=== PATIENT | male | born 1975 ===

== ENCOUNTER → 2020-01-08 14:22 | Outpatient (BNVA) | payer OTHER, SELFPAY | PROVIDERS: PCP Nurse Practitioner Family; Referring Provider Nurse Practitioner Family; Visit Provider Student in an Organized Health Care Education/Training Program | DX: Z76.89 Persons encountering health services in other specified circumstances (principal) ==

== ENCOUNTER 2020-01-10 11:38 | Outpatient (REF) | payer OTHER, SELFPAY | END 2020-01-10 11:39 | disposition home or self-care (01) | LOC: HO.LAB 11:38 | PROVIDERS: PCP Nurse Practitioner Family; Visit Provider Internal Medicine | DX: Z20.828 Contact with and (suspected) exposure to other viral communicable diseases (principal) | CPT/HCPCS: 87635 ==

== ENCOUNTER 2020-01-11 07:55 | Outpatient (REF) | payer OTHER, SELFPAY ==
[2020-01-11 09:35] LABS: Blood Urea Nitrogen 14 mg/dL (9-16); Estimated Glomerular Filt Rate > 60
== END 2020-01-11 07:56 | disposition home or self-care (01) ==
LOC: HO.LAB 07:55
PROVIDERS: PCP Nurse Practitioner Family; Visit Provider Student in an Organized Health Care Education/Training Program
DX: M79.641 Pain in right hand (principal)
CPT/HCPCS: 82565; 84520

== ENCOUNTER 2020-01-18 08:47 | Outpatient (REF) | payer OTHER, SELFPAY | END 2020-01-18 08:48 | disposition home or self-care (01) | LOC: HO.LAB 08:47 | PROVIDERS: Visit Provider Internal Medicine | DX: Z20.828 Contact with and (suspected) exposure to other viral communicable diseases (principal); E11.9 Type 2 diabetes mellitus without complications; E78.5 Hyperlipidemia, unspecified; E66.01 Morbid (severe) obesity due to excess calories; Z68.37 Body mass index [BMI] 37.0-37.9, adult; I10 Essential (primary) hypertension; Z71.3 Dietary counseling and surveillance | CPT/HCPCS: U0003 ==

== ENCOUNTER 2020-01-22 08:51 | Outpatient (REF) | payer OTHER, SELFPAY ==
[2020-01-22 10:06] LABS: Estimated Average Glucose 169 mg/dL; Hemoglobin A1c % 7.5 %
[2020-01-22 10:20] LABS: Alanine Aminotransferase 32 U/L (0-40); Albumin Level 4.2 g/dL (3.5-5.0); Alkaline Phosphatase 62 U/L (39-117); Anion Gap 13 (12-20); Aspartate Amino Transferase 21 U/L (5-37); Bilirubin Total 0.7 mg/dL (0.0-1.0); Blood Urea Nitrogen 11 mg/dL (9-16); Calcium 8.8 mg/dL (8.4-10.2); Carbon Dioxide 26 mmol/L (22-29); Chloride 105 mmol/L (96-108); Cholesterol 242 mg/dL; Estimated Glomerular Filt Rate > 60; Glucose Fasting 148 mg/dL (60-99); HDL Cholesterol 40 mg/dL; LDL Cholesterol Calculated 138 mg/dl; Potassium 4.2 mmol/l (3.3-5.1); Sodium 140 mmol/L (135-145); Triglycerides 324 mg/dL
[2020-01-22 10:26] LABS: Vitamin D 25-OH Total 21.4 ng/mL (>30)
[2020-01-22 10:45] LABS: Creatinine Urine 191.25 mg/dL; Microalbum/Creatinine Ratio Ur 10.9 ug/mg cr
[2020-01-23 06:16] LABS: LDL Cholesterol Direct 138 mg/dL (<100)
== END 2020-01-22 08:52 | disposition home or self-care (01) ==
LOC: HO.LAB 08:51
PROVIDERS: PCP Nurse Practitioner Family; Visit Provider Nurse Practitioner Gerontology
DX: E11.9 Type 2 diabetes mellitus without complications (principal)
CPT/HCPCS: 80053; 80061; 82043; 82306; 83036; 83721

== ENCOUNTER 2020-03-25 10:03 | Outpatient (REF) | payer OTHER, SELFPAY | END 2020-03-25 10:04 | disposition home or self-care (01) | LOC: HO.LAB 10:03 | PROVIDERS: Visit Provider Internal Medicine | DX: Z20.822 Contact with and (suspected) exposure to COVID-19 (principal) | CPT/HCPCS: 36415; C9803; U0003 ==

== ENCOUNTER 2020-05-11 15:27 | Emergency (ER) | payer OTHER, SELFPAY ==
--- NOTE | ~2020-05-11 | CT_ITS ---
EXAMINATION: CT SOFT TISSUE NECK WITH CONTRAST CLINICAL INFORMATION: Right lateral neck swelling. COMPARISON: Head CT from May 17, 2019. TECHNIQUE: Following the intravenous administration of 100 mL of Omnipaque 350 intravenous contrast, helical imaging was performed in the axial plane with generation of coronal and sagittal reformatted images. This CT examination was performed using dose optimization techniques as appropriate, variously including the following: *Automated exposure control *Adjustment of mA and/or kV according to patient size (this includes techniques or standardized protocols for targeted exams where dose is matched to indication/reason for exam; i.e. extremities or head) *Use of iterative reconstruction technique DLP: 838 mGy-cm FINDINGS: There are numerous prominent cervical lymph nodes, right greater than left. The largest on the right inferior to the submandibular gland measures 2.1 x 1.5 cm. There are no drainable fluid collections. The parotid glands are homogeneous in attenuation. The submandibular glands are normal. No contour abnormality or pathologic enhancement is seen within the oral cavity or pharyngeal mucosal space. The laryngeal structures are normal. There is retropharyngeal fluid without adjacent inflammation measuring approximately 2.7 x 1.4 cm and extending approximately 5.5 cm cranial to caudad. This extends from C1 through C5. There is no adjacent fat stranding. The carotid sheath vasculature opacify normally. No extra mucosal soft tissue mass or fluid collection is seen. No retropharyngeal fluid collection is seen. The thyroid gland is normal. The superior mediastinum is unremarkable. The lung apices are clear. The mastoid air cells and visualized portions of the paranasal sinuses are well-aerated. The temporomandibular joints are normal. No periapical disease is identified. No osseous abnormalities are seen. The imaged portions of the brain parenchyma are unremarkable. CT/CT soft tissue neck w con IMPRESSION: Retropharyngeal fluid extending from approximately C1-C5. While there is no adjacent enhancement, that this represents a developing infectious process is to be considered. Right greater than left enlarged cervical lymph nodes. No drainable fluid collections. The etiology of the lymph nodes is uncertain, though consider inflammatory, infectious and neoplastic etiologies. Close follow-up is warranted to assure resolution.
[2020-05-11 15:39] VITALS: BP 140/73; PULSE 102; RESP 18; TEMP 36.9; O2SAT 98; BMI 33.9
[2020-05-11 16:36] VITALS: TEMP 39.6
[2020-05-11 16:44] LABS: Basophils Percent Auto 0.3 % (0-2); Eosinophils Absolute Auto 0.2 X10*3/uL (0.0-0.4); Eosinophils Percent Auto 2.7 % (0-4); Hematocrit 36.2 % (42-52); Imm Gran Abs Auto 0.02 X10*3/uL (0.00-0.03); Imm Gran Pct Auto 0.3 % (0.0-0.4); Lymphocytes Absolute Auto 0.5 X10*3/uL (1.2-4.9); Lymphocytes Percent Auto 8.5 % (20-40); MANUAL DIFF FLAG SCAN; Mean Corpuscular HGB Conc 33.1 g/dl (31.0-36.0); Mean Corpuscular Hemoglobin 29.1 pg (27.0-33.0); Mean Corpuscular Volume 87.9 fL (80-98); Mean Platelet Volume 10.6 fL (9.4-12.4); Monocytes Absolute Auto 0.3 X10*3/uL (0.1-1.2); Monocytes Percent Auto 5.3 % (2-11); Neutrophils Absolute Auto 5.2 X10*3/uL (2.0-8.3); Neutrophils Percent Auto 82.9 % (45-73); Platelet Count 143 X10*3/uL (160-400); Red Blood Count 4.12 X10*6/uL (4.60-5.80); Red Cell Distribution Width 13.4 % (11.0-16.0); SCAN SMEAR FLAG 1; White Blood Count 6.3 X10*3/uL (4.8-10.8)
[2020-05-11 17:07] LABS: SLIDE REVIEW VERIFIED
[2020-05-11 17:10] LABS: Anion Gap 14 (12-20); Blood Urea Nitrogen 8 mg/dL (9-16); Calcium 8.1 mg/dL (8.4-10.2); Carbon Dioxide 23 mmol/L (22-29); Chloride 102 mmol/L (96-108); Estimated Glomerular Filt Rate > 60; Glucose Random 180 mg/dL (60-115); Potassium 3.6 mmol/L (3.3-5.1); Sodium 135 mmol/L (135-145)
--- NOTE | 2020-05-11 17:11 | ECG_ITS ---
Test Reason : TACHYCARDIA Blood Pressure : / mmHG Vent. Rate : 102 BPM Atrial Rate : 102 BPM P-R Int : 132 ms QRS Dur : 092 ms QT Int : 324 ms P-R-T Axes : 039 013 001 degrees QTc Int : 422 ms Sinus tachycardia Otherwise normal ECG No previous ECGs available Referred By: Bree Chao Electronically Signed By:LATRICIA VELASQUEZ MD
--- NOTE | 2020-05-11 17:21 | ED_ITS ---
HPI - Skin/Abscess/Foreign Bdy General Chief complaint: Skin/Abscess/Foreign Body Stated complaint: swollen neck Time Seen by Provider: 05/11/20 17:08 Source: patient Mode of arrival: ambulatory Limitations: no limitations History of Present Illness HPI narrative: 44-year-old male with past medical history of type 2 diabetes insulin-dependent, hypertension, hyperlipidemia, fibromyalgia, morbid obesity, and DAVIS positive presents with 3 days of right-sided neck swelling with fevers and chills. Does not have any difficulty swallowing and does not have any changes in voice, but states that it hurts when he turns his neck left or right. He has been taking Tylenol Motrin with poor effect. He denies chest pain or pressure, palpitations, shortness of breath, abdominal pain, abdominal distention, dysuria, hematuria, and edema. He does not report any sick contacts, physical injury, repetitive motions or trauma. MD complaint: abscess/boil Onset (ago): day(s) (3) Tetanus up to date: unsure Location: neck Severity: moderate Severity scale (1-10): 8 Quality: aching Pain Consistency: constant Relieving factors: none Exacerbating factors: palpation and movement Context: none Associated symptoms: fever, chills and malaise Treatments prior to arrival: NSAID Related Data Home Medications Medication Instructions Recorded Confirmed naproxen 500 mg tablet 500 mg PO BID PRN 01/08/20 04/08/20 Previous Rx's Medication Instructions Recorded lisinopril 5 mg tablet 5 mg PO DAILY 90 Days #90 tab 01/20/20 cholecalciferol (vitamin D3) 50 50 mcg PO DAILY #30 cap 01/26/20 mcg (2,000 unit) capsule dulaglutide 1.5 mg/0.5 mL 1.5 mg SUBCUT QWEEK 28 Days #2 ml 01/26/20 subcutaneous pen injector Allergies Allergy/AdvReac Type Severity Reaction Status Date / Time No Known Allergies Allergy Verified 04/08/20 17:07 [No Known Allergies*] Review of Systems Review of Systems: Constitutional: Positive Fever, positive Chills ENT/Mouth: No Ear Pain, No Hoarseness, No sore throat Eyes: No Eye Pain, No Swelling, No Redness, No Foreign Body Cardiovascular: No Chest Pain, No SOB Respiratory: No Cough, No Dyspnea Gastrointestinal: No Nausea, No Vomiting, No Diarrhea, No abdominal Pain Genitourinary: No Dysuria, No Hematuria Musculoskeletal: positive neck pain and swelling, No Myalgias, No Joint Swelling Skin: No Skin lacerations, No rash Neuro: No Weakness, No Numbness, No Paresthesias, No Loss of Consciousness, No Dizziness, No Headache Psych: No Anxiety/Panic, No Depression Heme/Lymph: no easy bruising, no Lymphadenopathy Endocrine: No Polyuria, No Polydipsia Yes all other systems are reviewed and are negative [facility] Past Medical History Attestation statement: The following information was validated with the patient. Source: old records reviewed Medical History DAVIS positive BMI 37.0-37.9, adult Controlled diabetes mellitus without complication, without long-term current use of insulin Elevated CPK Essential hypertension Fibromyalgia Hyperlipidemia LDL goal <100 Morbid obesity due to excess calories Type 2 diabetes mellitus with hyperglycemia Vitamin D insufficiency Surgical History No pertinent past surgical history Family History Family History Father No problems noted. Mother No problems noted. Maternal Grandfather CVD (cardiovascular disease) Maternal Aunt Diabetes mellitus Social History Social History Household Members: Spouse Housing: Apartment Alcohol intake: unknown Smoking Status: Unknown if ever smoked Use of substances other than those prescribed or required for medical reasons: Unknown Advance Directives: No Advance Directives Information Provided: No Physical Exam Vital Signs: Vital Signs: Last Vital Signs Temp 99.3 F 05/11/20 20:43 Pulse 87 05/11/20 21:25 Resp 18 05/11/20 21:25 BP 111/70 05/11/20 21:25 Pulse Ox 97 05/11/20 21:25 Body Mass Index 33.9 Appearance: Alert. Oriented X3. Moderate distress. Afebrile Head: Normal external exam. Normocephalic. Atraumatic. No Faulkner signs noted. No raccoon eyes noted Eyes: PERRLA. EOMI. Conjunctiva and sclera normal. Eyelids normal. ENT: TM's Normal. Pharynx normal. Uvula midline. Moist mucous membranes. No trismus noted. No drooling noted. No muffled voice noted. No tracheal stridor noted Neck: Swelling and warmth to the right sternocleidomastoid from the mastoid process to the cricoid on the right lateral side, No adenopathy. Thyroid Normal. No meningeal signs. Full range of motion and strength on cervical movement CVS: Tachycardic heart rate and rhythm. Heart sound normal. No murmurs noted. Pulses equal to all extremities. Respiratory: No respiratory distress. Painless inspiration. Breath sounds normal. No wheezes/rales/rhonchi noted. Chest nontender. No accessory muscle usage noted or decreased air movement noted. Abdomen: Soft and nontender. Bowel sounds normal in all 4 quadrants. No distention noted. No organomegaly noted. No visible injury noted. Back: No CVA tenderness. Full range of motion noted. Skin: Skin warm and dry. Normal skin color. Normal skin turgor. No rashes/lesions/lacerations noted. Extremities: No lower extremity edema. Extremities exhibit normal range of motion. Extremities nontender. Neuro: cranial nerves 2-12 intact, no focal neural deficits, strength 5/5 to all extremities, No motor deficit. No sensory deficit. Reflexes normal. Course Course Course Narrative: 44-year-old male with past medical history of type 2 diabetes insulin-dependent, hypertension, hyperlipidemia, fibromyalgia, morbid obesity, and DAVIS positive presents with 3 days of right-sided neck swelling with fevers and chills. Symptoms are highly suspicious for parotiditis, sepsis, abscess. At 5:10 p.m. upon my initial assessment patient is febrile at 103.2 oral, heart rate 102, patient meets sepsis criteria. Fluid resuscitation at 30 milliliters/kilograms for ideal body weight at 91 kg. Order for ceftriaxone and Flagyl IV, Toradol for fever control. 7:[address] scan resulted indicates a prevertebral retropharyngeal abscess. Discussed with Dr Randall, will stop the Flagyl and give Zosyn and Vanco. Call out to [facility]. Detailed discussion with patient regarding findings, food preparation kitchen aide utilized for all correspondence. Discussion with pharmacy, based on patient's severity of illness, NPO status, we have ordered IV Tylenol. 7:39 p.m. discussion with Neurosurgery at [facility], this is a prevertebral retropharyngeal complication and does not go in to the spinal canal, refer to ENT. Dr Hayden Berry 7:[address] discussion [address] ENT Dr Amador, patient does not require surgical intervention at this time, will discuss case with hospitalist at [facility] for transfer. 8:07 p.m. discussion with hospitalist, plan is for medical admit for prevertebral retropharyngeal abscess. Accepting MD Dr Philippe. MDM - Skin/Abscess/Foreign Bdy MDM Narrative Medical decision making narrative: Lymphadenopathy, parotiditis, tonsillar abscess, strep pharyngitis Differential Diagnosis Differential diagnosis: Likely abscess of skin or subcutaneous tissue and cellulitis Medical Records Attestation: I reviewed the patient's medical records. Lab Data Attestation: I reviewed the patient's lab results. Result diagrams: 05/11/20 16:33 05/11/20 16:33 Labs: Lab Results 05/11/20 05/11/20 05/11/20 Range/Units 16:33 16:33 17:32 WBC 6.3 (4.8-10.8) X10*3/uL RBC 4.12 L (4.60-5.80) X10*6/uL Hgb 12.0 L (14.0-18.0) g/dl Hct 36.2 L (42-52) % MCV 87.9 (80-98) fL MCH 29.1 (27.0-33.0) pg MCHC 33.1 (31.0-36.0) g/dl RDW 13.4 (11.0-16.0) % Plt Count 143 L (160-400) X10*3/uL MPV 10.6 (9.4-12.4) fL Immature Gran % (Auto) 0.3 (0.0-0.4) % Neut % (Auto) 82.9 H (45-73) % Lymph % (Auto) 8.5 L (20-40) % Sterling % (Auto) 5.3 (2-11) % Eos % (Auto) 2.7 (0-4) % Baso % (Auto) 0.3 (0-2) % Lymph # (Auto) 0.5 L (1.2-4.9) X10*3/uL Sterling # (Auto) 0.3 (0.1-1.2) X10*3/uL Eos # (Auto) 0.2 (0.0-0.4) X10*3/uL Baso # (Auto) 0.0 (0.0-0.2) X10*3/uL Abs Immat Gran (auto) 0.02 (0.00-0.03) X10*3/uL Absolute Neuts (auto) 5.2 (2.0-8.3) X10*3/uL Absolute Nucleated RBC 0.000 (0.0-0.012) X10*3/uL Nucleated RBC % (auto) 0.0 (0.0-0.2) /100WBC Smear Tech's Comments VERIFIED PT 16.8 H (10.8-13.0) SEC INR 1.4 H (0.9-1.1) APTT 37.5 (24.1-38.0) SEC Sodium 135 (135-145) mmol/L Potassium 3.6 (3.3-5.1) mmol/L Chloride 102 (96-108) mmol/L Carbon Dioxide 23 (22-29) mmol/L Anion Gap 14 (12-20) BUN 8 L (9-16) mg/dL Creatinine 0.86 (0.5-1.4) mg/dL Estim Creat Clear Calc 141.0 Estimated GFR > 60 Random Glucose 180 H (60-115) mg/dL Lactic Acid (0.5-2.0) mmol/L Calcium 8.1 L D (8.4-10.2) mg/dL Total Bilirubin (0.0-1.0) mg/dL Direct Bilirubin (0.0-0.5) mg/dL AST (5-37) U/L ALT (0-40) U/L Alkaline Phosphatase (39-117) U/L Troponin I High Sens (<3.5-35.0) ng/L Total Protein (6.5-8.0) g/dL Albumin (3.5-5.0) g/dL Lipase (8-78) U/L Coronavirus (PCR) (Negative) Influenza Type A (PCR) (Negative) Influenza Type B (PCR) (Negative) RSV RNA Qual (PCR) (Negative) 0205/11/20 05/11/20 Range/Units 17:32 17:32 17:32 WBC (4.8-10.8) X10*3/uL RBC (4.60-5.80) X10*6/uL Hgb (14.0-18.0) g/dl Hct (42-52) % MCV (80-98) fL MCH (27.0-33.0) pg MCHC (31.0-36.0) g/dl RDW (11.0-16.0) % Plt Count (160-400) X10*3/uL MPV (9.4-12.4) fL Immature Gran % (Auto) (0.0-0.4) % Neut % (Auto) (45-73) % Lymph % (Auto) (20-40) % Sterling % (Auto) (2-11) % Eos % (Auto) (0-4) % Baso % (Auto) (0-2) % Lymph # (Auto) (1.2-4.9) X10*3/uL Sterling # (Auto) (0.1-1.2) X10*3/uL Eos # (Auto) (0.0-0.4) X10*3/uL Baso # (Auto) (0.0-0.2) X10*3/uL Abs Immat Gran (auto) (0.00-0.03) X10*3/uL Absolute Neuts (auto) (2.0-8.3) X10*3/uL Absolute Nucleated RBC (0.0-0.012) X10*3/uL Nucleated RBC % (auto) (0.0-0.2) /100WBC Smear Tech's Comments PT (10.8-13.0) SEC INR (0.9-1.1) APTT (24.1-38.0) SEC Sodium (135-145) mmol/L Potassium (3.3-5.1) mmol/L Chloride (96-108) mmol/L Carbon Dioxide (22-29) mmol/L Anion Gap (12-20) BUN (9-16) mg/dL Creatinine (0.5-1.4) mg/dL Estim Creat Clear Calc Estimated GFR Random Glucose (60-115) mg/dL Lactic Acid 1.7 (0.5-2.0) mmol/L Calcium (8.4-10.2) mg/dL Total Bilirubin 0.6 (0.0-1.0) mg/dL Direct Bilirubin 0.2 (0.0-0.5) mg/dL AST 40 H D (5-37) U/L ALT 51 H (0-40) U/L Alkaline Phosphatase 70 (39-117) U/L Troponin I High Sens 9.6 (<3.5-35.0) ng/L Total Protein 6.6 (6.5-8.0) g/dL Albumin 3.9 (3.5-5.0) g/dL Lipase 31 (8-78) U/L Coronavirus (PCR) (Negative) Influenza Type A (PCR) (Negative) Influenza Type B (PCR) (Negative) RSV RNA Qual (PCR) (Negative) 05/11/20 Range/Units 17:49 WBC (4.8-10.8) X10*3/uL RBC (4.60-5.80) X10*6/uL Hgb (14.0-18.0) g/dl Hct (42-52) % MCV (80-98) fL MCH (27.0-33.0) pg MCHC (31.0-36.0) g/dl RDW (11.0-16.0) % Plt Count (160-400) X10*3/uL MPV (9.4-12.4) fL Immature Gran % (Auto) (0.0-0.4) % Neut % (Auto) (45-73) % Lymph % (Auto) (20-40) % Sterling % (Auto) (2-11) % Eos % (Auto) (0-4) % Baso % (Auto) (0-2) % Lymph # (Auto) (1.2-4.9) X10*3/uL Sterling # (Auto) (0.1-1.2) X10*3/uL Eos # (Auto) (0.0-0.4) X10*3/uL Baso # (Auto) (0.0-0.2) X10*3/uL Abs Immat Gran (auto) (0.00-0.03) X10*3/uL Absolute Neuts (auto) (2.0-8.3) X10*3/uL Absolute Nucleated RBC (0.0-0.012) X10*3/uL Nucleated RBC % (auto) (0.0-0.2) /100WBC Smear Tech's Comments PT (10.8-13.0) SEC INR (0.9-1.1) APTT (24.1-38.0) SEC Sodium (135-145) mmol/L Potassium (3.3-5.1) mmol/L Chloride (96-108) mmol/L Carbon Dioxide (22-29) mmol/L Anion Gap (12-20) BUN (9-16) mg/dL Creatinine (0.5-1.4) mg/dL Estim Creat Clear Calc Estimated GFR Random Glucose (60-115) mg/dL Lactic Acid (0.5-2.0) mmol/L Calcium (8.4-10.2) mg/dL Total Bilirubin (0.0-1.0) mg/dL Direct Bilirubin (0.0-0.5) mg/dL AST (5-37) U/L ALT (0-40) U/L Alkaline Phosphatase (39-117) U/L Troponin I High Sens (<3.5-35.0) ng/L Total Protein (6.5-8.0) g/dL Albumin (3.5-5.0) g/dL Lipase (8-78) U/L Coronavirus (PCR) NEGATIVE (Negative) Influenza Type A (PCR) NEGATIVE (Negative) Influenza Type B (PCR) NEGATIVE (Negative) RSV RNA Qual (PCR) NEGATIVE (Negative) Imaging Data CT scan neck soft tissue: Attestation: I personally reviewed and interpreted this imaging study as follows: Radiologist's impression: EXAMINATION: CT SOFT TISSUE NECK WITH CONTRAST CLINICAL INFORMATION: Right lateral neck swelling. COMPARISON: Head CT from May 17, 2019. TECHNIQUE: Following the intravenous administration of 100 mL of Omnipaque 350 intravenous contrast, helical imaging was performed in the axial plane with generation of coronal and sagittal reformatted images. This CT examination was performed using dose optimization techniques as appropriate, variously including the following: *Automated exposure control *Adjustment of mA and/or kV according to patient size (this includes techniques or standardized protocols for targeted exams where dose is matched to indication/reason for exam; i.e. extremities or head) *Use of iterative reconstruction technique DLP: 838 mGy-cm FINDINGS: There are numerous prominent cervical lymph nodes, right greater than left. The largest on the right inferior to the submandibular gland measures 2.1 x 1.5 cm. There are no drainable fluid collections. The parotid glands are homogeneous in attenuation. The submandibular glands are normal. No contour abnormality or pathologic enhancement is seen within the oral cavity or pharyngeal mucosal space. The laryngeal structures are normal. There is retropharyngeal fluid without adjacent inflammation measuring approximately 2.7 x 1.4 cm and extending approximately 5.5 cm cranial to caudad. This extends from C1 through C5. There is no adjacent fat stranding. The carotid sheath vasculature opacify normally. No extra mucosal soft tissue mass or fluid collection is seen. No retropharyngeal fluid collection is seen. The thyroid gland is normal. The superior mediastinum is unremarkable. The lung apices are clear. The mastoid air cells and visualized portions of the paranasal sinuses are well-aerated. The temporomandibular joints are normal. No periapical disease is identified. No osseous abnormalities are seen. The imaged portions of the brain parenchyma are unremarkable. CT/CT soft tissue neck w con IMPRESSION: Retropharyngeal fluid extending from approximately C1-C5. While there is no adjacent enhancement, that this represents a developing infectious process is to be considered. Right greater than left enlarged cervical lymph nodes. No drainable fluid collections. The etiology of the lymph nodes is uncertain, though consider inflammatory, infectious and neoplastic etiologies. Close follow-up is warranted to assure resolution. ECG Data Attestation: I personally reviewed and interpreted this ECG as follows: ECG interpretation date: 05/11/20 ECG interpretation time: 17:48 Prior ECG tracings: available for review Interpretation: Vent. rate 102 BPM OK interval 132 ms QRS duration 92 ms QT/QTc 324/422 ms P-R-T axes 39 13 1 Sinus tachycardia Otherwise normal ECG No previous ECGs available Critical Care Time Critical Care Time Critical Care Time: Yes Total Critical Care Time: 120 Attestation: I have personally provided critical care time exclusive of time spent on separately billable procedures. Time includes review of laboratory data, radiology results, discussion with consultants, and monitoring for potential decompensation. Interventions were performed as documented. Discharge Plan Discharge Clinical Impression: Sepsis, Abscess, retropharyngeal Patient Disposition: Xfer Acute Care Hospital Transfer Details: [facility] Prescriptions: No Action lisinopril 5 mg tablet 5 mg PO DAILY 90 Days Qty: 90 RF: 2 Trulicity 1.5 mg/0.5 mL pen injector 1.5 mg subcut QWEEK 28 Days Qty: 2 RF: 5 cholecalciferol (vitamin D3) 50 mcg (2,000 unit) capsule 50 mcg PO DAILY Qty: 30 RF: 5 naproxen 500 mg tablet 500 mg PO BID PRNRF: 0 Interventions: Acute Care Transfer Worksheet (ED) Last Done: 05/11/20 21:39 Discharge Date/Time: 05/11/20 21:41
[2020-05-11] MEDS: Acetaminophen 325 MG TABLET 650 MG PO (17:51)
[2020-05-11] MEDS: Ketorolac Tromethamine 30 MG/ML VIAL IVPUSH (17:51)
[2020-05-11] MEDS: cefTRIAXone sodium 1 GM in 0.9 % Sodium Chloride 50 ML IV (17:51)
[2020-05-11 17:52] LABS: INTERNATIONAL NORM RATIO 1.4 (0.9-1.1); Prothrombin Time 16.8 SEC (10.8-13.0)
[2020-05-11] MEDS: SODIUM CHLORIDE 2730 ML IVCONT (17:53)
[2020-05-11 17:55] LABS: Partial Thromboplastin Time 37.5 SEC (24.1-38.0)
[2020-05-11] MEDS: iohexoL 350 MG/ML 100 ML INFUS..BTL IV (17:55)
[2020-05-11 18:04] LABS: Lactic Acid 1.7 mmol/L (0.5-2.0)
[2020-05-11 18:08] LABS: Alanine Aminotransferase 51 U/L (0-40); Albumin Level 3.9 g/dL (3.5-5.0); Alkaline Phosphatase 70 U/L (39-117); Aspartate Amino Transferase 40 U/L (5-37); Bilirubin Direct 0.2 mg/dL (0.0-0.5); Bilirubin Total 0.6 mg/dL (0.0-1.0); Lipase 31 U/L (8-78); Total Protein 6.6 g/dL (6.5-8.0)
[2020-05-11 18:13] LABS: Troponin-I High Sensitivity 9.6 ng/L (<3.5-35.0)
[2020-05-11 18:37] LABS: Influenza A PCR NEGATIVE (Negative); Influenza B PCR NEGATIVE (Negative); Resp Syncy Virus RNA Qual PCR NEGATIVE (Negative); SARS COV2 PCR INHOUSE NEGATIVE (Negative)
[2020-05-11 19:13] VITALS: BP 112/61; PULSE 97; RESP 16; TEMP 39.1; O2SAT 97
--- NOTE | 2020-05-11 19:21 | PC.NURSE ---
FLAGYL NOT GIVEN PER ELVIRA BARCENAS. PLAN FOR GLADIS, GRECIA AND TX TO [facility]
[2020-05-11] MEDS: Piperacillin Sodium/Tazobactam 3.375 GM in 0.9 % Sodium Chloride 50 ML IV (19:37)
[2020-05-11] MEDS: dexAMETHasone sod phosphate 4 MG/ML VIAL 8 MG IVPUSH (20:36)
[2020-05-11 20:43] VITALS: BP 118/69; PULSE 89; RESP 16; TEMP 37.4; O2SAT 96
--- NOTE | 2020-05-11 21:19 | PC.NURSE ---
Report attempted to [facility] x 1
[2020-05-11 21:25] VITALS: BP 111/70; PULSE 87; RESP 18; O2SAT 97
== END 2020-05-11 21:41 | disposition short-term general hospital (02) ==
PROVIDERS: Nurse Practitioner Family; Emergency Provider Internal Medicine; PCP Nurse Practitioner Family
DX: L02.11 Cutaneous abscess of neck (principal); A41.9 Sepsis, unspecified organism; E11.9 Type 2 diabetes mellitus without complications; Z79.4 Long term (current) use of insulin; Z79.899 Other long term (current) drug therapy; Z20.822 Contact with and (suspected) exposure to COVID-19
CPT/HCPCS: 0241U; 36415; 70491; 80048; 80076; 83605; 83690; 84484; 85025; 85610; 85730; 87040; 87071; 87880; 93005; 96361; 96365; 96366; 96367; 96375; 99285; 99291; 99292; J0131; J0696; J1100; J1885; J2543; J3370; Q9967

== ENCOUNTER 2020-08-05 07:48 | Outpatient (REF) | payer OTHER, SELFPAY ==
[2020-08-05 11:15] LABS: MANUAL DIFF FLAG NO
[2020-08-05 11:33] LABS: Basophils Percent Auto 0.3 % (0-2); Eosinophils Absolute Auto 0.4 X10*3/uL (0.0-0.4); Eosinophils Percent Auto 5.3 % (0-4); Hematocrit 44.8 % (42-52); Hemoglobin 14.4 g/dl (14.0-18.0); Imm Gran Abs Auto 0.02 X10*3/uL (0.00-0.03); Imm Gran Pct Auto 0.3 % (0.0-0.4); Lymphocytes Absolute Auto 1.9 X10*3/uL (1.2-4.9); Mean Corpuscular HGB Conc 32.1 g/dl (31.0-36.0); Mean Corpuscular Hemoglobin 29.1 pg (27.0-33.0); Mean Corpuscular Volume 90.7 fL (80-98); Mean Platelet Volume 10.2 fL (9.4-12.4); Monocytes Absolute Auto 0.2 X10*3/uL (0.1-1.2); Monocytes Percent Auto 3.3 % (2-11); Neutrophils Absolute Auto 4.8 X10*3/uL (2.0-8.3); Neutrophils Percent Auto 64.8 % (45-73); Platelet Count 281 X10*3/uL (160-400); Red Blood Count 4.94 X10*6/uL (4.60-5.80); White Blood Count 7.4 X10*3/uL (4.8-10.8)
[2020-08-05 11:43] LABS: Alanine Aminotransferase 26 U/L (0-40); Albumin Level 4.5 g/dL (3.5-5.0); Alkaline Phosphatase 57 U/L (39-117); Anion Gap 15 (12-20); Aspartate Amino Transferase 18 U/L (5-37); Bilirubin Total 0.6 mg/dL (0.0-1.0); Blood Urea Nitrogen 17 mg/dL (9-16); Calcium 9.5 mg/dL (8.4-10.2); Carbon Dioxide 24 mmol/L (22-29); Chloride 103 mmol/L (96-108); Cholesterol 253 mg/dL; Estimated Glomerular Filt Rate > 60; Glucose Fasting 170 mg/dL (60-99); HDL Cholesterol 41 mg/dL; LDL Cholesterol Calculated 153 mg/dl; Sodium 138 mmol/L (135-145); Total Protein 7.4 g/dL (6.5-8.0); Triglycerides 295 mg/dL
[2020-08-05 12:06] LABS: TSH reflex Free T4 0.95 uIU/mL (0.32-4.0)
== END 2020-08-05 07:49 | disposition home or self-care (01) ==
LOC: HO.HMGCLDS 07:48
PROVIDERS: PCP Nurse Practitioner Family; Visit Provider Nurse Practitioner Gerontology
DX: Z00.00 Encounter for general adult medical examination without abnormal findings (principal); E11.9 Type 2 diabetes mellitus without complications; E55.9 Vitamin D deficiency, unspecified; I10 Essential (primary) hypertension; E66.09 Other obesity due to excess calories; Z68.33 Body mass index [BMI] 33.0-33.9, adult; R74.8 Abnormal levels of other serum enzymes; N17.9 Acute kidney failure, unspecified; Z79.899 Other long term (current) drug therapy
CPT/HCPCS: 36415; 80053; 80061; 82550; 82947; 84443; 85025

== ENCOUNTER 2020-10-18 15:45 | Emergency (ER) | payer OTHER, SELFPAY ==
[2020-10-18 15:47] VITALS: BP 134/85; PULSE 82; RESP 18; TEMP 37; O2SAT 96; BMI 33.7
--- NOTE | 2020-10-18 17:11 | ED_ITS ---
HPI - General Adult General Chief complaint: General Medical Stated complaint: sorethroat, tired Time Seen by Provider: 10/18/20 17:11 History of Present Illness HPI narrative: Patient complains of sore throat, mild fatigue and an infrequent mild cough for 2 days, no difficulty breathing or swallowing, no chest pain, no fever chills He is concerned because he had a sore throat which developed into a retropharyngeal abscess some months ago and does not want it to happen again Related Data Previous Rx's Medication Instructions Recorded dulaglutide 1.5 mg/0.5 mL 1.5 mg SUBCUT QWEEK 28 Days #2 ml 08/20/20 subcutaneous pen injector (Trulicity) doxycycline hyclate 100 mg tablet 100 mg PO BID #14 tab 10/10/20 amoxicillin 875 mg-potassium 1 tab PO BID 7 Days #14 tab 10/18/20 clavulanate 125 mg tablet (Augmentin) Allergies Allergy/AdvReac Type Severity Reaction Status Date / Time ertapenem Allergy Intermediate Hives Verified 10/18/20 15:47 piperacillin [From Zosyn] Allergy Intermediate Hives Verified 10/18/20 15:47 tazobactam [From Zosyn] Allergy Intermediate Hives Verified 10/18/20 15:47 vancomycin Allergy Intermediate Hives Verified 10/18/20 15:47 Review of Systems Review of Systems: Positive for sore throat mild cough and body aches Negatives are no fever no chills no dizziness no weakness no headache no neck pain no difficulty swallowing there is just mild pain with swallowing, there is no shortness of breath no chest pain, no drooling no abdominal pain no nausea or vomiting no skin rash Yes all other systems are reviewed and are negative [facility] Past Medical History Attestation statement: The following information was validated with the patient. [facility] Narrative: Positive history of retropharyngeal abscess Source: nursing notes reviewed Medical History DAVIS positive Cellulitis of pharynx Controlled diabetes mellitus without complication, without long-term current use of insulin Elevated CPK Essential hypertension Fibromyalgia Hx of sepsis Hyperlipidemia LDL goal <100 Obesity due to excess calories Retropharyngeal abscess Retropharyngeal abscess Type 2 diabetes mellitus with hyperglycemia Vitamin D insufficiency Surgical History No pertinent past surgical history Family History Family History Father No problems noted. Mother No problems noted. Maternal Grandfather CVD (cardiovascular disease) Maternal Aunt Diabetes mellitus Social History Social History Household Members: Spouse Housing: Apartment Alcohol intake: unknown Physical Exam Vital Signs: Vital Signs: Last Vital Signs Temp 98.6 F 10/18/20 15:47 Pulse 82 10/18/20 15:47 Resp 18 10/18/20 15:47 BP 134/85 10/18/20 15:47 Pulse Ox 96 10/18/20 15:47 Body Mass Index 33.7 General appearance is no acute distress The nose is not congested The pharynx had mild erythema, there was no exudate no swelling no drooling, voice was normal it was not muffled, the patient swallows easily, mucous membranes were moist Neck exam there was no tenderness in the neck no mass in the neck, no palpable lymphadenopathy no stridor Neck was supple Chest clear to auscultation bilateral Heart no murmur Abdomen soft nontender Extremities full range of motion x4 Skin no rash Course Course Course Narrative: Comfortable patient with normal vital signs with no evidence of deep pharyngeal abscess is treated with antibiotic for pharyngitis in told re turn any time if it develops any worse condition Patient is comfortable, afebrile, swallows easily and is discharged Discharge Plan Discharge Clinical Impression: Pharyngitis Patient Disposition: Home, Self-Care Additional Instructions: Right now there is no evidence of a retropharyngeal abscess and her exam was normal as was her vital signs Because the throat was a little red we are starting antibiotic Augmentin Take probiotics with the antibiotic to prevent diarrhea For any increased pain or any swelling at all in the right side of her neck come back to the ER immediately Return any time any worse condition or any concerns Prescriptions: New amoxicillin-pot clavulanate [Augmentin] 875-125 mg tablet 1 tab PO BID 7 Days Qty: 14 RF: 0 No Action Trulicity 1.5 mg/0.5 mL pen injector 1.5 mg subcut QWEEK 28 Days Qty: 2 RF: 5 doxycycline hyclate 100 mg tablet 100 mg PO BID Qty: 14 RF: 0 Stand Alone Forms: Work/School Release Interventions: ED Discharge Assessment Last Done: 10/18/20 18:01 Discharge Date/Time: 10/18/20 18:03
== END 2020-10-18 18:03 | disposition home or self-care (01) ==
PROVIDERS: Emergency Provider Emergency Medicine Emergency Medical Services; PCP Nurse Practitioner Family
DX: J02.9 Acute pharyngitis, unspecified (principal); E11.9 Type 2 diabetes mellitus without complications; I10 Essential (primary) hypertension; Z79.4 Long term (current) use of insulin; Z79.899 Other long term (current) drug therapy
CPT/HCPCS: 99283

== ENCOUNTER → 2021-01-09 13:10 | Outpatient (BNVA) | payer OTHER, SELFPAY | PROVIDERS: PCP Nurse Practitioner Family; Visit Provider Nurse Practitioner Family ==

== ENCOUNTER 2021-03-26 09:26 | Outpatient (REF) | payer OTHER, SELFPAY ==
--- NOTE | ~2021-03-26 | XR_ITS ---
EXAMINATION: XR KNEE, LEFT CLINICAL INFORMATION: Pain COMPARISON: January 03, 2019 TECHNIQUE: Four views of the left knee. FINDINGS: There is no evidence of acute fracture or dislocation of the left knee. The joint spaces appear maintained. There is some marginal spurring at the medial joint space compartment. Mild patella spurring seen at the patellofemoral joint. There are patella spurs at sites of insertion of the patella and quadriceps tendons. No significant effusion. XR/XR knee LT 4V IMPRESSION: Mild degenerative change of the left knee without significant change from study of January 03, 2019..
== END 2021-03-26 09:27 | disposition home or self-care (01) ==
LOC: HO.HMGCLDS 09:26
PROVIDERS: Absent Provider Nurse Practitioner Gerontology; PCP Nurse Practitioner Family; Visit Provider Nurse Practitioner Family
DX: M25.562 Pain in left knee (principal)
CPT/HCPCS: 73564

== ENCOUNTER 2021-03-27 08:14 | Outpatient (REF) | payer OTHER, SELFPAY ==
[2021-03-27 11:37] LABS: Microalbum/Creatinine Ratio Ur 13.6 ug/mg cr
[2021-03-27 11:59] LABS: Alanine Aminotransferase 26 U/L (0-40); Albumin Level 4.2 g/dL (3.5-5.0); Alkaline Phosphatase 58 U/L (39-117); Anion Gap 14 (12-20); Aspartate Amino Transferase 16 U/L (5-37); Bilirubin Total 0.4 mg/dL (0.0-1.0); Blood Urea Nitrogen 13 mg/dL (9-16); Calcium 9.3 mg/dL (8.4-10.2); Carbon Dioxide 27 mmol/L (22-29); Chloride 107 mmol/L (96-108); Cholesterol 212 mg/dL; Estimated Glomerular Filt Rate > 60; Glucose Fasting 151 mg/dL (60-99); HDL Cholesterol 32 mg/dL; LDL Cholesterol Calculated 123 mg/dl; Potassium 4.1 mmol/L (3.3-5.1); Sodium 144 mmol/L (135-145); Total Protein 6.9 g/dL (6.5-8.0); Triglycerides 286 mg/dL
[2021-03-28 07:47] LABS: LDL Cholesterol Direct 118 mg/dL (<100)
== END 2021-03-27 08:15 | disposition home or self-care (01) ==
LOC: HO.HMGCLDS 08:14
PROVIDERS: Absent Provider Nurse Practitioner Family; PCP Nurse Practitioner Family; Visit Provider Nurse Practitioner Gerontology
DX: N17.9 Acute kidney failure, unspecified (principal); E78.5 Hyperlipidemia, unspecified; E11.9 Type 2 diabetes mellitus without complications
CPT/HCPCS: 36415; 80053; 80061; 82043; 82306; 82550; 83721

== ENCOUNTER → 2021-04-29 08:30 | Outpatient (BNVA) | payer OTHER, SELFPAY | PROVIDERS: PCP Nurse Practitioner Family; Visit Provider Nurse Practitioner Gerontology ==

== ENCOUNTER 2021-07-14 08:46 | Outpatient (REF) | payer OTHER, SELFPAY ==
[2021-07-14 10:30] LABS: Rheumatoid Factor < 15.0 IU/mL (<15.0)
[2021-07-14 10:56] LABS: Erythrocyte Sedimentation Rate 16 MM/HR (0-15)
== END 2021-07-14 08:47 | disposition home or self-care (01) ==
LOC: HO.LAB 08:46
PROVIDERS: PCP Nurse Practitioner Family; Visit Provider Psychiatry & Neurology Neurology
DX: M33.22 Polymyositis with myopathy (principal)
CPT/HCPCS: 36415; 82550; 84550; 85652; 86431

== ENCOUNTER 2021-12-19 08:49 | Outpatient (REF) | payer OTHER, SELFPAY ==
[2021-12-19 09:57] LABS: Alanine Aminotransferase 31 U/L (0-40); Albumin Level 4.4 g/dL (3.5-5.0); Alkaline Phosphatase 62 U/L (39-117); Anion Gap 19 (12-20); Aspartate Amino Transferase 25 U/L (5-37); Bilirubin Total 0.5 mg/dL (0.0-1.0); Blood Urea Nitrogen 11 mg/dL (9-16); Calcium 9.2 mg/dL (8.4-10.2); Carbon Dioxide 24 mmol/L (22-29); Chloride 104 mmol/L (96-108); Cholesterol 231 mg/dL; Estimated Glomerular Filt Rate > 60; Glucose Fasting 184 mg/dL (60-99); HDL Cholesterol 34 mg/dL; LDL Cholesterol Calculated 131 mg/dl; Potassium 4.6 mmol/L (3.3-5.1); Sodium 142 mmol/L (135-145); Total Protein 7.1 g/dL (6.5-8.0); Triglycerides 330 mg/dL
[2021-12-19 10:16] LABS: TSH reflex Free T4 1.52 uIU/mL (0.32-4.0)
[2021-12-19 10:17] LABS: Appearance Urine Clear; Color Urine Yellow; Glucose Urine UA Negative (Negative); Leukocyte Esterase Urine Negative (Negative); Nitrite Urine Negative (Negative); PH 5.5 (5.0-9.0); Urine Blood Negative (Negative); Urine Ketones Negative (Negative); Urine Protein Trace mg/dL (Neg-Trace)
[2021-12-19 12:03] LABS: Folate 18.8 ng/mL (> or = 4.0); Vitamin B12 604 pg/mL (200-900)
== END 2021-12-19 08:50 | disposition home or self-care (01) ==
LOC: HO.LAB 08:49
PROVIDERS: PCP Nurse Practitioner Family; Visit Provider Nurse Practitioner Family
DX: M79.604 Pain in right leg (principal); M79.605 Pain in left leg; E78.5 Hyperlipidemia, unspecified
CPT/HCPCS: 36415; 80053; 80061; 81003; 82550; 82607; 82746; 84443

== ENCOUNTER 2022-04-14 12:38 | Outpatient (REF) | payer OTHER, SELFPAY ==
--- NOTE | 2022-04-14 08:54 | EMG_ITS ---
Please see scanned EMG / Nerve Conduction Report. MTDD
== END 2022-04-14 12:39 | disposition home or self-care (01) ==
LOC: HO.NEURO 12:38
PROVIDERS: PCP Nurse Practitioner Family; Visit Provider Nurse Practitioner Family
DX: R20.0 Anesthesia of skin (principal)
CPT/HCPCS: 95885; 95911

== ENCOUNTER → 2022-07-07 07:18 | Outpatient (BNVA) | payer OTHER, SELFPAY | PROVIDERS: PCP Nurse Practitioner Family; Visit Provider Student in an Organized Health Care Education/Training Program | DX: R74.8 Abnormal levels of other serum enzymes (principal) | CPT/HCPCS: 99212 ==

== ENCOUNTER 2022-11-26 10:58 | Emergency (ER) | payer OTHER, SELFPAY ==
--- NOTE | ~2022-11-26 | US_ITS ---
EXAMINATION: US SCROTUM CLINICAL INFORMATION: Flank pain. Left testicular pain. COMPARISON: None available. TECHNIQUE: A sonogram of the scrotum was performed assessing alexander-scale appearance and color Doppler flow. Spectral Doppler analysis of the arterial and venous flow were performed in the testes bilaterally. FINDINGS: RIGHT: Right testicle measures 3.7 x 2.2 x 2.9 cm, volume 12.4 mL. No focal testicular parenchymal lesions are visualized. Spectral Doppler analysis of the arterial and venous flow is increased in the right testis. Right epididymal head is normal in size. There is a moderate-sized complex right hydrocele with echogenic debris and fluid in septations. Within the floating debris there is a echogenic cady..Right epididymal Doppler flow is increased. There is a anechoic cysts distal spermatic cord measuring 1.0 x 0.8 x 0.8). LEFT: Left testicle measures 3.9 x 2.2 x 2.9 cm cm, volume 13.1 mL. No focal testicular parenchymal lesions are visualized. A lung is upper pole of left epididymis there is hypoechoic area question appendix testes. Spectral Doppler analysis of the arterial and venous flow is minimally increased in the left testis. Left epididymal head is normal in size. No left hydrocele or varicocele is seen. Left epididymal Doppler flow is normal. US/US scrotum IMPRESSION: Findings suggestive of right epididymal orchitis. Complex right hydrocele with a scrotal cady. Distal right epididymal simple cyst. Minimal increased flow to the left testes and epididymis likely reactionary changes from right testicular inflammatory response.
--- NOTE | ~2022-11-26 | US_ITS ---
EXAMINATION: US SCROTUM CLINICAL INFORMATION: Flank pain. Left testicular pain. COMPARISON: None available. TECHNIQUE: A sonogram of the scrotum was performed assessing alexander-scale appearance and color Doppler flow. Spectral Doppler analysis of the arterial and venous flow were performed in the testes bilaterally. FINDINGS: RIGHT: Right testicle measures 3.7 x 2.2 x 2.9 cm, volume 12.4 mL. No focal testicular parenchymal lesions are visualized. Spectral Doppler analysis of the arterial and venous flow is increased in the right testis. Right epididymal head is normal in size. There is a moderate-sized complex right hydrocele with echogenic debris and fluid in septations. Within the floating debris there is a echogenic cady..Right epididymal Doppler flow is increased. There is a anechoic cysts distal spermatic cord measuring 1.0 x 0.8 x 0.8). LEFT: Left testicle measures 3.9 x 2.2 x 2.9 cm cm, volume 13.1 mL. No focal testicular parenchymal lesions are visualized. A lung is upper pole of left epididymis there is hypoechoic area question appendix testes. Spectral Doppler analysis of the arterial and venous flow is minimally increased in the left testis. Left epididymal head is normal in size. No left hydrocele or varicocele is seen. Left epididymal Doppler flow is normal. US/US scrotum doppler IMPRESSION: Findings suggestive of right epididymal orchitis. Complex right hydrocele with a scrotal cady. Distal right epididymal simple cyst. Minimal increased flow to the left testes and epididymis likely reactionary changes from right testicular inflammatory response.
--- NOTE | ~2022-11-26 | CT_ITS ---
EXAMINATION: CT ABDOMEN AND PELVIS WITHOUT CONTRAST CLINICAL INFORMATION: Flank pain. COMPARISON: None available. TECHNIQUE: Multidetector volumetric imaging was performed from the superior aspect of the liver through the pubic symphysis. Sagittal and coronal reformatted images were obtained on the technologist's workstation. This CT examination was performed using dose optimization techniques as appropriate, variously including the following: *Automated exposure control *Adjustment of mA and/or kV according to patient size (this includes techniques or standardized protocols for targeted exams where dose is matched to indication/reason for exam; i.e. extremities or head) *Use of iterative reconstruction technique DLP: 832 mGy-cm FINDINGS: LUNG BASES: Left basilar lung nodule. Measures 9 mm. Small central calcification is seen. LIVER, GALLBLADDER, AND BILIARY TREE: The liver is normal in size, shape, and attenuation. No focal hepatic lesion or biliary ductal dilatation is present. The gallbladder is unremarkable with no evidence of radiopaque gallstones, gallbladder wall thickening, or obvious pericholecystic inflammatory changes. PANCREAS: Unremarkable. SPLEEN: Unremarkable. ADRENAL GLANDS: Unremarkable. KIDNEYS AND URETERS: No evidence of renal or ureteral stone or obstruction. The area of low attenuation superior left kidney could be a cyst. BLADDER: Bladder is decompressed. GASTROINTESTINAL TRACT: Some diverticular disease. No evidence for diverticulitis. The bowel pattern is nonobstructing. The appendix is normal. ABDOMINAL WALL: No significant hernia is appreciated. LYMPH NODES: Some mildly prominent nodes are seen here. There are some borderline nodes in the external iliac chain. On the right node measuring 1.1 cm short axis and on the left short axis. These could be reactive. VASCULAR: Unremarkable. PELVIC VISCERA: Unremarkable. OSSEOUS STRUCTURES: Unremarkable. CT/CT abdomen pelvis wo IV con IMPRESSION: No evidence of renal or ureteral stone or obstruction. Other findings are as described above. Area of low attenuation superior pole left kidney could be an evolving cyst. Recommend ultrasound to correlate. Some mildly prominent nodes here most noted in the external iliac chain of uncertain etiology. This could be reactive. Consider followup in 3 months for continued lesion. 9 mm nodule at the left lung base with a small central calcification. Fleischner guideline given below Per the 2017 revised Fleischner Society guidelines, recommend consideration of CT at 3 months, PET/CT or tissue sampling to assess for possible neoplasm. Fleischner guidelines were followed.
[2022-11-26 11:11] VITALS: BP 116/74; PULSE 79; RESP 18; TEMP 37.1; O2SAT 96; BMI 33.9
--- NOTE | 2022-11-26 11:12 | ED_ITS ---
HPI - General Adult General Chief complaint: Back Pain/Injury Stated complaint: Back Pain S/P Work Injury 11/26/22 Time Seen by Provider: 11/26/22 14:59 Source: patient and family Mode of arrival: ambulatory Limitations: no limitations History of Present Illness HPI narrative: 47 yo male with history of DM2, HLD, HTN, obesity who presents to the ER for evaluation of right-sided back pain that started today while he was working and doing heavy lifting. He states while he was twisting enclosing a lift he felt pain in his right middle back. He states it radiates down his back, down his leg and also to his testicle. He denies any nausea, vomiting, diarrhea. No numbness or tingling down the leg. No leg weakness. No swelling of the testicle or palpable mass. No urethral discharge or urinary symptoms. MD complaint: Right-sided back pain radiating to the buttock and testicles Onset (ago): hour(s) Location: back Radiation: distal Severity: moderate Severity scale (1-10): 6 Quality: aching Pain Consistency: constant Relieving factors: rest Exacerbating factors: movement Associated symptoms: denies other symptoms Treatments prior to arrival: none Related Data Home Medications Medication Instructions Recorded Confirmed acetaminophen 500 mg tablet 1,000 mg PO Q6H PRN 01/09/21 08/04/22 (Tylenol Extra Strength) Previous Rx's Medication Instructions Recorded cholecalciferol (vitamin D3) 50 50 mcg PO DAILY #90 caps 04/29/21 mcg (2,000 unit) capsule fluticasone propionate 50 1 spray intranasal DAILY #9.9 mL 06/08/21 mcg/actuation nasal spray,suspension (Flonase Allergy Relief) Alcohol Prep Pads (alcohol swabs) 1 pad topical TID #100 ea 08/04/22 OneTouch Ultra Test (blood sugar #100 ea 08/04/22 diagnostic) OneTouch Ultra2 Meter #1 ea 08/04/22 (blood-glucose meter) OneTouch UltraSoft Lancets #100 ea 08/04/22 (lancets) rosuvastatin 5 mg tablet 5 mg PO DAILY #30 tabs 08/04/22 dulaglutide 1.5 mg/0.5 mL 1.5 mg (0.5 mL) subcut QWEEK #6 mL 09/08/22 subcutaneous pen injector meloxicam 7.5 mg tablet 7.5 mg PO DAILY #14 tabs 09/08/22 cyclobenzaprine 10 mg tablet 10 mg PO TID PRN muscle spasm #10 11/26/22 tabs hydrocodone 5 mg-acetaminophen 325 1 tab PO Q8H PRN severe pain 11/26/22 mg tablet (scale score 7-10) #5 tabs levofloxacin 500 mg tablet 500 mg PO DAILY #10 tabs 11/26/22 Allergies Allergy/AdvReac Type Severity Reaction Status Date / Time ertapenem Allergy Intermediate Hives Verified 08/04/22 16:17 piperacillin [From Zosyn] Allergy Intermediate Hives Verified 08/04/22 16:17 tazobactam [From Zosyn] Allergy Intermediate Hives Verified 08/04/22 16:17 vancomycin Allergy Intermediate Hives Verified 08/04/22 16:17 Review of Systems 2 Review of Systems: Yes all other systems are reviewed and are negative PMFSH Past Medical History Medical History DAVIS positive Cellulitis of pharynx Controlled diabetes mellitus without complication, without long-term current use of insulin Elevated CPK Essential hypertension Fibromyalgia Hx of sepsis Hyperlipidemia LDL goal <100 Obesity due to excess calories Retropharyngeal abscess Retropharyngeal abscess Type 2 diabetes mellitus with hyperglycemia Vitamin D insufficiency Surgical History H/O shoulder surgery History of throat surgery No pertinent past surgical history Family History Family History Father No problems noted. Mother No problems noted. 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 Oriented X3. No acute distress. Head: normocephalic, atraumatic. Eyes: Pupils equal, round and reactive to light. ENT: Pharynx normal. No tonsillar swelling or exudate. Neck: Normal inspection. Neck supple. CVS: Normal heart rate and rhythm. Pulses normal. Respiratory: No respiratory distress. Breath sounds normal. Abdomen: Obese, Soft and nontender. +BS x4. no palpable masses. : no testicular swelling or scrotal swelling, no palpable hernia. mild tenderness of the right testicle Back: normal inspection. Normal range of motion, Pain with lateral rotation There is tenderness along the right flank, no ecchymosis. No CVA tenderness. No midline tenderness. Skin: Skin warm and dry. Normal skin color. Normal skin turgor. No rashes. Extremities: No lower extremity edema. No joint swelling. Neuro/psych: Oriented X 3. No motor deficit. No sensory deficit. CN II-XII intact. Normal speech and cognition. Course Course Course Narrative: RME- 47 year old male presents for evaluation of right flank pain that radiates towards his right lower abdomen and testicles. Denies any testicular swelling or urethral discharge. Plan for labs, CT scan. Medical Decision Making Medical Decision Making [facility] Narrative: 39-year-old male presents to the ER for evaluation of back pain that radiates down his buttock and testicle that started today. No other urinary symptoms or nausea, vomiting, diarrhea. His exam is unremarkable in that it does not reveal an inguinal hernia. The pain did start after lifting today. A CT scan was performed which does not show any evidence of hernia or kidney stone. There is a small cyst on the kidney, not likely to be causing his pain. Given his testicular pain a scrotal ultrasound which is done which is showing acute epididymo-orchitis. He is , low risk for STI. Will treat for E coli. Will treat for musculoskeletal back pain. Patient stable for discharge home with plan to follow up with his primary care doctor. Meds sent to his pharmacy. Return precautions were discussed. Differential Diagnosis Differential Diagnoses: The differential diagnosis associated with the presentation includes back strain /muscle strain, hernia, kidney stone, UTI, pyelonephritis, doubt testicular torsion Admission/Observation Consideration of admission/observation: Escalation of care including admission/observation considered Lab Data [facility] Lab Attestation statement: I reviewed the patient's lab results. No leukocytosis, mild anemia, normal renal function. Urinalysis is negative for infection 11/26/22 11:21 11/26/22 11:21 Labs: Lab Results 11/26/22 Range/Units 11:21 WBC 6.7 (4.8-10.8) X10*3/uL RBC 4.58 L (4.60-5.80) X10*6/uL Hgb 13.5 L (14.0-18.0) g/dl Hct 40.5 L (42.0-52.0) % MCV 88.4 (80.0-98.0) fL MCH 29.5 (27.0-33.0) pg MCHC 33.3 (31.0-36.0) g/dl RDW 13.2 (11.0-16.0) % Plt Count 250 (160-400) X10*3/uL MPV 9.6 (9.4-12.4) fL Immature Gran % (Auto) 0.3 (0.0-0.4) % Neut % (Auto) 65.8 (45-73) % Lymph % (Auto) 26.9 (20-40) % Woodford % (Auto) 4.2 (2-11) % Eos % (Auto) 2.5 (0-4) % Baso % (Auto) 0.3 (0-2) % Lymph # (Auto) 1.8 (1.2-4.9) X10*3/uL Woodford # (Auto) 0.3 (0.1-1.2) X10*3/uL Eos # (Auto) 0.2 (0.0-0.4) X10*3/uL Baso # (Auto) 0.0 (0.0-0.2) X10*3/uL Abs Immat Gran (auto) 0.02 (0.00-0.03) X10*3/uL Absolute Neuts (auto) 4.4 (2.0-8.3) x10*3/uL Absolute Nucleated RBC 0.000 (0.0-0.012) X10*3/uL Nucleated RBC % (auto) 0.0 (0.0-0.2) /100WBC Sodium 140 (135-145) mmol/L Potassium 3.9 (3.3-5.1) mmol/L Chloride 108 (96-108) mmol/L Carbon Dioxide 24 (22-29) mmol/L Anion Gap 12 (12-20) BUN 13 (9-16) mg/dL Creatinine 0.93 (0.5-1.4) mg/dL Estim Creat Clear Calc 126.2 Estimated GFR > 60 Random Glucose 200 H (60-115) mg/dL Calcium 9.5 (8.4-10.2) mg/dL Total Bilirubin 0.4 (0.0-1.0) mg/dL AST 26 (5-37) U/L ALT 32 (0-40) U/L Alkaline Phosphatase 57 (39-117) U/L Total Protein 7.2 (6.5-8.0) g/dL Albumin 4.3 (3.5-5.0) g/dL Lipase 67 (8-78) U/L Urine Color Yellow Urine Appearance Clear Urine pH 5.5 (5.0-9.0) Ur Specific Wagoner >= 1.030 H (1.005-1.025) Urine Protein Negative (Neg-Trace) mg/dL Urine Glucose (UA) Negative (Negative) mg/dL Urine Ketones Negative (Negative) mg/dL Urine Blood Negative (Negative) Urine Nitrite Negative (Negative) Ur Leukocyte Esterase Negative (Negative) Urine RBC 0-2 (0-2) /HPF Urine WBC 0-5 (0-5) /HPF Ur Squamous Epith Cells 0-2 (0-2) /HPF Urine Bacteria None Seen (None Seen) Hyaline Casts 0-2 (0-2) /LPF Independent Interpretation I performed an independent interpretation of an: Ultrasound and CT Scan Interpretation: ultrasound reviewed, no visible evidence of obstructed flow to the testicles. Agree with radiologist read. CT scan reviewed, no hydronephrosis or visible kidney stone. No hernias appreciated. Agrees radiologist read Radiology Impression Discussion of test interpretation with radiology: I have reviewed the radiologist's reading. Radiologist Impression: CT/CT abdomen pelvis wo IV con IMPRESSION: No evidence of renal or ureteral stone or obstruction. Other findings are as described above. Area of low attenuation superior pole left kidney could be an evolving cyst. Recommend ultrasound to correlate. Some mildly prominent nodes here most noted in the external iliac chain of uncertain etiology. This could be reactive. Consider followup in 3 months for continued lesion. 9 mm nodule at the left lung base with a small central calcification. Fleischner guideline given below US/US scrotum IMPRESSION: Findings suggestive of right epididymal orchitis. Complex right hydrocele with a scrotal cady. Distal right epididymal simple cyst. Minimal increased flow to the left testes and epididymis likely reactionary changes from right testicular inflammatory response. Independent Historian Clinical information obtained from an independent historian. History obtained from or confirmed by: Spouse External Record Review External record reviewed: Outpatient record, Prior outpatient labs and Prior outpatient radiology Prescription Management I considered prescription management with: Pain Medication and Antibiotic Chronic Conditions Patient?s care impacted by: Diabetes and Hypertension Critical Care Time Critical Care Time Critical Care Time: No Discharge Plan Discharge Clinical Impression: Back pain, Acute epididymo-orchitis Patient Disposition: Home, Self-Care Instructions: Epididymo-Orchitis (ED), Back Pain (ED) Additional Instructions: Your CT scan today did not show any evidence of acute causes of your back pain. Take the prescribed muscle relaxer as needed for muscle spasm Recommend [id number] Motrin and Tylenol as needed for pain as well. Your ultrasound today did show some inflammation and increased blood flow in the right testicle consistent with right epididymorchitis Take the prescribed antibiotics as directed, complete the entire course and do not miss any doses Recommend following up with Urology. Also follow-up with your primary care doctor. If you develop new or worsening symptoms call 911 or come back to the ER for further evaluation. Prescriptions: New levofloxacin 500 mg tablet 500 mg PO DAILY Qty: 10 0RF cyclobenzaprine 10 mg tablet 10 mg PO TID PRN (Reason: muscle spasm) Qty: 10 0RF hydrocodone-acetaminophen 5-325 mg tablet 1 tab PO Q8H PRN (Reason: severe pain (scale score 7-10)) Qty: 5 0RF Rx Instructions: Partial Fill upon patient request. No Action (DME) OneTouch Ultra Test Strip See Rx Instructions .Route Qty: 100 0RF Rx Instructions: tid testing (DME) blood-glucose meter [OneTouch Ultra2 Meter] Misc See Rx Instructions .Route Qty: 1 0RF Rx Instructions: tid testing (DME) lancets [OneTouch UltraSoft Lancets] Misc See Rx Instructions .Route Qty: 100 0RF Rx Instructions: TID dulaglutide 1.5 mg/0.5 mL pen injector 1.5 mg subcut QWEEK Qty: 6 1RF meloxicam 7.5 mg tablet 7.5 mg PO DAILY Qty: 14 0RF alcohol swabs [Alcohol Prep Pads] Pads, Medicated 1 pad topical TID Qty: 100 0RF rosuvastatin 5 mg tablet 5 mg PO DAILY Qty: 30 3RF fluticasone propionate [Flonase Allergy Relief] 50 mcg/actuation spray,suspension 1 spray intranasal DAILY Qty: 9.9 1RF Rx Instructions: administer into each nostril cholecalciferol (vitamin D3) 50 mcg (2,000 unit) capsule 50 mcg PO DAILY Qty: 90 0RF acetaminophen [Tylenol Extra Strength] 500 mg tablet 1,000 mg PO Q6H PRN Referrals: [facility] [Provider Group] (US/US scrotum doppler IMPRESSION: Findings suggestive of right epididymal orchitis) Jeff Chi, [employer] [Primary Care Provider] - Stand Alone Forms: Work/School Release Interventions: ED Discharge Assessment Last Done: 11/26/22 18:12 Discharge Date/Time: 11/26/22 18:13
[2022-11-26 11:26] LABS: MANUAL DIFF FLAG NO
[2022-11-26 11:27] LABS: Basophils Percent Auto 0.3 % (0-2); Eosinophils Absolute Auto 0.2 X10*3/uL (0.0-0.4); Eosinophils Percent Auto 2.5 % (0-4); Hematocrit 40.5 % (42.0-52.0); Hemoglobin 13.5 g/dl (14.0-18.0); Imm Gran Abs Auto 0.02 X10*3/uL (0.00-0.03); Imm Gran Pct Auto 0.3 % (0.0-0.4); Lymphocytes Absolute Auto 1.8 X10*3/uL (1.2-4.9); Lymphocytes Percent Auto 26.9 % (20-40); Mean Corpuscular HGB Conc 33.3 g/dl (31.0-36.0); Mean Corpuscular Hemoglobin 29.5 pg (27.0-33.0); Mean Corpuscular Volume 88.4 fL (80.0-98.0); Mean Platelet Volume 9.6 fL (9.4-12.4); Monocytes Absolute Auto 0.3 X10*3/uL (0.1-1.2); Monocytes Percent Auto 4.2 % (2-11); Neutrophils Absolute Auto 4.4 x10*3/uL (2.0-8.3); Neutrophils Percent Auto 65.8 % (45-73); Platelet Count 250 X10*3/uL (160-400); Red Blood Count 4.58 X10*6/uL (4.60-5.80); Red Cell Distribution Width 13.2 % (11.0-16.0); White Blood Count 6.7 X10*3/uL (4.8-10.8)
[2022-11-26 11:33] LABS: Appearance Urine Clear; Color Urine Yellow; Glucose Urine UA Negative (Negative); Leukocyte Esterase Urine Negative (Negative); Nitrite Urine Negative (Negative); PH 5.5 (5.0-9.0); Specific Gravity - Urine >= 1.030 (1.005-1.025); Urine Blood Negative (Negative); Urine Ketones Negative (Negative); Urine Protein Negative (Neg-Trace)
[2022-11-26 11:38] LABS: Bacteria Urine None Seen (None Seen); Hyaline Casts Urine 0-2 /LPF (0-2); RBC Urine 0-2 /HPF (0-2); Squamous Epithelial Cell Urine 0-2 /HPF (0-2); WBC Urine 0-5 /HPF (0-5)
[2022-11-26 11:41] LABS: Alanine Aminotransferase 32 U/L (0-40); Albumin Level 4.3 g/dL (3.5-5.0); Alkaline Phosphatase 57 U/L (39-117); Anion Gap 12 (12-20); Aspartate Amino Transferase 26 U/L (5-37); Bilirubin Total 0.4 mg/dL (0.0-1.0); Blood Urea Nitrogen 13 mg/dL (9-16); Calcium 9.5 mg/dL (8.4-10.2); Carbon Dioxide 24 mmol/L (22-29); Chloride 108 mmol/L (96-108); Creatinine Clr Calc Pharmacy 126.2; Estimated Glomerular Filt Rate > 60; Glucose Random 200 mg/dL (60-115); Lipase 67 U/L (8-78); Potassium 3.9 mmol/L (3.3-5.1); Sodium 140 mmol/L (135-145); Total Protein 7.2 g/dL (6.5-8.0)
== END 2022-11-26 18:13 | disposition home or self-care (01) ==
PROVIDERS: Physician Assistant; Emergency Provider Emergency Medicine; PCP Nurse Practitioner Family
DX: N45.3 Epididymo-orchitis (principal); M54.89 Other dorsalgia; E11.9 Type 2 diabetes mellitus without complications; I10 Essential (primary) hypertension; E78.5 Hyperlipidemia, unspecified; Z79.899 Other long term (current) drug therapy
CPT/HCPCS: 36415; 74176; 76870; 80053; 81001; 83690; 85025; 93975; 99283; 99284

== ENCOUNTER → 2022-12-01 13:04 | Outpatient (BNVA) | payer OTHER, SELFPAY | PROVIDERS: PCP Nurse Practitioner Family; Visit Provider Physician Assistant Medical | DX: S39.012A Strain of muscle, fascia and tendon of lower back, initial encounter (principal); X50.3XXA Overexertion from repetitive movements, initial encounter; M54.41 Lumbago with sciatica, right side | CPT/HCPCS: 99204 ==

== ENCOUNTER → 2022-12-10 08:35 | Outpatient (BNVA) | payer OTHER, SELFPAY | PROVIDERS: PCP Nurse Practitioner Family; Visit Provider Physician Assistant | DX: M54.50 Low back pain, unspecified (principal) | CPT/HCPCS: 99213 ==

== ENCOUNTER 2022-12-29 14:22 | Outpatient (AMB) | payer OTHER, SELFPAY ==
--- NOTE | 2022-12-29 14:32 | A.OFFVIS_ITS ---
Intake Intake Visit Reasons: epididymo-orchitis Intake Note: NEW Patient presents today to established treatment for Epididymo-Orchitis: Meds- None Allergies to Antibiotic- Piperacillin & Vancomycin Blood Thinner- None PVR- 11 mL Janitor Caretaker Required: No Accompanied by: Self / Same As Patient Allergies ertapenem Allergy (Intermediate, Verified 01/18/23 08:36) Hives piperacillin [From Zosyn] Allergy (Intermediate, Verified 01/18/23 08:36) Hives tazobactam [From Zosyn] Allergy (Intermediate, Verified 01/18/23 08:36) Hives vancomycin Allergy (Intermediate, Verified 01/18/23 08:36) Hives HPI epididymo-orchitis HPI Details Cameron is a 47-year-old male who presents today to the office for an evaluation of epididymo-orchitis. 12/29/22 ? The patient was seen in the [facility] ED on 11/26/22 for a scrotal/testicular post- work injury. A CT scan was performed, which does not show any evidence of hernia, kidney stone, or obstruction. There was an incidental 9-mm nodule in the left lung base. There is a small cyst on the kidney, which is not likely to be causing his pain. Given his testicular pain, a scrotal ultrasound was done, which showed acute right epididymo-orchitis and right complex hydrocele. He completed the antibiotic course of 10 days for infection in the testicle. He denies any changes in his urinary stream. He denies having to push to empty. He wakes up two times at night for urination. He denies any urgency or frequency of symptoms. He has been experiencing difficulty with erections and ejaculation. He denies any discharge from the urethra. Co-morbidities: DM2, HLD, HTN, obesity. 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 He does not get to use the bathroom when he feels that his bladder is full. His orchiditis was likely secondary to the chemical epidydymo-orchitis. I encouraged him to void every three hours and increase his water intake. 11/26/22: US SCROTUM result reviewed ? C omplex right hydrocele with a scrotal cady. Distal right epididymal simple cyst. 11/26/22: CTAP result reviewed: There is no evidence of renal calculi or obstruction. There was an incidental 9 mm nodule in the left lung base. Evaluation today-- Blood: Negative, leukocytes: Negative. Proteins: 15 ml/dL. Bladder scan PVR: 11 ml. Scrotum: There is no swelling and each testicle was palpated and was non-tender. He is uncircumcised and foreskin was easily retractable. The glans was WNL. 12/29/22: AUA symptoms score -- 5. Plan: I encouraged him to void every three hours and increase his water intake. The patient will follow up in 4-6 months to check his urine and check for any irritative voiding symptoms. [facility] Medical History Obesity due to excess calories Hx of sepsis Retropharyngeal abscess Retropharyngeal abscess Cellulitis of pharynx Type 2 diabetes mellitus with hyperglycemia Elevated CPK DAVIS positive Fibromyalgia Controlled diabetes mellitus without complication, without long-term current use of insulin Hyperlipidemia LDL goal <100 Essential hypertension Vitamin D insufficiency Surgical History History of throat surgery H/O shoulder surgery No pertinent past surgical history Family History (Updated 01/18/23 @ 08:38 by Stephanie Stephenson CMA) Father No problems noted. Mother No problems noted. 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 Cognitive needs: No Hearing needs: No Vision needs: No Questionnaire AUA Symptom Score AUA Incomplete emptying - It does not feel like I empty my bladder all the way.: 1 - Less than 1 time in 5 Frequency - I have to go again less than two hours after I finish urinating.: 1 - Less than 1 time in 5 Intermittency - I stop and start again several times when I urinate.: 0 - Not at all Urgency - It is hard to wait when I have to urinate.: 1 - Less than 1 time in 5 Weak stream - I have a weak urinary stream.: 0 - Not at all Straining - I have to push or strain to begin urination.: 0 - Not at all Nocturia - I get up to urinate after I go to bed until the time I get up in the morning.: 2 times AUA Symptom Score: 5 Source: Rod VALENCIA, Eliana GIRALDO Jr, O'Raquel MP, et al, and the Measurement Committee of the [employer]. The [place] [employer] symptom index for benign prostatic hyperplasia. J Urol. 1992; 148: 6539-8056. Copyright 1992 [place] [employer] Review of Systems Const All systems reviewed & are unremarkable except as noted in HPI and below Reports no additional complaints Eyes Reports no additional complaints ENT Reports no additional complaints Card Reports no additional complaints Resp Reports no additional complaints GI Reports no additional complaints Musc Reports no additional complaints Skin/Breast Reports system reviewed and no additional complaints, except as documented Neuro Reports no additional complaints Psych Reports no additional complaints Endo Reports no additional complaints Joaquin/Lymph Reports no additional complaints Aller/Immun Reports no additional complaints Physical Exam Const General: healthy appearing, no acute distress and well developed Orientation/consciousness: patient oriented x3 HEENT Head: Yes normocephalic and Yes atraumatic Eyes Conjunctivae: conjunctivae normal Neck Neck: Yes normal visual inspection Chest Chest palpation & inspection: normal inspection of the chest Resp Effort & Inspection: normal respiratory effort Cardio Rate: regular rate GI Inspection: Yes normal to inspection Other: Prostate Exam: Penis: normal penis Scrotum: scrotum normal Skin General skin exam: no rashes or lesions noted Neuro General: patient oriented x3 Extrem General: Yes no pedal edema Psych Appearance: grossly normal Affect: normal affect Office Procedures Post Void Residual Post Residual Void Post Void Residual (PVR): 11 [id number] Void Residual by ultrasound Results AMB Urinalysis, Automated UA Leukoctes 0 Gwyn/uL Last Edit by Justin Lawson Giovana on 12/29/22 14:54 UA Nitrite Negative Last Edit by Justin Lawson [facility] on 12/29/22 14:54 UA Urobilinogen 0.2 mg/dL Last Edit by Justin Lawson [facility] on 12/29/22 14:5 4 UA Protein 15 mg/dL Last Edit by Justin Lawson [facility] on 12/29/22 14:54 UA pH 6.0 Last Edit by Justin Lawson [facility] on 12/29/22 14:54 UA Blood 0 Gideon/uL Last Edit by Justin Lawson [facility] on 12/29/22 14:54 UA Specific [place] 1.025 Last Edit by Justin Lawson [facility] on 12/29/22 14: 54 UA Ketone Negative Last Edit by Justin Lawson [facility] on 12/29/22 14:54 UA Bilirubin 0 mg/dL Last Edit by Justin Lawson [facility] on 12/29/22 14:54 UA Glucose 0 mg/dL Last Edit by Justin Lawson [facility] on 12/29/22 14:54 Results Reviewed Results Reviewed: Laboratory Last Values Urine pH (Auto) 6.0 12/29/22 14:48 Specific [place] (Auto) 1.025 12/29/22 14:48 Urine Protein (Auto) 15 mg/dL 12/29/22 14:48 Glucose (UA)(Auto) 0 mg/dL 12/29/22 14:48 Urine Ketones (Auto) Negative 12/29/22 14:48 Urine Blood (Auto) 0 Gideon/uL 12/29/22 14:48 Urine Nitrite (Auto) Negative 12/29/22 14:48 Urine Bilirubin (Auto) 0 mg/dL 12/29/22 14:48 Urine Urobilinogen (Auto) 0.2 mg/dL 12/29/22 14:48 Leukocyte Esterase (Auto) 0 Gwyn/uL 12/29/22 14:48 11/26/22: US SCROTUM FINDINGS: RIGHT: Right testicle measures 3.7 x 2.2 x 2.9 cm, volume 12.4 mL. No focal testicular parenchymal lesions are visualized. Spectral Doppler analysis of the arterial and venous flow is increased in the right testis. Right epididymal head is normal in size. There is a moderate-sized complex right hydrocele with echogenic debris and fluid in septations. Within the floating debris there is a echogenic cady..Right epididymal Doppler flow is increased. There is a anechoic cysts distal spermatic cord measuring 1.0 x 0.8 x 0.8). LEFT: Left testicle measures 3.9 x 2.2 x 2.9 cm cm, volume 13.1 mL. No focal testicular parenchymal lesions are visualized. A lung is upper pole of left epididymis there is hypoechoic area question appendix testes. Spectral Doppler analysis of the arterial and venous flow is minimally increased in the left testis. Left epididymal head is normal in size. No left hydrocele or varicocele is seen. Left epididymal Doppler flow is normal. IMPRESSION: Findings suggestive of right epididymal orchitis. Complex right hydrocele with a scrotal cady. Distal right epididymal simple cyst. Minimal increased flow to the left testes and epididymis likely reactionary carla nges from right testicular inflammatory response. 11/26/22 -- CT ABDOMEN AND PELVIS WITHOUT CONTRAST FINDINGS: LUNG BASES: Left basilar lung nodule. Measures 9 mm. Small central calcification is seen. LIVER, GALLBLADDER, AND BILIARY TREE: The liver is normal in size, shape, and attenuation. No focal hepatic lesion or biliary ductal dilatation is present. The gallbladder is unremarkable with no evidence of radiopaque gallstones, gallbladder wall thickening, or obvious pericholecystic inflammatory changes. PANCREAS: Unremarkable. SPLEEN: Unremarkable. ADRENAL GLANDS: Unremarkable. KIDNEYS AND URETERS: No evidence of renal or ureteral stone or obstruction. The area of low attenuation superior left kidney could be a cyst. BLADDER: Bladder is decompressed. GASTROINTESTINAL TRACT: Some diverticular disease. No evidence for diverticulitis. The bowel pattern is nonobstructing. The appendix is normal. ABDOMINAL WALL: No significant hernia is appreciated. LYMPH NODES: Some mildly prominent nodes are seen here. There are some borderline nodes in the external iliac chain. On the right node measuring 1.1 cm short axis and on the left short axis. These could be reactive. VASCULAR: Unremarkable. PELVIC VISCERA: Unremarkable. OSSEOUS STRUCTURES: Unremarkable. IMPRESSION: No evidence of renal or ureteral stone or obstruction. Other findings are as described above. Area of low attenuation superior pole left kidney could be an evolving cyst. Recommend ultrasound to correlate. Some mildly prominent nodes here most noted in the external iliac chain of uncertain etiology. This could be reactive. Consider followup in 3 months for continued lesion. 9 mm nodule at the left lung base with a small central calcification. Assessment & Plan Assessment & Plan (1) Epididymo-orchitis: Code(s): N45.3 - Epididymo-orchitis Plan I encouraged him to void every three hours and increase his water intake. The patient will follow up in 4-6 months to check his urine and check for any irritative voiding symptoms. Orders: Orders AMB Urinalysis Automated 12/29/22 Z13.9 - Encounter for screening, unspecified AMB Post Void Residual by ultrasound 12/29/22 N39.8 - Other specified disorders of urinary system Patient Instructions: The patient had an opportunity to ask questions regarding treatment plan. All questions were answered. Imaging, Laboratory studies and physical exam results were discussed and reviewed in detail. No major barriers to understanding were identified. The patient expressed understanding and agreement with the above treatment plan. The patient is aware they should contact our office by phone for worsening of their current condition or the appearance of new symptoms. Compliance is encouraged with any medications and followup testing that is ordered. It is a privilege to be allowed the opportunity to participate in the urologic care of your patient. If you have any questions or concerns regarding treatment for the above conditions please do not hesitate to contact me. The office telephone contact is [phone]. This note is constructed in part using voice recognition software. While every effort has been made to ensure accuracy machine packaging technician errors may have been included. Yours sincerely, Cristal Montoya MD Quality Reporting (2019) Benign Prostatic Hyperplasia ([facility] 771) AUA symptom score: 5 Coding Level of Care Code New Pt Level 3 (71890) Diagnoses Epididymo-orchitis N45.3 CPT Codes Post Residual Void - PVR CPT Code: 60939-Wkcy Void Residual by ultrasound ([id number])
== END 2022-12-29 15:21 | disposition home or self-care (01) ==
PROVIDERS: PCP Nurse Practitioner Family; Visit Provider Urology
DX: N45.3 Epididymo-orchitis (principal)
CPT/HCPCS: 99203

== ENCOUNTER → 2022-12-29 14:22 | Outpatient (BNVA) | payer OTHER, SELFPAY | PROVIDERS: PCP Nurse Practitioner Family; Visit Provider Urology | DX: N45.3 Epididymo-orchitis (principal) | CPT/HCPCS: 51798; 81003; 99202 ==

== ENCOUNTER 2023-01-01 09:12 | Outpatient (REF) | payer OTHER, SELFPAY ==
[2023-01-01 09:20] LABS: MANUAL DIFF FLAG NO
[2023-01-01 10:20] LABS: Basophils Percent Auto 0.4 % (0-2); Eosinophils Absolute Auto 0.3 X10*3/uL (0.0-0.4); Eosinophils Percent Auto 3.7 % (0-4); Hematocrit 43.7 % (42.0-52.0); Hemoglobin 14.3 g/dl (14.0-18.0); Imm Gran Abs Auto 0.03 X10*3/uL (0.00-0.03); Imm Gran Pct Auto 0.4 % (0.0-0.4); Lymphocytes Percent Auto 28.2 % (20-40); Mean Corpuscular HGB Conc 32.7 g/dl (31.0-36.0); Mean Corpuscular Hemoglobin 28.8 pg (27.0-33.0); Mean Corpuscular Volume 88.1 fL (80.0-98.0); Mean Platelet Volume 9.8 fL (9.4-12.4); Monocytes Absolute Auto 0.3 X10*3/uL (0.1-1.2); Monocytes Percent Auto 4.6 % (2-11); Neutrophils Absolute Auto 4.4 x10*3/uL (2.0-8.3); Neutrophils Percent Auto 62.7 % (45-73); Platelet Count 259 X10*3/uL (160-400); Red Blood Count 4.96 X10*6/uL (4.60-5.80)
[2023-01-01 10:38] LABS: Appearance Urine Clear; Color Urine Yellow; Glucose Urine UA Negative (Negative); Leukocyte Esterase Urine Negative (Negative); Nitrite Urine Negative (Negative); PH 5.5 (5.0-9.0); Urine Blood Negative (Negative); Urine Ketones Negative (Negative); Urine Protein Negative (Neg-Trace)
[2023-01-01 11:08] LABS: Alanine Aminotransferase 36 U/L (0-40); Albumin Level 4.4 g/dL (3.5-5.0); Alkaline Phosphatase 60 U/L (39-117); Anion Gap 14 (12-20); Aspartate Amino Transferase 21 U/L (5-37); Bilirubin Total 0.6 mg/dL (0.0-1.0); Blood Urea Nitrogen 13 mg/dL (9-16); Calcium 9.4 mg/dL (8.4-10.2); Carbon Dioxide 25 mmol/L (22-29); Chloride 106 mmol/L (96-108); Cholesterol 229 mg/dL (<200); Estimated Glomerular Filt Rate > 60; Glucose Fasting 140 mg/dL (60-99); HDL Cholesterol 40 mg/dL (>40); LDL Cholesterol Calculated 139 mg/dL (<100); Potassium 3.9 mmol/L (3.3-5.1); Sodium 141 mmol/L (135-145); Total Protein 7.4 g/dL (6.5-8.0); Triglycerides 250 mg/dL (<150)
[2023-01-01 11:14] LABS: Creatinine Urine 161.32 mg/dL; Microalbum/Creatinine Ratio Ur 11.7 ug/mg cr (<30)
[2023-01-01 11:24] LABS: TSH reflex Free T4 1.02 uIU/mL (0.32-4.0)
== END 2023-01-01 09:13 | disposition home or self-care (01) ==
LOC: HO.LAB 09:12
PROVIDERS: PCP Nurse Practitioner Family; Visit Provider Nurse Practitioner Family
DX: E11.9 Type 2 diabetes mellitus without complications (principal)
CPT/HCPCS: 36415; 80053; 80061; 81003; 82043; 82570; 84443; 85025

== ENCOUNTER 2023-01-05 08:46 | Outpatient (AMB) | payer OTHER, SELFPAY ==
--- NOTE | 2023-01-05 07:14 | A.OFFPC_ITS ---
Intake Visit Reasons: Discuss findings from CT/Sept Iphone [phone] Allergies ertapenem Allergy (Intermediate, Verified 12/29/22 14:33) Hives piperacillin [From Zosyn] Allergy (Intermediate, Verified 12/29/22 14:33) Hives tazobactam [From Zosyn] Allergy (Intermediate, Verified 12/29/22 14:33) Hives vancomycin Allergy (Intermediate, Verified 12/29/22 14:33) Hives Medication List - Last Reconciled 01/05/23 by BRITTANY Hunt acetaminophen (Tylenol Extra Strength) 1,000 mg PO Q6H PRN dulaglutide 1.5 mg (0.5 mL) subcut QWEEK meloxicam 7.5 mg PO DAILY Tobacco use date assessed: 08/04/22 HPI Discuss findings from CT/Sept Iphone [phone] HPI Details Pt had a recent abdomen/pelvis CT which showed some mildly prominent nodes here most noted in the external iliac chain of uncertain etiology. This could be reactive. Will repeat CT as recommended. CT also showed an incidental finding of 9 mm nodule at the left lung base with a small central calcification. Will refer to thoracics. Denies fever, chills, chest pain, shortness of breath, and dizziness. Pt reports doing well. [facility] Medical History Obesity due to excess calories Hx of sepsis Retropharyngeal abscess Retropharyngeal abscess Cellulitis of pharynx Type 2 diabetes mellitus with hyperglycemia Elevated CPK DAVIS positive Fibromyalgia Controlled diabetes mellitus without complication, without long-term current use of insulin Hyperlipidemia LDL goal <100 Essential hypertension Vitamin D insufficiency Surgical History History of throat surgery H/O shoulder surgery No pertinent past surgical history Family History Father No problems noted. Mother No problems noted. 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 Franki Berry, Kenzie Mireles, Jose Regalado and colleagues, with an educational guillermo from [employer] ?. Review of Systems Const Reports as per HPI Physical exam (Primary Care) Tobacco/Smoking Status: Tobacco use Status Tobacco use date assessed 08/04/22 01/05/23 07:14 Patient Tobacco Use Status Never used Tobacco 01/05/23 07:14 e-Cigarette/Vaping Use Never Used 01/05/23 07:14 Thrive Assessment: Date of Thrive Assessment Date Thrive assessed 08/04/22 01/05/23 07:14 Const General: cooperative Orientation/consciousness: patient oriented x3 Neuro General: patient oriented x3 Psych Appearance: grossly normal Mental Status: mental status grossly normal Speech and movement: Clear speech present Affect: normal affect Attitude: cooperative Thought process: Normal thought process present Thought content: Normal thought content present Insight: Good insight present (Psych) Judgement: Good judgement present (Psych) Telehealth Telehealth Location of provider rendering services: practice address Location of patient: address on file Patient Identification confirmed using: Name, : Yes Telehealth method: video Patient verbally consented to treatment: Yes Patient verbally consented to billing insurance company: Yes Patient informed of any privacy concerns related to visit: Yes Minutes spent on Phone/Video with Pt.: 10 Assessment and Plan Assessment & Plan (1) Pelvic lymphadenopathy: Code(s): R59.0 - Localized enlarged lymph nodes Plan: CT ordered (2) Nodule of left lung: Code(s): R91.1 - Solitary pulmonary nodule Plan: Referred to thoracic Plan The patient agreed to the use of a director biomedical engineering for this encounter. Scribed for BRITTANY Keen by Judith Corbett director biomedical engineering, on 01/05/2023 at 07:15 EST Orders: Orders CT abdomen pelvis wo IV con 2 Months R59.0 - Localized enlarged lymph nodes Referrals Thoracic Surgery Referral R91.1 - Solitary pulmonary nodule Medications: Refilled meloxicam 7.5 mg PO DAILY 14 tabs 0RF Coding Level of Care Code Tele Est Pt Level 3 (89429) Diagnoses Pelvic lymphadenopathy R59.0 Nodule of left lung R91.1
== END 2023-01-05 08:46 | disposition home or self-care (01) ==
LOC: HO.HMGC 08:46
PROVIDERS: PCP Nurse Practitioner Family; Visit Provider Nurse Practitioner Family
DX: R59.0 Localized enlarged lymph nodes (principal); R91.1 Solitary pulmonary nodule
CPT/HCPCS: 99213

== ENCOUNTER → 2023-01-07 07:40 | Outpatient (BNVA) | payer OTHER, SELFPAY | PROVIDERS: PCP Nurse Practitioner Family; Visit Provider Internal Medicine | DX: M54.41 Lumbago with sciatica, right side (principal) | CPT/HCPCS: 99215 ==

== ENCOUNTER → 2023-01-14 09:12 | Outpatient (BNVA) | payer OTHER, SELFPAY | PROVIDERS: PCP Nurse Practitioner Family; Visit Provider Internal Medicine | DX: M54.41 Lumbago with sciatica, right side (principal) | CPT/HCPCS: 99213 ==

== ENCOUNTER 2023-01-18 08:32 | Outpatient (AMB) | payer OTHER, SELFPAY ==
--- NOTE | 2023-01-18 08:35 | A.OFFPC_ITS ---
Vital Signs 01/18/23 08:36 Height 6 ft Weight 267 lb BMI 36.2 BP 134/90 H Blood Pressure Location Lt brachial Position Sitting Pulse 84 Pulse Source Pulse Oximeter Pulse Oximetry (%) 97 Oxygen Delivery Method Room Air Intake Visit Reasons: 3 month follow up Med Intake Note: Pt is here today for his 3 mo. f/u meds Allergies ertapenem Allergy (Intermediate, Verified 01/18/23 08:36) Hives piperacillin [From Zosyn] Allergy (Intermediate, Verified 01/18/23 08:36) Hives tazobactam [From Zosyn] Allergy (Intermediate, Verified 01/18/23 08:36) Hives vancomycin Allergy (Intermediate, Verified 01/18/23 08:36) Hives Tobacco use date assessed: 01/18/23 Dental Screening Dental Screen Date: 01/18/23 Did you have a dental visit in the last 12 months?: No Did you have a dental problem in the last 6 months where you did not have access to dental care?: No Was dental information given to patient?: Patient has dentist HPI 3 month follow up Med HPI Details Pt is a diabetic. A1C in office today is 7.4. Microalbumin is up to date. Denies polyuria, polydipsia, and neuropathy. Pt denies any signs and symptoms of hypoglycemia and does know how to correct it. Pt reports that his blood sugar has been ranging from 160s-200s. Will increase trulicity from 1.5mg to 3mg. Will also start irbesartan 75mg for htn and renal protection. Pt has a hx of elevated CPK and SHERLEY so I will not start a statin. Will send [facility]. Due for colon screen, will refer to GI. Refuses pneumonia and flu vaccines. [facility] Medical History Obesity due to excess calories Hx of sepsis Retropharyngeal abscess Retropharyngeal abscess Cellulitis of pharynx Type 2 diabetes mellitus with hyperglycemia Elevated CPK DAVIS positive Fibromyalgia Controlled diabetes mellitus without complication, without long-term current use of insulin Hyperlipidemia LDL goal <100 Essential hypertension Vitamin D insufficiency Surgical History History of throat surgery H/O shoulder surgery No pertinent past surgical history Family History (Updated 01/18/23 @ 08:38 by Stephanie Stephenson [facility]) Father No problems noted. Mother No problems noted. 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 How often do you have a drink containing alcohol?: Never Total Score: 0 CAT-7 AMB Questionnaire CAT-7 Date CAT - 7 assessed: 08/04/22 Source: Developed by Drs. Franki Berry, Kenzie Mireles, Jose Regalado and colleagues, with an educational guillermo from [employer]. Review of Systems Const Reports as per HPI Physical exam (Primary Care) Vital Signs: Last Vital Signs Pulse 84 01/18/23 08:36 BP 134/90 H 01/18/23 08:36 Pulse Ox 97 01/18/23 08:36 Oxygen Delivery Method Room Air 01/18/23 08:36 BMI result Body Mass Index 36.2 Tobacco/Smoking Status: Tobacco use Status Tobacco use date assessed 01/18/23 01/18/23 08:39 Patient Tobacco Use Status Never used Tobacco 01/18/23 08:39 e-Cigarette/Vaping Use Never Used 01/18/23 08:39 Thrive Assessment: Date of Thrive Assessment Date Thrive assessed 08/04/22 01/18/23 08:39 Const General: cooperative Nutritional Appearance: obese Orientation/consciousness: patient oriented x3 Resp Effort & Inspection: normal respiratory effort Auscultation: clear to auscultation bilaterally Cardio Rate: regular rate Rhythm: regular rhythm Heart sounds: S1 normal heart sound present and S2 normal heart sound present Neuro General: patient oriented x3 Extrem Other: bilat feet: + sensation with use of monofilament, feet intact Psych Appearance: grossly normal Mental Status: mental status grossly normal Speech and movement: Normal speech and movement present Affect: normal affect Attitude: cooperative Thought process: Normal thought process present Thought content: Normal thought content present Insight: Good insight present (Psych) Judgement: Good judgement present (Psych) Results AMB Hemoglobin A1c AMB Hemoglobin A1c 7.4 % Last Edit by Stephanie Stephenson CMA on 01/18/23 08:58 Results Reviewed Results Reviewed: Laboratory Last Values Hgb A1c (Clinic) 7.4 % (4.0-6.0) H 01/18/23 08:57 Assessment and Plan Assessment & Plan (1) Screening for colon cancer: Code(s): Z12.11 - Encounter for screening for malignant neoplasm of colon Plan: Referred to GI (2) Type 2 diabetes mellitus with hyperglycemia: Code(s): E11.65 - Type 2 diabetes mellitus with hyperglycemia Plan The patient agreed to the use of a medical office representative for this encounter. Scribed for BRITTANY Keen by Judith Corbett medical office representative, on 01/18/2023 at 08:45 EST. Orders: Orders AMB Hemoglobin A1c Today E11.65 - Type 2 diabetes mellitus with hyperglycemia Referrals Gastroenterology Referral Z12.11 - Encounter for screening for malignant neoplasm of colon Medications: New irbesartan 75 mg PO DAILY 90 days 90 tabs 0RF ezetimibe 10 mg PO DAILY 90 days 90 tabs 1RF Changed From dulaglutide 1.5 mg (0.5 mL) subcut QWEEK 6 mL 1RF E11.65 - Type 2 diabetes mellitus with hyperglycemia To dulaglutide 3 mg (0.5 mL) subcut QWEEK 2 mL 1RF E11.65 - Type 2 diabetes mellitus with hyperglycemia Coding Level of Care Code Est Pt Level 3 (17790) Diagnoses Screening for colon cancer Z12.11 Type 2 diabetes mellitus with hyperglycemia E11.65
[2023-01-18 08:36] VITALS: BP 134/90; PULSE 84; O2SAT 97; BMI 36.2
== END 2023-01-18 10:44 | disposition home or self-care (01) ==
PROVIDERS: PCP Nurse Practitioner Family; Visit Provider Nurse Practitioner Family
DX: E11.65 Type 2 diabetes mellitus with hyperglycemia (principal)
CPT/HCPCS: 83036; 99213

== ENCOUNTER → 2023-01-27 09:22 | Outpatient (BNVA) | payer OTHER, SELFPAY | PROVIDERS: PCP Nurse Practitioner Family; Visit Provider Physician Assistant | DX: M54.41 Lumbago with sciatica, right side (principal) | CPT/HCPCS: 99213 ==

== ENCOUNTER → 2023-02-15 08:45 | Outpatient (BNVA) | payer OTHER, SELFPAY | PROVIDERS: PCP Nurse Practitioner Family; Visit Provider Physician Assistant | DX: M54.41 Lumbago with sciatica, right side (principal) | CPT/HCPCS: 99214 ==

== ENCOUNTER 2023-02-22 08:54 | Outpatient (REF) | payer OTHER, SELFPAY ==
--- NOTE | ~2023-02-22 | MR_ITS ---
EXAMINATION: MR LUMBAR SPINE WITHOUT CONTRAST CLINICAL INFORMATION: Ongoing low back pain. Lower extremity symptoms x2 months. COMPARISON: Lumbar spine radiographs 01/07/2023. TECHNIQUE: MRI of the lumbar spine was obtained using routine sequences without contrast. FINDINGS: Alignment is normal. Vertebral body heights are preserved. No acute bone marrow signal changes. There is disc desiccation at multiple levels without substantial loss of intervertebral disc height. The tip of the conus medullaris is located at L2. No mass effect on the conus. Visualized distal cord signal intensity is normal. At T12-L1 there is a slightly bulging disc. No canal stenosis. No mass effect on the traversing or foraminal nerve roots. At L1-L2 there is a slightly bulging disc. No canal stenosis. No mass effect on the traversing or foraminal nerve roots. At L2-L3 there is a slightly bulging disc. No canal stenosis. No mass effect on the traversing or foraminal nerve roots. At L3-L4 there is a slightly bulging disc. No canal stenosis. No mass effect on the traversing or foraminal nerve roots. At L4-L5 there is a bulging disc. Bilateral facet degenerative change. No canal stenosis. No mass effect on the traversing or foraminal nerve roots. At L5-S1 there is a bulging disc. Bilateral facet degenerative change. No canal stenosis. No mass effect on the traversing or foraminal nerve roots. Limited visualization of the retroperitoneal anatomy reveals a small well marginated benign-appearing cystic lesion at the upper pole of left kidney. Psoas and paraspinal muscle groups are symmetric. MR/MR lumbar spine wo con IMPRESSION: There is disc degeneration at multiple levels within the lumbar spine. No canal stenosis. No mass effect on the traversing or foraminal nerve roots.
== END 2023-02-22 08:55 | disposition home or self-care (01) ==
LOC: HO.MRI 08:54
PROVIDERS: PCP Nurse Practitioner Family; Visit Provider Internal Medicine
DX: M54.50 Low back pain, unspecified (principal)
CPT/HCPCS: 72148

== ENCOUNTER → 2023-02-25 08:43 | Outpatient (BNVA) | payer OTHER, SELFPAY | PROVIDERS: PCP Nurse Practitioner Family; Visit Provider Physician Assistant | DX: S39.012D Strain of muscle, fascia and tendon of lower back, subsequent encounter (principal); X50.3XXD Overexertion from repetitive movements, subsequent encounter; M54.41 Lumbago with sciatica, right side | CPT/HCPCS: 99214 ==

== ENCOUNTER 2023-03-23 11:03 | Outpatient (AMB) | payer OTHER, SELFPAY ==
--- NOTE | 2023-03-23 11:32 | MHC.PC.OV ---
Vital Signs 03/23/23 11:35 Height 6 ft Weight 267 lb BMI 36.2 BP 112/70 Blood Pressure Location Rt brachial Position Sitting Pulse 97 Pulse Source Pulse Oximeter Pulse Oximetry (%) 98 Oxygen Delivery Method Room Air Intake Visit Reasons: Annual PE Intake Note: Patient here for physical exam. pt had an accident in and is still having back and shoulder pain. Allergies ertapenem Allergy (Intermediate, Verified 03/23/23 11:36) Hives piperacillin [From Zosyn] Allergy (Intermediate, Verified 03/23/23 11:36) Hives tazobactam [From Zosyn] Allergy (Intermediate, Verified 03/23/23 11:36) Hives vancomycin Allergy (Intermediate, Verified 03/23/23 11:36) Hives Medication List - Last Reconciled 03/23/23 by Jeff Chi, [facility]- acetaminophen (Tylenol Extra Strength) 1,000 mg PO Q6H PRN cyclobenzaprine 10 mg PO BID PRN dexamethasone 4 mg PO TID 6 days dulaglutide 3 mg (0.5 mL) subcut QWEEK ezetimibe 10 mg PO DAILY 90 days irbesartan 75 mg PO DAILY 90 days meloxicam 7.5 mg PO DAILY montelukast 10 mg PO BEDTIME Tobacco use date assessed: 03/23/23 Dental Screening Dental Screen Date: 03/23/23 Did you have a dental visit in the last 12 months?: No Did you have a dental problem in the last 6 months where you did not have access to dental care?: No Was dental information given to patient?: Patient has dentist HPI Annual PE HPI Details pt is here for a PE. Pt is a diabetic, will come back for a follow up appt for this. His colon screen is scheduled for in apr of this year. Patient was referred to [facility], for a large lung nodule noted (incidental finding). Patient reports a follow-up [facility] but a CT scan was supposed be ordered and apparently this was not done. I will order the CT scan and refer back to [facility] accordingly. Patient further reports cervical neck pain that started 2 days ago. He reports describing cervical neck pain that radiates to his right trap region. He reports sometimes the pain is going down to his right shoulder. WIll order a XR. [facility] Medical History Obesity due to excess calories Hx of sepsis Retropharyngeal abscess Retropharyngeal abscess Cellulitis of pharynx Type 2 diabetes mellitus with hyperglycemia Elevated CPK DAVIS positive Fibromyalgia Controlled diabetes mellitus without complication, without long-term current use of insulin Hyperlipidemia LDL goal <100 Essential hypertension Vitamin D insufficiency Surgical History History of throat surgery H/O shoulder surgery No pertinent past surgical history Family History Father No problems noted. Mother No problems noted. 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 How often do you have a drink containing alcohol?: Never 3. How often do you have six or more drinks on one occasion?: Never Total Score: 0 Score Reviewed/Action Taken: No CAT-7 AMB Questionnaire CAT-7 Date CAT - 7 assessed: 08/04/22 Source: Developed by Drs. Franki Berry, Kenzie Mireles, Jose Regalado and colleagues, with an educational guillermo from [employer]. Review of Systems Const Denies chills and Denies fever(s) Eyes Denies blurry vision ENT Denies vertigo, Denies dizziness and Denies sore throat Card Denies chest pain at rest, Denies chest pain with activity, Denies diaphoresis, Denies dyspnea and Denies dyspnea on exertion Resp Denies cough, Denies dyspnea, Denies dyspnea on exertion and Denies wheezing GI Denies abdominal pain, Denies melena, Denies hematochezia, Denies constipation, Denies diarrhea and Denies loose stools Denies hematuria Musc Reports numbness (down RLE) and Reports tingling (down RLE) Skin/Breast Denies lesions Neuro Denies vertigo, Denies dizziness, Reports numbness (down RLE) and Reports tingling (down RLE) Psych Denies anxiety, Denies depression, Denies homicidal ideation, Denies suicidal ideation and Denies other (substance abuse) Aller/Immun Denies wheezing Physical exam (Primary Care) Vital Signs: Last Vital Signs Pulse 97 03/23/23 11:35 BP 112/70 03/23/23 11:35 Pulse Ox 98 03/23/23 11:35 Oxygen Delivery Method Room Air 03/23/23 11:35 BMI result Body Mass Index 36.2 Tobacco/Smoking Status: Tobacco use Status Tobacco use date assessed 03/23/23 03/23/23 11:38 Patient Tobacco Use Status Never used Tobacco 03/23/23 11:34 e-Cigarette/Vaping Use Never Used 03/23/23 11:34 Thrive Assessment: Date of Thrive Assessment Date Thrive assessed 08/04/22 03/23/23 11:34 Const General: cooperative Nutritional Appearance: well nourished and obese Orientation/consciousness: patient oriented x3 HENMT Head: Yes normal to inspection, Yes normocephalic and Yes atraumatic Ears: TM normal on the right and TM normal on the left Eyes General: appearance normal, both eyes and all related structures Alignment and Position: alignment normal and position normal Neck Neck: Yes normal visual inspection and Yes no lymphadenopathy Resp Effort & Inspection: normal respiratory effort Auscultation: clear to auscultation bilaterally Cardio Rate: regular rate Rhythm: regular rhythm Heart sounds: S1 normal heart sound present, S2 normal heart sound present and no murmurs GI Palpation (GI): Soft to palpation and nontender Auscultation: normal bowel sounds Male General Exam: Yes normal external exam Penis: normal penis Scrotum: scrotum normal, testes descended bilaterally and no inguinal hernias Testes: no testicular mass Skin Rashes: no rashes Neuro General: patient oriented x3, moves all extremities, no focal motor deficits and deep tendon reflexes 2+ bilaterally Romberg Test: Negative Extrem Other: Positive Spurling's test. With turning head side to side and neck flexion side to side, increase in pain to the right cervical region radiating to right upper trap. Right lower extremity: no edema Left lower extremity: no edema Psych Affect: normal affect Attitude: cooperative Thought process: Normal thought process present Assessment and Plan Assessment & Plan (1) Type 2 diabetes mellitus with hyperglycemia: Code(s): E11.65 - Type 2 diabetes mellitus with hyperglycemia Plan: follow up (2) Physical exam: Code(s): Z00.00 - Encounter for general adult medical examination without abnormal findings (3) Cervical neck pain with evidence of disc disease: Code(s): M50.90 - Cervical disc disorder, unspecified, unspecified cervical region Plan: XR ordered (4) Nodule of left lung: Code(s): R91.1 - Solitary pulmonary nodule Plan: CT scan ordered Orders: Orders Complete Blood Count Auto Diff Today E11.65 - Type 2 diabetes mellitus with hyperglycemia Comprehensive [place]. Panel Fast Today E11.65 - Type 2 diabetes mellitus with hyperglycemia TSH reflex Free T4 Today E11.65 - Type 2 diabetes mellitus with hyperglycemia UA CC w/rflx Micro + Cult Today E11.65 - Type 2 diabetes mellitus with hyperglycemia XR cervical spine 2V Today M50.90 - Cervical disc disorder, unspecified, unspecified cervical region CT chest w IV con Today R91.1 - Solitary pulmonary nodule Lipid Panel Today E11.65 - Type 2 diabetes mellitus with hyperglycemia Hemoglobin A1c Today E11.65 - Type 2 diabetes mellitus with hyperglycemia, Z00.00 - Encounter for general adult medical examination without abnormal findings Referrals Thoracic Surgery Referral R91.1 - Solitary pulmonary nodule Coding Level of Care Code Est Pt Prev Care 40-64y(31068) Diagnoses Type 2 diabetes mellitus with hyperglycemia E11.65 Physical exam Z00.00 Cervical neck pain with evidence of disc disease M50.90 Nodule of left lung R91.1
[2023-03-23 11:35] VITALS: BP 112/70; PULSE 97; O2SAT 98; BMI 36.2
== END 2023-03-23 12:34 | disposition home or self-care (01) ==
PROVIDERS: Visit Provider Nurse Practitioner Family
DX: Z00.00 Encounter for general adult medical examination without abnormal findings (principal); E11.65 Type 2 diabetes mellitus with hyperglycemia; M50.90 Cervical disc disorder, unspecified, unspecified cervical region; R91.1 Solitary pulmonary nodule
CPT/HCPCS: 99396

== ENCOUNTER 2023-03-23 12:07 | Outpatient (REF) | payer OTHER, SELFPAY ==
--- NOTE | ~2023-03-23 | XR_ITS ---
EXAMINATION: XR CERVICAL SPINE CLINICAL INFORMATION: Degenerative disc disease. COMPARISON: CT cervical spine dated 05/10/2019. TECHNIQUE: Frontal, odontoid, lateral and swimmer's views are obtained. FINDINGS: Vertebral body heights and alignment are normal. At C3-C4, there is mild to moderate disc space narrowing. The remaining disc spaces are well-maintained. No acute fracture or spondylolisthesis is seen. There is multi-level cervical spondylosis, most pronounced at C5-C6, where spondylosis is moderate. The posterior elements are intact. There is no prevertebral soft tissue swelling. The dens and C7-T1 interface are normal. XR/XR cervical spine 2V IMPRESSION: 1. At C3-C4, there is mild to moderate degenerative disc disease. 2. There is multi-level cervical spondylosis.
== END 2023-03-23 12:08 | disposition home or self-care (01) ==
LOC: HO.HMGCX 12:07
PROVIDERS: PCP Nurse Practitioner Family; Visit Provider Nurse Practitioner Family
DX: M50.90 Cervical disc disorder, unspecified, unspecified cervical region (principal)
CPT/HCPCS: 72040

== ENCOUNTER → 2023-03-29 08:39 | Outpatient (BNVA) | payer OTHER, SELFPAY | PROVIDERS: PCP Nurse Practitioner Family; Visit Provider Physician Assistant | DX: M54.41 Lumbago with sciatica, right side (principal) | CPT/HCPCS: 99213 ==

== ENCOUNTER 2023-04-01 09:10 | Outpatient (AMB) | payer OTHER, SELFPAY ==
--- NOTE | 2023-04-01 09:11 | A.OFFVIS_ITS ---
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 Abd / pelvis CT scan on 11-26-22. Patient c/o: denies difficulty breathing. No family hx of lung ca. Lead Project Engineer Required: No Accompanied by: Self / Same As Patient Allergies ertapenem Allergy (Intermediate, Verified 04/01/23 09:17) Hives piperacillin [From Zosyn] Allergy (Intermediate, Verified 04/01/23 09:17) Hives tazobactam [From Zosyn] Allergy (Intermediate, Verified 04/01/23 09:17) Hives vancomycin Allergy (Intermediate, Verified 04/01/23 09:17) Hives HPI HPI Comments History of Present Illness Details Patient had incidental finding of a left lung lesion status post a CT scan looking for intra-abdominal pathology (kidney stone). Patient has no respiratory issues or complaints. He denies any chronic cough, hemoptysis, chest pain, or wheezing. Energy, appetite, and weight are stable. Patient has never been a smoker. 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 Chart was reviewed and patient evaluated [facility] Medical History Obesity due to excess calories Hx of sepsis Retropharyngeal abscess Retropharyngeal abscess Cellulitis of pharynx Type 2 diabetes mellitus with hyperglycemia Elevated CPK DAVIS positive Fibromyalgia Controlled diabetes mellitus without complication, without long-term current use of insulin Hyperlipidemia LDL goal <100 Essential hypertension Vitamin D insufficiency Surgical History History of throat surgery H/O shoulder surgery No pertinent past surgical history Family History Father No problems noted. Mother No problems noted. 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 No cervical periclavicular or axillary adenopathy bilaterally GI Other: Abdomen soft, corpulent, benign Assessment & Plan Assessment & Plan (1) Nodule of left lung: Code(s): R91.1 - Solitary pulmonary nodule Plan The patient had an original CT scan which had lower cuts demonstrating a left lung lesion. The current plan is for a formal CT scan of the chest and have the patient follow-up after this to discuss the results and further interventions and studies as needed. All questions answered. Arrangements were made for this. Coding Level of Care Code New Pt Level 4 (67568) Diagnoses Nodule of left lung R91.1
[2023-04-01 09:19] VITALS: BP 138/81; PULSE 81; BMI 36.3
== END 2023-04-01 09:25 | disposition home or self-care (01) ==
PROVIDERS: PCP Nurse Practitioner Family; Visit Provider Surgery
DX: R91.1 Solitary pulmonary nodule (principal)
CPT/HCPCS: 99204

== ENCOUNTER → 2023-04-01 09:10 | Outpatient (BNVA) | payer OTHER, SELFPAY | PROVIDERS: PCP Nurse Practitioner Family; Visit Provider Surgery | DX: R91.1 Solitary pulmonary nodule (principal) | CPT/HCPCS: 99202 ==

== ENCOUNTER 2023-04-01 15:51 | Outpatient (REF) | payer OTHER, SELFPAY ==
[2023-04-01 16:03] LABS: MANUAL DIFF FLAG NO
[2023-04-01 17:23] LABS: Basophils Percent Auto 0.4 % (0-2); Eosinophils Absolute Auto 0.2 X10*3/uL (0.0-0.4); Eosinophils Percent Auto 3.1 % (0-4); Hematocrit 42.4 % (42.0-52.0); Hemoglobin 13.9 g/dl (14.0-18.0); Imm Gran Abs Auto 0.03 X10*3/uL (0.00-0.03); Imm Gran Pct Auto 0.4 % (0.0-0.4); Lymphocytes Absolute Auto 1.6 X10*3/uL (1.2-4.9); Lymphocytes Percent Auto 21.9 % (20-40); Mean Corpuscular HGB Conc 32.8 g/dl (31.0-36.0); Mean Corpuscular Hemoglobin 29.7 pg (27.0-33.0); Mean Corpuscular Volume 90.6 fL (80.0-98.0); Mean Platelet Volume 10.3 fL (9.4-12.4); Monocytes Absolute Auto 0.5 X10*3/uL (0.1-1.2); Neutrophils Absolute Auto 4.8 x10*3/uL (2.0-8.3); Neutrophils Percent Auto 67.2 % (45-73); Platelet Count 253 X10*3/uL (160-400); Red Blood Count 4.68 X10*6/uL (4.60-5.80); Red Cell Distribution Width 13.2 % (11.0-16.0); White Blood Count 7.2 X10*3/uL (4.8-10.8)
[2023-04-01 17:43] LABS: Estimated Average Glucose 206 mg/dL; Hemoglobin A1c % 8.8 % (<6.0)
[2023-04-01 17:58] LABS: Appearance Urine Clear; Color Urine Yellow; Glucose Urine UA 250 mg/dL (Negative); Leukocyte Esterase Urine Negative (Negative); Nitrite Urine Negative (Negative); PH 5.5 (5.0-9.0); Specific Gravity - Urine 1.025 (1.005-1.025); Urine Blood Negative (Negative); Urine Ketones Negative (Negative); Urine Protein Negative (Neg-Trace)
[2023-04-01 18:35] LABS: Blood Urea Nitrogen 11 mg/dL (9-16); TSH reflex Free T4 1.39 uIU/mL (0.32-4.0)
[2023-04-01 18:41] LABS: Alanine Aminotransferase 60 U/L (0-40); Albumin Level 4.3 g/dL (3.5-5.0); Alkaline Phosphatase 61 U/L (39-117); Anion Gap 15 (12-20); Aspartate Amino Transferase 37 U/L (5-37); Bilirubin Total 0.4 mg/dL (0.0-1.0); Blood Urea Nitrogen 11 mg/dL (9-16); Calcium 9.4 mg/dL (8.4-10.2); Carbon Dioxide 27 mmol/L (22-29); Chloride 102 mmol/L (96-108); Cholesterol 233 mg/dL (<200); Estimated Glomerular Filt Rate > 60; Glucose Fasting 223 mg/dL (60-99); HDL Cholesterol 33 mg/dL (>40); Potassium 3.6 mmol/L (3.3-5.1); Sodium 140 mmol/L (135-145); Total Protein 7.3 g/dL (6.5-8.0); Triglycerides 449 mg/dL (<150)
== END 2023-04-01 15:52 | disposition home or self-care (01) ==
LOC: HO.LAB 15:51
PROVIDERS: PCP Nurse Practitioner Family; Visit Provider Surgery
DX: Z00.00 Encounter for general adult medical examination without abnormal findings (principal); R91.1 Solitary pulmonary nodule; E11.65 Type 2 diabetes mellitus with hyperglycemia
CPT/HCPCS: 36415; 80053; 80061; 81003; 83036; 84443; 84520; 85025

== ENCOUNTER 2023-04-04 14:09 | Outpatient (REF) | payer OTHER, SELFPAY ==
--- NOTE | ~2023-04-04 | CT_ITS ---
EXAMINATION: CT CHEST WITH CONTRAST CLINICAL INFORMATION: Solitary pulmonary nodule COMPARISON: 02/23/2019 chest radiograph TECHNIQUE: Multidetector volumetric CT imaging of the chest was obtained after the administration of 50 mL of Omnipaque 350 intravenous contrast without immediate adverse reactions. Axial MIP volume rendering provided. Sagittal and coronal reformatted images were obtained. This CT examination was performed using dose optimization techniques as appropriate, variously including the following: *Automated exposure control *Adjustment of mA and/or kV according to patient size (this includes techniques or standardized protocols for targeted exams where dose is matched to indication/reason for exam; i.e. 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 Mild bronchial wall thickening. 8 mm LLL subpleural nodule with coarse central calcification, coronal 5:83. MEDIASTINUM: Unremarkable thyroid. Nonspecific lymph nodes, largest in the pretracheal region measures 1.1 cm in short axis with fatty hilum. 8 mm short axis right hilar lymph node. No pathologic lymphadenopathy. Nonenlarged heart. No pericardial effusion. Nonaneurysmal aorta with atherosclerotic calcifications. Nonenlarged pulmonary arteries. PLEURA: There is no pleural effusion. No pleural mass or thickening. AXILLA: Nonspecific axillary lymph nodes. UPPER ABDOMEN: Enlarged low density liver with fatty sparing adjacent to the gallbladder fossa. 1.8 cm left upper pole renal cyst. OSSEOUS STRUCTURES: No suspicious osseous lesions. CT/CT chest w IV con IMPRESSION: Benign-appearing 8 mm left lower lobe lung lesion, likely hamartoma.. No worrisome pulmonary nodule(s) Enlarged fatty liver. Left renal cyst. Fleischner guidelines were followed.
[2023-04-04] MEDS: iohexoL 350 MG/ML 75 ML INFUS..BTL 65 ML IV (15:11)
== END 2023-04-04 14:10 | disposition home or self-care (01) ==
LOC: HO.CT 14:09
PROVIDERS: PCP Nurse Practitioner Family; Visit Provider Nurse Practitioner Family
DX: R91.1 Solitary pulmonary nodule (principal)
CPT/HCPCS: 71260; Q9967

== ENCOUNTER 2023-04-11 09:39 | Outpatient (AMB) | payer OTHER, SELFPAY ==
[2023-04-11 09:45] VITALS: BP 142/85; PULSE 79; BMI 36.6
--- NOTE | 2023-04-11 09:45 | A.OFFVIS_ITS ---
Intake Vital Signs 04/11/23 09:45 Height 6 ft Weight 270 lb BMI 36.6 BP 142/85 H Blood Pressure Location Rt brachial Position Sitting Pulse 79 Intake Visit Reasons: Pulmonary nodule, CT results Intake Note: Patient here to discuss Chest CT results. Patient c/o: no changes since last visit. 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 Required: No Accompanied by: Self / Same As Patient Allergies ertapenem Allergy (Intermediate, Verified 04/11/23 09:46) Hives piperacillin [From Zosyn] Allergy (Intermediate, Verified 04/11/23 09:46) Hives tazobactam [From Zosyn] Allergy (Intermediate, Verified 04/11/23 09:46) Hives vancomycin Allergy (Intermediate, Verified 04/11/23 09:46) Hives Medication List - Last Reconciled 04/11/23 by Eladio De Leon MD acetaminophen (Tylenol Extra Strength) 1,000 mg PO Q6H PRN cholecalciferol (vitamin D3) 50 mcg PO DAILY 90 days cyclobenzaprine 10 mg PO BID PRN dexamethasone 4 mg PO TID 6 days dulaglutide 4.5 mg (0.5 mL) subcut QWEEK ezetimibe 10 mg PO DAILY 90 days fluvastatin 20 mg PO QPM irbesartan 75 mg PO DAILY 90 days meloxicam 7.5 mg PO DAILY montelukast 10 mg PO BEDTIME omega-3 acid ethyl esters 1 cap PO BID HPI HPI Comments History of Present Illness Details Patient presents for evaluation of an incidental finding of left lower lobe lung lesion. He has no respiratory issues or complaints. A year ago he had pneumonia. He is never smoked. Has otherwise doing well. He has no cough, wheeze, chest pain, or hemoptysis. Weight, energy, appetite are all stable. Chart was reviewed patient evaluated [facility] Medical History Obesity due to excess calories Hx of sepsis Retropharyngeal abscess Retropharyngeal abscess Cellulitis of pharynx Type 2 diabetes mellitus with hyperglycemia Elevated CPK DAVIS positive Fibromyalgia Controlled diabetes mellitus without complication, without long-term current use of insulin Hyperlipidemia LDL goal <100 Essential hypertension Vitamin D insufficiency Surgical History History of throat surgery H/O shoulder surgery No pertinent past surgical history Family History Father No problems noted. Mother No problems noted. 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 Neck Other: No cervical, periclavicular, or axillary adenopathy bilaterally. Breath sounds bilaterally. GI Other: Abdomen moderately corpulent, soft, benign Assessment & Plan Assessment & Plan (1) Nodule of left lung: Code(s): R91.1 - Solitary pulmonary nodule Plan: Based on CT scan which was reviewed, current plan to see the patient 1 year's time with follow-up screening CT scan or p.r.n.. This was explained to the patient. All questions answered. Arrangements will be made for this. Orders: Orders CT chest wo con - High Res 11 Months R91.1 - Solitary pulmonary nodule Coding Level of Care Code New Pt Level 4 (05280) Diagnoses Nodule of left lung R91.1
== END 2023-04-11 10:00 | disposition home or self-care (01) ==
PROVIDERS: PCP Nurse Practitioner Family; Visit Provider Surgery
DX: R91.1 Solitary pulmonary nodule (principal)
CPT/HCPCS: 99213

== ENCOUNTER → 2023-04-11 09:39 | Outpatient (BNVA) | payer OTHER, SELFPAY | PROVIDERS: PCP Nurse Practitioner Family; Visit Provider Surgery | DX: M51.36 Other intervertebral disc degeneration, lumbar region (principal); M51.16 Intervertebral disc disorders with radiculopathy, lumbar region; M54.50 Low back pain, unspecified; M47.816 Spondylosis without myelopathy or radiculopathy, lumbar region | CPT/HCPCS: 99202; 99212 ==

== ENCOUNTER 2023-04-11 14:02 | Outpatient (AMB) | payer OTHER, SELFPAY ==
--- NOTE | 2023-04-11 14:05 | A.OFFVIS_ITS ---
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: No Accompanied by: Self / Same As Patient Allergies ertapenem Allergy (Intermediate, Verified 04/11/23 14:09) Hives piperacillin [From Zosyn] Allergy (Intermediate, Verified 04/11/23 14:09) Hives tazobactam [From Zosyn] Allergy (Intermediate, Verified 04/11/23 14:09) Hives vancomycin Allergy (Intermediate, Verified 04/11/23 14:09) Hives Do you need a note to return to daycare/school/sports/work: Yes HPI Lumbar strain/right lower extremity HPI Details Patient is a 47 years old male with prior history of obesity, type 2 diabetes, peripheral neuropathy, cervical DDD, fibromyalgia, polymyalgia with negative muscle biopsy (left deltoid 2020), carpal tunnel syndrome, MACIE, presents today for initial evaluation of right sided low back pain due to work related injury on 11/26/22 due to a heavy lifting. This is a Worker's Comp case #[id number]. Patient states while he was twisting enclosing a lift he felt sudden pain in his right middle back on 11/26/22. He states pain radiates down to his back, right buttock and right leg more posteriorly than anteriorly with numbness, tingling and occasional weakness. Denies previous history of back pain, back injections or spine surgery. Patient currently remains out of work and has underwent imaging of his lower back as noted below and physical [place] through [facility] [place] [facility] [place]. Patient reports minimal improvement in his symptoms and no significant reduction in pain. At the present time, he is noting pain with activity, movements, walking, lifting and pain radiating to his right lower extremity. Straight leg raising is positive to 60 degrees bilaterally. There is no motor deficit in the hip, knee, or ankle musculature. He has mild sensory deficit in bilateral lower extremities with prior history of axonal sensory peripheral neuropathy and normal EMG of r ight L4-S1 innervated muscles per EMG study on 04/14/22. Denies any fever, weight changes, abdominal or groin pain, weakness, foot drop, bladder or bowel dysfunction, or saddle anesthesia. OSWESTRY LOW BACK DISABILITY score-33 Pain killers give moderate relief from pain I can look after myself normally but it causes extra pain I can lift very light weights Pain prevents me walking more than ? mile Pain prevents me from sitting more than one hour Pain prevents me from standing for more than 10 minutes Even when I take medication, I have less than 2 hrs sleep Pain has restricted my social life to my home Pain restricts me to journeys of less than 1 hour Pain prevents me from performing any job or homemaking chores. Location Lower back radiates down right leg Duration For 4 months, back injury 11/26/22 work-related Characteristics of symptom or complaint Sharp, shooting, stabbing, burning, saching, radiating, heavy Aggravating or associated factors Movements, walking, changing positions, standing, cold weather Relieving factors Rest, sitting, avoiding heavy lifting and quick movements, heat therapy Treatment PT- no improvement, Tylenol, cyclobenzaprine, NSAIDs PFSH Medical History Obesity due to excess calories Hx of sepsis Retropharyngeal abscess Retropharyngeal abscess Cellulitis of pharynx Type 2 diabetes mellitus with hyperglycemia Elevated CPK DAVIS positive Fibromyalgia Controlled diabetes mellitus without complication, without long-term current use of insulin Hyperlipidemia LDL goal <100 Essential hypertension Vitamin D insufficiency Surgical History History of throat surgery H/O shoulder surgery No pertinent past surgical history Family History Father No problems noted. Mother No problems noted. 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 Alert and oriented. Mood and affect appropriate. Follows and participates in conversation appropriately. Respiratory effort is unlabored. No cough. Able to transition from sit to stand unassisted. Ambulates with bilaterally normal heel strike and toe off, reports increase pain on the right. Back/Spine/Pelvis Other: Patient is able to walk and stand on heels and tip toes with mild difficulty on the right due to pain, otherwise demonstrating good motor tone. No limping. Can flex forward to 65-75 degrees and extend to 5-10 degrees before experiencing lumbar pain. Demonstrates 5/5 strength of quadriceps bilaterally as well as flexion/dorsiflexion of bilateral feet against resistance. 2+ pedal pulses bilaterally. Straight leg rise with dorsiflexion positive on the right. +1 right +2 left patellar and achilles reflexes bilaterally. Facet loading test positive bilaterally. Gutierrez?s, Pelvic compression and Stinchfield tests are negative bilaterally. No groin pain with I/E hip rotations. Valsalva maneuver negative. Cervical Spine: cervical ROM normal, cervical muscular tenderness and No Cervical spine tenderness Thoracic/Lumbar Spine: thoracic and lumbar spine normal to inspection, No Thoracic/lumbar spine scar(s), Lasegue's sign positive on the right and localized, pain with thoraco-lumbar ROM, paraspinal muscle tenderness on the right greater than left, thoraco-lumbar ROM limited, No thoracic spinal tenderness, lumbar spinal tenderness (L4-S1) and straight leg raise positive right at 60 degrees Pelvis: buttock tenderness on the right Sacroiliac joints: bilaterally nontender Results Reviewed Results Reviewed: MR LUMBAR SPINE WITHOUT CONTRAST 02/22/23 CLINICAL INFORMATION: Ongoing low back pain. Lower extremity symptoms x2 months. COMPARISON: Lumbar spine radiographs 01/07/2023. TECHNIQUE: MRI of the lumbar spine was obtained using routine sequences without contrast. FINDINGS: Alignment is normal. Vertebral body heights are preserved. No acute bone marrow signal changes. There is disc desiccation at multiple levels without substantial loss of intervertebral disc height. The tip of the conus medullaris is located at L2. No mass effect on the conus. Visualized distal cord signal intensity is normal. At T12-L1 there is a slightly bulging disc. No canal stenosis. No mass effect on the traversing or foraminal nerve roots. At L1-L2 there is a slightly bulging disc. No canal stenosis. No mass effect on the traversing or foraminal nerve roots. At L2-L3 there is a slightly bulging disc. No canal stenosis. No mass effect on the traversing or foraminal nerve roots. At L3-L4 there is a slightly bulging disc. No canal stenosis. No mass effect on the traversing or foraminal nerve roots. At L4-L5 there is a bulging disc. Bilateral facet degenerative change. No canal stenosis. No mass effect on the traversing or foraminal nerve roots. At L5-S1 there is a bulging disc. Bilateral facet degenerative change. No canal stenosis. No mass effect on the traversing or foraminal nerve roots. Limited visualization of the retroperitoneal anatomy reveals a small well marginated benign-appearing cystic lesion at the upper pole of left kidney. Psoas and paraspinal muscle groups are symmetric. IMPRESSION: There is disc degeneration at multiple levels within the lumbar spine. No canal stenosis. No mass effect on the traversing or foraminal nerve roots. XR CERVICAL SPINE 03/23/23 CLINICAL INFORMATION: Degenerative disc disease. COMPARISON: CT cervical spine dated 05/10/2019. TECHNIQUE: Frontal, odontoid, lateral and swimmer's views are obtained. FINDINGS: Vertebral body heights and alignment are normal. At C3-C4, there is mild to moderate disc space narrowing. The remaining disc spaces are well-maintained. No acute fracture or spondylolisthesis is seen. There is multi-level cervical spondylosis, most pronounced at C5-C6, where spondylosis is moderate. The posterior elements are intact. There is no prevertebral soft tissue swelling. The dens and C7-T1 interface are normal. IMPRESSION: 1. At C3-C4, there is mild to moderate degenerative disc disease. 2. There is multi-level cervical spondylosis. Assessment & Plan Assessment & Plan (1) Lumbar back pain with radiculopathy affecting right lower extremity: Code(s): M54.16 - Radiculopathy, lumbar region (2) Lumbar degenerative disc disease: Code(s): M51.36 - Other intervertebral disc degeneration, lumbar region (3) Lumbar disc herniation with radiculopathy: Code(s): M51.16 - Intervertebral disc disorders with radiculopathy, lumbar region (4) Low back pain: Code(s): M54.50 - Low back pain, unspecified (5) Lumbar spondylosis: Code(s): M47.816 - Spondylosis without myelopathy or radiculopathy, lumbar region Plan Discussed treatment options for both his right sided radicular pain which started on 11/26/22 due to work-related injury. The back pain is function and mobility limiting and has been resistant to conservative treatments, including formal course of PT and regular home exercise program. For radicular pain, we will plan for Right L4-L5 and L5-S1 TFESI with sedation and fluoroscopy. Expectations, risks and benefits were reviewed. Patient is aware he will be contacted to schedule this procedure. Script provided for gabapentin and lidocaine patches for low back pain with radicular symptoms. Side effects and precautions were discussed with patient. Work note provided today. Patient is advised to avoid heavy lifting, pulling, pushing and quick movement. All questions were answered and the patient is in agreement of plan. Follow-up after injections and sooner as needed. Medications: New gabapentin 300 mg PO BID 30 days 60 caps 0RF pain M51.36 - Other intervertebral disc degeneration, lumbar region, M54.16 - Radiculopathy, lumbar region lidocaine 5% 1 patch topical DAILY 30 days 30 ea 2RF pain M51.36 - Other intervertebral disc degeneration, lumbar region, M54.16 - Radiculopathy, lumbar region Coding Level of Care Code New Pt Level 4 (99825) Diagnoses Lumbar back pain with radiculopathy affecting right lower extremity M54.16 Lumbar degenerative disc disease M51.36 Lumbar disc herniation with radiculopathy M51.16 Low back pain M54.50 Lumbar spondylosis M47.816
[2023-04-11 14:10] VITALS: BP 134/87; PULSE 84; O2SAT 100; BMI 35.9
== END 2023-04-11 15:02 | disposition home or self-care (01) ==
PROVIDERS: PCP Nurse Practitioner Family; Visit Provider Nurse Practitioner Family
DX: M54.16 Radiculopathy, lumbar region (principal); M51.36 Other intervertebral disc degeneration, lumbar region; M54.50 Low back pain, unspecified; M47.816 Spondylosis without myelopathy or radiculopathy, lumbar region
CPT/HCPCS: 99204; 99214

== ENCOUNTER 2023-04-26 19:09 | Emergency (ER) | payer OTHER, SELFPAY ==
[2023-04-26 19:41] VITALS: BP 140/83; PULSE 75; RESP 18; TEMP 36.6; O2SAT 96; BMI 36.7
--- NOTE | 2023-04-26 19:41 | ED.WOUNDLAC ---
HPI - Wound/Laceration General Chief Complaint: Head Injury Stated Complaint: rt side head wound/cabinet Time Seen by Provider: 04/26/23 19:43 Source: patient and family Mode of arrival: ambulatory Limitations: no limitations History of Present Illness HPI narrative: 47-year-old male here with complaints of laceration to the right side of head. Patient reports he hit his head on a corner of a cabinet approximately 20 minutes ago. There was no loss of consciousness. He has some mild discomfort the site but denies any severe headache, vision changes, vomiting, neck pain or neck stiffness. He is not on any anticoagulation Related Data Home Medications Medication Instructions Recorded Confirmed acetaminophen 500 mg tablet 1,000 mg PO Q6H PRN 01/09/21 03/23/23 (Tylenol Extra Strength) Previous Rx's Medication Instructions Recorded meloxicam 7.5 mg tablet 7.5 mg PO DAILY #14 tabs 01/05/23 cyclobenzaprine 10 mg tablet 10 mg PO BID PRN muscle spasm #20 01/07/23 tabs dexamethasone 4 mg tablet 4 mg PO TID 6 days #18 tabs 01/07/23 ezetimibe 10 mg tablet 10 mg PO DAILY 90 days #90 tabs 01/18/23 montelukast 10 mg tablet 10 mg PO BEDTIME #90 tabs 02/16/23 dulaglutide 4.5 mg/0.5 mL 4.5 mg (0.5 mL) subcut QWEEK #2 mL 04/03/23 subcutaneous pen injector fluvastatin 20 mg capsule 20 mg PO QPM #30 caps 04/03/23 omega-3 acid ethyl esters 1 gram 1 cap PO BID #30 caps 04/03/23 capsule cholecalciferol (vitamin D3) 50 50 mcg PO DAILY 90 days #90 caps 04/10/23 mcg (2,000 unit) capsule gabapentin 300 mg capsule 300 mg PO BID pain 30 days #60 caps 04/11/23 lidocaine 5 % topical patch 1 patch topical DAILY pain 30 days 04/11/23 #30 ea irbesartan 75 mg tablet 75 mg PO DAILY 90 days #90 tabs 04/22/23 Allergies Allergy/AdvReac Type Severity Reaction Status Date / Time ertapenem Allergy Intermediate Hives Verified 04/11/23 14:09 piperacillin [From Zosyn] Allergy Intermediate Hives Verified 04/11/23 14:09 tazobactam [From Zosyn] Allergy Intermediate Hives Verified 04/11/23 14:09 vancomycin Allergy Intermediate Hives Verified 04/11/23 14:09 Review of Systems Review of Systems: Yes all other systems are reviewed and are negative Constitutional: Constitutional: Reports no additional constitutional complaints, Denies body ache(s), Denies chills, Denies fever(s), Reports headache(s) and Denies weakness Eyes: Eyes: Reports no additional eye complaints and Denies change in vision ENT: Reports system reviewed and no additional complaints, except as documented, Denies dizziness, Reports headache(s), Denies nasal congestion, Denies nasal discharge and Denies neck pain Cardiovascular: Cardiovascular: Reports no additional cardiovascular complaints, Denies chest pain, Denies leg edema and Denies dyspnea Respiratory: Respiratory: Reports no additional respiratory complaints, Denies cough and Denies dyspnea Gastrointestinal: Gastrointestinal: Reports no additional gastrointestinal complaints, Denies abdominal pain, Denies diarrhea, Denies nausea and Denies vomiting Genitourinary: Genitourinary: Denies urinary incontinence Musculoskeletal: Musculoskeletal: Reports no additional musculoskeletal complaints, Denies back pain, Denies arthralgias, Denies joint swelling, Denies neck pain, Denies numbness and Denies tingling Integumentary/Breasts: Skin/Breast: Reports system reviewed and no additional complaints, except as docu and Denies rash Neurologic: Reports system reviewed and no additional complaints, except as documented, Denies Abnormal speech present, Denies dizziness, Reports headache(s), Denies numbness, Denies tingling and Denies weakness PMFSH Past Medical History Attestation statement: The following information was validated with the patient. Source: old records reviewed and nursing notes reviewed Medical History Obesity due to excess calories Hx of sepsis Retropharyngeal abscess Retropharyngeal abscess Cellulitis of pharynx Type 2 diabetes mellitus with hyperglycemia Elevated CPK DAVIS positive Fibromyalgia Controlled diabetes mellitus without complication, without long-term current use of insulin Hyperlipidemia LDL goal <100 Essential hypertension Vitamin D insufficiency Surgical History History of throat surgery H/O shoulder surgery No pertinent past surgical history Family History Family History Father No problems noted. Mother No problems noted. 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 Abrasion Ears: hearing grossly normal bilaterally and TM's normal bilaterally General nose exam: Normal external nose present Face and sinus: Yes normal facial exam Mouth: Normal oral and palatal mucosa present Throat: Yes posterior oropharynx normal Eyes: General: appearance normal, both eyes and all related structures Pupils: Equal, round and reactive pupils present Neck: Neck: Yes normal visual inspection, Yes full ROM, Yes no lymphadenopathy and Yes no meningeal signs Chest: Chest palpation & inspection: normal inspection of the chest Resp: Effort & Inspection: normal respiratory effort Auscultation: clear to auscultation bilaterally Cardio: Rate: regular rate Rhythm: regular rhythm Peripheral pulses: Peripheral pulses 2+ throughout GI: Inspection: Yes normal to inspection Palpation (GI): Soft to palpation and nontender Auscultation: normal bowel sounds Back/Spine/Pelvis: Thoracic/Lumbar Spine: thoracic and lumbar spine normal to inspection Skin: General skin exam: no rashes or lesions noted Neuro: General: patient oriented x3, moves all extremities, no meningeal signs, no focal motor deficits and normal sensation to monofilament Cranial nerves: Yes CN's II-XII intact bilaterally, Yes Equal, round and reactive pupils present, Yes Bilaterally intact EOM present, Yes Nystagmus not present, Yes Normal facial strength present and Yes Midline tongue present Cognition (Neuro): normal cognition Speech: No Abnormal speech present Gait exam (Neuro): Normal gait present Motor exam (neuro): 5/5 motor strength present throughout Sensory Exam: Normal double simultaneous stimulation for sensation Extrem: General: Yes normal to inspection Course Course Course Narrative: 47 yo male here with complaints of head strike to cabinet today with laceration Medical Decision Making Medical Decision Making [facility] Narrative: 47-year-old male here with complaints of laceration to the right side of head. Patient reports he hit his head on a corner of a cabinet approximately 20 minutes ago. There was no loss of consciousness. He has some mild discomfort the site but denies any severe headache, vision changes, vomiting, neck pain or neck stiffness. He is not on any anticoagulation Normal neuro exam with no focal deficits Small abrasion seen to the right side of the head. Reviewed American CT head rule. No need for imaging at this time This was reviewed with the patient and his family who agree. I did review strict return precautions with them and they will return for any worsening symptoms. Recommended they go home and shower washing the area with soap and water tonight. Differential Diagnosis Differential Diagnoses: The differential diagnosis associated with the presentation includes Abrasion Low concern for concussion, skull fracture, intracranial hemorrhage Admission/Observation Consideration of admission/observation: Escalation of care including admission/observation considered Low concern for skull fracture or intracranial hemorrhage requiring advanced imaging, urgent neurosurgery evaluation. Independent Historian Clinical information obtained from an independent historian. History obtained from or confirmed by: Spouse Tests considered The following testing was considered but not selected: Normal neuro exam-American CT head rule-not necessary for imaging Discharge Plan Discharge Clinical Impression: Abrasion of head Patient Disposition: Home, Self-Care Instructions: Abrasion (ED) Additional Instructions: Return for worsening headache, vomiting, vision changes, dizziness, neck pain or neck stiffness Expect mild head Take Motrin or Tylenol if able as needed Prescriptions: No Action montelukast 10 mg tablet 10 mg PO BEDTIME Qty: 90 0RF fluvastatin 20 mg capsule 20 mg PO QPM Qty: 30 3RF omega-3 acid ethyl esters 1 gram capsule 1 cap PO BID Qty: 30 3RF dulaglutide 4.5 mg/0.5 mL pen injector 4.5 mg subcut QWEEK Qty: 2 3RF cholecalciferol (vitamin D3) 50 mcg (2,000 unit) capsule 50 mcg PO DAILY 90 Days Qty: 90 2RF irbesartan 75 mg tablet 75 mg PO DAILY 90 Days Qty: 90 1RF ezetimibe 10 mg tablet 10 mg PO DAILY 90 Days Qty: 90 1RF meloxicam 7.5 mg tablet 7.5 mg PO DAILY Qty: 14 0RF acetaminophen [Tylenol Extra Strength] 500 mg tablet 1,000 mg PO Q6H PRN gabapentin 300 mg capsule 300 mg PO BID 30 Days Qty: 60 0RF lidocaine 5 % adhesive patch,medicated 1 patch topical DAILY 30 Days Qty: 30 2RF cyclobenzaprine 10 mg tablet 10 mg PO BID PRN (Reason: muscle spasm) Qty: 20 0RF dexamethasone 4 mg tablet 4 mg PO TID 6 Days Qty: 18 0RF Rx Instructions: take with food Referrals: Jeff Chi, MEDIA/INSTRUCTIONAL DESIGNER-BC [Primary Care Provider] - 5 days
== END 2023-04-26 20:07 | disposition home or self-care (01) ==
PROVIDERS: Emergency Provider Student in an Organized Health Care Education/Training Program; PCP Nurse Practitioner Family
DX: S01.01XA Laceration without foreign body of scalp, initial encounter (principal); W22.09XA Striking against other stationary object, initial encounter; Y93.9 Activity, unspecified; Y92.9 Unspecified place or not applicable; Y99.9 Unspecified external cause status; I10 Essential (primary) hypertension; E78.5 Hyperlipidemia, unspecified; E11.9 Type 2 diabetes mellitus without complications
CPT/HCPCS: 99282

== ENCOUNTER 2023-04-27 12:54 | Outpatient (REF) | payer OTHER, SELFPAY | END 2023-04-27 12:55 | disposition home or self-care (01) | LOC: HO.CT 12:54 | PROVIDERS: PCP Nurse Practitioner Family; Visit Provider Nurse Practitioner Family | DX: Z13.89 Encounter for screening for other disorder (principal) ==

== ENCOUNTER 2023-05-06 09:24 | Day surgery (SDC) | payer OTHER, SELFPAY ==
[2023-05-04 08:02] VITALS: BMI 35.9
--- NOTE | 2023-05-05 12:08 | HO.ANESPROP2 ---
Documented by User: Nahomi Cárdenas NP 05/05/23 12:09 HPI - Anesthesia Eval Consult details Narrative: 47yo M for Right L4-5,L5-S1 Transforaminal Epidural Steroid Injection Anesthesia Pre-Procedure Meds Is the patient on any of the following meds?: Dulaglutide (Trulicity) PMFSH Active Problems Active Problems: All Active Problems (Updated 05/04/23 @ 07:54 by Divya Demarco RN) Lumbar spondylosis (Acute) Low back pain (Acute) Lumbar disc herniation with radiculopathy (Acute) Lumbar degenerative disc disease (Acute) Lumbar back pain with radiculopathy affecting right lower extremity (Acute) Spondylosis of cervical spine (Acute) Cervical neck pain with evidence of disc disease (Acute) Screening for colon cancer (Acute) Pelvic lymphadenopathy (Acute) Nodule of left lung (Acute) Epididymo-orchitis (Acute) Paronychia of thumb, right (Acute) Hand numbness (Acute) Allergic rhinitis (Acute) Leg pain, bilateral (Acute) Delayed ejaculation (Acute) Left knee pain (Acute) Left otitis media (Acute) Dyslipidemia (Acute) Retropharyngeal abscess (Acute) SHERLEY (acute kidney injury) (Acute) Drug rash (Acute) Physical exam (Acute) Right hand pain (Acute) Obesity due to excess calories (Acute) Type 2 diabetes mellitus with hyperglycemia (Acute) Controlled diabetes mellitus without complication, without long-term current use of insulin (Acute) Hyperlipidemia LDL goal <100 (Acute) Essential hypertension (Acute) Vitamin D insufficiency (Acute) DAVIS positive (Acute) Elevated CPK (Acute) Past Medical History Medical History Obesity due to excess calories Hx of sepsis Retropharyngeal abscess Cellulitis of pharynx Type 2 diabetes mellitus with hyperglycemia Elevated CPK DAVIS positive Fibromyalgia Controlled diabetes mellitus without complication, without long-term current use of insulin Hyperlipidemia LDL goal <100 Essential hypertension Vitamin D insufficiency Family History Family History Father No problems noted. Mother No problems noted. Maternal Grandfather CVD (cardiovascular disease) Maternal Aunt Diabetes mellitus Surgical History Surgical History History of throat surgery H/O shoulder surgery Social History Social History Household Members: Spouse Housing: Apartment Alcohol intake: unknown Patient Tobacco Use Status: Never used Tobacco e-Cigarette/Vaping Use: Never Used Second Hand Smoke Exposure: No Use of substances other than those prescribed or required for medical reasons: No Are you DNR?: No Advance Directives: No Advance Directives Information Provided: Yes Advance Directives on File: No Current occupational status: employed 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 Cognitive needs: No Hearing needs: No Vision needs: No Meds Allergies Allergy/AdvReac Type Severity Reaction Status Date / Time ertapenem Allergy Intermediate Hives Verified 04/11/23 14:09 piperacillin [From Zosyn] Allergy Intermediate Hives Verified 04/11/23 14:09 tazobactam [From Zosyn] Allergy Intermediate Hives Verified 04/11/23 14:09 vancomycin Allergy Intermediate Hives Verified 04/11/23 14:09 Home Medications Medication Instructions Recorded Confirmed Last Taken Type acetaminophen 500 mg tablet 1,000 mg PO Q6H PRN 01/09/21 03/23/23 Unknown History (Tylenol Extra Strength) Exam Height,Weight and Vital Signs: Height 6 ft Weight 120.202 kg Pertinent Lab Results Pertinent Lab Results: Laboratory Tests 04/01/23 16:02 WBC 7.2 Hgb 13.9 L Hct 42.4 Plt Count 253 Sodium 140 Potassium 3.6 Chloride 102 Carbon Dioxide 27 BUN 11 Creatinine 0.90 Assessment and Plan Assessment Anesthesia Assessment: Chart Reviewed Documented by User: Yoon Dodge MD 05/06/23 10:23 HPI - Anesthesia Eval Anesthesia Pre-Procedure Meds If Yes to any meds - educate patient: Pt education - increased risk of aspiration PMFSH Past Medical History Medical History Obesity due to excess calories Hx of sepsis Retropharyngeal abscess Cellulitis of pharynx Type 2 diabetes mellitus with hyperglycemia Elevated CPK DAVIS positive Fibromyalgia Controlled diabetes mellitus without complication, without long-term current use of insulin Hyperlipidemia LDL goal <100 Essential hypertension Vitamin D insufficiency Family History Family History Father No problems noted. Mother No problems noted. Maternal Grandfather CVD (cardiovascular disease) Maternal Aunt Diabetes mellitus Surgical History Surgical History History of throat surgery H/O shoulder surgery History of Problems with Anesthesia: No Social History Social History Household Members: Spouse Housing: Apartment Alcohol intake: unknown Patient Tobacco Use Status: Never used Tobacco e-Cigarette/Vaping Use: Never Used Second Hand Smoke Exposure: No Use of substances other than those prescribed or required for medical reasons: No Are you DNR?: No Advance Directives: No Advance Directives Information Provided: Yes Advance Directives on File: No Current occupational status: employed 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 Cognitive needs: No Hearing needs: No Vision needs: No Meds Allergies Allergy/AdvReac Type Severity Reaction Status Date / Time ertapenem Allergy Intermediate Hives Verified 04/11/23 14:09 piperacillin [From Zosyn] Allergy Intermediate Hives Verified 04/11/23 14:09 tazobactam [From Zosyn] Allergy Intermediate Hives Verified 04/11/23 14:09 vancomycin Allergy Intermediate Hives Verified 04/11/23 14:09 Home Medications Medication Instructions Recorded Confirmed Last Taken Type acetaminophen 500 mg tablet 1,000 mg PO Q6H PRN 01/09/21 03/23/23 Unknown History (Tylenol Extra Strength) Exam Airway Mallampati Class: III TM Dist: >3cm Neck ROM: Full Loose/Missing/Broken Teeth: Yes and Upper Heart: RRR Lungs: CTA Assessment and Plan Assessment Anesthesia Assessment: Anesthesia Plan Discussed Final Anesthetic Review History of Problems with Anesthesia: No NPO: Yes ASA Class: III Final Preanesthetic Review: Meds/Allgs Chart Reviewed, Consent Obtained/Reviewed and Anes Risks/Benef Reviewed Patient Risk: Intermediate Procedure Risk: Low Anesthetic Plan Anesthetic Plan: MAC: Disposition: Standard PACU
--- NOTE | ~2023-05-06 | FL_ITS ---
EXAMINATION: XR FLUOROSCOPY WITH IMAGES CLINICAL INFORMATION: Epidural steroid injection for low back pain COMPARISON: None available. TECHNIQUE: Fluoroscopy Supervised By: Dr. Leon Mitchell. Fluoroscopy Time: 0.528 mins Cumulative Dose: 39.212 mGy. DAP: 13.656 Gycm2. Images: 2). FINDINGS: There is a needle positioned adjacent and inferior to right L4 pedicles with contrast opacifying the soft tissues. No gross bony abnormality seen. FL/FL guidance in OR IMPRESSION: Fluoroscopy was provided to referring physician for pain management.
[2023-05-06 09:57] LABS: Glucose, Whole Blood 248 mg/dL (60-115)
--- NOTE | 2023-05-06 10:02 | MHC.SHP ---
Pre-Procedural Eval Section A - 24 Hr Update-Section A only Date of Service: 05/06/23 The patient is an INPATIENT: No Changes since office visit: Yes Patient answered all questions The patient has been examined within 24 hours of the surgical procedure. The History & Physical has been completed within 30 days and I have reviewed it.: No Section B - Complete if H&P > 30 days Chief Complaint: Radiculopathy, lumbar region Details of Present Illness: as above Relevant Family History (Specify if Yes): No Relevant Social History: None Present Medications: None Medical History: No relevant PMH History of Previous Operations: No relevant previous surgery Allergies: Allergies Allergy/AdvReac Type Severity Reaction Status Date / Time ertapenem Allergy Intermediate Hives Verified 04/11/23 14:09 piperacillin [From Zosyn] Allergy Intermediate Hives Verified 04/11/23 14:09 tazobactam [From Zosyn] Allergy Intermediate Hives Verified 04/11/23 14:09 vancomycin Allergy Intermediate Hives Verified 04/11/23 14:09 Review of Systems Sugical H&P ROS: Negative: Cardiovascular, Respiratory, Neurological, Psychiatric, Hem-Onc, Allergic/Immunologic, Gastrointestinal, Genitourinary, Musculoskeletal, Integumentary, Endocrine and Eyes/Ears/Nose/Throat and Yes, Specify: Constitution (obesity) Exam Surgical H&P Exam: Normal: HEENT, Normal: Heart, Normal: Lungs, Normal: Extremities, Normal: Abdomen, Normal: Skin and Normal: Neurological Plan Diagnosis/Plan: Unchanged I have reviewed the history and physical and performed a pertinent physical examination on my patient. No changes have occurred unless specified. Time Spent With Patient Time: Total time managing care of this patient today ____ minutes.
[2023-05-06 10:04] VITALS: BP 134/92; PULSE 87; RESP 16; TEMP 36.1; O2SAT 97
[2023-05-06] MEDS: Lactated Ringers 1,000 ML 100 ML IVCONT (10:05)
[2023-05-06 11:12] VITALS: BP 139/84; PULSE 83; RESP 16; TEMP 36.6; O2SAT 93
--- NOTE | 2023-05-06 11:19 | P.BOP_ITS ---
Brief Operative Note Date of Service: 05/06/23 Pre-op diagnosis: radiculopathy lumbar Post-op diagnosis: same Procedure: Right L4- L5 and L5- S1 TFESI Surgeon: Leon Mitchell MD Was an Obstetrical Tech used for this Procedure?: No Estimated blood loss (mL): 2 Condition: stable Disposition: PACU
--- NOTE | 2023-05-06 11:21 | P.OP_ITS ---
Operative Note Operative Note Date of Service: 05/06/23 Narrative: Transforaminal right L4- L5 & L5-S1 epidural steroid injection. Informed consent was thoroughly explained to the patient before the procedure.? The patient came to the operating room.? He was positioned prone on operating table with a pillow under his abdomen.? Time-out was performed delineating correct site and side of the procedure, nature of the injection, name and date of of the patient. ASA monitors were applied and the patient was minimally sedated. The lower back of the patient was prepped with ChloraPrep and draped with sterile utility towels.? C-arm was brought over the operating field and sq pic ture of L4 was demonstrated on the screen.? The right side was chosen as the side of the injection.? Tilting machine ipsilateral to the right at the level of L4 1st the most prominent picture of the right pedicle was obtained on the screen.? 3 mm below the level of the lowest point of the pedicle projection to the skin small amount of lidocaine 1% 3-4 cc was injected to anesthetize the skin.? After that 5 in 22 gauge Quincke point needle was inserted through the skin wheal and was advanced to were the L4-5 foramina on anterior posterior , lateral and oblique views intermittently.? When tip of the needle entered foramina projection on AP view injection of the contrast was performed demonstrating epidural and perineural spread of the contrast.? On the lateral view contrast was spread in the epidural fashion. After that injection of the treatment medicine 3 cc of lidocaine 2% mixed with Kenalog 20 mg was injected into the foramina.? Injection of the contrast and injection of the treatment medicine was observed live on the screen.? No intrathecal and no intravascular spread of the contrast was noted. After that the attention was shifted to L5- S1 level where the procedure was repeated in the similar fashion only the 22g 7 inch needle was used because at L4- L5 level 5 inch needle went all the way to the skin to the hub of the needle , the dose of the epidural injectate was the same. Upon completion of the procedure sterile Band-Aids were applied. Patient tolerated procedure well he was taken outside of the operating room where he recovered uneventfully.? He went home without immediate complications.
[2023-05-06 11:27] VITALS: BP 139/82; PULSE 77; RESP 16; O2SAT 94
== END 2023-05-06 11:37 | disposition home or self-care (01) ==
PROVIDERS: PCP Nurse Practitioner Family; Visit Provider Anesthesiology
PROC: (CPT 64483; principal; 2023-05-06 12:00)
DX: M54.16 Radiculopathy, lumbar region (principal); M51.36 Other intervertebral disc degeneration, lumbar region; M50.30 Other cervical disc degeneration, unspecified cervical region; M54.50 Low back pain, unspecified; M47.816 Spondylosis without myelopathy or radiculopathy, lumbar region; Z87.828 Personal history of other (healed) physical injury and trauma; R20.0 Anesthesia of skin; R20.2 Paresthesia of skin; M79.7 Fibromyalgia; I10 Essential (primary) hypertension; E78.5 Hyperlipidemia, unspecified; E11.65 Type 2 diabetes mellitus with hyperglycemia; Z79.4 Long term (current) use of insulin; Z79.85 Long-term (current) use of injectable non-insulin antidiabetic drugs; Z79.899 Other long term (current) drug therapy; G62.9 Polyneuropathy, unspecified; E66.9 Obesity, unspecified; Z68.35 Body mass index [BMI] 35.0-35.9, adult; G47.33 Obstructive sleep apnea (adult) (pediatric); Z88.1 Allergy status to other antibiotic agents
CPT/HCPCS: 64483; 64484; 82947; J1100; J1596; J2250; J2405; J2704; J2795; J3010; J3301; Q9965; Q9967

== ENCOUNTER → 2023-05-06 09:24 | Outpatient (BNV) | payer OTHER, SELFPAY | PROVIDERS: PCP Nurse Practitioner Family; Visit Provider Anesthesiology | DX: M54.16 Radiculopathy, lumbar region (principal) | CPT/HCPCS: 64483; 64484 ==

== ENCOUNTER 2023-05-19 16:08 | Outpatient (AMB) | payer OTHER, SELFPAY ==
--- NOTE | 2023-05-19 16:08 | A.OFFVIS_ITS ---
Intake Intake Visit Reasons: 4m follow up Intake Note: Patient presents today for a follow-up Meds- Tadalafil, Sildenafil Allergies to Antibiotic- Vancomycin, Zosyn Blood Thinner- None Dumpster Operator Required: No Allergies ertapenem Allergy (Intermediate, Verified 05/19/23 16:12) Hives piperacillin [From Zosyn] Allergy (Intermediate, Verified 05/19/23 16:12) Hives tazobactam [From Zosyn] Allergy (Intermediate, Verified 05/19/23 16:12) Hives vancomycin Allergy (Intermediate, Verified 05/19/23 16:12) Hives HPI HPI Comments History of Present Illness Details Cameron is a pleasant male. Prior episode of epididymal orchitis Six-month follow-up No recurrence Effective bladder emptying Understands he should call us if he has recurrent epididymal orchitis. 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 12/29/22 ? The patient was seen in the [facility] ED on 11/26/22 for a scrotal/testicular post-work injury. A CT scan was performed, which does not show any evidence of hernia, kidney stone, or obstruction. There was an incidental 9-mm nodule in the left lung base. There is a small cyst on the kidney, which is not likely to be causing his pain. Given his testicular pain, a scrotal ultrasound was done, which showed acute right epididymo-orchitis and right complex hydrocele. He completed the antibiotic course of 10 days for infection in the testicle. He denies any changes in his urinary stream. He denies having to push to empty. He wakes up two times at night for urination. He denies any urgency or frequency of symptoms. He has been experiencing difficulty with erections and ejaculation. He denies any discharge from the urethra. Co-morbidities: DM2, HLD, HTN, obesity. 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 He does not get to use the bathroom when he feels that his bladder is full. His orchiditis was likely secondary to the chemical epidydymo-orchitis. I encouraged him to void every three hours and increase his water intake. 11/26/22: US SCROTUM result reviewed ? C omplex right hydrocele with a scrotal cady. Distal right epididymal simple cyst. 11/26/22: CTAP result reviewed: There is no evidence of renal calculi or obstruction. There was an incidental 9 mm nodule in the left lung base. Evaluation today-- Blood: Negative, leukocytes: Negative. Proteins: 15 ml/dL. Bladder scan PVR: 11 ml. Scrotum: There is no swelling and each testicle was palpated and was non-tender. He is uncircumcised and foreskin was easily retractable. The glans was WNL. 12/29/22: AUA symptoms score -- 5. Plan: I encouraged him to void every three hours and increase his water intake. The patient will follow up in 4-6 months to check his urine and check for any irritative voiding symptoms [facility] Medical History Obesity due to excess calories Hx of sepsis Retropharyngeal abscess Cellulitis of pharynx Type 2 diabetes mellitus with hyperglycemia Elevated CPK DAVIS positive Fibromyalgia Controlled diabetes mellitus without complication, without long-term current use of insulin Hyperlipidemia LDL goal <100 Essential hypertension Vitamin D insufficiency Surgical History History of throat surgery H/O shoulder surgery Family History Father No problems noted. Mother No problems noted. 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 Cognitive needs: No Hearing needs: No Vision needs: No Review of Systems Const All systems reviewed & are unremarkable except as noted in HPI and below Reports no additional complaints Resp Reports no additional complaints GI Reports no additional complaints Reports as per HPI Musc Reports no additional complaints Physical Exam Telemedicine evaluation Appropriate responses Regular breathing rate and rhythm HEENT Head: Yes normal to inspection Ears: hearing grossly normal bilaterally Eyes General: appearance normal, both eyes and all related structures Neck Neck: Yes normal visual inspection Chest Chest palpation & inspection: normal inspection of the chest Resp Effort & Inspection: normal respiratory effort and able to speak in complete sentences Assessment & Plan Assessment & Plan (1) Epididymo-orchitis: Code(s): N45.3 - Epididymo-orchitis Plan P.r.n. follow-up Patient Instructions: Imaging studies, laboratory and physical exam results were discussed and reviewed in detail. No major barriers to patient understanding were identified. An opportunity to ask questions regarding the treatment plan was provided. All questions were answered. The patient expressed understanding and agreement with the above treatment plan. The patient is aware they should contact our office by phone for worsening of their current condition or the appearance of new urologic symptoms. Compliance is encouraged with any medications and followup testing that is ordered. It is a privilege to participate in the urologic care of your patient. If you have any questions or concerns regarding treatment for the above conditions, or other urologic issues, please do not hesitate to contact me. The office telephone contact is [phone]. This note is constructed using voice recognition software. While every effort has been made to ensure accuracy crater and packer errors may have been included. Yours sincerely, Dr Bertin Lim MD, [facility] [place] [facility] Providers of Expert, Compassionate Care for the Genitourinary System Telehealth Telehealth Location of provider rendering services: practice address Location of patient: address on file Patient Identification confirmed using: Name, : Yes Telehealth method: video Patient verbally consented to treatment: Yes Patient verbally consented to billing insurance company: Yes Patient informed of any privacy concerns related to visit: Yes Coding Level of Care Code Tele Est Pt Level 3 (36484) Diagnoses Epididymo-orchitis N45.3
== END 2023-05-19 16:33 | disposition home or self-care (01) ==
LOC: HO.HUSH 16:08
PROVIDERS: PCP Nurse Practitioner Family; Visit Provider Urology
DX: N45.3 Epididymo-orchitis (principal)
CPT/HCPCS: 99213

== ENCOUNTER → 2023-05-19 16:08 | Outpatient (BNVA) | payer OTHER, SELFPAY | PROVIDERS: PCP Nurse Practitioner Family; Visit Provider Urology ==

== ENCOUNTER 2023-06-06 10:10 | Outpatient (REF) | payer OTHER, SELFPAY ==
[2023-06-06 10:21] LABS: MANUAL DIFF FLAG NO
[2023-06-06 11:43] LABS: Basophils Percent Auto 0.3 % (0-2); Eosinophils Absolute Auto 0.2 X10*3/uL (0.0-0.4); Eosinophils Percent Auto 2.7 % (0-4); Hematocrit 42.5 % (42.0-52.0); Imm Gran Abs Auto 0.03 X10*3/uL (0.00-0.03); Imm Gran Pct Auto 0.4 % (0.0-0.4); Lymphocytes Absolute Auto 1.9 X10*3/uL (1.2-4.9); Lymphocytes Percent Auto 27.3 % (20-40); Mean Corpuscular HGB Conc 32.9 g/dl (31.0-36.0); Mean Corpuscular Hemoglobin 29.6 pg (27.0-33.0); Mean Corpuscular Volume 89.9 fL (80.0-98.0); Mean Platelet Volume 10.5 fL (9.4-12.4); Monocytes Absolute Auto 0.4 X10*3/uL (0.1-1.2); Monocytes Percent Auto 5.5 % (2-11); Neutrophils Absolute Auto 4.5 x10*3/uL (2.0-8.3); Neutrophils Percent Auto 63.8 % (45-73); Platelet Count 237 X10*3/uL (160-400); Red Blood Count 4.73 X10*6/uL (4.60-5.80); Red Cell Distribution Width 12.5 % (11.0-16.0); White Blood Count 7.1 X10*3/uL (4.8-10.8)
[2023-06-06 12:14] LABS: Alanine Aminotransferase 41 U/L (0-40); Alkaline Phosphatase 66 U/L (39-117); Anion Gap 12 (12-20); Aspartate Amino Transferase 19 U/L (5-37); Bilirubin Total 0.3 mg/dL (0.0-1.0); Blood Urea Nitrogen 8 mg/dL (9-16); Calcium 9.2 mg/dL (8.4-10.2); Carbon Dioxide 28 mmol/L (22-29); Chloride 104 mmol/L (96-108); Cholesterol 205 mg/dL (<200); Estimated Glomerular Filt Rate > 60; Glucose Fasting 194 mg/dL (60-99); HDL Cholesterol 32 mg/dL (>40); LDL Cholesterol Calculated 116 mg/dL (<100); Potassium 3.7 mmol/L (3.3-5.1); Sodium 140 mmol/L (135-145); Triglycerides 289 mg/dL (<150)
== END 2023-06-06 10:11 | disposition home or self-care (01) ==
LOC: HO.LAB 10:10
PROVIDERS: PCP Nurse Practitioner Family; Visit Provider Nurse Practitioner Family
DX: E11.65 Type 2 diabetes mellitus with hyperglycemia (principal); E78.5 Hyperlipidemia, unspecified
CPT/HCPCS: 36415; 80053; 80061; 85025

== ENCOUNTER 2023-06-13 12:56 | Outpatient (AMB) | payer OTHER, SELFPAY ==
[2023-06-13 13:00] VITALS: BP 122/78; PULSE 78; O2SAT 98; BMI 36.5
--- NOTE | 2023-06-13 13:00 | A.OFFPC_ITS ---
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 Accompanied by: Self / Same As Patient Allergies ertapenem Allergy (Intermediate, Verified 06/13/23 13:00) Hives piperacillin [From Zosyn] Allergy (Intermediate, Verified 06/13/23 13:00) Hives tazobactam [From Zosyn] Allergy (Intermediate, Verified 06/13/23 13:00) Hives vancomycin Allergy (Intermediate, Verified 06/13/23 13:00) Hives Medication List - Last Reconciled 06/13/23 by LAMAR Hunt- acetaminophen (Tylenol Extra Strength) 1,000 mg PO Q6H PRN cholecalciferol (vitamin D3) 50 mcg PO DAILY 90 days cyclobenzaprine 10 mg PO BID PRN dulaglutide 4.5 mg (0.5 mL) subcut QWEEK empagliflozin (Jardiance) 10 mg PO DAILY ezetimibe 10 mg PO DAILY 90 days fluvastatin 20 mg PO QPM lidocaine 5% 1 patch topical DAILY 30 days meloxicam 7.5 mg PO DAILY montelukast 10 mg PO BEDTIME omega-3 acid ethyl esters 1 cap PO BID Tobacco use date assessed: 03/23/23 Dental Screening Dental Screen Date: 06/13/23 Did you have a dental visit in the last 12 months?: Yes Did you have a dental problem in the last 6 months where you did not have access to dental care?: No Was dental information given to patient?: Patient has dentist HPI Diabetes/Med F/U HPI Details Pt is a diabetic, on a statin. Last A1C was 8.8, microalbumin is up to date. Denies polyuria, polydipsia, and neuropathy. Pt denies any signs and symptoms of hypoglycemia and does know how to correct it. Pt reports that his blood sugar ranges from 120s-low 200s. Will add jardiance. Pt is not circumcised. educated on importance of monitoring hygiene and for signs of infection (yeast). Pt will schedule his own eye exam. Will refer to nurse navigator. [facility] Medical History Obesity due to excess calories Hx of sepsis Retropharyngeal abscess Cellulitis of pharynx Type 2 diabetes mellitus with hyperglycemia Elevated CPK DAVIS positive Fibromyalgia Controlled diabetes mellitus without complication, without long-term current use of insulin Hyperlipidemia LDL goal <100 Essential hypertension Vitamin D insufficiency Surgical History History of throat surgery H/O shoulder surgery Family History Father No problems noted. Mother No problems noted. 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 Cognitive needs: No Hearing needs: No Vision needs: No Questionnaire Thrive Questionnaire Date Thrive assessed: 06/13/23 I am a: Patient What is your living situation today?: I have a steady place to live Within the past 12 months, did the food you bought not last and you didn't have the money to get more?: Never true Within the past 12 months, did you worry whether your food would run out before you got money to buy more?: Never true Do you have trouble paying for medicines?: No Do you have trouble getting transportation to medical appointments?: No Do you have trouble paying your heating and electricity bill?: No Do you have trouble taking care of your child, family member or friend?: No Do you have trouble with day-to-day activities such as bathing, preparing meals, shopping, managing finances, etc.?: No Are you currently unemployed and looking for a job?: No Are you interested in more education?: No Currently or been in a relationship where the following occur: no concerns reported THRIVE Score: 0 AUDIT C Alcohol Use Questionnaire (AUDIT-C) 1. How often do you have a drink containing alcohol?: Never 3. How often do you have six or more drinks on one occasion?: Never Total Score: 0 Score Reviewed/Action Taken: Yes CAT-7 AMB Questionnaire CAT-7 Date CAT - 7 assessed: 06/13/23 Feeling nervous, anxious, or on edge: 0 = Not at all Not being able to stop or control worryin = Not at all Worrying too much about different things: 0 = Not at all Trouble relaxin = Several days Being so restless that it is hard to sit still: 0 = Not at all Becoming easily annoyed or irritable: 0 = Not at all Feeling afraid as if something awful might happen: 0 = Not at all Total CAT-7 score (0-4 normal; 5-9 mild; 10-14 moderate; 15-21 severe): 1 Source: Developed by Drs. Franki Berry, Kenzie Mireles, Jose Regalado and colleagues, with an educational guillermo from [employer]. CAT-7 Assessment Billing CAT-7 Assessment Tool: CAT-7 Assessment 75721 Review of Systems Const Reports as per HPI Physical exam (Primary Care) Vital Signs: Last Vital Signs Pulse 78 06/13/23 13:00 BP 122/78 06/13/23 13:00 Pulse Ox 98 06/13/23 13:00 Oxygen Delivery Method Room Air 06/13/23 13:00 BMI result Body Mass Index 36.5 Tobacco/Smoking Status: Tobacco use Status Tobacco use date assessed 03/23/23 06/13/23 13:01 Patient Tobacco Use Status Never used Tobacco 06/13/23 13:01 e-Cigarette/Vaping Use Never Used 06/13/23 13:01 Thrive Assessment: Date of Thrive Assessment Date Thrive assessed 06/13/23 06/13/23 13:01 Currently or been in a relationship where the following occur: no concerns reported Const General: cooperative Nutritional Appearance: obese Orientation/consciousness: patient oriented x3 Resp Effort & Inspection: normal respiratory effort Auscultation: clear to auscultation bilaterally Cardio Rate: regular rate Rhythm: regular rhythm Heart sounds: S1 normal heart sound present and S2 normal heart sound present Neuro General: patient oriented x3 Extrem Other: bilat feet: + sensation with use of monofilament, feet intact, bilat 2nd toes dorsal aspect with small nodularity Psych Appearance: grossly normal Mental Status: mental status grossly normal Speech and movement: Normal speech and movement present Affect: normal affect Attitude: cooperative Thought process: Normal thought process present Thought content: Normal thought content present Insight: Good insight present (Psych) Judgement: Good judgement present (Psych) Assessment and Plan Assessment & Plan (1) Type 2 diabetes mellitus with hyperglycemia: Code(s): E11.65 - Type 2 diabetes mellitus with hyperglycemia Plan: Starting jardiance, pt knows to watch for signs of infection, referred to nurse navigator Plan The patient agreed to the use of a medical administrative technician for this encounter. Scribed for BRITTANY Keen by Judith Corbett medical administrative technician, on 06/13/2023 at 13:40 EST. Orders: Referrals Nurse Navigator Referral E11.65 - Type 2 diabetes mellitus with hyperglycemia Medications: New empagliflozin (Jardiance) 10 mg PO DAILY 90 tabs 0RF Refilled 2 meloxicam 7.5 mg PO DAILY 14 tabs 0RF Coding Level of Care Code Est Pt Level 3 (63727) Diagnoses Type 2 diabetes mellitus with hyperglycemia E11.65 Additional Codes CAT-7 Assessment Billing - CAT-7 Assessment Tool: CAT-7 Assessment 71151 ([id number])
== END 2023-06-13 14:52 | disposition home or self-care (01) ==
PROVIDERS: PCP Nurse Practitioner Family; Visit Provider Nurse Practitioner Family
DX: E11.65 Type 2 diabetes mellitus with hyperglycemia (principal)
CPT/HCPCS: 99213

== ENCOUNTER 2023-06-16 13:46 | Outpatient (AMB) | payer OTHER, SELFPAY ==
--- NOTE | 2023-06-16 14:23 | A.OFFVIS_ITS ---
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 Mitchell. Patient reports 100% pain relief for 2 weeks since procedure with improved functioning, mobility and sleep. Patient states after 2 weeks, his symptoms are gradually returning to baseline, ranging 6-8/10, worse with activities, bending or walking. He continues to endorse numbness and tingling in his right lower leg, more in L4-L5 distribution than L5-S1. Given good response but temporary, we will proceed with Neurosurgical evaluation at [facility] with Dr. Aquino. Denies any recent cough, cold, infection, fever, bladder or bowel dysfunction, saddle anesthesia, any significant changes in her medical history, medications or recent hospitalizations. Past Procedures: 05/06/23: Right L4-L5, L5-S1 TFESI-100% pain relief for 2 weeks PRIOR: Patient is a 47 years old male with prior history of obesity, type 2 diabetes, peripheral neuropathy, cervical DDD, fibromyalgia, polymyalgia with negative muscle biopsy (left deltoid 2020), carpal tunnel syndrome, MACIE, presents today for initial evaluation of right sided low back pain due to work related injury on 11/26/22 due to a heavy lifting. This is a Worker's Comp case #[id number]. Patient states while he was twisting enclosing a lift he felt sudden pain in his right middle back on 11/26/22. He states pain radiates down to his back, right buttock and right leg more posteriorly than anteriorly with numbness, tingling and occasional weakness. Denies previous history of back pain, back injections or spine surgery. Patient currently remains out of work and has underwent imaging of his lower back as noted below and physical therapy through [facility]. Patient reports minimal improvement in his symptoms and no significant reduction in pain. At the present time, he is noting pain with activity, movements, walking, lifting and pain radiating to his right lower extremity. Straight leg raising is positive to 60 degrees bilaterally. There is no motor deficit in the hip, knee, or ankle musculature. He has mild sensory deficit in bilateral lower extremities with prior history of axonal sensory peripheral neuropathy and normal EMG of right L4-S1 innervated muscles per EMG study on 04/14/22. Denies any fever, weight changes, abdominal or groin pain, weakness, foot drop, bladder or bowel dysfunction, or saddle anesthesia. OSWESTRY LOW BACK DISABILITY score-33 Pain killers give moderate relief from pain I can look after myself normally but it causes extra pain I can lift very light weights Pain prevents me walking more than ? mile Pain prevents me from sitting more than one hour Pain prevents me from standing for more than 10 minutes Even when I take medication, I have less than 2 hrs sleep Pain has restricted my social life to my home Pain restricts me to journeys of less than 1 hour Pain prevents me from performing any job or homemaking chores. Location Lower back radiates down right leg Duration For 4 months, back injury 11/26/22 work-related Characteristics of symptom or complaint Sharp, shooting, stabbing, burning, saching, radiating, heavy Aggravating or associated factors Movements, walking, changing positions, standing, cold weather Relieving factors Rest, sitting, avoiding heavy lifting and quick movements, heat therapy Treatment PT- no improvement, Tylenol, cyclobenzaprine, NSAIDs PFSH Medical History Obesity due to excess calories Hx of sepsis Retropharyngeal abscess Cellulitis of pharynx Type 2 diabetes mellitus with hyperglycemia Elevated CPK DAVIS positive Fibromyalgia Controlled diabetes mellitus without complication, without long-term current use of insulin Hyperlipidemia LDL goal <100 Essential hypertension Vitamin D insufficiency Surgical History History of throat surgery H/O shoulder surgery Family History Father No problems noted. Mother No problems noted. 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 Alert and oriented. Mood and affect appropriate. Follows and participates in conversation appropriately. Respiratory effort is unlabored. No cough. Able to transition from sit to stand unassisted. Ambulates with bilaterally normal heel strike and toe off, reports increase pain on the right. Back/Spine/Pelvis Other: Limited lumbar ROM due to pain. Mildly antalgic gait, no limping. Can flex forward to 65-70 degrees and extend to 5-10 degrees before experiencing lumbar pain. Demonstrates 5/5 strength of quadriceps bilaterally as well as flexion/dorsiflexion of bilateral feet against resistance. 2+ pedal pulses bilaterally. Straight leg rise with dorsiflexion positive on the right. +1 right +2 left patellar and diminished achilles reflexes bilaterally. Facet loading test positive bilaterally. Gutierrez?s, Pelvic compression and Stinchfield tests are negative bilaterally. No groin pain with I/E hip rotations. Valsalva maneuver negative. Cervical Spine: cervical ROM normal, cervical muscular tenderness, No Cervical spine tenderness and No step off deformity Thoracic/Lumbar Spine: thoracic and lumbar spine normal to inspection, No Thoracic/lumbar spine scar(s), Lasegue's sign positive on the right and localized, pain with thoraco-lumbar ROM, paraspinal muscle tenderness on the right greater than left, thoraco-lumbar ROM limited, No thoracic spinal tenderness, lumbar spinal tenderness (L4-S1) and straight leg raise positive right at 50 degrees Pelvis: buttock tenderness on the right Sacroiliac joints: bilaterally nontender Results Reviewed Results Reviewed: MR LUMBAR SPINE WITHOUT CONTRAST 02/22/23 CLINICAL INFORMATION: Ongoing low back pain. Lower extremity symptoms x2 months. COMPARISON: Lumbar spine radiographs 01/07/2023. TECHNIQUE: MRI of the lumbar spine was obtained using routine sequences without contrast. FINDINGS: Alignment is normal. Vertebral body heights are preserved. No acute bone marrow signal changes. There is disc desiccation at multiple levels without substantial loss of intervertebral disc height. The tip of the conus medullaris is located at L2. No mass effect on the conus. Visualized distal cord signal intensity is normal. At T12-L1 there is a slightly bulging disc. No canal stenosis. No mass effect on the traversing or foraminal nerve roots. At L1-L2 there is a slightly bulging disc. No canal stenosis. No mass effect on the traversing or foraminal nerve roots. At L2-L3 there is a slightly bulging disc. No canal stenosis. No mass effect on the traversing or foraminal nerve roots. At L3-L4 there is a slightly bulging disc. No canal stenosis. No mass effect on the traversing or foraminal nerve roots. At L4-L5 there is a bulging disc. Bilateral facet degenerative change. No canal stenosis. No mass effect on the traversing or foraminal nerve roots. At L5-S1 there is a bulging disc. Bilateral facet degenerative change. No canal stenosis. No mass effect on the traversing or foraminal nerve roots. Limited visualization of the retroperitoneal anatomy reveals a small well marginated benign-appearing cystic lesion at the upper pole of left kidney. Psoas and paraspinal muscle groups are symmetric. IMPRESSION: There is disc degeneration at multiple levels within the lumbar spine. No canal stenosis. No mass effect on the traversing or foraminal nerve roots. XR CERVICAL SPINE 03/23/23 CLINICAL INFORMATION: Degenerative disc disease. COMPARISON: CT cervical spine dated 05/10/2019. TECHNIQUE: Frontal, odontoid, lateral and swimmer's views are obtained. FINDINGS: Vertebral body heights and alignment are normal. At C3-C4, there is mild to moderate disc space narrowing. The remaining disc spaces are well-maintained. No acute fracture or spondylolisthesis is seen. There is multi-level cervical spondylosis, most pronounced at C5-C6, where spondylosis is moderate. The posterior elements are intact. There is no prevertebral soft tissue swelling. The dens and C7-T1 interface are normal. IMPRESSION: 1. At C3-C4, there is mild to moderate degenerative disc disease. 2. There is multi-level cervical spondylosis. Assessment & Plan Assessment & Plan (1) Lumbar disc herniation with radiculopathy: Code(s): M51.16 - Intervertebral disc disorders with radiculopathy, lumbar region (2) Lumbar degenerative disc disease: Code(s): M51.36 - Other intervertebral disc degeneration, lumbar region (3) Low back pain: Code(s): M54.50 - Low back pain, unspecified (4) Lumbar spondylosis: Code(s): M47.816 - Spondylosis without myelopathy or radiculopathy, lumbar region Plan Patient is status post Right L4-L5, L5-S1 TFESI with good but temporary relief with temporary improvement in his functioning, mobility and sleep, providing him 2 weeks of pain relief. His back pain is function and mobility limiting since work-related injury on 11/26/22 and has been resistant to conservative treatments, including formal course of PT, home exercise program, activity modifications, Tylenol, NSAIDs, and temporary relief with recent TFESI injection. We will proceed with Neurosurgical evaluation with Dr. Aquino at [facility]. Worker's comp cases are not accepted in our [facility] at this time. Continue gabapentin and lidocaine patches , monitor for any side effects. Work note provided today. Patient is advised to avoid heavy lifting, pulling, pushing and quick movements. All questions were answered and the patient is in agreement of plan. Follow-up as needed. Orders: Referrals Neurosurgery Referral M51.16 - Intervertebral disc disorders with radiculopathy, lumbar region, M51.36 - Other intervertebral disc degeneration, lumbar region, M54.50 - Low back pain, unspecified Coding Level of Care Code Est Pt Level 4 (24948) Diagnoses Lumbar disc herniation with radiculopathy M51.16 Lumbar degenerative disc disease M51.36 Low back pain M54.50 Lumbar spondylosis M47.816
[2023-06-16 14:24] VITALS: BP 157/86; PULSE 89; O2SAT 100; BMI 36.2
== END 2023-06-16 14:38 | disposition home or self-care (01) ==
PROVIDERS: PCP Nurse Practitioner Family; Visit Provider Nurse Practitioner Family
DX: M51.16 Intervertebral disc disorders with radiculopathy, lumbar region (principal); M51.36 Other intervertebral disc degeneration, lumbar region; M54.50 Low back pain, unspecified; M47.816 Spondylosis without myelopathy or radiculopathy, lumbar region
CPT/HCPCS: 99214

== ENCOUNTER → 2023-06-16 13:46 | Outpatient (BNVA) | payer OTHER, SELFPAY | PROVIDERS: PCP Nurse Practitioner Family; Visit Provider Nurse Practitioner Family | DX: M51.16 Intervertebral disc disorders with radiculopathy, lumbar region (principal); M51.36 Other intervertebral disc degeneration, lumbar region; M54.50 Low back pain, unspecified; M47.816 Spondylosis without myelopathy or radiculopathy, lumbar region | CPT/HCPCS: 99212 ==

== ENCOUNTER 2023-06-21 07:52 | Outpatient (REF) | payer OTHER, SELFPAY ==
--- NOTE | ~2023-06-21 | CT_ITS ---
EXAMINATION: CT ABDOMEN AND PELVIS WITH CONTRAST CLINICAL INFORMATION: Adenopathy. COMPARISON: CT abdomen and pelvis 11/26/2022: Some mildly prominent nodes here most noted in the external iliac chain of uncertain etiology. This could be reactive. Consider followup in 3 months for continued lesion. TECHNIQUE: Multidetector volumetric images were obtained from the superior aspect of the liver through the pubic symphysis following administration 100 mL of Omnipaque 350 intravenous contrast. Sagittal and coronal reformatted images were obtained on the technologist's workstation. Oral contrast: No This CT examination was performed using dose optimization techniques as appropriate, variously including the following: *Automated exposure control *Adjustment of mA and/or kV according to patient size (this includes techniques or standardized protocols for targeted exams where dose is matched to indication/reason for exam; i.e. extremities or head) *Use of iterative reconstruction technique DLP: 983.00 mGy-cm. FINDINGS: LUNG BASES: The visualized lung bases are unremarkable. A calcified granuloma is present in the medial left costophrenic sulcus, unchanged. LIVER, GALLBLADDER, AND BILIARY TREE: The liver is enlarged measuring 20.8 cm in cephalocaudad dimension with decreased attenuation consistent with hepatic steatosis. Previously the liver measured 19.1 cm in cephalocaudad dimension. There is focal fatty sparing seen, most prominent around the gallbladder. No worrisome focal hepatic lesion or biliary ductal dilatation is present. The gallbladder is unremarkable with no evidence of radiopaque gallstones, gallbladder wall thickening, or obvious pericholecystic inflammatory changes. PANCREAS: Unremarkable. SPLEEN: Unremarkable. ADRENAL GLANDS: Unremarkable. KIDNEYS AND URETERS: The kidneys are normal in size, shape, and attenuation. No hydronephrosis, hydroureter, or calculi seen. No perinephric stranding. Bilateral benign Bosniak class I renal cysts are noted, the largest measuring 2.0 cm in the left upper pole, which require no additional imaging or follow-up. No solid renal masses are seen. BLADDER: Unremarkable. GASTROINTESTINAL TRACT: The small and large bowel are unremarkable. The appendix is unremarkable. ABDOMINAL WALL: No significant hernia is appreciated. LYMPH NODES: No retroperitoneal lymphadenopathy. The 1 cm short axis dimension left distal external iliac lymph node, with some smaller nodes on the right, are unchanged. VASCULAR: Unremarkable. PELVIC VISCERA: The prostate and seminal vesicles are unremarkable. OSSEOUS STRUCTURES: Mild degenerative changes are present in the spine. CT/CT abdomen pelvis w IV con IMPRESSION: 1. Enlarged fatty liver. 2. Stable 1 cm short axis dimension left distal external iliac lymph node. This does not appear to be a worrisome finding. 3. Other incidental findings as described above. Fleischner guidelines were followed.
[2023-06-21] MEDS: iohexoL 350 MG/ML 100 ML INFUS..BTL IV (09:21)
== END 2023-06-21 07:53 | disposition home or self-care (01) ==
LOC: HO.CT 07:52
PROVIDERS: PCP Nurse Practitioner Family; Visit Provider Nurse Practitioner Family
DX: R59.0 Localized enlarged lymph nodes (principal)
CPT/HCPCS: 74177; Q9967

== ENCOUNTER 2023-09-05 14:20 | Outpatient (AMB) | payer OTHER, SELFPAY ==
--- NOTE | 2023-09-05 14:49 | A.OFFPC_ITS ---
Vital Signs 09/05/23 14:55 Height 6 ft Weight 263 lb BMI 35.7 BP 110/78 Blood Pressure Location Rt brachial Position Sitting Pulse 92 Pulse Source Pulse Oximeter Pulse Oximetry (%) 97 Oxygen Delivery Method Room Air Intake Visit Reasons: 3 MON FUP + NEEDS PHQ9 Intake Note: Patient here for diabetes f/u. Allergies ertapenem Allergy (Intermediate, Verified 09/05/23 14:56) Hives piperacillin [From Zosyn] Allergy (Intermediate, Verified 09/05/23 14:56) Hives tazobactam [From Zosyn] Allergy (Intermediate, Verified 09/05/23 14:56) Hives vancomycin Allergy (Intermediate, Verified 09/05/23 14:56) Hives Medication List - Last Reconciled 09/05/23 by BRITTANY Hunt acetaminophen (Tylenol Extra Strength) 1,000 mg PO Q6H PRN cholecalciferol (vitamin D3) 50 mcg PO DAILY 90 days cyclobenzaprine 10 mg PO BID PRN empagliflozin (Jardiance) 10 mg PO DAILY ezetimibe 10 mg PO DAILY 90 days fluvastatin 20 mg PO QPM gabapentin 300 mg PO BID 30 days lidocaine 5% 1 patch topical DAILY 30 days meloxicam 7.5 mg PO DAILY montelukast 10 mg PO BEDTIME omega-3 acid ethyl esters 1 cap PO BID semaglutide (Ozempic) 0.25 mg (0.368 mL) subcut QWEEK Tobacco use date assessed: 03/23/23 Dental Screening Dental Screen Date: 06/13/23 HPI 3 MON FUP + NEEDS PHQ9 HPI Details Pt is a diabetic, on a statin. A1C in office today is 10.3. Microalbumin is up to date. Denies polyuria, polydipsia, and neuropathy. Pt denies any signs and symptoms of hypoglycemia and does know how to correct it. Pt has been off most of his meds for approximately 3 months due to supply issues. Will resend these to a different pharmacy. Pt will look into a mail order pharmacy as well. Will start low-dose losartan for renal protection. [facility] Medical History Obesity due to excess calories Hx of sepsis Retropharyngeal abscess Cellulitis of pharynx Type 2 diabetes mellitus with hyperglycemia Elevated CPK DAVIS positive Fibromyalgia Controlled diabetes mellitus without complication, without long-term current use of insulin Hyperlipidemia LDL goal <100 Essential hypertension Vitamin D insufficiency Surgical History History of throat surgery H/O shoulder surgery Family History Father No problems noted. Mother No problems noted. 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 Franki Berry, Kenzie Mireles, Jose Regalado and colleagues, with an educational guillermo from [employer]. Review of Systems Const Reports as per HPI Physical exam (Primary Care) Vital Signs: Last Vital Signs Pulse 92 09/05/23 14:55 BP 110/78 09/05/23 14:55 Pulse Ox 97 09/05/23 14:55 Oxygen Delivery Method Room Air 09/05/23 14:55 BMI result Body Mass Index 35.7 Tobacco/Smoking Status: Tobacco use Status Tobacco use date assessed 03/23/23 09/05/23 14:50 Patient Tobacco Use Status Never used Tobacco 09/05/23 14:50 e-Cigarette/Vaping Use Never Used 09/05/23 14:50 Thrive Assessment: Date of Thrive Assessment Date Thrive assessed 06/13/23 09/05/23 14:50 Const General: cooperative Nutritional Appearance: obese Orientation/consciousness: patient oriented x3 Resp Effort & Inspection: normal respiratory effort Auscultation: clear to auscultation bilaterally Cardio Rate: regular rate Rhythm: regular rhythm Heart sounds: S1 normal heart sound present and S2 normal heart sound present Neuro General: patient oriented x3 Extrem Other: bilat feet: + sensation with use of monofilament, feet intact Psych Appearance: grossly normal Mental Status: mental status grossly normal Speech and movement: Normal speech and movement present Affect: normal affect Attitude: cooperative Thought process: Normal thought process present Thought content: Normal thought content present Insight: Good insight present (Psych) Judgement: Good judgement present (Psych) Results AMB Hemoglobin A1c AMB Hemoglobin A1c 10.3 % Last Edit by RADHA Murray on 09/05/23 15:12 Results Reviewed Results Reviewed: Laboratory Last Values Hgb A1c (Clinic) 10.3 % (4.0-6.0) H 09/05/23 15:11 Assessment and Plan Assessment & Plan (1) Uncontrolled diabetes mellitus with hyperglycemia: Code(s): E11.65 - Type 2 diabetes mellitus with hyperglycemia Plan: restart all diabetic meds, will cont to monitor Plan The patient agreed to the use of a medical and scientific illustrator for this encounter. Scribed for BRITTANY Keen by Judith Corbett medical and scientific illustrator, on 09/05/2023 at 15:10 EST. Orders: Orders AMB Hemoglobin A1c Today Z13.9 - Encounter for screening, unspecified UA CC w/rflx Micro + Cult Today E11.65 - Type 2 diabetes mellitus with hyperglycemia Lipid Panel Today E11.65 - Type 2 diabetes mellitus with hyperglycemia Complete Blood Count Auto Diff Today E11.65 - Type 2 diabetes mellitus with hyperglycemia Comprehensive [place]. Panel Fast Today E11.65 - Type 2 diabetes mellitus with hyperglycemia TSH reflex Free T4 Today E11.65 - Type 2 diabetes mellitus with hyperglycemia Medications: New losartan 25 mg PO DAILY 90 tabs 0RF Refilled empagliflozin (Jardiance) 10 mg PO DAILY 90 tabs 0RF semaglutide (Ozempic) for 4 weeks 0.25 mg (0.368 mL) subcut QWEEK 3 mL 0RF Coding Level of Care Code Est Pt Level 3 (23188) Complex EM visit Add On G2211 Diagnoses Uncontrolled diabetes mellitus with hyperglycemia E11.65
[2023-09-05 14:55] VITALS: BP 110/78; PULSE 92; O2SAT 97; BMI 35.7
== END 2023-09-05 15:25 | disposition home or self-care (01) ==
PROVIDERS: PCP Nurse Practitioner Family; Visit Provider Nurse Practitioner Family
DX: E11.65 Type 2 diabetes mellitus with hyperglycemia (principal)
CPT/HCPCS: 83036; 99213; G2211

== ENCOUNTER 2023-11-18 07:37 | Outpatient (REF) | payer OTHER, SELFPAY ==
[2023-11-18 08:01] LABS: MANUAL DIFF FLAG NO
[2023-11-18 08:39] LABS: Basophils Percent Auto 0.3 % (0-2); Eosinophils Absolute Auto 0.2 X10*3/uL (0.0-0.4); Eosinophils Percent Auto 2.9 % (0-4); Hematocrit 42.4 % (42.0-52.0); Hemoglobin 14.3 g/dl (14.0-18.0); Imm Gran Abs Auto 0.02 X10*3/uL (0.00-0.03); Imm Gran Pct Auto 0.3 % (0.0-0.4); Lymphocytes Absolute Auto 1.6 X10*3/uL (1.2-4.9); Lymphocytes Percent Auto 27.5 % (20-40); Mean Corpuscular HGB Conc 33.7 g/dl (31.0-36.0); Mean Corpuscular Hemoglobin 29.6 pg (27.0-33.0); Mean Corpuscular Volume 87.8 fL (80.0-98.0); Mean Platelet Volume 10.4 fL (9.4-12.4); Monocytes Absolute Auto 0.3 X10*3/uL (0.1-1.2); Monocytes Percent Auto 4.7 % (2-11); Neutrophils Absolute Auto 3.8 x10*3/uL (2.0-8.3); Neutrophils Percent Auto 64.3 % (45-73); Platelet Count 228 X10*3/uL (160-400); Red Blood Count 4.83 X10*6/uL (4.60-5.80); Red Cell Distribution Width 12.7 % (11.0-16.0); White Blood Count 5.9 X10*3/uL (4.8-10.8)
[2023-11-18 08:58] LABS: Alanine Aminotransferase 41 U/L (0-40); Alkaline Phosphatase 74 U/L (39-117); Anion Gap 14 (12-20); Aspartate Amino Transferase 15 U/L (5-37); Bilirubin Total 0.4 mg/dL (0.0-1.0); Blood Urea Nitrogen 10 mg/dL (9-16); Calcium 9.5 mg/dL (8.4-10.2); Carbon Dioxide 24 mmol/L (22-29); Chloride 103 mmol/L (96-108); Cholesterol 269 mg/dL (<200); Estimated Glomerular Filt Rate > 60; Glucose Fasting 303 mg/dL (60-99); HDL Cholesterol 31 mg/dL (>40); Potassium 3.8 mmol/L (3.3-5.1); Sodium 137 mmol/L (135-145); Total Protein 6.9 g/dL (6.5-8.0); Triglycerides 669 mg/dL (<150)
[2023-11-18 09:13] LABS: TSH reflex Free T4 2.52 uIU/mL (0.32-4.0)
[2023-11-18 09:32] LABS: Appearance Urine Clear; Color Urine Yellow; Glucose Urine UA >=1000 mg/dL (Negative); Leukocyte Esterase Urine Negative (Negative); Nitrite Urine Negative (Negative); PH 5.5 (5.0-9.0); Specific Gravity - Urine >= 1.030 (1.005-1.025); UMIC TRIGGER UACC YES; Urine Blood Negative (Negative); Urine Ketones Trace mg/dL (Negative); Urine Protein Trace mg/dL (Neg-Trace)
[2023-11-18 09:44] LABS: Bacteria Urine None Seen (None Seen); Hyaline Casts Urine 0-2 /LPF (0-2); RBC Urine 0-2 /HPF (0-2); Squamous Epithelial Cell Urine 0-2 /HPF (0-2); WBC Urine 0-5 /HPF (0-5)
== END 2023-11-18 07:38 | disposition home or self-care (01) ==
LOC: HO.LAB 07:37
PROVIDERS: PCP Nurse Practitioner Family; Visit Provider Nurse Practitioner Family
DX: E11.65 Type 2 diabetes mellitus with hyperglycemia (principal); E66.09 Other obesity due to excess calories; Z68.33 Body mass index [BMI] 33.0-33.9, adult
CPT/HCPCS: 36415; 80053; 80061; 81001; 82947; 84443; 85025; 99212

== ENCOUNTER 2023-11-18 09:49 | Outpatient (AMB) | payer OTHER, SELFPAY ==
--- NOTE | 2023-11-18 09:53 | MHC.OFFVIS ---
Vital Signs 11/18/23 09:58 Height 6 ft Weight 259 lb 14.8 oz BMI 35.2 BP 116/82 Blood Pressure Location Rt brachial Position Sitting Pulse 84 Pulse Source Pulse Oximeter Intake Visit Reasons: T2DM/CONFIRMED Intake Note: Patient present today for T2DM, last seen by Heidi Walls on 04/29/2021. Last Diabetic Eye exam: approx 3 months ago Last Podiatry Visit: approx 2 months ago Random Glucose: 249 mg/dl HgA1C: 10.3% 09/05/23 Hose Tubing Backer Required: Yes Hose Tubing Backer Language: Mine Inspector Services: Hose Tubing Backer Present Hose Tubing Backer Name: Kenneth [id number] Information Interpreted: non-clinical & clinical Accompanied by: Self / Same As Patient Allergies ertapenem Allergy (Intermediate, Verified 11/18/23 10:00) Hives piperacillin [From Zosyn] Allergy (Intermediate, Verified 11/18/23 10:00) Hives tazobactam [From Zosyn] Allergy (Intermediate, Verified 11/18/23 10:00) Hives vancomycin Allergy (Intermediate, Verified 11/18/23 10:00) Hives HPI Comments Details: This is a 48-year-old male with a past medical history of hyperlipidemia, type 2 diabetes diagnosed 1016, hypertension, SHERLEY, spondylosis and obesity presenting for diabetic management. He was last seen in the endocrinology department in 2021. [place]tarian video co founder and cto used though patient spoke Croatian predominantly for the visit. He forgot his glucometer. He reports the following readings: AM fasting 140-145 After lunch readings around 170 POC 249 today, and patient says this is because he ate a large quantity of oreos late last night. Not exercising due to work injury November 2022. Hemoglobin a1c 10.3% 09/05/23. He was not able to get his medications for four months due to back ordering. Current medication regimen: He is prescribed Jardiance 10 mg daily, Trulicity 4.5 weekly. He stopped both a month ago because a day after the injection he developed bilateral blurry vision that lasted a couple weeks. It persisted even when he wore his glasses. It completely resolved. No vision loss, double vision. During this time he had no headache, speech difficulty, facial droop weakness, numbness or tingling. There was a prescription for Ozempic on his med list, but he has never taken it. He changed his diet significantly in the last month or two. Diet: Breakfast-health shake and an apple Lunch-green juice Dinner-protein plus vegetables or salad Drinking water throughout the day Snacks/desserts: melon, raspberries No alcohol. Nonsmoker. Hypoglycemia symptoms: none Hyperglycemia symptoms: none Eye exam: Patient reports he had an exam a couple months ago, and there were no diabetes complications reported. Microvascular complications: mild neuropathy in his feet Macrovascular complications: none Hypertension: treated with Losartan 25 mg. Hyperlipidemia: treated with Zetia 10 mg and fluvastatin 20 mg. Not taking consistently. LDL not calculated with labs this AM because of hypertriglyceridemia. As above, patient ate large quantity of oreos last night. ROS: Constitutional: No unexplained weight loss, fever, chills, fatigue or night sweats. Eyes: No eye pain, discharge or redness. see HPI Respiratory: No shortness of breath Cardiovascular: No chest pain, chest pressure or chest discomfort. No palpitations or pedal edema. Gastrointestinal: No anorexia, nausea, vomiting or diarrhea. No abdominal pain . Neurologic: No headache, dizziness, syncope, unilateral weakness, ataxia, numbness or tingling in the extremities. Skin: No rash Endocrine: No cold or heat intolerance. No polyuria or polydipsia. Physical exam: Constitutional: Alert, in no distress. Head: Normocephalic. Eyes: Pupils are equal, round and reactive to light. Extraocular muscles intact. Neck: Supple, Full range of motion. No lymphadenopathy. No palpable thyroid masses. Respiratory: Clear to auscultation. Cardiovascular: S1 S2 regular. No murmurs. Neurologic: No focal neurological deficits. Symmetric patellar reflexes. Moves all extremities spontaneously. Sensation intact bilaterally. Right foot: Warm and well perfused. No clubbing, cyanosis or edema. DP pulse 3+. Mildly decreased vibratory sensation. Intact sensation to monofilament. Left foot: Warm and well perfused. No clubbing, cyanosis or edema. DP pulse 3+. Mildly decreased vibratory sensation. Intact sensation to monofilament. [facility] Medical History Obesity due to excess calories Hx of sepsis Retropharyngeal abscess Cellulitis of pharynx Type 2 diabetes mellitus with hyperglycemia Elevated CPK HEIDI positive Fibromyalgia Controlled diabetes mellitus without complication, without long-term current use of insulin Hyperlipidemia LDL goal <100 Essential hypertension Vitamin D insufficiency Surgical History History of throat surgery H/O shoulder surgery Family History Father No problems noted. Mother No problems noted. 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 Cognitive needs: No Hearing needs: No Vision needs: No Physical Exam Vital Signs: Last Vital Signs Pulse 84 11/18/23 09:58 BP 116/82 11/18/23 09:58 BMI result Body Mass Index 35.2 Results Reviewed Results Reviewed: Laboratory Tests 01/01/23 01/18/23 04/01/23 09:19 08:57 16:02 Creatinine Estimated GFR Fasting Glucose Hgb A1c (Clinic) 7.4 H Hemoglobin A1c % 8.8 H Triglycerides Cholesterol HDL Cholesterol Urine Creatinine 161.32 Urine Microalbumin 19.0 Microalb/Creat Ratio 11.7 09/05/23 11/18/23 15:11 08:00 Creatinine 0.87 Estimated GFR > 60 Fasting Glucose 303 H Hgb A1c (Clinic) 10.3 H Hemoglobin A1c % Triglycerides 669 H Cholesterol 269 H HDL Cholesterol 31 L Urine Creatinine Urine Microalbumin Microalb/Creat Ratio Assessment & Plan Assessment & Plan (1) Type 2 diabetes mellitus with hyperglycemia: Code(s): E11.65 - Type 2 diabetes mellitus with hyperglycemia Category: Medical Qualifiers: Diabetes mellitus chcf insulin use: without termination clerk use Qualified Code(s): E11.65 - Type 2 diabetes mellitus with hyperglycemia (2) Obesity due to excess calories: Code(s): E66.09 - Other obesity due to excess calories Category: Medical Qualifiers: Obesity classification: adult class 1 (BMI 30 - 34.9) Serious obesity comorbidity presence: with serious comorbidity Body mass index: BMI 33.0-33.9 Qualified Code(s): E66.09 - Other obesity due to excess calories; Z68.33 - Body mass index [BMI] 33.0-33.9, adult Plan In summary this is a 48 year old male with uncontrolled Type II DM with recently improved glycemic control following dietary modification. I applauded the changes he's made. I am unsure if the 2 week episode of bilateral blurry vision was related to the medications he was taking. Nonetheless I will prescribe Mounjaro instead which will help with weight loss goals. Side effects and administration reviewed. Discussed titration of the medication based on tolerability and response. Asked patient to see PCP and call eye doctor regarding the symptoms he had. He would like a CGM which would be helpful to monitor for hypo/hyperglycemia. I submitted it to the pharmacy but advised him it may not be covered. He will bring his glucometer to his next appointment for a medication check in 4 weeks. He will have FASTING labs in 3 weeks and will be due for A1C at that time. Avoid carbs and sugars. Take cholesterol medications as prescribed. Follow up in 4 weeks for DM medication check. Orders: Orders Lipid Panel Today E11.65 - Type 2 diabetes mellitus with hyperglycemia Hemoglobin A1c Today E11.65 - Type 2 diabetes mellitus with hyperglycemia LDL Cholesterol Direct Today E11.65 - Type 2 diabetes mellitus with hyperglycemia Medications: New tirzepatide (Mounjaro) for 4 weeks 2.5 mg (0.5 mL) subcut QWEEK 2 mL 0RF blood-glucose meter,continuous (FreeStyle [place] 3 [place]) as directed 1 ea 0RF blood-glucose sensor (FreeStyle [place] 3 Sensor device) apply new sensor every 14 days as directed 2 ea 11RF Patient Instructions: Please start Mounjaro 2.5 mg once weekly. Continue to check your blood sugar. I sent a freestyle [place] to the pharmacy, but it might not be covered. Please have fasting bloodwork done in 3 weeks. NO OREOS. Coding Level of Care Code Est Pt Level 5 (49719) Complex EM visit Add On G2211 Diagnoses Type 2 diabetes mellitus with hyperglycemia, without long-term current use of insulin E11.65 Diabetes mellitus chcf insulin use: without chcf use Class 1 obesity due to excess calories with serious comorbidity and body mass index (BMI) of 33.0 to 33.9 in adult E66.09; Z68.33 Obesity classification: adult class 1 (BMI 30 - 34.9) Serious obesity comorbidity presence: with serious comorbidity Body mass index: BMI 33.0-33.9 Time Spent (min) 48 Comment reviewing chart, direct patient care, completing documentation
[2023-11-18 09:58] VITALS: BP 116/82; PULSE 84; BMI 35.2
[2023-11-18 10:22] LABS: Glucose, Whole Blood 249 mg/dL (60-115)
== END 2023-11-18 10:46 | disposition home or self-care (01) ==
PROVIDERS: PCP Nurse Practitioner Family; Visit Provider Physician Assistant Medical
DX: E11.65 Type 2 diabetes mellitus with hyperglycemia (principal); E66.09 Other obesity due to excess calories; Z68.35 Body mass index [BMI] 35.0-35.9, adult
CPT/HCPCS: 99215; G2211

== ENCOUNTER 2023-11-23 14:55 | Outpatient (AMB) | payer OTHER, SELFPAY ==
[2023-11-23 15:06] VITALS: BP 118/74; PULSE 73; O2SAT 97
--- NOTE | 2023-11-23 15:06 | MHC.PC.OV ---
Vital Signs 11/23/23 15:06 Weight 259 lb BP 118/74 Blood Pressure Location Rt brachial Position Sitting Pulse 73 Pulse Source Pulse Oximeter Pulse Oximetry (%) 97 Oxygen Delivery Method Room Air Intake Visit Reasons: 4 MoFollow Intake Note: pt is her for 4month follow up Allergies ertapenem Allergy (Intermediate, Verified 11/18/23 10:00) Hives piperacillin [From Zosyn] Allergy (Intermediate, Verified 11/18/23 10:00) Hives tazobactam [From Zosyn] Allergy (Intermediate, Verified 11/18/23 10:00) Hives vancomycin Allergy (Intermediate, Verified 11/18/23 10:00) Hives dulaglutide [From Trulicity] Adverse Reaction (Mild, Verified 11/23/23 15:13) Blurry Vision metformin Adverse Reaction (Mild, Verified 11/23/23 15:13) Diarrhea Medication List - Last Reconciled 11/23/23 by BRITTANY Hunt blood-glucose meter (Cartageniauch Verio Flex Meter) As directed blood-glucose meter,continuous (FreeStyle [place] 3 [place]) as directed blood-glucose sensor (FreeStyle [place] 3 Sensor device) apply new sensor every 14 days as directed lisinopril 2.5 mg PO DAILY 90 days meloxicam 7.5 mg PO DAILY montelukast 10 mg PO BEDTIME pitavastatin calcium (Livalo) 2 mg PO QPM 90 days Tobacco use date assessed: 03/23/23 Dental Screening Dental Screen Date: 06/13/23 [facility] HPI Details Pt is a diabetic, sees [facility]. He is working with [facility] to have VFA. Pt is not currently on any medications for diabetes, hypertension, or dyslipidemia. Pt reports stopping his statin due to muscle aches. Will start livalo 2mg and restart omega 3 acid ethyl esters. Will also start lisinopril 2.5mg. Denies chest pain, shortness of breath, headache, dizziness, and blurred vision. [facility] Medical History Obesity due to excess calories Hx of sepsis Retropharyngeal abscess Cellulitis of pharynx Type 2 diabetes mellitus with hyperglycemia Elevated CPK DAVIS positive Fibromyalgia Controlled diabetes mellitus without complication, without long-term current use of insulin Hyperlipidemia LDL goal <100 Essential hypertension Vitamin D insufficiency Surgical History History of throat surgery H/O shoulder surgery Family History Father No problems noted. Mother No problems noted. 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 Cognitive needs: No Hearing needs: No Vision needs: No Questionnaire Thrive Questionnaire Date Thrive assessed: 11/16/23 I am a: Patient What is your living situation today?: I have a steady place to live Within the past 12 months, did the food you bought not last and you didn't have the money to get more?: Sometimes True Within the past 12 months, did you worry whether your food would run out before you got money to buy more?: Sometimes True Do you have trouble paying for medicines?: No Do you have trouble getting transportation to medical appointments?: No Do you have trouble paying your heating and electricity bill?: Yes Do you have trouble taking care of your child, family member or friend?: No Do you have trouble with day-to-day activities such as bathing, preparing meals, shopping, managing finances, etc.?: I choose not to answer this question Are you currently unemployed and looking for a job?: I choose not to answer this question Are you interested in more education?: I choose not to answer this question Please select the resources that you would like help with: Food and Utilities Currently or been in a relationship where the following occur: I choose not to answer THRIVE Score: 3 AUDIT C Alcohol Use Questionnaire (AUDIT-C) 1. How often do you have a drink containing alcohol?: Never 2. How many drinks containing alcohol do you have on a typical day when you are drinking?: 1 or 2 3. How often do you have six or more drinks on one occasion?: Never Total Score: 0 CAT-7 AMB Questionnaire CAT-7 Date CAT - 7 assessed: 06/13/23 Feeling nervous, anxious, or on edge: 0 = Not at all Not being able to stop or control worryin = Not at all Worrying too much about different things: 0 = Not at all Trouble relaxin = Not at all Being so restless that it is hard to sit still: 0 = Not at all Becoming easily annoyed or irritable: 0 = Not at all Feeling afraid as if something awful might happen: 0 = Not at all Total CAT-7 score (0-4 normal; 5-9 mild; 10-14 moderate; 15-21 severe): 0 Source: Developed by Drs. Franki Berry, Kenzie Mireles, Jose Regalado and colleagues, with an educational guillermo from [employer]. Review of Systems Const Reports as per HPI Physical exam (Primary Care) Vital Signs: Last Vital Signs Pulse 73 11/23/23 15:06 BP 118/74 11/23/23 15:06 Pulse Ox 97 11/23/23 15:06 Oxygen Delivery Method Room Air 11/23/23 15:06 Tobacco/Smoking Status: Tobacco use Status Tobacco use date assessed 03/23/23 11/23/23 15:06 Patient Tobacco Use Status Never used Tobacco 11/23/23 15:06 e-Cigarette/Vaping Use Never Used 11/23/23 15:06 Thrive Assessment: Date of Thrive Assessment Date Thrive assessed 11/16/23 11/23/23 15:06 Currently or been in a relationship where the following occur: I choose not to answer Resp Auscultation: clear to auscultation bilaterally Cardio Rate: regular rate Rhythm: regular rhythm Heart sounds: S1 normal heart sound present, S2 normal heart sound present and no murmurs Psych Appearance: grossly normal Mental Status: mental status grossly normal Speech and movement: Normal speech and movement present Affect: normal affect Attitude: cooperative Thought process: Normal thought process present Thought content: Normal thought content present Insight: Good insight present (Psych) Judgement: Good judgement present (Psych) Assessment and Plan Assessment & Plan (1) Uncontrolled diabetes mellitus with hyperglycemia: Code(s): E11.65 - Type 2 diabetes mellitus with hyperglycemia Plan: Seeing endo (2) Dyslipidemia: Code(s): E78.5 - Hyperlipidemia, unspecified Plan: Starting livalo and omega 3 acid ethyl esters Plan The patient agreed to the use of a medical policy specialist for this encounter. Scribed for BRITTANY Keen by Judith Corbett medical policy specialist, on 11/23/2023 at 15:20 EST. Medications: New omega-3 acid ethyl esters 2 caps PO BID 360 caps 0RF 90 days pitavastatin calcium (Livalo) 2 mg PO QPM 90 tabs 0RF 90 days lisinopril 2.5 mg PO DAILY 90 tabs 0RF 90 days Coding Level of Care Code Est Pt Level 3 (76240) Diagnoses Uncontrolled diabetes mellitus with hyperglycemia E11.65 Dyslipidemia E78.5
== END 2023-11-23 16:44 | disposition home or self-care (01) ==
PROVIDERS: PCP Nurse Practitioner Family; Visit Provider Nurse Practitioner Family
DX: E11.65 Type 2 diabetes mellitus with hyperglycemia (principal); E78.5 Hyperlipidemia, unspecified
CPT/HCPCS: 99213

== ENCOUNTER 2023-12-19 11:05 | Outpatient (REF) | payer OTHER, SELFPAY ==
[2023-12-19 12:25] LABS: Estimated Average Glucose 220 mg/dL; Hemoglobin A1c % 9.3 % (<6.0); Total Hemoglobin (HGBA1C) 3471.6163 umol/L
[2023-12-19 12:46] LABS: Cholesterol 235 mg/dL (<200); HDL Cholesterol 36 mg/dL (>40); LDL Cholesterol Calculated 153 mg/dL (<100); Triglycerides 233 mg/dL (<150)
[2023-12-20 17:54] LABS: LDL Cholesterol Direct 139 mg/dL (<100)
== END 2023-12-19 11:06 | disposition home or self-care (01) ==
LOC: HO.LAB 11:05
PROVIDERS: Absent Provider Physician Assistant Medical; PCP Nurse Practitioner Family; Visit Provider Nurse Practitioner Family
DX: E11.65 Type 2 diabetes mellitus with hyperglycemia (principal)
CPT/HCPCS: 36415; 80061; 83036; 83721

== ENCOUNTER 2023-12-20 09:44 | Outpatient (AMB) | payer OTHER, SELFPAY ==
--- NOTE | 2023-12-20 09:45 | A.OFFVIS_ITS ---
Vital Signs 12/20/23 09:46 Height 6 ft Weight 257 lb 15.053 oz BMI 35.0 BP 114/78 Blood Pressure Location Rt brachial Position Sitting Pulse 86 Pulse Source Pulse Oximeter Intake Visit Reasons: DM/CONFIRMED Intake Note: Patient present today for for a follow-up on T2DM: Last Diabetic Eye exam: 2023 Last Podiatry Visit: 2023 Most Recent HgA1C: 9.3%, 12/19/2023 Random Glucose: 192mg/dL, Today Licensed Club Manager Required: Yes Licensed Club Manager Language: Poker Manager Services: Licensed Club Manager Offered & Declined Information Interpreted: non-clinical & clinical Accompanied by: Self / Same As Patient Allergies ertapenem Allergy (Intermediate, Verified 11/18/23 10:00) Hives piperacillin [From Zosyn] Allergy (Intermediate, Verified 11/18/23 10:00) Hives tazobactam [From Zosyn] Allergy (Intermediate, Verified 11/18/23 10:00) Hives vancomycin Allergy (Intermediate, Verified 11/18/23 10:00) Hives dulaglutide [From Trulicity] Adverse Reaction (Intermediate, Verified 12/20/23 10:17) blurry vision metformin Adverse Reaction (Mild, Verified 11/23/23 15:13) Diarrhea jardiance Adverse Reaction (Intermediate, Uncoded 12/20/23 10:17) blurry vision HPI Comments Details: This is a 48-year-old male with a past medical history of hyperlipidemia, type 2 diabetes diagnosed 2017, hypertension, SHERLEY, spondylosis and obesity presenting for diabetic management. He was last seen by me 11/08/23. He just started using a new glucoometer so there is limited data: Average BG 151 Highest 178 and lowest 127 Not exercising due to work injury November 2022. Surgery is pending. Hemoglobin a1c 9.3% 12/09/23 down from 10.3% 09/05/23. Current medication regimen: He initially reported to me that he stopped Jardiance 10 mg and Trulicity 4.5 mg because after he took the injection he developed bilateral blurry vision that lasted a couple of weeks. I prescribed Mounjaro, but it was never approved by insurance. He restarted Trulicity 0.75 mg once weekly. He stopped it 2 weeks ago because when he took it again he developed blurry vision in both eyes again. It lasted a week. His vision returned to normal. Metformin was discontinued previously due to diarrhea. Patient says when he took Jardiance without Trulicity, and it also caused blurry vision. He maintained the dietary changes he started over the summer. He has lost a couple more pounds. Diet: Breakfast-health shake and an apple Lunch-green juice Dinner-protein plus vegetables or salad Drinking water throughout the day Snacks/desserts: melon, raspberries No alcohol. Nonsmoker. Hypoglycemia symptoms: none Hyperglycemia symptoms: none Eye exam: Patient reports he had an exam few months ago, and there were no diabetes complications reported. Microvascular complications: mild neuropathy in his feet Macrovascular complications: none Hypertension: treated with Lisinopril 2.5 mg. Previously on Losartan which was discontinued due to mylagias. Hyperlipidemia: Fluvastatin discontinued due to muscle aches. The insurance did not cover pitavastatin prescribed by his primary care provider. He is taking Zetia and [place] threes, and cholesterol improved since he started this regimen at the beginning of November. ROS: Constitutional: No unexplained weight loss, fever, chills, fatigue or night sweats. Respiratory: No shortness of breath Cardiovascular: No chest pain Skin: No rash Endocrine: No cold or heat intolerance. No polyuria or polydipsia. Physical exam: Constitutional: Alert, in no distress. Head: Normocephalic. Eyes: Pupils are equal, round and reactive to light. Extraocular muscles intact. Neck: Supple, Full range of motion. No lymphadenopathy. No palpable thyroid masses. Respiratory: Clear to auscultation. Cardiovascular: S1 S2 regular. No murmurs. FORMERLY [facility], [facility]–1983 Medical History Obesity due to excess calories Hx of sepsis Retropharyngeal abscess Cellulitis of pharynx Type 2 diabetes mellitus with hyperglycemia Elevated CPK DAVIS positive Fibromyalgia Controlled diabetes mellitus without complication, without long-term current use of insulin Hyperlipidemia LDL goal <100 Essential hypertension Vitamin D insufficiency Surgical History History of throat surgery H/O shoulder surgery Family History Father No problems noted. Mother No problems noted. 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 Cognitive needs: No Hearing needs: No Vision needs: No Physical Exam Vital Signs: Last Vital Signs Pulse 86 12/20/23 09:46 BP 114/78 12/20/23 09:46 BMI result Body Mass Index 35.0 Results Reviewed Results Reviewed: Laboratory Last Values Glucose (Clinic) 194 mg/dL (60-115) H 12/20/23 09:52 Laboratory Tests 01/01/23 09/05/23 11/18/23 09:19 15:11 08:00 Creatinine 0.87 Estimated GFR > 60 Hgb A1c (Clinic) 10.3 H Hemoglobin A1c % Triglycerides Cholesterol LDL Cholesterol, Calc HDL Cholesterol Urine Creatinine 161.32 Urine Microalbumin 19.0 Microalb/Creat Ratio 11.7 12/19/23 11:31 Creatinine Estimated GFR Hgb A1c (Clinic) Hemoglobin A1c % 9.3 H Triglycerides 233 H Cholesterol 235 H LDL Cholesterol, Calc 153 H HDL Cholesterol 36 L Urine Creatinine Urine Microalbumin Microalb/Creat Ratio Assessment & Plan Assessment & Plan (1) Type 2 diabetes mellitus with hyperglycemia: Code(s): E11.65 - Type 2 diabetes mellitus with hyperglycemia Category: Medical Qualifiers: Diabetes mellitus extermination supervisor insulin use: without extermination supervisor use Qualified Code(s): E11.65 - Type 2 diabetes mellitus with hyperglycemia (2) Obesity due to excess calories: Code(s): E66.09 - Other obesity due to excess calories Category: Medical Qualifiers: Obesity classification: adult class 1 (BMI 30 - 34.9) Serious obesity comorbidity presence: with serious comorbidity Body mass index: BMI 33.0-33.9 Qualified Code(s): E66.09 - Other obesity due to excess calories; Z68.33 - Body mass index [BMI] 33.0-33.9, adult Plan In summary this is a 48 year old male with uncontrolled Type II DM with recently improved glycemic control after he implemented lifestyle modification. Patient reports side effects to multiple medications. Trial of glipizide extended release 5 mg daily. Reviewed side effects. Monitor for hypoglycemia. Patient declines referral to community educator and dietitian. Discussed pathophysiology of Type II Diabetes Mellitus with the patient in detail.? I explained the long-term risks and complications associated with uncontrolled diabetes including nephropathy, neuropathy, peripheral vascular disease, retinopathy, increased risk of heart disease and stroke.? He is using a glucometer now and will be compliant with glucose monitoring. Follow up in 3 weeks to assess efficacy and tolerability of glipizide. Medications: New glipizide ER 5 mg PO DAILY 30 tabs 0RF Discontinued pitavastatin calcium (Livalo) Discontinued Reason: Insurance Denied 2 mg PO QPM 90 days 90 tabs 0RF dulaglutide (Trulicity) Discontinued Reason: Doctor's Order 0.75 mg (0.5 mL) subcut QWEEK 2 mL 0RF Coding Level of Care Code Est Pt Level 4 (38599) Complex EM visit Add On G2211 Diagnoses Type 2 diabetes mellitus with hyperglycemia, without long-term current use of insulin E11.65 Diabetes mellitus long-term insulin use: without long-term use Class 1 obesity due to excess calories with serious comorbidity and body mass i ndex (BMI) of 33.0 to 33.9 in adult E66.09; Z68.33 Obesity classification: adult class 1 (BMI 30 - 34.9) Serious obesity comorbidity presence: with serious comorbidity Body mass index: BMI 33.0-33.9
[2023-12-20 09:46] VITALS: BP 114/78; PULSE 86; BMI 35.0
[2023-12-20 09:56] LABS: Glucose, Whole Blood 194 mg/dL (60-115)
== END 2023-12-20 10:15 | disposition home or self-care (01) ==
PROVIDERS: PCP Nurse Practitioner Family; Visit Provider Physician Assistant Medical
DX: E11.65 Type 2 diabetes mellitus with hyperglycemia (principal); E66.09 Other obesity due to excess calories; Z68.33 Body mass index [BMI] 33.0-33.9, adult

== ENCOUNTER → 2023-12-20 09:44 | Outpatient (BNVA) | payer OTHER, SELFPAY | PROVIDERS: PCP Nurse Practitioner Family; Visit Provider Physician Assistant Medical | DX: E11.65 Type 2 diabetes mellitus with hyperglycemia (principal); E78.5 Hyperlipidemia, unspecified; I10 Essential (primary) hypertension; E66.09 Other obesity due to excess calories; Z68.35 Body mass index [BMI] 35.0-35.9, adult | CPT/HCPCS: 82947; 99212 ==

== ENCOUNTER 2024-01-10 08:09 | Outpatient (AMB) | payer OTHER, SELFPAY ==
--- NOTE | 2024-01-10 08:18 | A.OFFVIS_ITS ---
Vital Signs 01/10/24 08:20 Height 6 ft Weight 257 lb 15.053 oz BMI 35.0 BP 114/68 Blood Pressure Location Rt brachial Position Sitting Pulse 74 Intake Visit Reasons: DM/CONFIRMED Intake Note: Patient present today for for a follow-up on T2DM: Last Diabetic Eye exam: 2023 Last Podiatry Visit: 2023 Most Recent HgA1C: 9.3%, 12/19/2023 Random Glucose: 169 mg/dL, Today Director Data Processing Required: Yes Director Data Processing Language: Type Casting Machine Operator Services: Director Data Processing Offered & Declined Information Interpreted: non-clinical & clinical Accompanied by: Self / Same As Patient Allergies ertapenem Allergy (Intermediate, Verified 11/18/23 10:00) Hives piperacillin [From Zosyn] Allergy (Intermediate, Verified 11/18/23 10:00) Hives tazobactam [From Zosyn] Allergy (Intermediate, Verified 11/18/23 10:00) Hives vancomycin Allergy (Intermediate, Verified 11/18/23 10:00) Hives metformin Adverse Reaction (Mild, Verified 11/23/23 15:13) Diarrhea jardiance Adverse Reaction (Intermediate, Uncoded 12/20/23 10:17) blurry vision HPI Comments Details: This is a 48-year-old male with a past medical history of hyperlipidemia, type 2 diabetes diagnosed 2016, hypertension, SHERLEY, spondylosis and obesity presenting for diabetic management. He was last seen by me 12/20/23. Reviewed glucometer 14 day report: Average glucose 158 Highest 174 Low 132 Not exercising due to work injury November 2022. Surgery is pending. Hemoglobin a1c 9.3% 12/09/23 down from 10.3% 09/05/23. Current medication regimen: He initially reported to me that he stopped Jardiance 10 mg and Trulicity 4.5 mg because after he took the injection he developed bilateral blurry vision that lasted a couple of weeks. I prescribed Mounjaro, but it was never approved by insurance. He restarted Trulicity 0.75 mg once weekly and stopped again because he had blurry vision. He took Glipizide for 3 days and stopped it for the same reason. Now states he took 0.75 mg Trulicity again and had no vision changes. Metformin was discontinued previously due to diarrhea. Patient says when he took Jardiance without Trulicity, and it also caused blurry vision. Patient states these vision changes lasts a few days to 2 weeks and involved both eyes, but it only affects his vision up close. He can still see perfectly when he looks at a distance. He maintained the dietary changes he started over the summer. Diet: Breakfast-health shake and an apple Lunch-green juice or protein shake Dinner-protein plus vegetables or salad with chicken or salmon Drinking water throughout the day No alcohol. Nonsmoker. Hypoglycemia symptoms: none Hyperglycemia symptoms: none Microvascular complications: mild neuropathy in his feet Macrovascular complications: none Hypertension: treated with Lisinopril 2.5 mg. Previously on Losartan which was discontinued due to mylagias. Hyperlipidemia: Fluvastatin discontinued due to muscle aches. The insurance did not cover pitavastatin prescribed by his primary care provider. He is taking Zetia and [place] threes, and cholesterol improved since he started this regimen at the beginning of November. ROS: Constitutional: No unexplained weight loss, fever, chills, fatigue or night sweats. Eyes: No loss of vision, double vision, eye pain, eye redness, eye discharge or itching. Respiratory: No shortness of breath, cough or sputum production. Cardiovascular: No chest pain, chest pressure or chest discomfort. No palpitations or pedal edema. Gastrointestinal: No nausea, vomiting or abdominal pain. Neurologic: No headache, dizziness, syncope, unilateral weakness, ataxia, numbness or tingling in the extremities. Physical exam: Constitutional: Alert, in no distress. Head: Normocephalic. Eyes: Pupils are equal, round and reactive to light. Extraocular muscles intact. Neck: Supple, Full range of motion. No lymphadenopathy. No palpable thyroid masses. Respiratory: Clear to auscultation. Cardiovascular: S1 S2 regular. No murmurs. [facility] Medical History (Updated 01/10/24 @ 08:52 by DREW Rivers) Blurry vision Obesity due to excess calories Hx of sepsis Retropharyngeal abscess Cellulitis of pharynx Type 2 diabetes mellitus with hyperglycemia Elevated CPK DAVIS positive Fibromyalgia Controlled diabetes mellitus without complication, without long-term current use of insulin Hyperlipidemia LDL goal <100 Essential hypertension Vitamin D insufficiency Surgical History History of throat surgery H/O shoulder surgery Family History Father No problems noted. Mother No problems noted. 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 Cognitive needs: No Hearing needs: No Vision needs: No Physical Exam Vital Signs: Last Vital Signs Pulse 74 01/10/24 08:20 BP 114/68 01/10/24 08:20 BMI result Body Mass Index 35.0 Results Reviewed Results Reviewed: Laboratory Tests 01/01/23 09/05/23 11/18/23 09:19 15:11 08:00 Creatinine 0.87 Estimated GFR > 60 Hgb A1c (Clinic) 10.3 H Hemoglobin A1c % Triglycerides Cholesterol LDL Cholesterol, Calc HDL Cholesterol Urine Creatinine 161.32 Urine Microalbumin 19.0 Microalb/Creat Ratio 11.7 12/19/23 11:31 Creatinine Estimated GFR Hgb A1c (Clinic) Hemoglobin A1c % 9.3 H Triglycerides 233 H Cholesterol 235 H LDL Cholesterol, Calc 153 H HDL Cholesterol 36 L Urine Creatinine Urine Microalbumin Microalb/Creat Ratio Assessment & Plan Assessment & Plan (1) Type 2 diabetes mellitus with hyperglycemia: Code(s): E11.65 - Type 2 diabetes mellitus with hyperglycemia Category: Medical Qualifiers: Diabetes mellitus skilled nursing insulin use: without skilled nursing use Qualified Code(s): E11.65 - Type 2 diabetes mellitus with hyperglycemia (2) Obesity due to excess calories: Code(s): E66.09 - Other obesity due to excess calories Category: Medical Qualifiers: Obesity classification: adult class 1 (BMI 30 - 34.9) Serious obesity comorbidity presence: with serious comorbidity Body mass index: BMI 33.0-33.9 Qualified Code(s): E66.09 - Other obesity due to excess calories; Z68.33 - Body mass index [BMI] 33.0-33.9, adult (3) Blurry vision: Code(s): H53.8 - Other visual disturbances Category: Medical Plan In summary this is a 48 year old male with type 2 diabetes with neuropathy with recent blood glucose readings in target range. I explained to the patient that I think it is unlikely that all of these medications have caused the same side effect, and I am concerned that he could have an underlying problem with his eyes. Patient agreed to call his eye doctor today to schedule an appointment. Warning signs warranting evaluation at the ED reviewed with the patient. He retrirf Trulicity 0.75 mg without recurrent visual change. He will stay on this regimen for now. I advised him to call the office in the future before making changes to his medication regimen. Discussed pathophysiology of Type II Diabetes Mellitus with the patient in detail.? I explained the skilled nursing risks and complications associated with uncontrolled diabetes including nephropathy, neuropathy, peripheral vascular disease, retinopathy, increased risk of heart disease and stroke.? He is using a glucometer , and he is compliant with monitoring. Patient is due for lab work at the end of February. Orders placed. Follow up in 4 weeks after seeing the eye doctor and for re-evaluation on Trulicity. Orders: Orders Microalbumin, Random (w Creat) 03/19/24 E11.65 - Type 2 diabetes mellitus with hyperglycemia, E78.5 - Hyperlipidemia, unspecified, H53.8 - Other visual disturbances, I10 - Essential (primary) hypertension Lipid Panel 03/19/24 E11.65 - Type 2 diabetes mellitus with hyperglycemia, E78.5 - Hyperlipidemia, unspecified, H53.8 - Other visual disturbances, I10 - Essential (primary) hypertension Thyroid Stimulating Hormone 03/19/24 E11.65 - Type 2 diabetes mellitus with hyperglycemia, E78.5 - Hyperlipidemia, unspecified, H53.8 - Other visual disturbances, I10 - Essential (primary) hypertension Hemoglobin A1c 03/19/24 E11.65 - Type 2 diabetes mellitus with hyperglycemia, E78.5 - Hyperlipidemia, unspecified, H53.8 - Other visual disturbances, I10 - Essential (primary) hypertension Basic Metabolic Panel 03/19/24 E11.65 - Type 2 diabetes mellitus with hyperglycemia, E78.5 - Hyperlipidemia, unspecified, H53.8 - Other visual disturbances, I10 - Essential (primary) hypertension Medications: New dulaglutide (Trulicity) 0.75 mg (0.5 mL) subcut QWEEK 2 mL 3RF Coding Level of Care Code Est Pt Level 4 (21134) Complex EM visit Add On G2211 Diagnoses Type 2 diabetes mellitus with hyperglycemia, without long-term current use of insulin E11.65 Diabetes mellitus skilled nursing insulin use: without cook night use Class 1 obesity due to excess calories with serious comorbidity and body mass index (BMI) of 33.0 to 33.9 in adult E66.09; Z68.33 Obesity classification: adult class 1 (BMI 30 - 34.9) Serious obesity comorbidity presence: with serious comorbidity Body mass index: BMI 33.0-33.9 Blurry vision H53.8
[2024-01-10 08:20] VITALS: BP 114/68; PULSE 74; BMI 35.0
[2024-01-10 08:27] LABS: Glucose, Whole Blood 169 mg/dL (60-115)
== END 2024-01-10 08:46 | disposition home or self-care (01) ==
PROVIDERS: PCP Nurse Practitioner Family; Visit Provider Physician Assistant Medical
DX: E11.65 Type 2 diabetes mellitus with hyperglycemia (principal); E66.09 Other obesity due to excess calories; Z68.33 Body mass index [BMI] 33.0-33.9, adult; H53.8 Other visual disturbances

== ENCOUNTER → 2024-01-10 08:09 | Outpatient (BNVA) | payer OTHER, SELFPAY | PROVIDERS: PCP Nurse Practitioner Family; Visit Provider Physician Assistant Medical | DX: E11.65 Type 2 diabetes mellitus with hyperglycemia (principal); E78.5 Hyperlipidemia, unspecified; I10 Essential (primary) hypertension; E66.09 Other obesity due to excess calories; H53.8 Other visual disturbances; Z71.3 Dietary counseling and surveillance; Z68.33 Body mass index [BMI] 33.0-33.9, adult | CPT/HCPCS: 82947; 99212 ==

== ENCOUNTER 2024-02-20 09:05 | Outpatient (REF) | payer OTHER, SELFPAY ==
[2024-02-20 11:20] LABS: Appearance Urine Clear; Color Urine Dark Yellow; Glucose Urine UA 100 mg/dL (Negative); Leukocyte Esterase Urine Negative (Negative); Nitrite Urine Negative (Negative); PH 5.5 (5.0-9.0); Specific Gravity - Urine >= 1.030 (1.005-1.025); UMIC TRIGGER UACC YES; Urine Blood Negative (Negative); Urine Ketones Trace mg/dL (Negative); Urine Protein 30 (1+) mg/dL (Neg-Trace)
[2024-02-20 11:22] LABS: Estimated Average Glucose 209 mg/dL; Hemoglobin A1C 257.5969 umol/L; Hemoglobin A1c % 8.9 % (<6.0)
[2024-02-20 11:24] LABS: Bacteria Urine None Seen (None Seen); Hyaline Casts Urine 0-2 /LPF (0-2); RBC Urine 0-2 /HPF (0-2); Squamous Epithelial Cell Urine 0-2 /HPF (0-2); WBC Urine 0-5 /HPF (0-5)
[2024-02-20 11:31] LABS: Anion Gap 15 (12-20); Blood Urea Nitrogen 11 mg/dL (9-16); Calcium 9.4 mg/dL (8.4-10.2); Carbon Dioxide 26 mmol/L (22-29); Chloride 102 mmol/L (96-108); Cholesterol 241 mg/dL (<200); Estimated Glomerular Filt Rate > 60; Glucose Random 250 mg/dL (60-115); HDL Cholesterol 38 mg/dL (>40); LDL Cholesterol Calculated 150 mg/dL (<100); Potassium 3.9 mmol/L (3.3-5.1); Sodium 139 mmol/L (135-145); Triglycerides 269 mg/dL (<150)
[2024-02-20 11:48] LABS: Thyroid Stimulating Hormone 2.22 uIU/mL (0.32-4.0)
[2024-02-20 12:09] LABS: Creatinine Urine 375.25 mg/dL; Microalbum/Creatinine Ratio Ur 17.8 ug/mg cr (<30)
== END 2024-02-20 09:06 | disposition home or self-care (01) ==
LOC: HO.LAB 09:05
PROVIDERS: PCP Nurse Practitioner Family; Visit Provider Physician Assistant Medical
DX: E11.65 Type 2 diabetes mellitus with hyperglycemia (principal); H53.8 Other visual disturbances; I10 Essential (primary) hypertension; E78.5 Hyperlipidemia, unspecified; R91.1 Solitary pulmonary nodule
CPT/HCPCS: 36415; 80048; 80061; 81001; 81003; 82043; 82570; 83036; 84443

== ENCOUNTER 2024-02-21 08:59 | Outpatient (AMB) | payer OTHER, SELFPAY ==
--- NOTE | 2024-02-21 09:01 | MHC.OFFVIS ---
Vital Signs 02/21/24 09:06 Height 6 ft Weight 264 lb 12.403 oz BMI 35.9 BP 128/70 Blood Pressure Location Rt brachial Position Sitting Pulse 81 Pulse Source Pulse Oximeter Intake Visit Reasons: T2DM/CONF Intake Note: Patient present today to follow up on Type 2 Diabetes Mellitus. Last Diabetic Eye exam: Almost 1 year, has yearly appointment. Last Podiatry Visit: Does not see a Director Dental Services Random Glucose: 241 mg/dl HgA1C: 9.3% 12/19/23 Stave Block Splitter Required: Yes Stave Block Splitter Language: Mlt Services: Stave Block Splitter Offered & Declined Accompanied by: Self / Same As Patient Allergies ertapenem Allergy (Intermediate, Verified 02/21/24 09:15) Hives piperacillin [From Zosyn] Allergy (Intermediate, Verified 02/21/24 09:15) Hives tazobactam [From Zosyn] Allergy (Intermediate, Verified 02/21/24 09:15) Hives vancomycin Allergy (Intermediate, Verified 02/21/24 09:15) Hives metformin Adverse Reaction (Mild, Verified 02/21/24 09:15) Diarrhea jardiance Adverse Reaction (Intermediate, Uncoded 02/21/24 09:15) blurry vision HPI Comments Details: This is a 48-year-old male with a past medical history of hyperlipidemia, type 2 diabetes diagnosed 2016, hypertension, SHERLEY, spondylosis and obesity presenting for diabetic management. He was last seen by me 01/10/24. He does not have a glucometer with him today. Patient says his blood sugars have been running higher following the iday and dietary indiscretion. Not exercising due to work injury November 2022. He finds out in March if he needs surgery. Hemoglobin a1c 8.9% 02/20/2024 down from 9.3% 12/09/23 down from 10.3% 09/05/23. Current medication regimen: Trulicity 0.75 mg weekly. Denies interval episodes of blurry vision. He initially reported to me that he stopped Jardiance 10 mg and Trulicity 4.5 mg because after he took the injection he developed bilateral blurry vision that lasted a couple of weeks. I prescribed Mounjaro, but it was never approved by insurance. He restarted Trulicity 0.75 mg once weekly and stopped again because he had blurry vision. He took Glipizide for 3 days and stopped it for the same reason. Now states he took 0.75 mg Trulicity again and had no vision changes. Metformin was discontinued previously due to diarrhea. Patient says when he took Jardiance without Trulicity, and it also caused blurry vision. He has an appointment scheduled with his eye doctor. He plans to revert to the healthy diet he was following since the summer. No alcohol. Nonsmoker. Hypoglycemia symptoms: none Hyperglycemia symptoms: none Microvascular complications: mild neuropathy in his feet Macrovascular complications: none Hypertension: treated with Lisinopril 2.5 mg. Previously on Losartan which was discontinued due to mylagias. Hyperlipidemia: Fluvastatin discontinued due to muscle aches. The insurance did not cover pitavastatin prescribed by his primary care provider. He is taking Zetia and [place] threes. LDL 150. ROS: Constitutional: No unexplained weight loss, fever, chills, fatigue or night sweats. Eyes: No loss of vision, double vision, eye pain, eye redness, eye discharge or itching. Respiratory: No shortness of breath, cough or sputum production. Cardiovascular: No chest pain, chest pressure or chest discomfort. No palpitations or pedal edema. Gastrointestinal: No nausea, vomiting or abdominal pain. Neurologic: No headache, dizziness, syncope, unilateral weakness, ataxia, numbness or tingling in the extremities. Physical exam: Constitutional: Alert, in no distress. Head: Normocephalic. Eyes: Pupils are equal, round and reactive to light. Extraocular muscles intact. Neck: Supple, Full range of motion. No lymphadenopathy. No palpable thyroid masses. Respiratory: Clear to auscultation. Cardiovascular: S1 S2 regular. No murmurs. [facility] Medical History (Updated 02/21/24 @ 09:10 by DREW Rivers) Proteinuria Blurry vision Obesity due to excess calories Hx of sepsis Retropharyngeal abscess Cellulitis of pharynx Type 2 diabetes mellitus with hyperglycemia Elevated CPK DAVIS positive Fibromyalgia Controlled diabetes mellitus without complication, without long-term current use of insulin Hyperlipidemia LDL goal <100 Essential hypertension Vitamin D insufficiency Surgical History History of throat surgery H/O shoulder surgery Family History Father No problems noted. Mother No problems noted. 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 Cognitive needs: No Hearing needs: No Vision needs: No Results Reviewed Results Reviewed: Laboratory Tests 02/20/24 09:30 Creatinine 0.86 Estimated GFR > 60 Hemoglobin A1c % 8.9 H Triglycerides 269 H Cholesterol 241 H LDL Cholesterol, Calc 150 H HDL Cholesterol 38 L TSH 2.22 Urine Protein 30 (1+) H Urine Creatinine 375.25 Urine Microalbumin 67.0 Microalb/Creat Ratio 17.8 Assessment & Plan Assessment & Plan (1) Type 2 diabetes mellitus with hyperglycemia: Code(s): E11.65 - Type 2 diabetes mellitus with hyperglycemia Category: Medical Qualifiers: Diabetes mellitus long term care administrator insulin use: without long term care administrator use Qualified Code(s): E11.65 - Type 2 diabetes mellitus with hyperglycemia (2) Obesity due to excess calories: Code(s): E66.09 - Other obesity due to excess calories Category: Medical Qualifiers: Obesity classification: adult class 1 (BMI 30 - 34.9) Serious obesity comorbidity presence: with serious comorbidity Body mass index: BMI 33.0-33.9 Qualified Code(s): E66.09 - Other obesity due to excess calories; Z68.33 - Body mass index [BMI] 33.0-33.9, adult (3) Dyslipidemia: Code(s): E78.5 - Hyperlipidemia, unspecified Category: Medical (4) Proteinuria: Code(s): R80.9 - Proteinuria, unspecified Category: Medical Qualifiers: Proteinuria type: unspecified Qualified Code(s): R80.9 - Proteinuria, unspecified Plan In summary this is a 48 year old male with type 2 diabetes with neuropathy. We previously discussed that I think it is unlikely that all of the medications he tried cause the same side effect, and I would like him to keep his appointment with his eye doctor. Fortunately he has not had further episodes of blurry vision on Trulicity. A1c is improving but not at goal. Patient will try increasing to 1.5 mg weekly. Lifestyle modifications encouraged. He will go back to the diet he was following prior to the holiday. Discussed pathophysiology of Type II Diabetes Mellitus with the patient in detail.? I explained the long term care administrator risks and complications associated with uncontrolled diabetes including nephropathy, neuropathy, peripheral vascular disease, retinopathy, increased risk of heart disease and stroke.? He is using a glucometer , and he is compliant with monitoring. Agreeable to trial of low rosuvastatin 5 mg at bedtime. If he develops myalgias on the medication he will stop it and contact the office. He has protein on his latest urinalysis. We will repeat in 2-4 weeks. Advised patient to make sure he is well hydrated prior to test. If this is persistent I will refer to nephrology. Follow up in 6 weeks for type 2 diabetes. Orders: Orders UA w Microscopic Today R39.9 - Unspecified symptoms and signs involving the genitourinary system Medications: New rosuvastatin 5 mg PO BEDTIME 90 tabs 0RF dulaglutide (Trulicity) 1.5 mg (0.5 mL) subcut QWEEK 2 mL 2RF Discontinued glipizide ER Discontinued Reason: Doctor's Order 5 mg PO DAILY 90 tabs 0RF dulaglutide (Trulicity) Discontinued Reason: Doctor's Order 0.75 mg (0.5 mL) subcut QWEEK 2 mL 3RF Patient Instructions: Increase Trulicity to 1.5 mg once weekly. After a week or 2 start Rosuvastatin 5 mg at bedtime. Please repeat the urine test at the lab in 2-4 weeks. Please make sure you are well hydrated the day of the test. Coding Level of Care Code Est Pt Level 4 (38504) Complex EM visit Add On G2211 Diagnoses Type 2 diabetes mellitus with hyperglycemia, without long-term current use of insulin E11.65 Diabetes mellitus skilled nursing insulin use: without long term care administrator use Class 1 obesity due to excess calories with serious comorbidity and body mass index (BMI) of 33.0 to 33.9 in adult E66.09; Z68.33 Obesity classification: adult class 1 (BMI 30 - 34.9) Serious obesity comorbidity presence: with serious comorbidity Body mass index: BMI 33.0-33.9 Dyslipidemia E78.5 Proteinuria, unspecified type R80.9 Proteinuria type: unspecified
[2024-02-21 09:06] VITALS: BP 128/70; PULSE 81; BMI 35.9
[2024-02-21 09:16] LABS: Glucose, Whole Blood 241 mg/dL (60-115)
== END 2024-02-21 09:33 | disposition home or self-care (01) ==
PROVIDERS: PCP Nurse Practitioner Family; Visit Provider Physician Assistant Medical
DX: E11.65 Type 2 diabetes mellitus with hyperglycemia (principal); E66.09 Other obesity due to excess calories; Z68.33 Body mass index [BMI] 33.0-33.9, adult; E78.5 Hyperlipidemia, unspecified; R80.9 Proteinuria, unspecified

== ENCOUNTER → 2024-02-21 08:59 | Outpatient (BNVA) | payer OTHER, SELFPAY | PROVIDERS: PCP Nurse Practitioner Family; Visit Provider Physician Assistant Medical | DX: E11.40 Type 2 diabetes mellitus with diabetic neuropathy, unspecified (principal); E11.65 Type 2 diabetes mellitus with hyperglycemia; E66.09 Other obesity due to excess calories; E78.5 Hyperlipidemia, unspecified; R80.9 Proteinuria, unspecified; R39.9 Unspecified symptoms and signs involving the genitourinary system; Z68.33 Body mass index [BMI] 33.0-33.9, adult; Z79.899 Other long term (current) drug therapy | CPT/HCPCS: 82947; 99212 ==

== ENCOUNTER → 2024-03-27 14:15 | Outpatient (BNV) | payer OTHER, SELFPAY | PROVIDERS: Visit Provider Radiology Diagnostic Radiology | DX: M54.50 Low back pain, unspecified (principal) | CPT/HCPCS: 72100 ==

== ENCOUNTER → 2024-03-29 15:24 | Outpatient (AMB) | payer OTHER, SELFPAY ==
[2024-03-29 15:25] VITALS: BP 118/76; PULSE 75; O2SAT 98; BMI 35.1
--- NOTE | 2024-03-29 15:25 | MHC.PC.OV ---
Vital Signs 03/29/24 15:25 Height 6 ft Weight 259 lb BMI 35.1 BP 118/76 Blood Pressure Location Rt brachial Position Sitting Pulse 75 Pulse Source Pulse Oximeter Pulse Oximetry (%) 98 Intake Visit Reasons: 4 month follow up Intake Note: pt is here for 4 mon f/up Compliance Project Manager Required: No Accompanied by: Self / Same As Patient Allergies ertapenem Allergy (Intermediate, Verified 03/29/24 15:26) Hives piperacillin [From Zosyn] Allergy (Intermediate, Verified 03/29/24 15:26) Hives tazobactam [From Zosyn] Allergy (Intermediate, Verified 03/29/24 15:26) Hives vancomycin Allergy (Intermediate, Verified 03/29/24 15:26) Hives metformin Adverse Reaction (Mild, Verified 03/29/24 15:26) Diarrhea jardiance Adverse Reaction (Intermediate, Uncoded 02/21/24 09:15) blurry vision Tobacco use date assessed: 03/29/24 Dental Screening Dental Screen Date: 03/29/24 Did you have a dental visit in the last 12 months?: Yes Did you have a dental problem in the last 6 months where you did not have access to dental care?: No Was dental information given to patient?: Patient has dentist HPI 4 month follow up HPI Details Chief Complaint Follow-up appointment for diabetes management. History of Present Illness The patient is a 48-year-old male presenting with a follow-up appointment for Type 2 Diabetes Mellitus. His condition has been monitored with recent laboratory findings indicating a hemoglobin A1c of 8.9% as of last month. Despite this elevated level, he denies experiencing any polyuria, polydipsia, or neuropathy, indicating an absence of acute worsening symptoms. The patient is compliant with his vision care, confirming his eye examination is up to date. He has been treated with Trulicity at a dose of 1.5 mg, which is now planned to be adjusted due to insufficient glycemic control. The patient is also on TERESA inhibitors and rosuvastatin/ezetimibe for associated conditions. He reports refusal of any vaccinations. Social History - Patient refuses all vaccinations. Health Maintenance - Eye examination is up to date. - Refusal of vaccinations was discussed. Review of Systems - Endocrine: Denies polyuria, polydipsia. - Neurological: Denies neuropathy. Physical Exam General: Cooperative, healthy appearing, comfortable, no acute distress and well developed Orientation: Patient oriented x3 Limitations: No limitations Head: Normal to inspection Ears: Hearing grossly normal bilaterally Nose: Normal external nose present Face and sinus: Normal facial exam Eyes: Appearance normal, both eyes and all related structures Neck: Normal visual inspection and Yes full ROM Respiratory: Normal respiratory effort and able to speak in complete sentences. Clear to auscultation bilaterally Cardiovascular: Regular rate and rhythm. Normal S1 and S2 GI: Normal to inspection. Soft to palpation and nontender Skin: No rashes or lesions noted Neuro: Patient oriented x3. Positive sensation with use of monofilament Extremities: Normal to inspection. Feet were intact, bilaterally Results - Labs: Hemoglobin A1c was 8.9% last month. Plan - Increase the dosage of Trulicity to 3 mg for better glycemic control. - Initiate Farxiga to assist in managing blood glucose levels. - Instruct the patient to undergo repeat laboratory tests in the near future to monitor diabetes control. Patient was informed and verbally consented to the use of an ambient scribe for clinic note documentation during this visit. Discussion Notes During the consultation, I emphasized the significance of achieving tighter glycemic control to manage his Type 2 Diabetes Mellitus effectively. The patient was informed of the adjustment in Trulicity dosage and the introduction of Farxiga as additional medication, highlighting these changes aim to improve his current condition. Although he refuses vaccinations, I reiterated the importance of regular health monitoring, especially with the upcoming repeat lab tests. The patient appears understanding of the changes in his care plan and acknowledges the follow-up recommendations discussed. Patient Instructions - Begin taking the increased dosage of Trulicity as instructed. - Start Farxiga as newly prescribed. - Arrange to have lab tests repeated soon to assess blood glucose levels. - Maintain current eye examination schedule as advised. [facility] Medical History Proteinuria Blurry vision Obesity due to excess calories Hx of sepsis Retropharyngeal abscess Cellulitis of pharynx Type 2 diabetes mellitus with hyperglycemia Elevated CPK DAVIS positive Fibromyalgia Controlled diabetes mellitus without complication, without long-term current use of insulin Hyperlipidemia LDL goal <100 Essential hypertension Vitamin D insufficiency Surgical History History of throat surgery H/O shoulder surgery Family History Father No problems noted. Mother No problems noted. 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 1. Little interest or pleasure in doing things: not at all 2. Feeling down, depressed, or hopeless: not at all 3. Trouble falling or staying asleep, or sleeping too much: several days 4. Feeling tired or having little energy: nearly every day 5. Poor appetite or overeating: not at all 6. Feeling bad about yourself - or that you are a failure or have let yourself or your family down: not at all 7. Trouble concentrating on things, such as reading the newspaper or watching television: not at all 8. Moving or speaking so slowly that other people could have noticed. Or the opposite - being so fidgety or restless that you have been moving around a lot more than usual: not at all 9. Thoughts that you would be better off or of hurting yourself in some way: not at all Total score: 4 Depression Screening Interpretation: Negative Depression Screening Done: Yes 61435 - PHQ-9 Billing: Yes Source: Developed by Drs. Franki Berry, Kenzie Mireles, Jose Regalado and colleagues, with an educational guillermo from [employer]. Thrive Questionnaire Date Thrive assessed: 03/29/24 I am a: Patient What is your living situation today?: I have a steady place to live Within the past 12 months, did the food you bought not last and you didn't have the money to get more?: Sometimes True Within the past 12 months, did you worry whether your food would run out before you got money to buy more?: Sometimes True Do you have trouble paying for medicines?: No Do you have trouble getting transportation to medical appointments?: No Do you have trouble paying your heating and electricity bill?: Yes Do you have trouble taking care of your child, family member or friend?: No Do you have trouble with day-to-day activities such as bathing, preparing meals, shopping, managing finances, etc.?: Yes Are you currently unemployed and looking for a job?: I choose not to answer this question Are you interested in more education?: No Please select the resources that you would like help with: Food and Utilities Currently or been in a relationship where the following occur: No concerns reported THRIVE Score: 3 AUDIT C Alcohol Use Questionnaire (AUDIT-C) 1. How often do you have a drink containing alcohol?: Never 3. How often do you have six or more drinks on one occasion?: Never Total Score: 0 Score Reviewed/Action Taken: Yes CAT-7 AMB Questionnaire CAT-7 Date CAT - 7 assessed: 03/29/24 Feeling nervous, anxious, or on edge: 0 = Not at all Not being able to stop or control worryin = Not at all Worrying too much about different things: 0 = Not at all Trouble relaxin = Not at all Being so restless that it is hard to sit still: 0 = Not at all Becoming easily annoyed or irritable: 0 = Not at all Feeling afraid as if something awful might happen: 0 = Not at all Total CAT-7 score (0-4 normal; 5-9 mild; 10-14 moderate; 15-21 severe): 0 Source: Developed by Drs. Franki Berry, Kenzie Mireles, Jose Regalado and colleagues, with an educational guillermo from [employer]. CAT-7 Assessment Billing CAT-7 Assessment Tool: CAT-7 Assessment 04775 Physical exam (Primary Care) Vital Signs: Last Vital Signs Pulse 75 03/29/24 15:25 BP 118/76 03/29/24 15:25 Pulse Ox 98 03/29/24 15:25 BMI result Body Mass Index 35.1 Tobacco/Smoking Status: Tobacco use Status Tobacco use date assessed 03/29/24 03/29/24 15:27 Patient Tobacco Use Status Never used Tobacco 03/29/24 15:27 e-Cigarette/Vaping Use Never Used 01/09/25 15:27 PHQ-9: PHQ-9 Score PHQ-9: Total score 4 03/29/24 15:27 Depression Screening Interpretation: Negative Thrive Assessment: Date of Thrive Assessment Date Thrive assessed 03/29/24 03/29/24 15:27 Currently or been in a relationship where the following occur: No concerns reported Coding Level of Care Code Est Pt Level 3 (90773) Diagnoses Uncontrolled diabetes mellitus with hyperglycemia E11.65 Screening for prostate cancer Z12.5 Additional Codes CAT-7 Assessment Billing - CAT-7 Assessment Tool: CAT-7 Assessment 44039 ([id number]) PHQ-9 - 84851 - PHQ-9 Billing: Yes ([id number]) Assessment & Plan Assessment & Plan (1) Uncontrolled diabetes mellitus with hyperglycemia: Code(s): E11.65 - Type 2 diabetes mellitus with hyperglycemia Category: Medical (2) Screening for prostate cancer: Code(s): Z12.5 - Encounter for screening for malignant neoplasm of prostate Category: Medical Plan . Orders: Orders Complete Blood Count Auto Diff Today E11.65 - Type 2 diabetes mellitus with hyperglycemia TSH reflex Free T4 Today E11.65 - Type 2 diabetes mellitus with hyperglycemia Lipid Panel Today E11.65 - Type 2 diabetes mellitus with hyperglycemia Prostate Specific Antigen Scr Today Z12.5 - Encounter for screening for malignant neoplasm of prostate Comprehensive [place]. Panel Fast Today E11.65 - Type 2 diabetes mellitus with hyperglycemia UA CC w/rflx Micro + Cult Today E11.65 - Type 2 diabetes mellitus with hyperglycemia Medications: New dapagliflozin propanediol (Farxiga) 5 mg PO DAILY 30 tabs 3RF Changed From dulaglutide (Trulicity) 1.5 mg (0.5 mL) subcut QWEEK 2 mL 2RF To dulaglutide 3 mg (0.5 mL) subcut QWEEK 2 mL 2RF
== END ==
PROVIDERS: PCP Nurse Practitioner Family; Visit Provider Nurse Practitioner Family
DX: E11.65 Type 2 diabetes mellitus with hyperglycemia (principal); Z12.5 Encounter for screening for malignant neoplasm of prostate

== ENCOUNTER → 2024-03-29 15:24 | Outpatient (BNVA) | payer OTHER, SELFPAY | PROVIDERS: PCP Nurse Practitioner Family; Visit Provider Nurse Practitioner Family | DX: E11.65 Type 2 diabetes mellitus with hyperglycemia (principal) | CPT/HCPCS: 96127; 99212 ==

== ENCOUNTER 2024-04-02 09:05 | Outpatient (REF) | payer OTHER, SELFPAY ==
[2024-04-02 10:52] LABS: Appearance Urine Turbid; Color Urine Dark Yellow; Glucose Urine UA Negative (Negative); Leukocyte Esterase Urine Negative (Negative); Nitrite Urine Negative (Negative); Specific Gravity - Urine >= 1.030 (1.005-1.025); UMIC TRIGGER UACC YES; Urine Blood Negative (Negative); Urine Ketones Negative (Negative); Urine Protein 30 (1+) mg/dL (Neg-Trace)
[2024-04-02 10:57] LABS: Bacteria Urine None Seen (None Seen); Hyaline Casts Urine 0-2 /LPF (0-2); RBC Urine 0-2 /HPF (0-2); Squamous Epithelial Cell Urine 0-2 /HPF (0-2); WBC Urine 0-5 /HPF (0-5)
== END 2024-04-02 09:06 | disposition home or self-care (01) ==
LOC: HO.LAB 09:05
PROVIDERS: PCP Nurse Practitioner Family; Visit Provider Physician Assistant Medical
DX: R39.9 Unspecified symptoms and signs involving the genitourinary system (principal); E11.65 Type 2 diabetes mellitus with hyperglycemia
CPT/HCPCS: 81001

== ENCOUNTER → 2024-04-03 09:04 | Outpatient (BNVA) | payer OTHER, SELFPAY | PROVIDERS: PCP Nurse Practitioner Family; Visit Provider Physician Assistant Medical | DX: E11.65 Type 2 diabetes mellitus with hyperglycemia (principal); E66.09 Other obesity due to excess calories; E78.5 Hyperlipidemia, unspecified; R80.9 Proteinuria, unspecified; Z68.35 Body mass index [BMI] 35.0-35.9, adult | CPT/HCPCS: 82947; 99212 ==

== ENCOUNTER → 2024-04-03 09:04 | Outpatient (AMB) | payer OTHER, SELFPAY ==
--- NOTE | 2024-04-03 09:17 | A.OFFVIS_ITS ---
Vital Signs 04/03/24 09:23 Height 6 ft Weight 260 lb 2.327 oz BMI 35.3 BP 130/84 Blood Pressure Location Rt brachial Position Sitting Pulse 82 Pulse Source Pulse Oximeter Intake Visit Reasons: T2DM Intake Note: Patient present today to follow up on Type 2 Diabetes Mellitus. Last Diabetic Eye exam: Has yearly exam Last Podiatry Visit: Does not see a Entry Level Accounting Clerk Random Glucose: mg/dl HgA1C: 8.9% 02/20/2024 Institutional Research Coordinator Required: Yes Institutional Research Coordinator Language: Embedded Linux Engineer Services: Institutional Research Coordinator Present Information Interpreted: non-clinical & clinical Accompanied by: Self / Same As Patient Allergies ertapenem Allergy (Intermediate, Verified 04/03/24 09:24) Hives piperacillin [From Zosyn] Allergy (Intermediate, Verified 04/03/24 09:24) Hives tazobactam [From Zosyn] Allergy (Intermediate, Verified 04/03/24 09:24) Hives vancomycin Allergy (Intermediate, Verified 04/03/24 09:24) Hives metformin Adverse Reaction (Mild, Verified 04/03/24 09:24) Diarrhea jardiance Adverse Reaction (Intermediate, Uncoded 04/03/24 09:24) blurry vision HPI Comments Details: This is a 48-year-old male with a past medical history of hyperlipidemia, type 2 diabetes diagnosed 2016, hypertension, SHERLEY, spondylosis and obesity presenting for diabetic management. He brought four screen shots from his glucometer. His fasting readings are between 137 and 160s. His blood sugar after eating dinner was 255. Not exercising due to work injury November 2022. He has an appointment with [facility] tomorrow. Hemoglobin a1c 8.9% 02/20/2024 down from 9.3% 12/09/23 down from 10.3% 09/05/23. Current medication regimen: Trulicity 3 mg weekly and Farxiga 5 mg. Farxiga added and Trulicity increase last week when he saw his primary care provider. He has not started the new medications yet. He says the pharmacy did not dispense Farxiga. He has 2 doses left on Trulicity 1.5 mg. Metformin was discontinued previously due to diarrhea. Jardance stopped due to blurry vision. Patient says he is following a diabetic diet sometimes. No alcohol. Nonsmoker. Hypoglycemia symptoms: none Hyperglycemia symptoms: none Microvascular complications: mild neuropathy in his feet. Urinalysis shows persistent proteinuria. Macrovascular complications: none Hypertension: treated with Lisinopril 2.5 mg. Previously on Losartan which was discontinued due to mylagias. Hyperlipidemia: Fluvastatin discontinued due to muscle aches. The insurance did not cover pitavastatin prescribed by his primary care provider. He stopped taking Rosuvastatin due to muscle aches and fatigue which resolved after he stopped it. He is taking Zetia and Placida threes. LDL 139. He likes to eat red meat. ROS: Constitutional: No unexplained weight loss, fever, chills, fatigue or night sweats. Eyes: No loss of vision, double vision, eye pain, eye redness, eye discharge or itching. Respiratory: No shortness of breath, cough or sputum production. Cardiovascular: No chest pain, chest pressure or chest discomfort. No palpitations or pedal edema. Gastrointestinal: No nausea, vomiting or abdominal pain. Neurologic: No headache, dizziness, syncope, unilateral weakness, ataxia, numbness or tingling in the extremities. Physical exam: Constitutional: Alert, in no distress. Head: Normocephalic. Eyes: Pupils are equal, round and reactive to light. Extraocular muscles intact. Neck: Supple, Full range of motion. No lymphadenopathy. No palpable thyroid masses. Respiratory: Clear to auscultation. Cardiovascular: S1 S2 regular. No murmurs. [facility] Medical History Proteinuria Blurry vision Obesity due to excess calories Hx of sepsis Retropharyngeal abscess Cellulitis of pharynx Type 2 diabetes mellitus with hyperglycemia Elevated CPK DAVIS positive Fibromyalgia Controlled diabetes mellitus without complication, without long-term current use of insulin Hyperlipidemia LDL goal <100 Essential hypertension Vitamin D insufficiency Surgical History History of throat surgery H/O shoulder surgery Family History Father No problems noted. Mother No problems noted. 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 Cognitive needs: No Hearing needs: No Vision needs: No Physical Exam Vital Signs: Last Vital Signs Pulse 82 04/03/24 09:23 BP 130/84 04/03/24 09:23 BMI result Body Mass Index 35.3 Assessment & Plan Assessment & Plan (1) Type 2 diabetes mellitus with hyperglycemia: Code(s): E11.65 - Type 2 diabetes mellitus with hyperglycemia Category: Medical Qualifiers: Diabetes mellitus terminal gauger insulin use: without snf use Qualified Code(s): E11.65 - Type 2 diabetes mellitus with hyperglycemia (2) Obesity due to excess calories: Code(s): E66.09 - Other obesity due to excess calories Category: Medical Qualifiers: Obesity classification: adult class 1 (BMI 30 - 34.9) Serious obesity comorbidity presence: with serious comorbidity Body mass index: BMI 33.0-33.9 Qualified Code(s): E66.09 - Other obesity due to excess calories; Z68.33 - Body mass index [BMI] 33.0-33.9, adult (3) Dyslipidemia: Code(s): E78.5 - Hyperlipidemia, unspecified Category: Medical (4) Proteinuria: Code(s): R80.9 - Proteinuria, unspecified Category: Medical Qualifiers: Proteinuria type: unspecified Qualified Code(s): R80.9 - Proteinuria, unspecified Plan In summary this is a 48 year old male with type 2 diabetes with neuropathy. Increase Trulicity to 3 mg weekly and start Farxiga 5 mg daily. I sent this prescription again to the pharmacy and advised the patient we may need to do a prior authorization for it. Reviewed diabetic diet. Discussed pathophysiology of Type II Diabetes Mellitus with the patient in detail.? I explained the terminal gauger risks and complications associated with uncontrolled diabetes including nephropathy, neuropathy, peripheral vascular disease, retinopathy, increased risk of heart disease and stroke.? He is using a glucometer , and he is compliant with monitoring. Patient unable to tolerate statins due to side effects. His cholesterol is not at cold despite Zetia and Placida threes. Prescribed Repatha. Advised patient this may need prior authorization. Refer to nephrology due to proteinuria. Follow up in 6 weeks for type 2 diabetes. Orders: Referrals Nephrology Referral R80.9 - Proteinuria, unspecified Medications: New evolocumab (Repatha SureClick) 140 mg subcut Q2W 2 mL 11RF Changed From dapagliflozin propanediol (Farxiga) 5 mg PO DAILY 30 tabs 3RF To dapagliflozin propanediol (Farxiga) 5 mg PO ONCE 30 tabs 3RF Discontinued rosuvastatin Discontinued Reason: Doctor's Order 5 mg PO BEDTIME 90 tabs 0RF Patient Instructions: Increase Trulicity to 3 mg weekly. Start Farxiga 5 mg daily - the insurance may need a prior authorization that we will process. I will submit the prescription for Repatha for cholesterol. This will need a pr ior authorization. Nephrology will call you to schedule a consult. Coding Level of Care Code Est Pt Level 4 (32721) Complex EM visit Add On G2211 Diagnoses Type 2 diabetes mellitus with hyperglycemia, without long-term current use of insulin E11.65 Diabetes mellitus terminal gauger insulin use: without terminal gauger use Class 1 obesity due to excess calories with serious comorbidity and body mass index (BMI) of 33.0 to 33.9 in adult E66.09; Z68.33 Obesity classification: adult class 1 (BMI 30 - 34.9) Serious obesity comorbidity presence: with serious comorbidity Body mass index: BMI 33.0-33.9 Dyslipidemia E78.5 Proteinuria, unspecified type R80.9 Proteinuria type: unspecified
[2024-04-03 09:23] VITALS: BP 130/84; PULSE 82; BMI 35.3
[2024-04-03 09:35] LABS: Glucose, Whole Blood 199 mg/dL (60-115)
== END ==
PROVIDERS: PCP Nurse Practitioner Family; Visit Provider Physician Assistant Medical
DX: E11.65 Type 2 diabetes mellitus with hyperglycemia (principal); E66.09 Other obesity due to excess calories; Z68.33 Body mass index [BMI] 33.0-33.9, adult; E78.5 Hyperlipidemia, unspecified; R80.9 Proteinuria, unspecified

== ENCOUNTER 2024-04-09 13:03 | Outpatient (REF) | payer OTHER, SELFPAY ==
[2024-04-09 13:28] LABS: MANUAL DIFF FLAG NO
[2024-04-09 13:44] LABS: Basophils Percent Auto 0.3 % (0-2); Eosinophils Absolute Auto 0.1 X10*3/uL (0.0-0.4); Eosinophils Percent Auto 1.8 % (0-4); Hematocrit 43.4 % (42.0-52.0); Hemoglobin 14.2 g/dl (14.0-18.0); Imm Gran Abs Auto 0.03 X10*3/uL (0.00-0.03); Imm Gran Pct Auto 0.4 % (0.0-0.4); Lymphocytes Absolute Auto 2.1 X10*3/uL (1.2-4.9); Lymphocytes Percent Auto 27.3 % (20-40); Mean Corpuscular HGB Conc 32.7 g/dl (31.0-36.0); Mean Corpuscular Hemoglobin 28.9 pg (27.0-33.0); Mean Corpuscular Volume 88.2 fL (80.0-98.0); Mean Platelet Volume 9.7 fL (9.4-12.4); Monocytes Absolute Auto 0.4 X10*3/uL (0.1-1.2); Monocytes Percent Auto 4.9 % (2-11); Neutrophils Percent Auto 65.3 % (45-73); Platelet Count 251 X10*3/uL (160-400); Red Blood Count 4.92 X10*6/uL (4.60-5.80); Red Cell Distribution Width 13.1 % (11.0-16.0); White Blood Count 7.6 X10*3/uL (4.8-10.8)
[2024-04-09 14:19] LABS: Appearance Urine Clear; Color Urine Yellow; Glucose Urine UA Negative (Negative); Leukocyte Esterase Urine Negative (Negative); Nitrite Urine Negative (Negative); Specific Gravity - Urine 1.025 (1.005-1.025); Urine Blood Negative (Negative); Urine Ketones Trace mg/dL (Negative); Urine Protein Trace mg/dL (Neg-Trace)
[2024-04-09 14:23] LABS: Alanine Aminotransferase 29 U/L (0-40); Albumin Level 4.3 g/dL (3.5-5.0); Alkaline Phosphatase 61 U/L (39-117); Anion Gap 14 (12-20); Aspartate Amino Transferase 20 U/L (5-37); Bilirubin Total 0.4 mg/dL (0.0-1.0); Blood Urea Nitrogen 10 mg/dL (9-16); Calcium 9.4 mg/dL (8.4-10.2); Carbon Dioxide 26 mmol/L (22-29); Chloride 105 mmol/L (96-108); Cholesterol 239 mg/dL (<200); Estimated Glomerular Filt Rate > 60; Glucose Fasting 161 mg/dL (60-99); HDL Cholesterol 35 mg/dL (>40); Potassium 3.9 mmol/L (3.3-5.1); Sodium 141 mmol/L (135-145); Total Protein 7.4 g/dL (6.5-8.0); Triglycerides 424 mg/dL (<150)
[2024-04-09 14:35] LABS: Prostate Specific Antigen Scr 0.12 ng/mL (<0.05-4.0)
[2024-04-09 14:39] LABS: TSH reflex Free T4 1.57 uIU/mL (0.32-4.0)
[2024-04-13 08:14] LABS: Lipoprotein A 13 nmol/L (<75)
== END 2024-04-09 13:04 | disposition home or self-care (01) ==
LOC: HO.LAB 13:03
PROVIDERS: PCP Nurse Practitioner Family; Visit Provider Physician Assistant Medical
DX: R39.9 Unspecified symptoms and signs involving the genitourinary system (principal); E11.65 Type 2 diabetes mellitus with hyperglycemia; Z12.5 Encounter for screening for malignant neoplasm of prostate; E78.5 Hyperlipidemia, unspecified
CPT/HCPCS: 36415; 80053; 80061; 81003; 83695; 84153; 84443; 85025

== ENCOUNTER 2024-04-19 13:44 | Outpatient (AMB) | payer OTHER, SELFPAY ==
[2024-04-19 13:46] VITALS: BP 108/74; PULSE 85; O2SAT 97; BMI 35.9
--- NOTE | 2024-04-19 13:46 | HO.NEPHOV_ITS ---
Vital Signs 04/19/24 13:46 Height 6 ft Weight 265 lb BMI 35.9 BP 108/74 Blood Pressure Location Lt brachial Position Sitting Pulse 85 Pulse Source Pulse Oximeter Pulse Oximetry (%) 97 Oxygen Delivery Method Room Air Intake Visit Reasons: INP: Proteinuria- Conf Senior Health Educator Required: No Senior Health Educator Services: Senior Health Educator Offered & Declined Accompanied by: Self / Same As Patient Allergies ertapenem Allergy (Intermediate, Verified 04/19/24 13:48) Hives piperacillin [From Zosyn] Allergy (Intermediate, Verified 04/19/24 13:48) Hives tazobactam [From Zosyn] Allergy (Intermediate, Verified 04/19/24 13:48) Hives vancomycin Allergy (Intermediate, Verified 04/19/24 13:48) Hives metformin Adverse Reaction (Mild, Verified 04/19/24 13:48) Diarrhea jardiance Adverse Reaction (Intermediate, Uncoded 04/03/24 09:24) blurry vision Medication List - Last Reconciled 04/19/24 by Jorge Arnold MD blood-glucose meter (OneTouch Verio Flex Meter) As directed dulaglutide 3 mg (0.5 mL) subcut QWEEK lisinopril 2.5 mg PO DAILY meloxicam 7.5 mg PO DAILY PRN montelukast 10 mg PO BEDTIME omega-3 acid ethyl esters 2 caps PO BID 90 days HPI Comments Details: 48-year-old man With diabetes mellitus referred for proteinuria. Dipstick was positive for proteinuria few times. However the recent dipstick was negative. He has a history of acute kidney injury back in 2020 he had cellulitis and he was in ICU at [facility]. SHERLEY resolved and serum creatinine has been stable since then. Lisinopril 2.5 mg was added in 03/09/2024. He has significant back pain [facility] Medical History Proteinuria Blurry vision Obesity due to excess calories Hx of sepsis Retropharyngeal abscess Cellulitis of pharynx Type 2 diabetes mellitus with hyperglycemia Elevated CPK DAVIS positive Fibromyalgia Controlled diabetes mellitus without complication, without long-term current use of insulin Hyperlipidemia LDL goal <100 Essential hypertension Vitamin D insufficiency Surgical History History of throat surgery H/O shoulder surgery Family History Father No problems noted. Mother No problems noted. 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 Lungs entry equal no rales. Heart S1-S2 heard no gallop or rub. Abdomen soft nontender. Neuro alert awake oriented. No asterixis. Extremities no edema. Results Reviewed Nephrology Results: Hgb 14.2 g/dl (14.0-18.0) 04/09/24 WBC 7.6 X10*3/uL (4.8-10.8) 04/09/24 Plt Count 251 X10*3/uL (160-400) 04/09/24 Sodium 141 mmol/L (135-145) 04/09/24 Potassium 3.9 mmol/L (3.3-5.1) 04/09/24 Chloride 105 mmol/L (96-108) 04/09/24 Carbon Dioxide 26 mmol/L (22-29) 04/09/24 BUN 10 mg/dL (9-16) 04/09/24 Creatinine 0.72 mg/dL (0.5-1.4) 04/09/24 Calcium 9.4 mg/dL (8.4-10.2) 04/09/24 Urine Protein Trace mg/dL (Neg-Trace) 04/09/24 Assessment & Plan Assessment & Plan (1) Proteinuria: Code(s): R80.9 - Proteinuria, unspecified Category: Medical Qualifiers: Proteinuria type: unspecified Qualified Code(s): R80.9 - Proteinuria, unspecified Plan 48-year-old man with diabetes mellitus had normal renal function had minimal proteinuria by dipstick. Urine was rather concentrated with a specific gravity more than 1.030. Repeat urinalysis did not reveal any proteinuria. On 24 urine microalbumin creatinine ratio was 17.8. I suspect he had false positive protein by dipstick due to concentrated urine. Nevertheless I will complete the workup to rule out any significant proteinuria. Renal function is normal at this time. Given the history of diabetes mellitus I agree with using low-dose TERESA inhibitors. Maintain blood pressure less than 130/80. He returned to the office once the baseline workup is completed. Orders: Orders Creatinine Urine Today R80.9 - Proteinuria, unspecified Total Protein Urine Random Today R80.9 - Proteinuria, unspecified UA and rflx microscopic Today R80.9 - Proteinuria, unspecified Protein Electrophoresis, Serum Today R80.9 - Proteinuria, unspecified Coding Level of Care Code New Pt Level 4 (49156) Diagnoses Proteinuria, unspecified type R80.9 Proteinuria type: unspecified
--- OUTSIDE RECORDS SUMMARY | 2024-04-19 17:36 | XMS_ITS | Clinical Summary ---
Author Organization [employer] [facility] Address [address] [place] [address] [address] [place] [address] Care Team Providers Care Electrophysiology Scientist Name Role Phone Unavailable Primary Care Provider Unavailabl e Encounters Date Type Department Care Team Description 01/23/2024 Outside Procedure [facility] [address] [place] [address] Audrey Perez, OD Presbyopia (Primary Dx) 01/20/2024 9:00 AM EDT Office Visit [facility] [address] [place] [address] Audrey Perez, OD Myopia of both eyes (Primary Dx) from Last 3 Months Social History Tobacco Use Types Packs/Day Years Used Date Smoking Tobacco: Never Assessed Sex and Gender Information Value Date Recorded Sex Assigned at Male 01/18/2022 10:26 AM EDT Legal Sex Male 10:26 AM EDT Gender Identity Male 01/18/2022 10:26 AM EDT Sexual Orientation Straight 01/18/2022 10 :26 AM EDT Plan of Treatment Health Maintenance Due Date Last Done Comments CT Colonography 1974 Colonoscopy 1974 Colorectal Cancer Screening 1974 Depression Screening 1974 FIT DNA/Cologuard 1974 FIT 1974 FOBT 1974 HIV Screening 1974 Lipid Panel 1974 SDOH Screening 1974 Sigmoidoscopy 1974 Alcohol/Substance Use Screening 1986 Tobacco Screening 1986 Family Planning (PISQ) 1989 Hepatitis C Screening 1992 Hepatitis B Vaccines (1 of - 19+ 3-dose series) 1993 COVID-19 Vaccine (2023-2 5 season) 2023 01/22/2022, 12/19/2020, 11/21/2020 Influenza Vaccine (#1) 2023 Zoster Vaccines (1 of 2) 2024 DTaP/Tdap/Td Vaccines (2 - T d or Tdap) 09/02/2024 09/02/2014 RSV Patients and Patients Aged 60 years or older (1 - 1-dose 75+ series) 2049 HIB Vaccines Aged Out No longer eligi ble based on patient's age to complete this topic HPV Vaccines Aged Out No longer eligi ble based on patient's age to complete this topic Hepatitis A Vaccines Aged Out No long er eligible based on patient's age to complete this topic IPV Vaccines Aged Out No longer eligi ble based on patient's age to complete this topic Meningococcal Vaccine Aged Out No lewis kristin eligible based on patient's age to complete this topic Pneumococcal Vaccine: Pediatrics (0 to 5 Years) and At-Risk Patients (6 to 49) Years) Aged Out No longer eligible b ased on patient's age to complete this topic RSV under 20 months Aged Out No longe r eligible based on patient's age to complete this topic Rotavirus Vaccines Aged Out No longer eligible based on patient's age to complete this topic [facility]
--- OUTSIDE RECORDS SUMMARY | 2024-04-19 17:36 | XMS_ITS | Encounter Summary ---
Author Organization [facility] Address [address] [place] [address] [address] [place] [address] Care Team Providers Care Geospatial Extractor Analysis Name Role Phone Unavailable Primary Care Provider Unavailabl e Encounter Details Date Type Department Care Team (Latest Contact Info) Description 03/05/2020 Abstract [facility] CONVERSIONS Dental, Provider, DDS Social History Tobacco Use Types Packs/Day Years Used Date Smoking Tobacco: Never Assessed Sex and Gender Information Value Date Recorded Sex Assigned at Male 01/18/2022 10:26 AM EDT Legal Sex Male 10:26 AM EDT Gender Identity Male 01/18/2022 10:26 AM EDT Sexual Orientation Straight 01/18/2022 10 :26 AM EDT documented as of this encounter Plan of Treatment Not on file documented as of this encounter Visit Diagnoses Not on filedocumented in this encounter
--- OUTSIDE RECORDS SUMMARY | 2024-04-19 17:36 | XMS_ITS | Clinical Summary ---
[facility] Address [address] [place] [address] Care Team Providers Care Gift Officer Name Role Phone Jeff Chi NP Primary Care Provider Surgical History Surgery Date Site/Laterality Comments OTHER SURGICAL HISTORY PROCEDURE: DENIES PREVIOUS SURGERY OTHER SURGICAL HISTORY N/A PROCEDURE: BIOPSY OF THROAT, HYPOPHARYNX SHOULDER SURGERY PROCEDURE: HISTORICAL SHOULDER SURGERY Medical History Medical History Date Comments Hypertension DX:Hypertension Knee osteoarthritis DX:Knee oste oarthritis Osteoarthritis DX:Osteoarthriti s; COMMENT: Spine, knee, wrist Obstructive sleep apnea 07/24/2015 DX:Obstr uctive sleep apnea; COMMENT: Not using CPAP machine Male erectile disorder 07/24/2015 DX:Male e rectile disorder Hyperlipidemia 04/28/2017 DX:Hyperlipidemi a DM (diabetes mellitus), type 2 with peripheral vascular complications (CMS/HCC) DX:DM (diabetes mellitus), t ype 2 with peripheral vascular complications ([facility]) H/O retropharyngeal abscess DX:H /O retropharyngeal abscess Cellulitis of pharynx DX:Celluli tis of pharynx Elevated CPK DX:Elevated CPK DAVIS positive DX:DAVIS positive Fibromyalgia DX:Fibromyalgia Vitamin D insufficiency DX:Vitam in D insufficiency Family History Medical History Relation Name Comments No Known Problems Father Coronary artery disease Maternal Grandfather Hypertension Maternal Grandfather Diabetes Maternal Grandmother Stroke Maternal Grandmother Brain C ancer No Known Problems Mother Relation Name Status Comments Father Maternal Grandfather Maternal Grandmother Mother Social History Tobacco Use Types Packs/Day Years Used Date Smoking Tobacco: Never Smokeless Tobacco: Never Alcohol Use Standard Drinks/Week Comments Not Currently 0 (1 standard drink = 0.6 oz pur e alcohol) Sex and Gender Information Value Date Recorded Sex Assigned at Not on file Gender Identity Not on file Sexual Orientation Not on file Obstetrics History Last Filed Vital Signs Vital Sign Reading Time Taken Comments Blood Pressure 111/75 11/24/2023 10:18 AM EDT Si tting R Arm Pulse 85 11/24/2023 10:18 AM EDT Temperature - - Respiratory Rate - - Oxygen Saturation - - Inhaled Oxygen Concentration - - Weight 115 kg (254 lb) 11/24/2023 10:18 AM EDT Height 182.9 cm (6') 11/24/2023 10:18 AM EDT Body Mass Index 34.45 11/24/2023 10:18 AM EDT Plan of Treatment Health Maintenance Due Date Last Done Comments Diabetes: Annual GFR (Glomer ular Filtration Rate) 1974 Diabetes: Annual Foot Exam 1984 Diabetes: Annual Retina Eye Exam 1984 Hepatitis B Vaccines (1 of 3 - 19+ 3-dose series) 1993 Cholesterol Screening (Lipid Panel) 04/24/2023 Colorectal Cancer Screening: Colonoscopy 04/24/2023 Depression Screening 04/24/2023 Diabetes: Annual Urine Albumin-Creatinine Ratio (uACR) 04/24/2023 Diabetes: Blood Sugar Contro l Test (HGBA1C) 04/24/2023 HIV Screening 04/24/2023 Hepatitis C Screening 04/24/2023 Hypertension/CHF/CAD Annual BMP Blood Test 04/24/2023 Social Influencers of Health Screening 04/24/2023 COVID-19 Vaccine (1 - 2023-2 5 season) 2023 Influenza Vaccine (#1) 2023 DTaP,Tdap,and Td Vaccines (2 - Td or Tdap) 09/02/2024 09/02/2014 HIB Vaccines Aged Out No longer eligi [...] on patient's age to complete this topic MMR Vaccines Aged Out No longer eligi ble based on patient's age to complete this topic Meningococcal ACWY Vaccine Aged Out N o longer eligible based on patient's age to complete this topic Pneumococcal Vaccine: Pediat rics (0 to 5 Years) and At-Risk Patients (6 to 64 Years) Aged Out No longer eligi ble based on patient's age to complete this topic RSV Immunization Patients Un joesph 20 months Aged Out No longer eligible b ased on patient's age to complete this topic Varicella Vaccines Aged Out No longer eligible based on patient's age to complete this topic Care Teams Gift Officer Relationship Specialty Start Date End Date [facility] [address] [facility] [address] [facility] - General Family Medicine 07/30/19
--- OUTSIDE RECORDS SUMMARY | 2024-04-19 17:36 | XMS_ITS | Data Portability ---
Author Organization DREW Benjamin s, [address] Address [address] [place] [address] Care Team Providers Care Salvage Mend Worker Name Role Phone [facility] Primary Care Provider Assessment No assessment recorded. Plan of Treatment Reminders Order Date Submit Date Provider Last Modified By Organization Details Last Modified Time Details Appointments None recorded. Lab microorgani sm identificat ion, unspecified specimen 2022 023 NAVARRE [facility], [address] [place] [address], [place], [address], 3 06:07:20 Referral None recorded. Procedures None recorded. Surgeries None recorded. Imaging None recorded. Medication Orders Bactrim DS 800 mg-160 mg tablet 2022 023 [id number], [address], [place], [id number], 15:56:45 Patient TargetsNo targets recorded. Patient Instructions Encounter Date Encounter Id Patient Instructions Last Modified By Organization Details Last Modified Time 06/27/2022 [id number] Cellulitis is a skin infection caused by bacteria, most often strep or staph. It often occurs after a break in the skin from a scrape, cut, bite, or puncture, or after a rash. Cellulitis may be treated without doing tests to find out what caused it. But your doctor may do tests, if needed, to look for a specific bacteria, like methicillin-resist ant Staphylococcus aureus (MRSA). The doctor has checked you carefully, but problems can develop later. If you notice any problems or new symptoms, get medical treatment right away. How can you care for yourself at home? Take your antibiotics as directed. Do not stop taking them just because you feel better. You need to take the full course of antibiotics. Prop up the infected area on pillows to reduce pain and swelling. Try to keep the area above the level of your heart as often as you can. If your doctor told you how to care for your infection, follow your doctor's instructions. If you did not get instructions, follow this general advice: Wash the area with clean water 2 times a day. Don't use hydrogen peroxide or alcohol, which can slow healing. You may cover the area with a thin layer of petroleum jelly, such as Vaseline, and a non-stick bandage. Apply more petroleum jelly and replace the bandage as needed. Be safe with medicines. Take pain medicines exactly as directed. If the doctor gave you a prescription medicine for pain, take it as prescribed. If you are not taking a prescription pain medicine, ask your doctor if you can take an uyha-vzb-[id number] medicine. Follow-up with Tire And Lube Technician as needed. Go to ER if symptoms worsen. kerry Not available 06/27/2022 15:55:02 Reason for Referral None Reported. Results Created Date Observation Date Name Description Value Unit Range Abnormal Flag Note LastModifiedBy Organization Detail LastModifiedTime 06/28/1907/01/2022 AEROB IC BACTE RIAL CULTU RE aerobic bacterial culture FINAL REPORT abnormal Not Available [facility] ([facility]) [address], [place], [address], 07/01/2022 06:07:24 06/28/1907/01/2022 AEROB IC BACTE RIAL CULTU RE result 1 COMMEN T abnormal Beta hemol ytic Strep tococ cus, group B Heavy growt h Penic illin and ampic illin are drugs of choic e for treat ment of beta- hemol ytic strep tococ juwan infec tions . Iva ptibi lity testi ng of penic illin s and other beta- lacta m agent s appro jadon by the FDA for treat ment of beta- hemol ytic strep tococ juwan infec tions need not be perfo rmed routi jazmyne becau se nonsu scept ible isola yaakov are extre hayden rare in any beta- hemol ytic strep tococ cus and have not been repor kristen for Strep tococ cus pyoge josé miguel (grou p A). (CLSI ) Not Available [facility] ([facility]) [address], [place], [address], 07/01/2022 06:07:24 Result Notes None recorded. Problems Name Problem SNOMED Code Status Onset Date Resolution Date Notes Provider Name and Address Organization Details Recorded Time Diabetes mellitus 89768123 Active 023 Rosa chahal PA - [facility] 3 15:34:49 Arthritis 6994957 Active 023 Rosa chahal PA - [facility] 3 15:34:57 Problem Notes None recorded. Procedures Surgical History Date Name Laterality Status Provider Name and Address Organization Details Recorded Time 3 I&D, without packing completed Evan Hernandez NP [address] [place], [address], PA - [facility] 06/27/2022 15:54:01 3 OC-UDS Send Out Template DOT completed TIFFANIE WILLIAMSON PA - [facility] 06/02/2022 09:23:27 Imaging Results None recorded. Procedure Notes None recorded. Medical Equipment None Reported. Allergies Allergen ID Allergen Name Allergen Category Reaction Reaction Severity Criticality Documentation Date Start Date Code Code System Note Provider Name and Address Organization Details Recorded Time 780001 Zosyn medicatio n rash Not available Not available 06/27/2022 94324 RxNorm Rosa chahal PA - [facility] 3 15:33:30 Medications Name Sig Start Date Stop Date Status Note LastModified by Organization Details LastModified Time cyclobenzap rine 10 mg tablet TAKE 1 TABLET BY MOUTH AT BEDTIME FOR 7 DAYS NEEDED FOR MUSCLE SPASM 06/27 completed Not Available Not Available Not Available sildenafil 50 mg tablet TAKE 1 TABLET BY MOUTH 30 MINUTES TO 4 HOURS BEFORE SEXUAL ACTIVITY NEEDED 06/27 completed Not Available Not Available Not Available prednisone 20 mg tablet TAKE 1 TABLET BY MOUTH TWICE DAILY FOR 5 DAYS 06/27 completed Not Available Not Available Not Available meloxicam 7.5 mg tablet TAKE 1 TABLET BY MOUTH EVERY DAY 06/27 completed Not Available Not Available Not Available colesevelam 625 mg tablet TAKE 2 TABLETS BY MOUTH TWICE DAILY 06/27 completed Not Available Not Available Not Available Bactrim DS 800 mg-160 mg tablet Take 1 tablet every 12 hours by oral route with meals for 7 days. 2022 active Not Available Not Available Not Avai lable duloxetine 30 mg capsule,del ayed release TAKE 1 CAPSULE BY MOUTH EVERY DAY 06/27 completed Not Available Not Available Not Available lisinopril 06/27 completed Not Available Not Available Not Available Trulicity 0.75 mg/0.5 mL subcutaneou s pen injector ADMINISTE R 0.75 MG UNDER THE SKIN EVERY WEEK active Not Available Not Available No t Available BinaxNOW COVID-19 Ag Self Test kit TEST DIRECTED TODAY 06/27 completed Not Available Not Available Not Available Vitals Date Recorded Body height Provider Name an d Address Organization Details Last Updated DateTime 06/27/2022 182.88 cm Rosa Rome PA - [facility] 06/27/2022 15:35:19 Date Recorded Body mass index (BMI) Body weight Provider Name and Address Organization Details Last Updated DateTime 06/27/2022 35.1 kg/m2 196241.42 g Rosa RUSSELL - [facility] 06/27/2022 15:35:24 Date Recorded Pain severity - 0-10 verbal numeric rating [Score] - Reported Provider Name and Address Organization Details Last Updated DateTime 06/27/2022 9 Rosa Rome PA - [facility] 06/27/2022 15:35:27 Date Recorded Body temperature Provider Name a nd Address Organization Details Last Updated DateTime 06/27/2022 97.3 [degF] Rosa Rome PA - [facility] 06/27/2022 15:36:14 Date Recorded Respiratory rate Provider Name a nd Address Organization Details Last Updated DateTime 06/27/2022 18 /min Rosa Rome PA - [facility] 06/27/2022 15:36:15 Date Recorded Oxygen saturation Oxygen saturation in Arterial blood by Pulse oximetry Provider Name and Address Organization Details Last Updated DateTime 06/27/2022 98 % 98 % Rosa Rome PA - [facility] 06/27/2022 15:36:31 Date Recorded Heart rate Provider Name an d Address Organization Details Last Updated DateTime 06/27/2022 84 /min Rosa Rome PA - [facility] 06/27/2022 15:36:33 Date Recorded Systolic blood pressure Diastolic blood pressure Provider Name and Address Organization Details Last Updated DateTime 06/27/2022 132 mm[Hg] 86 mm[Hg] Rosa Rome PA - [facility] 06/27/2022 15:36:26 Social History Question Answer Notes LastModified by Organizat ion Details LastModified Time Tobacco Smoking Status Never Smoker Rosa chahal PA - [facility] 06/27/2022 15:35:12 What Is Your Level Of Alcohol Consumption? None Information not available 06/27/2022 Do You Use Any Illicit Or Recreational Drugs? No Information not available 06/27/2022 Have You Recently Traveled Abroad? No Information not available 06/27/2022 Do You Or Have You Ever Used Any Other Forms Of Tobacco Or Nicotine? No Information not available 06/27/2022 Sex: Unknown Functional Status None recorded. Mental Status None recorded. Family History Relationship Description Onset Age of this Age Resolved Age Notes LastModified by Organization Details LastModified Time Father No current problems or disability [email or web address] Not available 06/27 15:35:01 Mother No current problems or disability [email or web address] Not available 06/27 15:35:01 Medical History No medical history recorded. Immunizations Vaccine Type Date Status Note Provider Nam e and Address Organization Details Recorded Time COVID-19, mRNA, LNP-S, PF, 100 mcg/0.5mL dose or 50 mcg/0.25mL dose 11/21/2020 completed Rosa chahal PA - [facility] 06/27/2022 15:31:55 COVID-19, mRNA, LNP-S, PF, 100 mcg/0.5mL dose or 50 mcg/0.25mL dose 12/19/2020 completed Rosa chahal, PA - [facility] 06/27/2022 15:31:56 COVID-19, mRNA, LNP-S, bivalent, PF, 50 mcg/0.5 mL or 25mcg/0.25 mL dose 01/22/2022 completed Rosa Rome null, PA - [facility] 06/27/2022 15:31:56 Tdap 09/02/2014 completed Rosa Rome null, PA - [facility] 06/27/2022 15:31:56 Past Encounters Encounter ID Performer Location Encounter Start Date Encounter Closed Date Diagnosis/Indication Diagnosis SNOMED-CT Code Diagnosis ICD10 Code Diagnosis Note [id number] [address] [place] [address] [place] [address] 08/09/2020 15:23:10 08/09/2020 15:36:28 [id number] [address] [address] [place] [address] 05/10/2020 08:02:39 05/10/2020 08:35:47 [id number] [address] [place] [address] 10/13/2016 13:21:02 10/13/2016 14:08:54 [id number] [address] [place] [address] 06/22/2017 10:40:29 06/22/2017 11:17:38 [id number] [address] [place] [address] 10/22/2015 12:11:35 10/22/2015 14:31:42 [id number] [address] [place] [address] 08/22/2018 08:22:09 08/22/2018 08:58:23 [id number] [address] [place] [address] 06/16/2017 12:08:20 06/16/2017 12:29:06 [id number] [address] [place] [address] 10/14/2020 15:56:09 10/14/2020 17:28:26 [id number] Binta Conteh MD [address] [facility] [place] [address] 06/02/2022 08:25:09 06/02/2022 09:27:52 History and physical examination, occupation [id number] Z02.1 [id number] Evan Hernandez [facility] [address] [facility] [address] [place] [address] 06/27/2022 15:05:30 06/27/2022 16:01:01 Paronychia of right thumb [id number] L03.011 Health Concerns Section Related Observation LastModified by Organization Detai ls LastModified Time None Recorded Concern Status LastModified by Organization Details LastModified Time None Recorded Advance Directives Directive None Recorded Payers Encounter Date Sequence Insurance Name Policy Number Policy Peña Covered Member ID Peña Member ID Guarantor Name 06/02/2022 OC-ESCREEN Cameron Cortez [id number] Cameron Cortez 06/27/2022 1 [facility] NET PLAN (MEDICAID HMO) Cameron Cortez [id number] Cameron Cortez Notes Date Note Type Note Provider Name and Address Organization Details Recorded Time 06/27/2022 text/html Finger PainRepor kristen bypatient.source of patient informationsource of patient information patient Onset:gradual onset; 6 days ago Locationlocation: right; Thumb Finger; erythema , swelling ,pain right thumb finger nail bed Neurovascular Status:no numbness or tinglingSkin Redness UCReported bypatient.Quality:not painful Severity:improving; resolved Symptoms:no fever; no nausea; no vomiting; no swelling Evan Hernandez NP [address] [place], [address], [place] - [facility] 06/27/2022 15:56:47
--- OUTSIDE RECORDS SUMMARY | 2024-04-19 17:36 | XMS_ITS | Clinical Summary ---
Author Organization [facility] Facility Address [address] [place] [address] Care Team Providers Care Jeep Driver Name Role Phone Jeff Chi NP Primary Care Provider [phone] Allergies Active Allergy Reactions Criticality Noted Date Comments Ertapenem 08/06/2020 Piperacillin Sod-Tazobactam So 08/06 Medications No known medications Active Problems Problem Noted Date Diagnosed Date Type 2 diabetes mellitus 08/06/2020 Normocytic anemia 08/06/2020 Hypertension 08/06/2020 Hyperlipidemia 08/06/2020 Acute nontraumatic kidney injury 08/06/2020 Retropharyngeal abscess 08/06/2020 Immunizations Name Administration Dates Next Due Tdap 09/02/2014 Social History Tobacco Use Types Packs/Day Years Used Date Smoking Tobacco: Never Assessed Sex and Gender Information Value Date Recorded Sex Assigned at Not on file Legal Sex Male 2:29 PM EST Gender Identity Not on file Sexual Orientation Not on file Plan of Treatment Health Maintenance Due Date Last Done Comments Hepatitis B Vaccine (1 of 3 - 19+ 3-dose series) 1993 Diabetes: Hemoglobin A1C 08/06/2020 Diabetes: Ophthalmology Exam 08/06/2020 Diabetes: Pedal Pulse Checked 08/06/2020 Diabetes: Sensory Foot Exam 08/06/2020 Diabetes: Visual Foot Exam 08/06/2020 Colorectal Cancer Screening: Annual FOBT 06/26/2023 Colorectal Cancer Screening: Colonoscopy 06/26/2023 Colorectal Cancer Screening: Sigmoidoscopy 06/26/2023 Influenza Vaccine (#1) 2023 Pneumococcal Vaccine: Pediat rics (0 to 5 Years) and At-Risk Patients (6 to 64 Years) Aged Out No longer eligible b ased on patient's age to complete this topic Insurance [employer] OPEN ACCESS ([id number]) Care Teams Jeep Driver Relationship Specialty Start Date End Date Jeff Chi NP [address] [place] [address] PCP - General Nurse Practitioner 08/06/20
== END 2024-04-19 13:58 | disposition home or self-care (01) ==
PROVIDERS: PCP Nurse Practitioner Family; Referring Provider Physician Assistant Medical; Visit Provider Internal Medicine Hypertension Specialist
DX: R80.9 Proteinuria, unspecified (principal)
CPT/HCPCS: 99204

== ENCOUNTER → 2024-04-19 13:44 | Outpatient (BNVA) | payer OTHER, SELFPAY | PROVIDERS: PCP Nurse Practitioner Family; Referring Provider Physician Assistant Medical; Visit Provider Internal Medicine Hypertension Specialist | DX: R80.9 Proteinuria, unspecified (principal); E11.9 Type 2 diabetes mellitus without complications | CPT/HCPCS: 99202 ==

== ENCOUNTER 2024-05-22 14:12 | Outpatient (AMB) | payer OTHER, SELFPAY ==
[2024-05-22 14:26] VITALS: BP 118/76; PULSE 72; O2SAT 92; BMI 36.3
--- NOTE | 2024-05-22 14:26 | A.OFFVIS_ITS ---
Vital Signs 05/22/24 14:26 Height 6 ft Weight 267 lb 6.731 oz BMI 36.3 BP 118/76 Blood Pressure Location Lt brachial Position Sitting Pulse 72 Pulse Source Pulse Oximeter Pulse Oximetry (%) 92 Oxygen Delivery Method Room Air Intake Visit Reasons: T2DM Intake Note: Patient present today to follow up on Type 2 Diabetes Mellitus. Last Diabetic Eye exam: 07/2023 Last Podiatry Visit: Does not see a Fabric Worker Supervisor Random Glucose: 221 mg/dl HgA1C: 9.8% Courtesy Booth Cashier Required: No Accompanied by: Self / Same As Patient Allergies ertapenem Allergy (Intermediate, Verified 05/22/24 14:31) Hives piperacillin [From Zosyn] Allergy (Intermediate, Verified 05/22/24 14:31) Hives tazobactam [From Zosyn] Allergy (Intermediate, Verified 05/22/24 14:31) Hives vancomycin Allergy (Intermediate, Verified 05/22/24 14:31) Hives metformin Adverse Reaction (Mild, Verified 05/22/24 14:31) Diarrhea jardiance Adverse Reaction (Intermediate, Uncoded 05/22/24 14:31) blurry vision HPI Comments Details: This is a 48-year-old male with a past medical history of hyperlipidemia, type 2 diabetes diagnosed 2016, hypertension, SHERLEY, spondylosis and obesity presenting for diabetic management. He does not have a glucometer or blood sugars to review today. Insurance does not cover CGM. Not exercising due to work injury November 2022. Followed by [facility]. Hemoglobin a1c 9.8% today 05/22/2024 up from 8.9% 02/20/2024. Current medication regimen: Trulicity 3 mg weekly and Farxiga 5 mg. The patient says the pharmacy never dispensed Farxiga, and he does not want to take it because Jardiance caused urinary frequency. He also says he stopped Trulicity several weeks ago because it is not help lower his blood sugars as evidenced by his hemoglobin A1c, and he reports blurry vision when he takes this at higher dosages. Metformin was discontinued previously due to diarrhea. Jardance stopped due to blurry vision and urinary frequency. Patient says he is following a diabetic diet sometimes. He tends to overeat or eat sugary foods when he is stressed. No alcohol. Nonsmoker. Hypoglycemia symptoms: none Hyperglycemia symptoms: none Microvascular complications: mild neuropathy in his feet. Macrovascular complications: none Hypertension: treated with Lisinopril 2.5 mg. Previously on Losartan which was discontinued due to mylagias. Hyperlipidemia: He does not consistently take atorvastatin. He is no longer on Zetia. He had myalgias on other statins. He is taking [place] 3. His insurance denied Repatha. ROS: Constitutional: No unexplained weight loss, fever, chills, fatigue or night sweats. Eyes: No loss of vision, blurry vision, double vision, eye pain, eye redness, eye discharge or itching. Respiratory: No shortness of breath, cough or sputum production. Cardiovascular: No chest pain, chest pressure or chest discomfort. No palpitations or pedal edema. Gastrointestinal: No nausea, vomiting or abdominal pain. Neurologic: No headache, dizziness, syncope, unilateral weakness, ataxia, numbness or tingling in the extremities. Physical exam: Constitutional: Alert, in no distress. Head: Normocephalic. Eyes: Pupils are equal, round and reactive to light. Extraocular muscles intact. Neck: Supple, Full range of motion. No lymphadenopathy. No palpable thyroid masses. Respiratory: Clear to auscultation. Cardiovascular: S1 S2 regular. No murmurs. FOR[facility]LY [facility], [facility] Medical History Proteinuria Blurry vision Obesity due to excess calories Hx of sepsis Retropharyngeal abscess Cellulitis of pharynx Type 2 diabetes mellitus with hyperglycemia Elevated CPK DAVIS positive Fibromyalgia Controlled diabetes mellitus without complication, without long-term current use of insulin Hyperlipidemia LDL goal <100 Essential hypertension Vitamin D insufficiency Surgical History History of throat surgery H/O shoulder surgery Family History Father No problems noted. Mother No problems noted. 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 Cognitive needs: No Hearing needs: No Vision needs: No Physical Exam Vital Signs: Last Vital Signs Pulse 72 05/22/24 14:26 BP 118/76 05/22/24 14:26 Pulse Ox 92 05/22/24 14:26 Oxygen Delivery Method Room Air 05/22/24 14:26 BMI result Body Mass Index 36.3 Results AMB Hemoglobin A1c AMB Hemoglobin A1c 9.8 % Last Edit by CJ Goodman on 05/22/24 14:49 Results Reviewed Results Reviewed: Laboratory Last Values Glucose (Clinic) 221 mg/dL (60-115) H 05/22/24 14:34 Laboratory Tests 02/20/24 04/09/24 09:30 13:27 Creatinine 0.72 Estimated GFR > 60 AST 20 ALT 29 Alkaline Phosphatase 61 Triglycerides 269 H 424 H Cholesterol 241 H 239 H LDL Cholesterol, Calc 150 H HDL Cholesterol 38 L 35 L Urine Creatinine 375.25 Urine Microalbumin 67.0 Microalb/Creat Ratio 17.8 Assessment & Plan Assessment & Plan (1) Type 2 diabetes mellitus with hyperglycemia: Code(s): E11.65 - Type 2 diabetes mellitus with hyperglycemia Category: Medical Qualifiers: Diabetes mellitus snf insulin use: without bed bug exterminator use Q ualified Code(s): E11.65 - Type 2 diabetes mellitus with hyperglycemia (2) Obesity due to excess calories: Code(s): E66.09 - Other obesity due to excess calories Category: Medical Qualifiers: Obesity classification: adult class 1 (BMI 30 - 34.9) Serious obesity comorbidity presence: with serious comorbidity Body mass index: BMI 33.0-33.9 Qualified Code(s): E66.09 - Other obesity due to excess calories; Z68.33 - Body mass index [BMI] 33.0-33.9, adult (3) Dyslipidemia: Code(s): E78.5 - Hyperlipidemia, unspecified Category: Medical (4) Proteinuria: Code(s): R80.9 - Proteinuria, unspecified Category: Medical Qualifiers: Proteinuria type: unspecified Qualified Code(s): R80.9 - Proteinuria, unspecified Plan In summary this is a 48 year old male with type 2 diabetes with neuropathy. His treatment has been a bit complicated because he frequently stops and restarts medications without reporting this to the office until he is seen. He has reported a variety of side effects to medications. We discussed that his hemoglobin A1c is elevated. Goal A1c is less than 7%. Discussed pathophysiology of Type II Diabetes Mellitus with the patient in detail.? I explained the snf risks and complications associated with uncontrolled diabetes including nephropathy, neuropathy, peripheral vascular disease, retinopathy, increased risk of heart disease and stroke.? He is using a glucometer, and I stressed the importance of bringing this to all of his visits so that we can review the data. Start Ozempic 0.25 mg weekly. Denies contraindications. Side effects reviewed. Start glimepiride 2 mg daily. If you experience low blood sugar, treat this by eating a chewable fruit candy like skittles or jelly beans (about 8 pieces), 4 ounces (1/2 cup) of fruit juice (not diet), 1 tablespoon of honey or 4 glucose tablets. If your blood sugar is under 50, take double the amount of one of the above. Recheck your blood sugar in 15 minutes. Stressed the importance of taking atorvastatin every night and continuing [place] 3 2 caps twice daily. We reviewed his recent cholesterol profile. He was evaluated by Nephrology for proteinuria. Follow up in 6 weeks for type 2 diabetes. Orders: Orders AMB Hemoglobin A1c Today E11.65 - Type 2 diabetes mellitus with hyperglycemia, Z13.9 - Encounter for screening, unspecified Medications: New semaglutide (Ozempic) for 4 weeks 0.25 mg (0.368 mL) subcut QWEEK 3 mL 1RF glimepiride administer with breakfast 2 mg PO QAM 90 tabs 0RF Discontinued dulaglutide Discontinued Reason: Doctor's Order 3 mg (0.5 mL) subcut QWEEK 2 mL 2RF Patient Instructions: Start Ozempic 0.25 mg weekly. This may need a prior authorization so it might be a couple weeks before you receive this from the pharmacy. Start Glimepride 2 mg 1 tablet in the morning with breakfast. If you experience low blood sugar, treat this by eating a chewable fruit candy like skittles or jelly beans (about 8 pieces), 4 ounces (1/2 cup) of fruit juice (not diet), 1 tablespoon of honey or 4 glucose tablets. If your blood sugar is under 50, take double the amount of one of the above. Recheck your blood sugar in 15 minutes. Coding Level of Care Code Est Pt Level 4 (25165) Complex EM visit Add On G2211 Diagnoses Type 2 diabetes mellitus with hyperglycemia, without long-term current use of insulin E11.65 Diabetes mellitus snf insulin use: without snf use Class 1 obesity due to excess calories with serious comorbidity and body mass index (BMI) of 33.0 to 33.9 in adult E66.09; Z68.33 Obesity classification: adult class 1 (BMI 30 - 34.9) Serious obesity comorbidity presence: with serious comorbidity Body mass index: BMI 33.0-33.9 Dyslipidemia E78.5 Proteinuria, unspecified type R80.9 Proteinuria type: unspecified
[2024-05-22 14:39] LABS: Glucose, Whole Blood 221 mg/dL (60-115)
--- OUTSIDE RECORDS SUMMARY | 2024-05-22 17:57 | XMS_ITS | Clinical Summary ---
[facility] Organization [facility] Address [address] [place] [address] Care Team Providers Care Rn Er Name Role Phone Jeff Chi NP Primary [...] t ype 2 with peripheral vascular complications (HCC) H/O retropharyngeal abscess DX:H /O retropharyngeal abscess [...] at Not on file Legal Sex Male 4:16 PM EST Gender Identity Not on file [...] patient's age to complete this topic Meningococcal B Vacine Aged Out No lo nger eligible based on patient's age to complete [...] age to complete this topic Care Teams Rn Er Relationship Specialty Start Date End Date [facility] - General Family Medicine 07/30/19
--- OUTSIDE RECORDS SUMMARY | 2024-05-22 17:57 | XMS_ITS | Encounter Summary ---
Author Organization [employer] [facility] Address [address] [place] [address] [address] [place] [address] Care Team Providers Care Hydraulic Governor Assembler Name Role Phone Unavailable Primary Care Provider Unavailabl e Encounter Details Date Type Department Care Team (Latest Contact Info) Description 03/05/2020 Abstract [facility] CONVERSIONS Dental, Provider, DDS Social History [...]
--- OUTSIDE RECORDS SUMMARY | 2024-05-22 17:57 | XMS_ITS | Clinical Summary ---
Author Organization [employer] Address [address] [place] [address] 7 [place] [address] Care Team Providers Care Vegetable Farmer Name Role Phone Unavailable Primary Care Provider Unavailabl e Social History Tobacco Use Types Packs/Day Years [...] Screening 1992 Hepatitis B Vaccines (1 of 3 - 19+ 3-dose series) 1993 COVID-19 Vaccine (4 - 2023-2 5 season) 2023 01/22/2022, 12/19/2020, 11/21/2020 Influenza [...] patient's age to complete this topic Insurance [facility]
--- OUTSIDE RECORDS SUMMARY | 2024-05-22 17:57 | XMS_ITS | Clinical Summary ---
Author Organization [facility] Facility Address [address] [place] [address] Care Team Providers Care Paint Crew Supervisor Name Role Phone Jeff Chi NP Primary Care Provider [phone] Allergies Active Allergy Reactions Criticality Noted Date [...] complete this topic Insurance [employer] OPEN ACCESS ([id number]) Care Teams Paint Crew Supervisor Relationship Specialty Start Date End Date Jeff Chi NP [address] [place] [address] PCP - General Nurse Practitioner 08/06/20
--- OUTSIDE RECORDS SUMMARY | 2024-05-22 17:57 | XMS_ITS | Data Portability ---
Author Organization [facility], [address] Address [address] [place] [address] Care Team Providers Care Mold Yard Worker Name Role Phone [facility] Primary Care Provider Assessment No assessment recorded. Plan of Treatment Reminders Order Date Submit Date Provider Last Modified By Organization Details Last Modified Time Details Appointments None recorded. Lab microorgani sm identificat ion, unspecified specimen 2022 023 [place] [facility], [address] [place] [address], , [address], 3 06:07:20 Referral None recorded. Procedures None recorded. Surgeries None recorded. Imaging None recorded. Medication Orders Bactrim DS 800 mg-160 mg tablet 2022 023 [id number], [address] [place], [place], [id number], 3 15:56:45 Patient TargetsNo targets recorded. Patient Instructions Encounter Date Encounter Id Patient Instructions Last Modified By Organization Details Last Modified Time 06/27/2022 [id number] Cellulitis is a skin infection caused by [...] your doctor if you can take an liuc-aix-cazhkcp medicine. Follow-up with [employer] as needed. Go to ER if symptoms worsen. kerry Not available 06/27/2022 15:55:02 Reason for Referral None Reported. Results Created Date Observation Date Name Description Value Unit Range Abnormal Flag Note LastModifiedBy Organization Detail LastModifiedTime 06/28/1907/01/2022 AEROB IC BACTE RIAL CULTU RE aerobic bacterial culture FINAL REPORT abnormal Not Available [facility] ([facility]) [address] [facility], [place], [address], 07/01/2022 06:07:24 06/28/1907/01/2022 AEROB IC BACTE RIAL [...] p A). (CLSI ) Not Available [facility] ([facility]) [address] [facility], [place], [address], 07/01/2022 06:07:24 Result Notes None recorded. Problems Name Problem SNOMED Code Status Onset Date Resolution Date Notes Provider Name and Address Organization Details Recorded Time Diabetes mellitus 75686542 Active 023 Rosa chahal PA - [facility] 3 15:34:49 Arthritis 6811659 Active 023 Rosa chahal PA - [facility] 3 15:34:57 Problem Notes None recorded. Procedures Surgical History Date Name Laterality Status Provider Name and Address Organization Details Recorded Time 3 I&D, without packing completed Evan Hernandez NP [address] [place], [address], PA - [facility] 06/27/2022 15:54:01 3 OC-UDS Send Out Template DOT completed TIFFANIE WILLIAMSON PA - [facility] 06/02/2022 09:23:27 Imaging Results None recorded. Procedure Notes None recorded. Medical Equipment None Reported. Allergies Allergen ID Allergen Name Allergen Category Reaction Reaction Severity Criticality Documentation Date Start Date Code Code System Note Provider Name and Address Organization Details Recorded Time 701535 Zosyn medicatio n rash Not available Not available 06/27/2022 28944 RxNorm Rosa chahal PA - [facility] [...] Not Available Vitals Date Recorded Body height Body mass index (BMI) Body weight Pain severity - 0-10 verbal numeric rating [Score] - Reported Body temperature Respiratory rate Oxygen saturation Oxygen saturation in Arterial blood by Pulse oximetry Heart rate Systolic blood pressure Diastolic blood pressure Provider Name and Address Organization Details Last Updated DateTime 182.88 cm 35.1 kg/m2 836739. 42 g 9 97.3 [degF] 18 /min 98 % 98 % 84 /min 132 mm[Hg] 86 mm[Hg] Rosa RUSSELL - [facility] 15:36:26 Social History Question Answer Notes LastModified by Organizat ion Details LastModified Time Tobacco Smoking Status Never Smoker DREW James [facility] 06/27/2022 15:35:12 What Is Your [...] or 50 mcg/0.25mL dose 11/21/2020 completed Rosa Humphreye null, PA - [facility] 06/27/2022 15:31:55 COVID-19, mRNA, LNP-S, PF, 100 mcg/0.5mL dose or 50 mcg/0.25mL dose 12/19/2020 completed Rosa Monfette null, PA - [facility] 06/27/2022 15:31:56 COVID-19, mRNA, LNP-S, bivalent, PF, 50 mcg/0.5 mL or 25mcg/0.25 mL dose 01/22/2022 completed Rosa Townsendferafaele null, PA - [facility] 06/27/2022 15:31:56 Tdap 09/02/2014 completed Rosa Humphreye null, PA - [facility] 06/27/2022 15:31:56 Past Encounters Encounter ID Performer Location Encounter Start Date Encounter Closed Date Diagnosis/Indication Diagnosis SNOMED-CT Code Diagnosis ICD10 Code Diagnosis Note [id number] [address] [place] [address] 08/09/2020 15:23:10 08/09/2020 15:36:28 [id number] [address] [place] [address] 05/10/2020 08:02:39 05/10/2020 08:35:47 [id number] [address] [address] 10/13/2016 13:21:02 10/13/2016 14:08:54 [id number] [address] [facility] [place] [address] 06/22/2017 10:40:29 06/22/2017 11:17:38 [id number] [address] [place] [address] 10/22/2015 12:11:35 10/22/2015 14:31:42 [id number] [address] [facility] [place] [address] 08/22/2018 08:22:09 08/22/2018 08:58:23 [id number] [address] [place] [address] 06/16/2017 12:08:20 06/16/2017 12:29:06 [id number] [address] [facility] [place] [address] 10/14/2020 15:56:09 10/14/2020 17:28:26 [id number] Binta Conteh MD [address] [facility] [place] [address] 06/02/2022 08:25:09 06/02/2022 09:27:52 History and physical examination, occupation 675282541 Z02.1 [id number] Evan Hernandez NP [address] [facility] [place] [address] 06/27/2022 15:05:30 06/27/2022 16:01:01 Paronychia of right thumb [id number] 2938453 L03.011 Health Concerns Section Related Observation LastModified by Organization Detai ls LastModified Time None Recorded Concern Status LastModified by Organization Details LastModified Time None Recorded Advance Directives Directive None Recorded Payers Encounter Date Sequence Insurance Name Policy Number Policy Peña Covered Member ID Peña Member ID Guarantor Name 06/02/2022 OC-ESCREEN Cameron Cortez [id number] Cameron Cortez 06/27/2022 1 [facility] [employer] - HEALTH NET PLAN (MEDICAID HMO) Cameron Cortez [id number] Cameron Cortez Notes Date Note Type [...] vomiting; no swelling Evan Hernandez NP [address] [place], [address], [place] - [facility] 06/27/2022 15:56:47
== END 2024-05-22 14:58 | disposition home or self-care (01) ==
PROVIDERS: PCP Physician Assistant Medical; Visit Provider Physician Assistant Medical
DX: E11.65 Type 2 diabetes mellitus with hyperglycemia (principal); E66.09 Other obesity due to excess calories; Z68.33 Body mass index [BMI] 33.0-33.9, adult; E78.5 Hyperlipidemia, unspecified; R80.9 Proteinuria, unspecified; Z13.9 Encounter for screening, unspecified

== ENCOUNTER → 2024-05-22 14:12 | Outpatient (BNVA) | payer OTHER, SELFPAY | PROVIDERS: PCP Physician Assistant Medical; Visit Provider Physician Assistant Medical | DX: E11.65 Type 2 diabetes mellitus with hyperglycemia (principal); E66.09 Other obesity due to excess calories; E78.5 Hyperlipidemia, unspecified; R80.9 Proteinuria, unspecified; Z68.36 Body mass index [BMI] 36.0-36.9, adult | CPT/HCPCS: 82947; 83036; 99212 ==

== ENCOUNTER 2024-05-29 09:31 | Outpatient (REF) | payer OTHER, SELFPAY ==
--- OUTSIDE RECORDS SUMMARY | 2024-05-29 10:44 | XMS_ITS | Data Portability ---
Author Organization [facility], [address] Address [address] [place] [address] Care Team Providers Care Torch Cutter Name Role Phone [facility] Primary Care Provider Assessment No assessment recorded. Plan of Treatment Reminders Order Date Submit Date Provider Last Modified By Organization Details Last Modified Time Details Appointments None recorded. Lab microorgani sm identificat ion, unspecified specimen 2022 023 [place] [facility], [address] [place] [address], [place], [address], 3 06:07:20 Referral None recorded. Procedures None recorded. Surgeries None recorded. Imaging None recorded. Medication Orders Bactrim DS 800 mg-160 mg tablet 2022 023 [id number], [address] [place], [place], [id number], 15:56:45 Patient TargetsNo targets recorded. Patient Instructions Encounter Date Encounter Id Patient Instructions Last Modified By Organization Details Last Modified Time 06/27/2022 [id number] Cellulitis is a skin infection caused by [...] your doctor if you can take an cjid-ros-tsglrrr medicine. Follow-up with [employer] as needed. Go to ER if symptoms worsen. kerry Not available 06/27/2022 15:55:02 Reason for Referral None Reported. Results Created Date Observation Date Name Description Value Unit Range Abnormal Flag Note LastModifiedBy Organization Detail LastModifiedTime 06/28/1907/01/2022 AEROB IC BACTE RIAL CULTU RE aerobic bacterial culture FINAL REPORT abnormal Not Available [facility] ([facility]) [address] [facility], [place], [address], 07/01/2022 06:07:24 06/28/1907/01/2022 AEROB IC BACTE RIAL [...] ) Not Available [facility] ([facility]) [address] [facility], [place], [address], 07/01/2022 06:07:24 Result Notes None recorded. Problems Name Problem SNOMED Code Status Onset Date Resolution Date Notes Provider Name and Address Organization Details Recorded Time Diabetes mellitus 75782304 Active 023 Rosa chahal PA - [facility] 3 15:34:49 Arthritis 3793957 Active 023 Rosa chahal PA - [facility] 3 15:34:57 Problem Notes None recorded. Procedures Surgical History Date Name Laterality Status Provider Name and Address Organization Details Recorded Time 3 I&D, without packing completed Evan Hernandez NP [address] [place], [address], PA - [facility] 06/27/2022 15:54:01 3 OC-UDS Send Out Template DOT completed TIFFANIE WILLIAMSON PA - [facility] 06/02/2022 09:23:27 Imaging Results None recorded. Procedure Notes None recorded. Medical Equipment None Reported. Allergies Allergen ID Allergen Name Allergen Category Reaction Reaction Severity Criticality Documentation Date Start Date Code Code System Note Provider Name and Address Organization Details Recorded Time 089062 Zosyn medicatio n rash Not available Not available 06/27/2022 42350 RxNorm Rosa chahal PA - [facility] [...] Last Updated DateTime 182.88 cm 35.1 kg/m2 467494. 42 g 9 97.3 [degF] 18 /min [...] SNOMED-CT Code Diagnosis ICD10 Code Diagnosis Note [id number] [address] [place] [address] 08/09/2020 15:23:10 08/09/2020 15:36:28 [id number] [address] [place] [address] 05/10/2020 08:02:39 05/10/2020 08:35:47 [id number] [address] [address] 10/13/2016 13:21:02 10/13/2016 14:08:54 [id number] [address] [facility] [place] [address] 06/22/2017 10:40:29 06/22/2017 11:17:38 [id number] [address] [place] [address] 10/22/2015 12:11:35 10/22/2015 14:31:42 [id number] [address] [facility] [place] [address] 08/22/2018 08:22:09 08/22/2018 08:58:23 [id number] [address] [place] [address] 06/16/2017 12:08:20 06/16/2017 12:29:06 [id number] [address] [facility] [place] [address] 10/14/2020 15:56:09 10/14/2020 17:28:26 [id number] Binta Conteh MD [address] [facility] [place] [address] 06/02/2022 08:25:09 06/02/2022 09:27:52 History and physical examination, occupation 088251958 Z02.1 [id number] Evan Hernandez NP [address] [facility] [place] [address] 06/27/2022 15:05:30 06/27/2022 16:01:01 Paronychia of right thumb [id number] 9028571 L03.011 Health Concerns Section Related Observation LastModified by Organization Detai ls LastModified Time None Recorded Concern Status LastModified by Organization Details LastModified Time None Recorded Advance Directives Directive None Recorded Payers Encounter Date Sequence Insurance Name Policy Number Policy Peña Covered Member ID Peña Member ID Guarantor Name 06/02/2022 OC-ESCREEN Cameron Cortez [id number] Cameron Cortez 06/27/2022 1 [facility] - HEALTH NET PLAN (MEDICAID HMO) Cameron Cortez [id number] Cameron Cortez Notes Date Note Type Note [...] Hernandez NP [address] [place], [address], [place] - [facility] 06/27/2022 15:56:47
--- OUTSIDE RECORDS SUMMARY | 2024-05-29 10:44 | XMS_ITS | Clinical Summary ---
Author Organization [facility] Address [address] [facility] [place] [address] Care Team Providers Care Boiler House Mechanic Name Role Phone Lisha Grewal MD Unavailable Unavailable Jeff Chi NP Primary Care Provider Unavail able Allergies Active Allergy Reactions Severity Noted Date Comments Ertapenem Hives/Urticaria 01/14/2023 No Known Drug Allergies 03/15/2012 Piperacillin Hives/Urticaria 01/14/2023 Tazobactam Hives/Urticaria 01/14/2023 Vancomycin 01/14/2023 Medications Medication Sig Dispensed Refills Start Date End Date Status acetaminophen (TYLENOL) 500 MG tablet Take 2 Tablets by mouth every 6 hours as needed. 0 Active Dulaglutide 1.5 MG/0.5ML Solution Pen-injector Inject 1.5 mg into the skin every 7 days. 0 Active meloxicam (MOBIC) 7.5 MG tablet Take 1 Tablet by mouth daily. 0 Active Active Problems Problem Noted Date Pulmonary nodule 02/04/2023 Last Assessment & Plan: 48-year-old male with now fully calcified pulmonary nodule at the base of the left lower lobe. I had a long discussion with him about the findings on his CT scan as described in the HPI. We also discussed pulmonary nodules how their size, appearance/shape, and waste/materials exchange specialist time affect her level of suspicion for malignancy. Specifically, given that this is now nearly an entirely calcified pulmonary nodule at the left base it is most certainly a granuloma and not malignancy. He can follow-up on an as-needed basis moving forward and all of his questions were answered. 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 Hypertension Osteoarthritis Overview: Spine, knee, wrist Immunizations Name Administration Dates Next Due Tdap 09/02/2014 Family History Medical History Relation Name Comments No Known Problems Father CAD Maternal Grandfather Hypertension Maternal Grandfather Diabetes Maternal Grandmother Stroke Maternal Grandmother Brain C ancer No Known Problems Mother Relation Name Status Comments Father Maternal Grandfather Maternal Grandmother Mother Social History Tobacco Use Types Packs/Day Years Used Date Smoking Tobacco: Never Passive Smoke Exposure: Never Smokeless Tobacco: Never Tobacco Cessation:Counseling Given: Not Answered Alcohol Use Standard Drinks/Week Comments Not Currently 0 (1 standard drink = 0.6 oz pur e alcohol) rare specialial occasions Sex Assigned at Date Recorded Not on file Last Filed Vital Signs Vital Sign Reading Time Taken Comments Blood Pressure 111/75 11/24/2023 10:18 AM EDT Pulse 85 11/24/2023 10:18 AM EDT Temperature 36.6 ??C (97.9 ??F) 11/24/2023 10:18 AM E DT Respiratory Rate 18 11/24/2023 10:18 AM EDT Oxygen Saturation 98% 11/24/2023 10:18 AM EDT Inhaled Oxygen Concentration - - Weight 115.2 kg (254 lb) 11/24/2023 10:18 AM EDT Height 182.9 cm (6') 11/24/2023 10:18 AM EDT Body Mass Index 34.45 11/24/2023 10:18 AM EDT Plan of Treatment Health Maintenance Due Date Last Done Comments PNEUMOCOCCAL VACCINE FOR HIG H RISK PATIENTS (#1) 1993 BASELINE HEALTH EXAM 40-64 2014 DIABETES: ANNUAL URINE PROTE IN TEST (MICROALBUMIN) 03/11/2019 03/11/2018 DIABETES: BLOOD SUGAR CONTRO L TEST (HGBA1C) 03/12/2019 12/11/2018, 08/25/2018, 06/18/2018, Additional history exists DIABETES: ANNUAL EYE EXAM 11/16/2019 11/15/2018 (Com pleted) DIABETES/HEART DISEASE: BREANNE AL CHOLESTEROL (LDL) 12/12/2019 12/11/2018, 03/11/2018 DIABETES: ANNUAL FOOT EXAM 12/12/2019 12/11/2018 (Co mpleted) Covid-19 Vaccine (2022-2 4 season) 2023 12/19/2020, 11/21/2020 INFLUENZA (#1) 2023 12/11/2018 (Exception) BMI CHECK/ADVISE 03/21/2024 12/11/2018, 09/2018, 08/13/2015 DEPRESSION SCREENING/FOLLOWUP 03/21/2024 SOCIAL NEEDS SCREENING 03/21/2024 DTAP/TDAP/TD (2 - Td or Tdap) 09/02/2024 09/02/2014 Care Teams Boiler House Mechanic Relationship Specialty Start Date End Date Jeff Chi NP PCP - General Family Practice 01/13/23 Lisha Grewal MD 02/06/18
--- OUTSIDE RECORDS SUMMARY | 2024-05-29 10:44 | XMS_ITS | Encounter Summary ---
Author Organization [facility] Address [address] [place] [address] Care Team Providers Care Hand Fretted Instrument Maker Name Role Phone Lisha Grewal MD Unavailable Unavailable Jeff Chi NP Primary Care Provider Unavail able Encounter Details Date Type Department Care Team Description 11/02/2023 Orders Only Medical Records [address] [place] [address] Jeff Chi NP Social History Tobacco Use Types Packs/Day Years Used Date Smoking Tobacco: Never Passive Smoke Exposure: Never Smokeless Tobacco: Never Alcohol Use Standard Drinks/Week Comments Not Currently 0 (1 standard drink = 0.6 oz pur e alcohol) rare specialial occasions Sex Assigned at Date Recorded Not on file documented as of this encounter Plan of Treatment Not on file documented as of this encounter Procedures Procedure Name Priority Date/Time Associated Diagnosis Comments OUTSIDE CT Routine 06/21/[address] Routine 04/04/2023 documented in this encounter Results * OUTSIDE CT (06/21/2023) Jeff Chi NP RADIOLOGY * OUTSIDE CT (04/04/2023) Jeff Chi NP RADIOLOGY documented in this encounter Visit Diagnoses Not on filedocumented in this encounter Care Teams Hand Fretted Instrument Maker Relationship Specialty Start Date End Date Jeff Chi NP PCP - General Family Practice 01/13/23 Lisha Grewal MD 02/06/18 documented as of this encounter
--- OUTSIDE RECORDS SUMMARY | 2024-05-29 10:45 | XMS_ITS | Encounter Summary ---
Author Organization [facility] Address [address] [place] [address] Care Team Providers Care Lead Javascript Engineer Name Role Phone Community, Pcp Primary Care Provider UnavailLisha Baxter MD Unavailable Unavailable Jeff Chi NP Primary Care Provider Unavail able Encounter Details Date Type Department Care Team Description 05/22/2019 Release of Information Medical Records [address] [place] [id number] Abstract, Provider Social History Tobacco Use Types Packs/Day Years Used Date Smoking Tobacco: Never Smokeless Tobacco: Never Alcohol Use Standard Drinks/Week Comments Yes 0 (1 standard drink = 0.6 oz pur e alcohol) rare specialial occasions Sex Assigned at Date Recorded Not on file documented as of this encounter Plan of Treatment Not on file documented as of this encounter Visit Diagnoses Not on filedocumented in this encounter Care Teams Lead Javascript Engineer Relationship Specialty Start Date End Date Community, Pcp PCP - General Internal Medicine 01/08/19 01/12/23 Jeff Chi NP PCP - General Family Practice 01/13/23 Lisha Grewal MD 02/06/18 documented as of this encounter
--- OUTSIDE RECORDS SUMMARY | 2024-05-29 10:45 | XMS_ITS | Clinical Summary ---
Author Organization [facility] Facility Address [address] [place] [address] Care Team Providers Care Final Inspector Shuttle Name Role Phone Jeff Chi NP Primary Care Provider [phone] Allergies Active Allergy Reactions Criticality Noted Date [...] complete this topic Insurance [employer] OPEN ACCESS ([id number]) Care Teams Final Inspector Shuttle Relationship Specialty Start Date End Date Jeff Chi NP [address] [place] [address] PCP - General Nurse Practitioner 08/06/20
--- OUTSIDE RECORDS SUMMARY | 2024-05-29 10:45 | XMS_ITS | Encounter Summary ---
Author Organization [employer] [facility] Address [address] [place] [address] Care Team Providers Care Mediator Name Role Phone Lisha Grewal MD Unavailable Unavailable Jeff Chi NP Primary Care Provider Unavail able Encounter Details Date Type Department Care Team Description 02/02/2023 Orders Only Medical Records [address] [place] [address] [facility] Social History Tobacco Use Types Packs/Day Years Used Date Smoking Tobacco: Never Smokeless Tobacco: Never Alcohol Use Standard Drinks/Week Comments Yes 0 (1 standard drink = 0.6 oz pur e alcohol) rare specialial occasions Sex Assigned at Date Recorded Not on file COVID-19 Exposure Response Date Recorded In the last 10 days, have yo u been in contact with someone who was confirmed or suspected to have Coronavirus/COVID-19? No / Unsure 02/04/2023 9:05 AM EST documented as of this encounter Plan of Treatment Not on file documented as of this encounter Procedures Procedure Name Priority Date/Time Associated Diagnosis Comments OUTSIDE CT Routine 11/26/2022 documented in this encounter Results * OUTSIDE CT (11/26/2022) [facility] RADIOLOGY documented in this encounter Visit Diagnoses Not on filedocumented in this encounter Care Teams Mediator Relationship Specialty Start Date End Date Jeff Chi NP PCP - General Family Practice 01/13/23 Lisha Grewal MD 02/06/18 documented as of this encounter
--- OUTSIDE RECORDS SUMMARY | 2024-05-29 10:45 | XMS_ITS | Encounter Summary ---
Author Organization [employer] [facility] Address [address] [place] [address] Care Team Providers Care Telecine Operator Name Role Phone Nikita Lanza MD Primary Care Provider Un available [facility], Pcp Primary Care Provider Unavailabl e Lisha Grewal MD Unavailable Unavailable Jeff Chi NP Primary Care Provider Unavail able Encounter Details Date Type Department Care Team Description 03/20/2018 Refill Internal Medicine - [address], [address] [place] [address] Heriberto Mireles MD [address] [place] [address] Social History Tobacco Use Types Packs/Day Years [...] on filedocumented in this encounter Care Teams Telecine Operator Relationship Specialty Start Date End Date Nikita Lanza MD PCP - General Internal Medicine 02/06/1801/07 [facility], Pcp PCP - General Internal Medicine 01/08/19 01/12/23 Jeff Chi NP PCP - General Family Practice 01/13/23 Lisha Grewal MD 02/06/18 documented as of this encounter
--- OUTSIDE RECORDS SUMMARY | 2024-05-29 10:45 | XMS_ITS | Encounter Summary ---
Author Organization [facility] Address [address] [place] [address] Care Team Providers Care Operations Logistics Analyst Name Role Phone Nikita Lanza MD Primary Care Provider Un available [facility], Pcp Primary Care Provider UnavailLisha Baxter MD Unavailable Unavailable Jeff Chi NP Primary Care Provider Unavail able Reason for Visit * Reason Comments E-prescribe Rx Request Encounter Details Date Type Department Care Team Description 09/14/2018 Refill Adult Medicine [address] [address] Grzegorz Garcia PA-C [address] [place] [address] E-prescribe Rx Request Social History Tobacco Use Types Packs/Day Years Used Date Smoking Tobacco: Never Smokeless Tobacco: Never Alcohol Use Standard Drinks/Week Comments Yes 0 (1 standard drink = 0.6 oz pur e alcohol) rare specialial occasions Sex Assigned at Date Recorded Not on file documented as of this encounter Miscellaneous Notes * Telephone Encounter - Katiana Lea C.M.A. - 09/14/2018 10:36 AM EDT Lab Results Component Value Date HGBA1C 9.1 08/25/2018 MALBUR 57.5 03/11/2018 MALBCR 20.6 03/11/2018 CHOL 225 03/11/2018 LDL 108 03/11/2018 HDL 38 03/11/2018 TRIG 398 03/11/2018 GLU 175 08/25/2018 CREAT 0.83 08/25/2018 * Telephone Encounter - Yi Nichols - 09/14/2018 10:33 AM EDT Patient would like script to be: E-PRESCRIBED/FAXED TO PHARMACY WHEN WAS THE PATIENT'S LAST APPOINTMENT IN ADULT MEDICINE? 08/25/18 WHEN WAS THE LAST TIME THE PATIENT SAW THEIR PCP? N/A Does patient have an upcoming appointment? No-no answer, no voicemail documented x2 (Please verify telephone contact #'s at next phone call) (THE MEDICATION REQUESTED IS ON THE MED LIST ABOVE) All of the medications requested were on the CURRENT MEDS list Did you check the Pharmacy information above?: YES Patient wants: 30 -day supply Is this a mail order prescription request ? NO If the refill is from a FAXED refill request what is the RX # listed on the fax? N/A Patients current insurance carrier is: [facility]: [facility] / Plan: PPO $25 [place] / Product Type: [id number] documented in this encounter Plan of Treatment Not on file documented as of this encounter Visit Diagnoses Not on filedocumented in this encounter Care Teams Operations Logistics Analyst Relationship Specialty Start Date End Date Nikita Lanza MD PCP - General Internal Medicine 02/06/1801/07 [facility], Pcp PCP - General Internal Medicine 01/08/19 01/12/23 Jeff Chi NP PCP - General Family Practice 01/13/23 Lisha Grewal MD 02/06/18 documented as of this encounter
--- OUTSIDE RECORDS SUMMARY | 2024-05-29 10:45 | XMS_ITS | Encounter Summary ---
[facility] Organization [facility] Address [address] [place] [address] Care Team Providers Care Surgery Assistant Name Role Phone Nikita Lanza MD Primary Care Provider Un available [facility], Pcp Primary Care Provider UnavailLisha Baxter MD Unavailable Unavailable Jeff Chi NP Primary Care Provider Unavail able Reason for Visit * Reason Comments E-prescribe Rx Request Encounter Details Date Type Department Care Team Description 12/14/2018 Refill Adult Medicine [address] [address] Nikita Lanza MD E-prescribe Rx Request Social History Tobacco Use Types Packs/Day Years Used Date Smoking Tobacco: Never Smokeless Tobacco: Never Alcohol Use Standard Drinks/Week Comments Yes 0 (1 standard drink = 0.6 oz pur e alcohol) rare specialial occasions Sex Assigned at Date Recorded Not on file documented as of this encounter Miscellaneous Notes * Telephone Encounter - Nadeen Garcia M.A. - 12/14/2018 10:44 AM EDT Apolonia, Please sign, You increased this to 20 mg daily and sent in for 90 tabs not 180. * Telephone Encounter - Patricia Casillas - 12/14/2018 9:59 AM EDT Patient would like script to be: E-PRESCRIBED/FAXED TO PHARMACY WHEN WAS THE PATIENT'S LAST APPOINTMENT IN ADULT MEDICINE? 9-23-19 WHEN WAS THE LAST TIME THE PATIENT SAW THEIR PCP? N/a Does patient have an upcoming appointment? No-patient refused appointment, will call back to book appointment (THE MEDICATION REQUESTED IS ON THE MED LIST ABOVE) All of the medications requested were on the CURRENT MEDS list Did you check the Pharmacy information above?: YES Patient wants: 90 -day supply Is this a mail order prescription request ? NO If the refill is from a FAXED refill request what is the RX # listed on the fax? N/A Patients current insurance carrier is: Payor: [employer] / Plan: PPO $25 [place] / Product Type: [id number] documented in this encounter Plan of Treatment Not on file documented as of this encounter Visit Diagnoses Not on filedocumented in this encounter Care Teams Surgery Assistant Relationship Specialty Start Date End Date Nikita Lanza MD PCP - General Internal Medicine 02/06/1801/07 [facility] PCP - General Internal Medicine 01/08/19 01/12/23 Jeff Chi NP PCP - General Family Practice 01/13/23 Lisha Grewal MD 02/06/18 documented as of this encounter
--- OUTSIDE RECORDS SUMMARY | 2024-05-29 10:45 | XMS_ITS | Encounter Summary ---
[facility] Address [address] [place] [address] Care Team Providers Care Tool Checker Name Role Phone Lisha Grewal MD Primary Care Provider Lisha [place] MD Primary Care Provider Nikita Moura MD Primary Care Provider Un available [facility], Pcp Primary Care Provider Unavailabl e Lisha Grewal MD Unavailable Unavailable Lisha Grewal MD Unavailable Unavailable Jeff Chi NP Primary Care Provider Unavail able Encounter Details Date Type Department Care Team Description 07/25/2015 Release of Information Medical Records [address] [place] [id number] Abstract, Provider Social History Tobacco Use Types Packs/Day Years Used Date Smoking Tobacco: Never Smokeless Tobacco: Never Alcohol Use Standard Drinks/Week Comments Not Asked 0 (1 standard drink = 0.6 oz pur e alcohol) Sex Assigned at Date Recorded Not on file documented as of this encounter Plan of Treatment Not on file documented as of this encounter Visit Diagnoses Not on filedocumented in this encounter Care Teams Tool Checker Relationship Specialty Start Date End Date Lisha Grewal MD PCP - General Family Practice 07/01/15 06/11/16 Lisha Grewal MD PCP - General 06/12/16 02/05/18 Nikita Lanza MD PCP - General Internal Medicine 02/06/1801/07 [facility], Pcp PCP - General Internal Medicine 01/08/19 01/12/23 Jeff Chi NP PCP - General Family Practice 01/13/23 Lisha Grewal MD Family Practice 06/12/16 02/05/18 Lisha Grewal MD 02/06/18 documented as of this encounter
--- OUTSIDE RECORDS SUMMARY | 2024-05-29 10:45 | XMS_ITS | Encounter Summary ---
Author Organization [facility] Address [address] [place] [address] Care Team Providers Care Cost Estimator Name Role Phone Nikita Lanza MD Primary Care Provider Un available [facility], Pcp Primary Care Provider Unavailabl e Lisha Grewal MD Unavailable Unavailable Jeff Chi NP Primary Care Provider Unavail able Encounter Details Date Type Department Care Team Description 04/18/2018 Refill Internal Medicine - [address], [address] [place] [address] Heriberto Mireles MD [address] [place] [address] Social History Tobacco Use Types Packs/Day Years [...] on filedocumented in this encounter Care Teams Cost Estimator Relationship Specialty Start Date End Date Nikita Lanza MD PCP - General Internal Medicine 02/06/1801/07 [facility], Pcp PCP - General Internal Medicine 01/08/19 01/12/23 Jeff Chi NP PCP - General Family Practice 01/13/23 Lisha Grewal MD 02/06/18 documented as of this encounter
--- OUTSIDE RECORDS SUMMARY | 2024-05-29 10:45 | XMS_ITS | Encounter Summary ---
Author Organization [facility] Address [address] [place] [address] Care Team Providers Care Chef Under Name Role Phone Lisha Grewal MD Unavailable Unavailable Jeff Chi NP Primary Care Provider Unavail able Encounter Details Date Type Department Care Team Description 01/14/2023 Abstract [facility] Thoracic Surgery [place] [address] [facility] [address] [place] [phone] Arabella Morrison MD [address] [facility] [address] [place] [address] Social History Tobacco Use Types Packs/Day Years [...] on filedocumented in this encounter Care Teams Chef Under Relationship Specialty Start Date End Date Jeff Chi NP PCP - General Family Practice 01/13/23 Lisha Grewal MD 02/06/18 documented as of this encounter
--- OUTSIDE RECORDS SUMMARY | 2024-05-29 10:45 | XMS_ITS | Encounter Summary ---
Author Organization [facility] [facility] Address [address] [place] [address] [facility] [place] [address] Care Team Providers Care Barrel Driller Name Role Phone Unavailable Primary Care Provider Unavailabl e Encounter Details Date Type Department Care Team (Latest Contact Info) Description 03/05/2020 Abstract [facility] CONVERSIONS Dental, Provider, DDS Social History Tobacco [...]
--- OUTSIDE RECORDS SUMMARY | 2024-05-29 10:45 | XMS_ITS | Clinical Summary ---
Author Organization [employer] Address [address] [place] [address] 7 [place] [address] Care Team Providers Care Showroom Manager Name Role Phone Unavailable Primary Care Provider [...] patient's age to complete this topic Insurance [facility]
--- OUTSIDE RECORDS SUMMARY | 2024-05-29 10:45 | XMS_ITS | Encounter Summary ---
Author Organization [facility] Address [address] [place] [address] Care Team Providers Care Lumber Driver Name Role Phone Nikita Lanza MD Primary Care Provider Un available [facility], Pcp Primary Care Provider UnavailLisha Baxter MD Unavailable Unavailable Jeff Chi NP Primary Care Provider Unavail able Reason for Visit * Reason Onset Date Comments medication problems 04/24/2018 naproxen (NA PROSYN) 500 MG tablet Encounter Details Date Type Department Care Team Description 04/24/2018 Telephone Adult Medicine [address] [address] Apolonia Juarez NP medication problems (naproxen (NAPROSYN) 500 MG tablet) Social History Tobacco Use Types Packs/Day Years Used Date Smoking Tobacco: Never Smokeless Tobacco: Never Alcohol Use Standard Drinks/Week Comments Yes 0 (1 standard drink = 0.6 oz pur e alcohol) rare specialial occasions Sex Assigned at Date Recorded Not on file documented as of this encounter Miscellaneous Notes * Telephone Encounter - Apolonia Juarez NP - 04/25/2018 9:36 AM EST Q12hrs PRN * Telephone Encounter - Minnie Marcial M.A. - 04/25/2018 8:53 AM EST Pharmacy asking for how many hours between doses of Naprosyn * Telephone Encounter - Narda Jerry - 04/24/2018 4:52 PM EST Pharmacy needs to know how many hours apart between doses. * Telephone Encounter - Apolonia Juarez NP - 04/24/2018 4:47 PM EST Corrected dosing * Telephone Encounter - Katiana Lea C.M.A. - 04/24/2018 4:36 PM EST Please review directions * Telephone Encounter - Narda Jerry - 04/24/2018 4:21 PM EST Who is calling? A pharmacist: Pharmacy: [facility] Pharmacist Name: [facility] Name of the medication naproxen (NAPROSYN) 500 MG tablet What is the specific problem or interaction? Need how often patient can take this medication on directions. If the patient is having a problem with taking the med - how long has the problem been going on? N/A documented in this encounter Plan of Treatment Not on file documented as of this encounter Visit Diagnoses Not on filedocumented in this encounter Care Teams Lumber Driver Relationship Specialty Start Date End Date Nikita Lanza MD PCP - General Internal Medicine 02/06/1801/07 [facility], Pcp PCP - General Internal Medicine 01/08/19 01/12/23 Jeff Chi NP PCP - General Family Practice 01/13/23 Lisha Grewal MD 02/06/18 documented as of this encounter
--- OUTSIDE RECORDS SUMMARY | 2024-05-29 10:45 | XMS_ITS | Clinical Summary ---
[facility] Address [address] [place] [address] Care Team Providers Care Renovator Machine Operator Name Role Phone Jeff Chi NP Primary [...] age to complete this topic Care Teams Renovator Machine Operator Relationship Specialty Start Date End Date Jeff Chi NP [address] [facility] [place] PCP - General Family Medicine 07/30/19
[2024-05-29 11:24] LABS: Appearance Urine Clear; Color Urine Yellow; Glucose Urine UA >=1000 mg/dL (Negative); Leukocyte Esterase Urine Negative (Negative); Nitrite Urine Negative (Negative); PH 5.5 (5.0-9.0); Specific Gravity - Urine 1.025 (1.005-1.025); UMIC TRIGGER UA YES; UMIC TRIGGER UACC YES; Urine Blood Negative (Negative); Urine Ketones Trace mg/dL (Negative); Urine Protein Trace mg/dL (Neg-Trace)
[2024-05-29 11:28] LABS: Bacteria Urine None Seen (None Seen); Hyaline Casts Urine 0-2 /LPF (0-2); RBC Urine 0-2 /HPF (0-2); Squamous Epithelial Cell Urine 0-2 /HPF (0-2); WBC Urine 0-5 /HPF (0-5)
[2024-05-29 11:53] LABS: Estimated Glomerular Filt Rate > 60
[2024-05-29 11:57] LABS: Creatinine Urine 195.57 mg/dL; Total Protein Urine Random 13 mg/dL (<12)
[2024-05-30 14:17] LABS: Prot Elec - Albumin 3.8 g/dL (3.8-4.8); Prot Elec - Alpha1 0.2 g/dL (0.2-0.3); Prot Elec - Alpha2 0.7 g/dL (0.5-0.9); Prot Elec - Beta 1 0.4 g/dL (0.4-0.6); Prot Elec - Beta 2 0.4 g/dL (0.2-0.5); Prot Elec - Gamma 0.7 g/dL (0.8-1.7); Prot Elec - Total Protein 6.1 g/dL (6.1-8.1)
== END 2024-05-29 09:32 | disposition home or self-care (01) ==
LOC: HO.LAB 09:31
PROVIDERS: Surgery; PCP Nurse Practitioner Family; Visit Provider Internal Medicine Hypertension Specialist
DX: R80.9 Proteinuria, unspecified (principal); R91.1 Solitary pulmonary nodule
CPT/HCPCS: 36415; 81001; 82565; 82570; 84156; 84165

== ENCOUNTER 2024-06-07 09:14 | Outpatient (AMB) | payer OTHER, SELFPAY ==
[2024-06-07 09:17] VITALS: BP 126/80; PULSE 85; O2SAT 95; BMI 35.3
--- NOTE | 2024-06-07 09:17 | HO.NEPHOV ---
Vital Signs 06/07/24 09:17 Height 6 ft Weight 260 lb BMI 35.3 BP 126/80 Blood Pressure Location Lt brachial Position Sitting Pulse 85 Pulse Source Pulse Oximeter Pulse Oximetry (%) 95 Oxygen Delivery Method Room Air Intake Visit Reasons: 4-6wk follow-up w/labs/ Conf Senior Applications Architect Required: No Accompanied by: Self / Same As Patient Allergies ertapenem Allergy (Intermediate, Verified 06/07/24 09:21) Hives piperacillin [From Zosyn] Allergy (Intermediate, Verified 06/07/24 09:21) Hives tazobactam [From Zosyn] Allergy (Intermediate, Verified 06/07/24 09:21) Hives vancomycin Allergy (Intermediate, Verified 06/07/24 09:21) Hives metformin Adverse Reaction (Mild, Verified 06/07/24 09:21) Diarrhea jardiance Adverse Reaction (Intermediate, Uncoded 05/22/24 14:31) blurry vision Medication List - Last Reconciled 06/07/24 by Jorge Arnold MD blood-glucose meter (OneTouch Verio Flex Meter) As directed celecoxib 200 mg PO DAILY ezetimibe 10 mg PO DAILY glimepiride 2 mg PO QAM lisinopril 2.5 mg PO DAILY meloxicam 7.5 mg PO DAILY PRN montelukast 10 mg PO BEDTIME omega-3 acid ethyl esters 2 caps PO BID pregabalin 75 mg PO BID semaglutide (Ozempic) 0.25 mg (0.368 mL) subcut QWEEK HPI Comments Details: 48-year-old man With diabetes mellitus referred for proteinuria. Dipstick was positive for proteinuria few times. However the recent dipstick was negative. He has a history of acute kidney injury back in 2020 he had cellulitis and he was in ICU at [facility]. SHERLEY resolved and serum creatinine has been stable since then. Lisinopril 2.5 mg was added in 03/09/2024. He has significant back pain [facility] Medical History Proteinuria Blurry vision Obesity due to excess calories Hx of sepsis Retropharyngeal abscess Cellulitis of pharynx Type 2 diabetes mellitus with hyperglycemia Elevated CPK DAVIS positive Fibromyalgia Controlled diabetes mellitus without complication, without long-term current use of insulin Hyperlipidemia LDL goal <100 Essential hypertension Vitamin D insufficiency Surgical History History of throat surgery H/O shoulder surgery Family History Father No problems noted. Mother No problems noted. 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 Lungs entry equal no rales. Heart S1-S2 heard no gallop or rub. Abdomen soft nontender. Neuro alert awake oriented. No asterixis. Extremities no edema. Results Reviewed Nephrology Results: Hgb 14.2 g/dl (14.0-18.0) 04/09/24 WBC 7.6 X10*3/uL (4.8-10.8) 04/09/24 Plt Count 251 X10*3/uL (160-400) 04/09/24 Sodium 141 mmol/L (135-145) 04/09/24 Potassium 3.9 mmol/L (3.3-5.1) 04/09/24 Chloride 105 mmol/L (96-108) 04/09/24 Carbon Dioxide 26 mmol/L (22-29) 04/09/24 BUN 10 mg/dL (9-16) 04/09/24 Creatinine 0.88 mg/dL (0.5-1.4) 05/29/24 Calcium 9.4 mg/dL (8.4-10.2) 04/09/24 Urine Protein Trace mg/dL (Neg-Trace) 05/29/24 Urine Creatinine 195.57 mg/dL 05/29/24 Assessment & Plan Assessment & Plan (1) Proteinuria: Code(s): R80.9 - Proteinuria, unspecified Category: Medical Qualifiers: Proteinuria type: unspecified Qualified Code(s): R80.9 - Proteinuria, unspecified Plan 48-year-old man with diabetes mellitus had normal renal function had minimal proteinuria by dipstick. Urine was rather concentrated with a specific gravity more than 1.030. Repeat urinalysis did not reveal any proteinuria. On 24 urine microalbumin creatinine ratio was 17.8. He had false positive protein by dipstick due to concentrated urine. Urine Pro: Cr is 0.06 Renal function is normal at this time. Given the history of diabetes mellitus I agree with using low-dose TERESA inhibitors. Maintain blood pressure less than 130/80. Discussed importance of tight control of BP and blood sugar . Coding Level of Care Code Est Pt Level 4 (84136) Diagnoses Proteinuria, unspecified type R80.9 Proteinuria type: unspecified
--- OUTSIDE RECORDS SUMMARY | 2024-06-07 09:59 | XMS_ITS | Clinical Summary ---
Author Organization [facility] Facility Address [address] [place] [address] Care Team Providers Care Lens Cleaner Name Role Phone Jeff Chi NP Primary Care Provider [phone] Allergies Active Allergy Reactions Criticality Noted Date [...] complete this topic Insurance [employer] OPEN ACCESS ([id number]) Care Teams Lens Cleaner Relationship Specialty Start Date End Date Jeff Chi NP [address] [place] [address] PCP - General Nurse Practitioner 08/06/20
--- OUTSIDE RECORDS SUMMARY | 2024-06-07 09:59 | XMS_ITS | Data Portability ---
Author Organization DREW Benjamin s, [address] Address [address] [place] [address] Care Team Providers Care Special Needs Librarian Name Role Phone [facility] Primary Care Provider [phone] Assessment No assessment recorded. Plan of Treatment Reminders Order Date Submit Date Provider Last Modified By Organization Details Last Modified Time Details Appointments None recorded. Lab microorgani sm identificat ion, unspecified specimen 2022 023 [place] [facility], [facility], [place], [address], 06:07:20 Referral None recorded. Procedures None recorded. Surgeries None recorded. Imaging None recorded. Medication Orders Bactrim DS 800 mg-160 mg tablet 2022 023 [id number], [address], [place], [id number], 15:56:45 Patient TargetsNo targets recorded. Patient InstructionsNo instructions recorded. Reason for Referral None Reported. Results Created Date Observation Date Name Description Value Unit Range Abnormal Flag Note LastModifiedBy Organization Detail LastModifiedTime 06/28/1907/01/2022 AEROB IC BACTE RIAL CULTU RE aerobic bacterial culture FINAL REPORT abnormal Not Available [facility] ([facility]) [address] [facility], [place], [address], 07/01/2022 06:07:24 06/28/19 23 07/01/2022 AEROB IC BACTE RIAL CULTU RE result 1 COMMEN T abnormal Beta hemol ytic Strep tococ cus, group B Heavy growt h Penic illin and ampic illin are drugs of choi e for treat ment of beta- hemol ytic strep tococ juwan infec tions . Susce ptibi lity testi ng of penic illin [...] p A). (CLSI ) Not Available [facility] ([facility]) [address] [facility], [place], [address], 07/01/2022 06:07:24 Result Notes None recorded. Problems Name Problem SNOMED Code Status Onset Date Resolution Date Notes Provider Name and Address Organization Details Recorded Time Diabetes mellitus 66630311 Active 023 Rosa chahal PA - [facility] 3 15:34:49 Arthritis 4382836 Active 023 Rosa chahal PA - [facility] 3 15:34:57 Problem Notes None recorded. Procedures Surgical History Date Name Laterality Status Provider Name and Address Organization Details Recorded Time 3 I&D, without packing completed Evan Hernandez NP [address] [facility] [place], [address], PA - [facility] 06/27/2022 15:54:01 3 OC-UDS Send Out Template DOT completed TIFFANIE WILLIAMSON PA - [facility] 06/02/2022 09:23:27 Imaging Results None recorded. Procedure Notes None recorded. Medical Equipment None Reported. Allergies Allergen ID Allergen Name Allergen Category Reaction Reaction Severity Criticality Documentation Date Start Date Code Code System Note Provider Name and Address Organization Details Recorded Time 068395 Zosyn medicatio n rash Not available Not available 06/27/2022 77033 RxNorm Rosa chahal PA - [facility] [...] and Address Organization Details Last Updated DateTime 3 182.88 cm 35.1 kg/m2 461679. 42 g 9 97.3 [degF] 18 /min 98 % 98 % 84 /min 132 mm[Hg] 86 mm[Hg] Rosa RUSSELL - [facility] 3 15:36:26 Social History Question Answer Notes LastModified by Organizat ion Details LastModified Time Tobacco Smoking Status Never Smoker Rosa Monfette null, PA - [facility] 06/27/2022 15:35:12 What [...] or 50 mcg/0.25mL dose 11/21/2020 completed Rosa Rome null, PA - [facility] 06/27/2022 15:31:55 COVID-19, mRNA, LNP-S, PF, 100 mcg/0.5mL dose or 50 mcg/0.25mL dose 12/19/2020 completed Rosa Rome null, [facility] - [facility] [...] SNOMED-CT Code Diagnosis ICD10 Code Diagnosis Note [id number] [address] [address] 08/09/2020 15:23:10 08/09/2020 15:36:28 [id number] [address] [place] [address] 05/10/2020 08:02:39 05/10/2020 08:35:47 [id number] [address] [place] [address] 10/13/2016 13:21:02 10/13/2016 14:08:54 [id number] [address] [place] [address] 06/22/2017 10:40:29 06/22/2017 11:17:38 [id number] [address] [place] [address] 10/22/2015 12:11:35 10/22/2015 14:31:42 [id number] [address] [place] [address] 08/22/2018 08:22:09 08/22/2018 08:58:23 [id number] [address] [place] [address] 06/16/2017 12:08:20 06/16/2017 12:29:06 [id number] [address] [place] [address] 10/14/2020 15:56:09 10/14/2020 17:28:26 [id number] Binta Conteh MD [address] [facility] [place] [address] 06/02/2022 08:25:09 06/02/2022 09:27:52 History and physical examination, occupation 621789428 Z02.1 [id number] Evan Hernandez NP [address] [facility] [place] [address] 06/27/2022 15:05:30 06/27/2022 16:01:01 Paronychia of right thumb [id number] L03.011 Health Concerns Section Related Observation LastModified by Organization Detai ls LastModified Time None Recorded Concern Status LastModified by Organization Details LastModified Time None Recorded Advance Directives Directive None Recorded Payers Encounter Date Sequence Insurance Name Policy Number Policy Peña Covered Member ID Peña Member ID Guarantor Name 06/02/2022 OC-ESCREEN Cameron Cortez [id number] Cameron Cortez 06/27/2022 1 [facility] - HE[facility] NET PLAN (MEDICAID HMO) Cameron Cortez [id number] Cameron Cortez Notes Date Note Type [...] Hernandez NP [address] [place], [address], PA - [facility] 06/27/2022 15:56:47
--- OUTSIDE RECORDS SUMMARY | 2024-06-07 09:59 | XMS_ITS | Clinical Summary ---
Author Organization [employer] Address [address] [place] [address] 7 [place] [address] Care Team Providers Care Engineering Operator Name Role Phone Unavailable Primary Care Provider [...] patient's age to complete this topic Insurance [facility]
--- OUTSIDE RECORDS SUMMARY | 2024-06-07 09:59 | XMS_ITS | Encounter Summary ---
Author Organization [employer] [facility] Address [address] [place] [address] [address] [place] [address] Care Team Providers Care Automatic Furnace Operator Name Role Phone Unavailable Primary Care Provider Unavailabl e Encounter Details Date Type Department Care Team (Latest Contact Info) Description 03/05/2020 Abstract [facility] CONVERSIONS Dental, Provider, DDS Social History [...]
--- OUTSIDE RECORDS SUMMARY | 2024-06-07 09:59 | XMS_ITS | Clinical Summary ---
Author Organization [facility] Address [address] [place] [address] Care Team Providers Care Nurse Staff Industrial Name Role Phone Jeff Chi NP Primary [...] age to complete this topic Care Teams Nurse Staff Industrial Relationship Specialty Start Date End Date [facility] [address] [facility] [place] [facility] - [facility] Family Medicine 07/30/19
== END 2024-06-07 09:32 | disposition home or self-care (01) ==
LOC: HO.HKA 09:15
PROVIDERS: PCP Nurse Practitioner Family; Visit Provider Internal Medicine Hypertension Specialist
DX: R80.9 Proteinuria, unspecified (principal)
CPT/HCPCS: 99214

== ENCOUNTER → 2024-06-07 09:14 | Outpatient (BNVA) | payer OTHER, SELFPAY | PROVIDERS: PCP Nurse Practitioner Family; Visit Provider Internal Medicine Hypertension Specialist | DX: R80.9 Proteinuria, unspecified (principal); E11.9 Type 2 diabetes mellitus without complications | CPT/HCPCS: 99212 ==

== ENCOUNTER 2024-07-03 08:27 | Outpatient (REF) | payer OTHER, SELFPAY ==
--- OUTSIDE RECORDS SUMMARY | 2024-07-03 08:39 | XMS_ITS | Encounter Summary ---
Author Organization [employer] [facility] Address [address] [place] [address] [address] [place] [address] Care Team Providers Care Concrete Hopper Operator Name Role Phone Unavailable Primary Care Provider Unavailabl e Encounter Details Date Type Department Care Team (Latest Contact Info) Description 03/05/2020 Abstract [facility] CONVERSIONS Dental, Provider, DDS Social History [...]
--- OUTSIDE RECORDS SUMMARY | 2024-07-03 08:39 | XMS_ITS | Clinical Summary ---
Author Organization [facility] it Address [address] [place] [address] Care Team Providers Care Book Packer Name Role Phone Jeff Chi NP Primary [...] mellitus), type 2 with peripheral vascular complications (CMS/HCC V24, CMS/HCC V28) DX:DM (diabetes mellitus), type 2 with peripheral vascular complications ([facility]) H/O retropharyngeal abscess DX:H /O retropharyngeal abscess [...] Vaccine (1 - 2023-2 5 season) 2023 Pneumococcal Vaccine: 50+ Ye ars (1 of 1 - PCV) 2024 Zoster Vaccines (1 of 2) 2024 DTaP,Tdap,and Td Vaccines (2 - Td or Tdap) 09/02/2024 09/02/2014 Influenza Vaccine (Season Ended) 2024 HIB Vaccines Aged Out No longer eligi [...] age to complete this topic Meningococcal B Vaccine Aged Out No l onger eligible based on patient's age to complete [...] age to complete this topic Care Teams Book Packer Relationship Specialty Start Date End Date Jeff Chi NP [address] [facility] [place], [place] PCP - General Family Medicine 07/30/19
--- OUTSIDE RECORDS SUMMARY | 2024-07-03 08:39 | XMS_ITS | Clinical Summary ---
Author Organization [facility] Address [address] [place] [address] Care Team Providers Care Plant Breeder Name Role Phone Jeff Chi NP Primary Care Provider [phone] Allergies Active Allergy Reactions Criticality Noted Date Comments Ertapenem 08/06/2020 Piperacillin Sod-Tazobactam So 08/06 Medications No known medications Active Problems Problem Noted Date Diagnosed Date Type 2 diabetes mellitus 08/06/2020 Normocytic anemia 08/06/2020 Hypertension 08/06/2020 Hyperlipidemia 08/06/2020 Acute nontraumatic kidney injury 08/06/2020 Retropharyngeal abscess 08/06/2020 Immunizations Immunization Administration Dates Next Due Tdap 09/02/2014 Social [...] (1 of 3 - 19+ 3-dose series) 06/25 Diabetes: Hemoglobin A1C 08/06/2020 Diabetes: Ophthalmology Exam 08/06/2020 Diabetes: Pedal Pulse Checked 08/06/2020 Diabetes: Sensory Foot Exam 08/06/2020 Diabetes: Visual Foot Exam 08/06/2020 Colorectal Cancer Screening: Annual FOBT 06/26/2023 Colorectal Cancer Screening: Colonoscopy 06/26/2023 Colorectal Cancer Screening: Sigmoidoscopy 06/26/2023 Pneumococcal Vaccine: 50+ Years (1 of 1 - PCV) 025 Influenza Vaccine (Season Ended) 2024 Insurance [employer] Open Access ([id number]) Care Teams Plant Breeder Relationship Specialty Start Date End Date Jeff Chi NP [address] [place] [address] PCP - General Nurse Practitioner 08/06/20
--- OUTSIDE RECORDS SUMMARY | 2024-07-03 08:39 | XMS_ITS | Clinical Summary ---
Author Organization [employer] Address [address] [place] [address] 7 [place] [address] Care Team Providers Care Sales Service Assistant Name Role Phone Unavailable Primary Care Provider [...] 01/22/2022, 12/19/2020, 11/21/2020 Influenza Vaccine (#1) 2023 Pneumococcal Vaccine: 50+ Years (1 of 1 - PCV) 2024 Zoster Vaccines (1 of 2) 2024 DTaP/Tdap/Td [...] patient's age to complete this topic Insurance [facility]
--- OUTSIDE RECORDS SUMMARY | 2024-07-03 08:39 | XMS_ITS | Data Portability ---
Author Organization DREW Benjamin [facility], [address] Address [address] [place] [address] Care Team Providers Care Tongue And Groove Machine Setter Name Role Phone [facility] Primary Care Provider Assessment No assessment recorded. Plan of Treatment Reminders Order Date Submit Date Provider Last Modified By Organization Details Last Modified Time Details Appointments None recorded. Lab microorgani sm identificat ion, unspecified specimen 2022 023 [place] [facility], [facility], [place], [address], 06:07:20 Referral None recorded. Procedures None recorded. Surgeries None recorded. Imaging None recorded. Medication Orders Bactrim DS 800 mg-160 mg tablet 2022 023 [id number], [address], [place], [phone], 15:56:45 Patient TargetsNo targets recorded. Patient InstructionsNo instructions recorded. Reason for Referral None Reported. Results Created Date Observation Date Name Description Value Unit Range Abnormal Flag Note LastModifiedBy Organization Detail LastModifiedTime 06/28/1907/01/2022 AEROB IC BACTE RIAL CULTU RE aerobic bacterial culture FINAL REPORT abnormal Not Available [facility] ([facility]) [address] [facility], [place], [address], 07/01/2022 06:07:24 06/28/1907/01/2022 AEROB IC BACTE RIAL [...] p A). (CLSI ) Not Available [facility] ([facility]) [address] [facility], [place], [address], 07/01/2022 06:07:24 Result Notes None recorded. Problems Name Problem SNOMED Code Status Onset Date Resolution Date Notes Provider Name and Address Organization Details Recorded Time Diabetes mellitus 60338457 Active 023 Rosa chahal PA - [facility] 3 15:34:49 Arthritis 4217421 Active 023 Rosa chahal PA - [facility] 3 15:34:57 Problem Notes None recorded. Procedures Surgical History Date Name Laterality Status Provider Name and Address Organization Details Recorded Time 3 I&D, without packing completed Evan Hernandez NP [address] [facility] [place], [address], PA - [facility] 06/27/2022 15:54:01 3 OC-UDS Send Out Template DOT completed TIFFANIE WILLIAMSON PA - [facility] 06/02/2022 09:23:27 Imaging Results None recorded. Procedure Notes None recorded. Medical Equipment None Reported. Allergies Allergen ID Allergen Name Allergen Category Reaction Reaction Severity Criticality Documentation Date Start Date Code Code System Note Provider Name and Address Organization Details Recorded Time 505283 Zosyn medicatio n rash Not available Not available 06/27/2022 90345 RxNorm Rosa chahal PA - [facility] [...] Updated DateTime 3 182.88 cm 35.1 kg/m2 689640. 42 g 9 97.3 [degF] 18 /min [...] SNOMED-CT Code Diagnosis ICD10 Code Diagnosis Note [id number] [address] [address] 08/09/2020 15:23:10 08/09/2020 15:36:28 [id number] [address] [place] [address] 05/10/2020 08:02:39 05/10/2020 08:35:47 [id number] [address] [place] [address] 10/13/2016 13:21:02 10/13/2016 14:08:54 [id number] [address] [place] [address] 06/22/2017 10:40:29 06/22/2017 11:17:38 [id number] [address] [place] [address] 10/22/2015 12:11:35 10/22/2015 14:31:42 [id number] [address] [place] [address] 08/22/2018 08:22:09 08/22/2018 08:58:23 [id number] [address] [place] [address] 06/16/2017 12:08:20 06/16/2017 12:29:06 [id number] [address] [place] [address] 10/14/2020 15:56:09 10/14/2020 17:28:26 [id number] Binta Conteh MD [address] [facility] [place] [address] 06/02/2022 08:25:09 06/02/2022 09:27:52 History and physical examination, occupation 857919223 Z02.1 [id number] Evan Hernandez NP [address] [facility] [place] [address] 06/27/2022 15:05:30 06/27/2022 16:01:01 Paronychia of right thumb [id number] L03.011 Health Concerns Section Related Observation LastModified by Organization Detai ls LastModified Time None Recorded Concern Status LastModified by Organization Details LastModified Time None Recorded Advance Directives Directive None Recorded Payers Encounter Date Sequence Insurance Name Policy Number Policy Peña Covered Member ID Peña Member ID Guarantor Name 06/02/2022 OC-ESCREEN Cameron Cortez [id number] Cameron Cortez 06/27/2022 1 [facility] - HE[facility] NET PLAN (MEDICAID HMO) Cameron Cortez [id number] Cameron Cortez Notes Date Note Type [...] Hernandez NP [address] [place], [address], [place] - [facility] 06/27/2022 15:56:47
[2024-07-08 13:18] LABS: Testosterone, Free 51.3 pg/mL (35.0-155.0); Testosterone, Total 194 ng/dL (250-1100)
== END 2024-07-03 08:28 | disposition home or self-care (01) ==
LOC: HO.LAB 08:27
PROVIDERS: PCP Nurse Practitioner Family; Visit Provider Physician Assistant Medical
DX: E11.65 Type 2 diabetes mellitus with hyperglycemia (principal); E66.09 Other obesity due to excess calories; Z68.33 Body mass index [BMI] 33.0-33.9, adult; I10 Essential (primary) hypertension; E29.1 Testicular hypofunction
CPT/HCPCS: 36415; 82947; 84402; 84403; 99212

== ENCOUNTER 2024-07-03 12:52 | Outpatient (AMB) | payer OTHER, SELFPAY ==
--- NOTE | 2024-07-03 13:05 | A.OFFVIS_ITS ---
Vital Signs 07/03/24 13:08 Height 6 ft Weight 258 lb 8.368 oz BMI 35.1 BP 122/82 Blood Pressure Location Rt brachial Position Sitting Pulse 79 Pulse Source Pulse Oximeter Pulse Oximetry (%) 97 Oxygen Delivery Method Room Air Intake Visit Reasons: Type II diabetes Intake Note: Patient present today to follow up on Type 2 Diabetes Mellitus. Last Diabetic Eye exam: 07/2023 Last Podiatry Visit: Does not see a Platform Engineer Random Glucose:119 mg/dl HgA1C: 9.8% 05/22/2024 Trimmer And Borer Machine Operator Required: No Accompanied by: Self / Same As Patient Allergies ertapenem Allergy (Intermediate, Verified 07/03/24 13:08) Hives piperacillin [From Zosyn] Allergy (Intermediate, Verified 07/03/24 13:08) Hives tazobactam [From Zosyn] Allergy (Intermediate, Verified 07/03/24 13:08) Hives vancomycin Allergy (Intermediate, Verified 07/03/24 13:08) Hives metformin Adverse Reaction (Mild, Verified 07/03/24 13:08) Diarrhea jardiance Adverse Reaction (Intermediate, Uncoded 07/03/24 13:08) blurry vision Medication List - Last Reconciled 07/03/24 by DREW Rivers blood-glucose meter (OneTouch Verio Flex Meter) As directed celecoxib 200 mg PO DAILY ezetimibe 10 mg PO DAILY glimepiride 2 mg PO QAM lisinopril 2.5 mg PO DAILY meloxicam 7.5 mg PO DAILY PRN montelukast 10 mg PO BEDTIME omega-3 acid ethyl esters 2 caps PO BID pregabalin 75 mg PO BID semaglutide (Ozempic) 1 mg (0.75 mL) subcut QWEEK HPI Comments Details: This is a 49-year-old male with a past medical history of hyperlipidemia, type 2 diabetes diagnosed 2016, hypertension, SHERLEY, spondylosis and obesity presenting for diabetic management. He brings a log of his blood glucose readings. A few postprandial readings are 180-226. No lows. Not exercising due to work injury November 2022. Followed by [facility]. Hemoglobin a1c 9.8% today 05/22/2024 up from 8.9% 02/20/2024. Since that time he started Ozempic, and he is taking 0.5 mg weekly. He discontinued glimepiride because he was afraid of having low blood sugars. Past medications: Trulicity (blurry vision/ineffective) Metformin was discontinued previously due to diarrhea. Jardance stopped due to blurry vision and urinary frequency. He improved his diet since his last visit. He stopped eating rice. He has black coffee. He is following a low-carbohydrate diet. He has lost some weight. No alcohol. Nonsmoker. Hypoglycemia symptoms: none Hyperglycemia symptoms: none Microvascular complications: mild neuropathy in his feet. Macrovascular complications: none Hypertension: treated with Lisinopril 2.5 mg. Previously on Losartan which was discontinued due to mylagias. Hyperlipidemia: Patient is off statins due to myalgias. His insurance denied Repatha. He is taking Zetia and [place] 3 fatty acids. Testosterone level pending. He has a history of low testosterone, but he denies being treated with medications in the past. ROS: Constitutional: No unexplained weight loss, fever, chills, fatigue or night sweats. Eyes: No loss of vision, blurry vision, double vision, eye pain, eye redness, eye discharge or itching. Respiratory: No shortness of breath, cough or sputum production. Cardiovascular: No chest pain, chest pressure or chest discomfort. No palpitations or pedal edema. Gastrointestinal: No nausea, vomiting or abdominal pain. Neurologic: No headache, dizziness, syncope, unilateral weakness, ataxia, numbness or tingling in the extremities. Physical exam: Constitutional: Alert, in no distress. Head: Normocephalic. Eyes: Pupils are equal, round and reactive to light. Extraocular muscles intact. Neck: Supple, Full range of motion. No lymphadenopathy. No palpable thyroid masses. Respiratory: Clear to auscultation. Cardiovascular: S1 S2 regular. No murmurs. [facility] Medical History Proteinuria Blurry vision Obesity due to excess calories Hx of sepsis Retropharyngeal abscess Cellulitis of pharynx Type 2 diabetes mellitus with hyperglycemia Elevated CPK DAVIS positive Fibromyalgia Controlled diabetes mellitus without complication, without long-term current use of insulin Hyperlipidemia LDL goal <100 Essential hypertension Vitamin D insufficiency Surgical History History of throat surgery H/O shoulder surgery Family History Father No problems noted. Mother No problems noted. 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 Cognitive needs: No Hearing needs: No Vision needs: No Physical Exam Vital Signs: Last Vital Signs Pulse 79 07/03/24 13:08 BP 122/82 07/03/24 13:08 Pulse Ox 97 07/03/24 13:08 Oxygen Delivery Method Room Air 07/03/24 13:08 BMI result Body Mass Index 35.1 Results Reviewed Results Reviewed: Laboratory Last Values Glucose (Clinic) 119 mg/dL (60-115) H 07/03/24 13:13 Assessment & Plan Assessment & Plan (1) Type 2 diabetes mellitus with hyperglycemia: Code(s): E11.65 - Type 2 diabetes mellitus with hyperglycemia Category: Medical Qualifiers: Diabetes mellitus ferry terminal supervisor insulin use: without ferry terminal supervisor use Qualified Code(s): E11.65 - Type 2 diabetes mellitus with hyperglycemia (2) Obesity due to excess calories: Code(s): E66.09 - Other obesity due to excess calories Category: Medical Qualifiers: Obesity classification: adult class 1 (BMI 30 - 34.9) Serious obesity comorbidity presence: with serious comorbidity Body mass index: BMI 33.0-33.9 Qualified Code(s): E66.09 - Other obesity due to excess calories; Z68.33 - Body mass index [BMI] 33.0-33.9, adult Plan In summary this is a 48 year old male with type 2 diabetes with neuropathy. Continue Ozempic, and increase to 1 mg weekly. Discussed pathophysiology of Type II Diabetes Mellitus with the patient in detail.? I explained the skilled nursing risks and complications associated with uncontrolled diabetes including nephropathy, neuropathy, peripheral vascular disease, retinopathy, increased risk of heart disease and stroke.? If you experience low blood sugar, treat this by eating a chewable fruit candy like skittles or jelly beans (about 8 pieces), 4 ounces (1/2 cup) of fruit juice (not diet), 1 tablespoon of honey or 4 glucose tablets. If your blood sugar is under 55, take double the amount of one of the above. Recheck your blood sugar in 15 minutes. Continue [place] 3 and Zetia. He was evaluated by Nephrology for proteinuria. Follow up in 8 weeks for type 2 diabetes. Medications: New semaglutide (Ozempic) 1 mg (0.75 mL) subcut QWEEK 3 mL 5RF Discontinued semaglutide (Ozempic) Discontinued Reason: Doctor's Order 0.5 mg (0.736 mL) subcut QWEEK 3 mL 0RF Coding Level of Care Code Est Pt Level 4 (49290) Complex EM visit Add On G2211 Diagnoses Type 2 diabetes mellitus with hyperglycemia, without long-term current use of insulin E11.65 Diabetes mellitus ferry terminal supervisor insulin use: without ferry terminal supervisor use Class 1 obesity due to excess calories with serious comorbidity and body mass index (BMI) of 33.0 to 33.9 in adult E66.09; Z68.33 Obesity classification: adult class 1 (BMI 30 - 34.9) Serious obesity comorbidity presence: with serious comorbidity Body mass index: BMI 33.0-33.9
[2024-07-03 13:08] VITALS: BP 122/82; PULSE 79; O2SAT 97; BMI 35.1
[2024-07-03 13:19] LABS: Glucose, Whole Blood 119 mg/dL (60-115)
--- OUTSIDE RECORDS SUMMARY | 2024-07-03 15:44 | XMS_ITS | Clinical Summary ---
Author Organization [facility] Facility Address [address] [place] [address] Care Team Providers Care Conference Services Coordinator Name Role Phone Jeff Chi NP Primary Care Provider [phone] Allergies Active Allergy Reactions Criticality Noted Date [...] (Season Ended) 2024 Insurance [employer] Open Access ([id number]) Care Teams Conference Services Coordinator Relationship Specialty Start Date End Date Jeff Chi NP [address] [place] [address] PCP - General Nurse Practitioner 08/06/20
--- OUTSIDE RECORDS SUMMARY | 2024-07-03 15:44 | XMS_ITS | Clinical Summary ---
Author Organization [employer] Address [address] [place] [address] 7 [place] [address] Care Team Providers Care Learning And Development Specialist Name Role Phone Unavailable Primary Care Provider [...] age to complete this topic Insurance [facility]
--- OUTSIDE RECORDS SUMMARY | 2024-07-03 15:44 | XMS_ITS | Encounter Summary ---
Author Organization [facility] Address [address] [place] [address] [facility] [place] [address] Care Team Providers Care Clarifier Name Role Phone Unavailable Primary Care Provider Unavailabl e Encounter Details Date Type Department Care Team (Latest Contact Info) Description 03/05/2020 Abstract [facility] CONVERSIONS Dental, Provider, DDS Social History [...]
--- OUTSIDE RECORDS SUMMARY | 2024-07-03 15:44 | XMS_ITS | Clinical Summary ---
Author Organization [facility] it Address [address] [place] [address] Care Team Providers Care Nut Sorter Name Role Phone Jeff Chi NP Primary [...] mellitus), type 2 with peripheral vascular complications ([facility]) H/O retropharyngeal abscess DX:H /O retropharyngeal [...] age to complete this topic Care Teams Nut Sorter Relationship Specialty Start Date End Date Jeff Chi NP [address] [facility] [place], [place] PCP - General Family Medicine 07/30/19
== END 2024-07-03 13:51 | disposition home or self-care (01) ==
LOC: HO.ENCR 12:52
PROVIDERS: PCP Nurse Practitioner Family; Visit Provider Physician Assistant Medical
DX: E11.65 Type 2 diabetes mellitus with hyperglycemia (principal); E66.09 Other obesity due to excess calories; Z68.33 Body mass index [BMI] 33.0-33.9, adult

== ENCOUNTER 2024-08-07 11:53 | Outpatient (REF) | payer OTHER, SELFPAY ==
--- OUTSIDE RECORDS SUMMARY | 2024-08-07 13:05 | XMS_ITS | Encounter Summary ---
Author Organization [facility] Address [address] [place] [address] Care Team Providers Care Foundry Hand Name Role Phone Lisha Grewal MD Unavailable Unavailable Jeff Chi NP Primary Care Provider Unavail able Encounter Details Date Type Department Care Team Description 11/23/[address] [facility] Thoracic Surgery [place] 299 [facility] [address] [place] [address] [phone] Philipp Guzman PA-C [address] [facility] [place] [address] [phone] Pulmonary nodule Social History Tobacco Use Types Packs/Day Years [...] Procedure Name Priority Date/Time Associated Diagnosis Comments CAT SCAN OF CHEST NO CONTRAST Routine 11/16/2023 Pulmonary nodule documented in this encounter Results * CAT SCAN OF CHEST NO CONTRAST (11/16/2023) 11/16/[address] Guzman PA-C CT SCANS Performing Organization Address City/State/[facility] Co [place] Phone Number [facility] RADIOLOGY documented in this encounter Visit Diagnoses Diagnosis Pulmonary nodule Solitary pulmonary nodule documented in this encounter Care Teams Foundry Hand Relationship Specialty Start Date End Date Jeff Chi NP PCP - General Family Practice 01/13/23 Lisha Grewal MD 02/06/18 documented as of this encounter
--- OUTSIDE RECORDS SUMMARY | 2024-08-07 13:05 | XMS_ITS | Encounter Summary ---
Author Organization [facility] Address [address] [place] [address] Care Team Providers Care Pottery Decoration Designer Name Role Phone Nikita Lanza MD Primary Care Provider Un available [facility], Pcp Primary Care Provider UnavailLisha Baxter MD Unavailable Unavailable Jeff Chi NP Primary Care Provider Unavail able Reason for Visit * Reason Comments E-prescribe Rx Request Encounter Details Date Type Department Care Team Description 04/23/2018 Refill Adult Med - [place] [address] [place] [address] Marquis Etienne MD [address] [place] [address] E-prescribe Rx Request Social History Tobacco Use Types Packs/Day Years Used Date Smoking Tobacco: Never Smokeless Tobacco: Never Alcohol Use Standard Drinks/Week Comments Yes 0 (1 standard drink = 0.6 oz pur e alcohol) rare specialial occasions Sex Assigned at Date Recorded Not on file documented as of this encounter Miscellaneous Notes * Telephone Encounter - Philipp Sepulveda - 04/24/2018 9:36 AM EST Patient would like script to be: E-PRESCRIBED/FAXED TO PHARMACY WHEN WAS THE PATIENT'S LAST APPOINTMENT IN ADULT MEDICINE? 03/30/18 WHEN WAS THE LAST TIME THE PATIENT SAW THEIR PCP? 02/21/18 Does patient have an upcoming appointment? Yes 04/24/18 (THE MEDICATION REQUESTED IS ON THE MED [...] Plan: PPO $25 [place] / Product Type: [id number] documented in this encounter Plan of Treatment Not on file documented as of this encounter Visit Diagnoses Not on filedocumented in this encounter Care Teams Pottery Decoration Designer Relationship Specialty Start Date End Date Nikita Lanza MD PCP - General Internal Medicine 02/06/1801/07 [facility] Pcp PCP - General Internal Medicine 01/08/19 01/12/23 Jeff Chi NP PCP - General Family Practice 01/13/23 Lisha Grewal MD 02/06/18 documented as of this encounter
--- OUTSIDE RECORDS SUMMARY | 2024-08-07 13:05 | XMS_ITS | Encounter Summary ---
Author Organization [facility] Address [address] [place] [address] Care Team Providers Care Wrapper Cashier Name Role Phone Nikita Lanza MD Primary Care Provider Un available [facility], Pcp Primary Care Provider Unavailabl e Lisha Grewal MD Unavailable Unavailable Jeff Chi NP Primary Care Provider Unavail able Encounter Details Date Type Department Care Team Description 03/17/2018 Refill Internal Medicine - [address], [address] [place] [address] Heriberto Mireles MD [address] [place] [address] Social History Tobacco Use Types Packs/Day Years [...] on filedocumented in this encounter Care Teams Wrapper Cashier Relationship Specialty Start Date End Date Nikita Lanza MD PCP - General Internal Medicine 02/06/1801/07 [facility], Pcp PCP - General Internal Medicine 01/08/19 01/12/23 Jeff Chi NP PCP - General Family Practice 01/13/23 Lisha Grewal MD 02/06/18 documented as of this encounter
--- OUTSIDE RECORDS SUMMARY | 2024-08-07 13:05 | XMS_ITS | Encounter Summary ---
Author Organization [employer] [facility] Address [address] [place] [address] Care Team Providers Care Track Helper Name Role Phone Nikita Lanza MD Primary Care Provider Un available [facility], Pcp Primary Care Provider Unavailabl e Lisha Grewal MD Unavailable Unavailable Jeff Chi NP Primary Care Provider Unavail able Encounter Details Date Type Department Care Team Description 04/18/2018 Refill Internal Medicine - [address], [address] [place] [address] Heriberto Mireles MD [address] [place] [address] Social History Tobacco Use Types Packs/Day Years [...] on filedocumented in this encounter Care Teams Track Helper Relationship Specialty Start Date End Date Nikita Lanza MD PCP - General Internal Medicine 02/06/1801/07 [facility], Pcp PCP - General Internal Medicine 01/08/19 01/12/23 Jeff Chi NP PCP - General Family Practice 01/13/23 Lisha Grewal MD 02/06/18 documented as of this encounter
--- OUTSIDE RECORDS SUMMARY | 2024-08-07 13:05 | XMS_ITS | Clinical Summary ---
Author Organization [facility] Address [address] [facility] [place] [address] Care Team Providers Care Mouthpiece Maker Name Role Phone Lisha Grewal MD [...] pulmonary nodules how their size, appearance/shape, and change director time affect her level of suspicion for [...] EXAM 12/12/2019 12/11/2018 (Co mpleted) Covid-19 Vaccine (3 2022-2 4 season) 2023 12/19/2020, 11/21/2020 BMI CHECK/ADVISE 03/21/2024 12/11/2018, 09/2018, 08/13/2015 DEPRESSION SCREENING/FOLLOWUP 03/21/2024 SOCIAL NEEDS SCREENING 03/21/2024 COLON CANCER SCREENING 2024 SHINGLES VACCINE (1 of 2) 2024 DTAP/TDAP/TD (2 - Td or Tdap) 09/02/2024 09/02/2014 INFLUENZA (Season Ended) 2024 12/11/2018 (Exce ption) Care Teams Mouthpiece Maker Relationship Specialty Start Date End Date Jeff Chi NP PCP - General Family Practice 01/13/23 Lisha Grewal MD 02/06/18
--- OUTSIDE RECORDS SUMMARY | 2024-08-07 13:05 | XMS_ITS | Encounter Summary ---
Author Organization [facility] Address [address] [place] [address] Care Team Providers Care Program Manager Slp Name Role Phone Lisha Grewal MD Primary Care Provider Lisha [place] MD Primary Care Provider Nikita Moura MD Primary Care Provider Un available [facility], Pcp Primary Care Provider Unavailabl e Lisha Grewal MD Unavailable Unavailable Lisha Grewal MD Unavailable Unavailable Jeff Chi NP Primary Care Provider Unavail able Encounter Details Date Type Department Care Team Description 07/25/2015 Release of Information Medical Records [address] [place] [id number] Abstract, Provider Social History Tobacco Use Types [...] on filedocumented in this encounter Care Teams Program Manager Slp Relationship Specialty Start Date End Date Lisha [...]
--- OUTSIDE RECORDS SUMMARY | 2024-08-07 13:05 | XMS_ITS | Encounter Summary ---
Author Organization [facility] Address [address] [place] [address] Care Team Providers Care Materials Intern Name Role Phone Nikita Lanza MD Primary Care Provider Un available [facility], Pcp Primary Care Provider Unavailabl e Lisha Grewal MD Unavailable Unavailable Jeff Chi NP Primary Care Provider Unavail able Encounter Details Date Type Department Care Team Description 01/02/2019 Release of Information Medical Records [address] [place] [address] Abstract, Provider Social History Tobacco Use Types [...] on filedocumented in this encounter Care Teams Materials Intern Relationship Specialty Start Date End Date Nikita Lanza MD PCP - General Internal Medicine 02/06/1801/07 [facility], Pcp PCP - General Internal Medicine 01/08/19 01/12/23 Jeff Chi NP PCP - General Family Practice 01/13/23 Lisha Grewal MD 02/06/18 documented as of this encounter
--- OUTSIDE RECORDS SUMMARY | 2024-08-07 13:05 | XMS_ITS | Encounter Summary ---
Author Organization [facility] Address [address] [place] [address] Care Team Providers Care Migratory Worker Name Role Phone Lisha Grewal MD Unavailable Unavailable Jeff Chi NP Primary Care Provider Unavail able Encounter Details Date Type Department Care Team Description 01/14/2023 Abstract [facility] Thoracic Surgery [place] 299 [facility] [address] [place] [phone] Arabella Morrison MD 299 [facility] [address] [place] [address] Social History Tobacco Use Types Packs/Day Years [...] on filedocumented in this encounter Care Teams Migratory Worker Relationship Specialty Start Date End Date Jeff Chi NP PCP - General Family Practice 01/13/23 Lisha Grewal MD 02/06/18 documented as of this encounter
--- OUTSIDE RECORDS SUMMARY | 2024-08-07 13:05 | XMS_ITS | Clinical Summary ---
Author Organization [facility] Address [address] [place] [address] 7 [place] [address] Care Team Providers Care Food Service Order Clerk Name Role Phone Unavailable Primary Care Provider [...] Panel 1974 SDOH Screening 1974 Sigmoidoscopy 1974 Disability Screening 1974 Alcohol/Substance Use Screening 1986 Tobacco Screening [...] patient's age to complete this topic Insurance [facility]
--- OUTSIDE RECORDS SUMMARY | 2024-08-07 13:05 | XMS_ITS | Encounter Summary ---
Author Organization [facility] Address [address] [place] [address] Care Team Providers Care Geography Instructor Name Role Phone Nikita Lanza MD Primary Care Provider Un available [facility], Pcp Primary Care Provider Unavailabl e Lisha Grewal MD Unavailable Unavailable Jeff Chi NP Primary Care Provider Unavail able Encounter Details Date Type Department Care Team Description 03/20/2018 Refill Internal Medicine - [address], [address] [place] [address] Heriberto Mireles MD [address] [place] [address] Social History Tobacco Use Types Packs/Day Years [...] on filedocumented in this encounter Care Teams Geography Instructor Relationship Specialty Start Date End Date Nikita Lanza MD PCP - General Internal Medicine 02/06/1801/07 [facility], Pcp PCP - General Internal Medicine 01/08/19 01/12/23 Jeff Chi NP PCP - General Family Practice 01/13/23 Lisha Grewal MD 02/06/18 documented as of this encounter
--- OUTSIDE RECORDS SUMMARY | 2024-08-07 13:05 | XMS_ITS | Encounter Summary ---
Author Organization [facility] Address [address] [place] [address] Care Team Providers Care Tugboat Captain Name Role Phone Nikita Lanza MD Primary Care Provider Un available [facility], Pcp Primary Care Provider UnavailLisha Baxter MD Unavailable Unavailable Jeff Chi NP Primary Care Provider Unavail able Encounter Details Date Type Department Care Team Description 09/20/2018 Refill Adult Medicine [address] [address] Apolonia Juarez NP Social History Tobacco Use Types Packs/Day Years Used Date Smoking Tobacco: Never Smokeless Tobacco: Never Alcohol Use Standard Drinks/Week Comments Yes 0 (1 standard drink = 0.6 oz pur e alcohol) rare specialial occasions Sex Assigned at Date Recorded Not on file documented as of this encounter Miscellaneous Notes * Telephone Encounter - Nadeen Garcia M.A. - 09/20/2018 7:13 AM EDT Last office visit 08/25/18 Lab Results Component Value Date NA 139 08/25/2018 K 4.0 08/25/2018 CO2 26 08/25/2018 CL 104 08/25/2018 BUN 13 08/25/2018 CREAT 0.83 08/25/2018 GLU 175 08/25/2018 CA 9.4 08/25/2018 GFR > 60 08/25/2018 * Telephone Encounter - Nadeen Garcia M.A. - 09/20/2018 7:13 AM EDTFrom: Cameron Cortez To: Apolonia Juarez NP Sent: 09/20/2018 2:54 AM EDT Subject: Medication Renewal Request Original authorizing provider: ELVIRA AllanWinifred Diego would like a refill of the following medications: lisinopril (PRINIVIL,ZESTRIL) 5 MG tablet [Apolonia Juarez NP] Preferred pharmacy: [address] Comment: Medication renewals requested in this message routed to other providers: Dulaglutide (TRULICITY) 0.75 MG/0.5ML Solution Pen-injector [Grzegorz Garcia PA-C] glipiZIDE (GLUCOTROL) 10 MG tablet [Niikta Lanza MD] documented in this encounter Plan of Treatment Not on file documented as of this encounter Visit Diagnoses Not on filedocumented in this encounter Care Teams Tugboat Captain Relationship Specialty Start Date End Date Nikita Lanza MD PCP - General Internal Medicine 02/06/1801/07 [facility], Pcp PCP - General Internal Medicine 01/08/19 01/12/23 Jeff Chi NP PCP - General Family Practice 01/13/23 Lisha Grewal MD 02/06/18 documented as of this encounter
--- OUTSIDE RECORDS SUMMARY | 2024-08-07 13:05 | XMS_ITS | Encounter Summary ---
Author Organization [facility] Address [address] [place] [address] Care Team Providers Care High Lift Mule Operator Name Role Phone Lisha Grewal MD Unavailable Unavailable Jeff Chi NP Primary Care Provider Unavail able Encounter Details Date Type Department Care Team Description 02/02/2023 Orders Only Medical Records [address] [place] [address] [facility] Social History Tobacco Use Types Packs/Day Years [...] this encounter Results * OUTSIDE CT (11/26/2022) [facility] RADIOLOGY documented in this encounter Visit Diagnoses Not on filedocumented in this encounter Care Teams High Lift Mule Operator Relationship Specialty Start Date End Date Jeff Chi NP PCP - General Family Practice 01/13/23 Lisha Grewal MD 02/06/18 documented as of this encounter
--- OUTSIDE RECORDS SUMMARY | 2024-08-07 13:05 | XMS_ITS | Encounter Summary ---
Author Organization [employer] [facility] Address [address] [place] [address] Care Team Providers Care Precipitator Operator Name Role Phone Nikita Lanza MD Primary Care Provider Un available [facility], Pcp Primary Care Provider Unavailabl e Lisha Grewal MD Unavailable Unavailable Jeff Chi NP Primary Care Provider Unavail able Encounter Details Date Type Department Care Team Description 04/21/2018 Refill Internal Medicine - [address], [address] [place] [address] Heriberto Mireles MD [address] [place] [address] Social History Tobacco Use Types Packs/Day Years [...] on filedocumented in this encounter Care Teams Precipitator Operator Relationship Specialty Start Date End Date Nikita Lanza MD PCP - General Internal Medicine 02/06/1801/07 [facility], Pcp PCP - General Internal Medicine 01/08/19 01/12/23 Jeff Chi NP PCP - General Family Practice 01/13/23 Lisha Grewal MD 02/06/18 documented as of this encounter
--- OUTSIDE RECORDS SUMMARY | 2024-08-07 13:05 | XMS_ITS | Clinical Summary ---
Author Organization [facility] Address [address] [place] [address] Phone Care Team Providers Care Financial Systems Director Name Role Phone Jeff Chi NP Primary [...] type 2 with peripheral vascular complications ([facility]) H/O retropharyngeal abscess DX:H /O retropharyngeal abscess Cellulitis of pharynx DX:Celluli tis of pharynx Elevated CPK DX:Elevated CPK DAVIS positive DX:DVAIS positive Fibromyalgia DX:Fibromyalgia Vitamin D insufficiency DX:Vitam [...] patient's age to complete this topic Insurance [facility] Care Teams Financial Systems Director Relationship Specialty Start Date End Date Jeff Chi NP [address] [place], [place] PCP - General Family Medicine 07/30/19
--- OUTSIDE RECORDS SUMMARY | 2024-08-07 13:05 | XMS_ITS | Clinical Summary ---
Author Organization [facility] Address [address] [place] [address] Care Team Providers Care Equity Research Associate Name Role Phone Jeff Chi NP Primary Care Provider [phone] Allergies Active Allergy Reactions Criticality Noted Date [...] (Season Ended) 2024 Insurance [employer] Open Access ([id number]) Care Teams Equity Research Associate Relationship Specialty Start Date End Date Jeff Chi NP [address] [place] [address] PCP - General Nurse Practitioner 08/06/20
--- OUTSIDE RECORDS SUMMARY | 2024-08-07 13:05 | XMS_ITS | Encounter Summary ---
Author Organization [facility] Address [address] [place] [address] [facility] [place] [address] Care Team Providers Care Post Acute Care Nurse Practitioner Name Role Phone Unavailable Primary Care Provider Unavailabl e Encounter Details Date Type Department Care Team (Latest Contact Info) Description 03/05/[address] [facility] CONVERSIONS Dental, Provider, DDS Social History [...]
--- OUTSIDE RECORDS SUMMARY | 2024-08-07 13:05 | XMS_ITS | Encounter Summary ---
Author Organization [facility] Address [address] [place] [address] Care Team Providers Care Bobbin Handler Name Role Phone Nikita Lanza MD Primary Care Provider Un available [facility], Pcp Primary Care Provider UnavailLisha Baxter MD Unavailable Unavailable Jeff Chi NP Primary Care Provider Unavail able Reason for Visit * Reason Comments E-prescribe Rx Request Encounter Details Date Type Department Care Team Description 09/14/2018 Refill Adult Medicine [address] [address] Grzegorz Garcia PA-C [address] [place] [address] E-prescribe Rx Request Social History Tobacco Use [...] N/A Patients current insurance carrier is: [facility] / Plan: PPO $25 [place] / Product Type: [id number] documented in this encounter Plan of Treatment Not on file documented as of this encounter Visit Diagnoses Not on filedocumented in this encounter Care Teams Bobbin Handler Relationship Specialty Start Date End Date Nikita Lanza MD PCP - General Internal Medicine 02/06/1801/07 [facility], Pcp PCP - General Internal Medicine 01/08/19 01/12/23 Jeff Chi NP PCP - General Family Practice 01/13/23 Lisha Grewal MD 02/06/18 documented as of this encounter
--- OUTSIDE RECORDS SUMMARY | 2024-08-07 13:05 | XMS_ITS | Data Portability ---
Author Organization [facility], [address] Address [address] [place] [address] Care Team Providers Care Line Locator Name Role Phone [facility] Primary Care Provider [phone] Assessment No assessment recorded. Plan of Treatment Reminders Order Date Submit Date Provider Last Modified By Organization Details Last Modified Time Details Appointments None recorded. Lab microorgani sm identificat ion, unspecified specimen 2022 023 [place] [facility], [facility]7 [facility], [place], [address], 06:07:20 Referral None recorded. Procedures None recorded. Surgeries None recorded. Imaging None recorded. Medication Orders Bactrim DS 800 mg-160 mg tablet 2022 023 [id number], [address] [place], [place], [id number], 15:56:45 Patient TargetsNo targets recorded. Patient InstructionsNo instructions recorded. Reason for Referral None Reported. Results Created Date Observation Date Name Description Value Unit Range Abnormal Flag Note LastModifiedBy Organization Detail LastModifiedTime 06/28/1907/01/2022 AEROB IC BACTE RIAL CULTU RE aerobic bacterial culture FINAL REPORT abnormal Not Available [facility] ([facility]) [address] [facility], [place], [address], 07/01/2022 06:07:24 06/28/19 23 07/01/2022 AEROB IC [...] p A). (CLSI ) Not Available [facility] ([facility]) [address] [facility], [place], [address], 07/01/2022 06:07:24 Result Notes None recorded. Problems Name Problem SNOMED Code Status Onset Date Resolution Date Notes Provider Name and Address Organization Details Recorded Time Diabetes mellitus 20275659 Active 023 Rosa chahal PA - [facility] 3 15:34:49 Arthritis 2671774 Active 023 Rosa chahal PA - [facility] 3 15:34:57 Problem Notes None recorded. Procedures Surgical History Date Name Laterality Status Provider Name and Address Organization Details Recorded Time 3 I&D, without packing completed Evan Hernandez NP [address] [facility] [place], [address], PA - [facility] 06/27/2022 15:54:01 3 OC-UDS Send Out Template DOT completed TIFFANIE WILLIAMSON PA - [facility] 06/02/2022 09:23:27 Imaging Results None recorded. Procedure Notes None recorded. Medical Equipment None Reported. Allergies Allergen ID Allergen Name Allergen Category Reaction Reaction Severity Criticality Documentation Date Start Date Code Code System Note Provider Name and Address Organization Details Recorded Time 354683 Zosyn medicatio n rash Not available Not available 06/27/2022 63396 RxNorm Rosa chahal PA - [facility] [...] height Body mass index (BMI) Body weight Body temperature Respiratory rate Oxygen saturation Oxygen saturation in Arterial blood by Pulse oximetry Heart rate Systolic blood pressure Diastolic blood pressure Provider Name and Address Organization Details Last Updated DateTime 3 182.88 cm 35.1 kg/m2 291803. 42 g 97.3 [degF] 18 /min 98 % 98 % 84 /min 132 mm[Hg] 86 mm[Hg] [facility] 3 15:36:26 Social History Question Answer Notes LastModified by Organizat ion Details LastModified Time Tobacco Smoking Status Never Smoker [facility] 06/27/2022 15:35:12 Have You Recently Traveled Abroad? No Information not available 06/27/2022 Sex: Unknown Functional Status Question Answer Note LastModified by Organizat ion Details LastModified Time Do you use any illicit or recreational drugs? No Information not available 06/27/2022 Do you or have you ever used any other forms of tobacco or nicotine? No Information not available 06/27/2022 What is your level of alcohol consumption? None Information not available 06/27/2022 Mental Status None recorded. Family History Relationship [...] SNOMED-CT Code Diagnosis ICD10 Code Diagnosis Note [id number] [facility] [facility] [address] [address] 08/09/2020 15:23:10 08/09/2020 15:36:28 [id number] [address] [facility] [place] [address] 05/10/2020 08:02:39 05/10/2020 08:35:47 [id number] [address] [facility] [place] [address] 10/13/2016 13:21:02 10/13/2016 14:08:54 [id number] [address] [facility] [place] [address] 06/22/2017 10:40:29 06/22/2017 11:17:38 [id number] [address] [facility] [place] [address] 10/22/2015 12:11:35 10/22/2015 14:31:42 [id number] [address] [facility] [place] [address] 08/22/2018 08:22:09 08/22/2018 08:58:23 [id number] [address] [facility] [place] [address] 06/16/2017 12:08:20 06/16/2017 12:29:06 [id number] [address] [facility] [place] [address] 10/14/2020 15:56:09 10/14/2020 17:28:26 [id number] Binta Conteh MD [address] [facility] [place] [address] 06/02/2022 08:25:09 06/02/2022 09:27:52 History and physical examination, occupation [id number] Z02.1 [id number] Evan Hernandez NP [address] [address] 06/27/2022 15:05:30 06/27/2022 16:01:01 Paronychia of right thumb [id number] L03.011 Health Concerns Section Related Observation LastModified by Organization Detai ls LastModified Time None Recorded Concern Status LastModified by Organization Details LastModified Time None Recorded Advance Directives Directive None Recorded Payers Insurance Date Sequence Insurance Name Policy Number Policy Peña Covered Member ID Peña Member ID Guarantor Name 05/19/2024 1 [facility] - HEALTH NET PLAN (MEDICAID HMO) Cameron Cortez [id number] Cameron Cortez 05/19/2024 OC-ESCREEN Cameron Cortez [id number] Cameron Cortez Notes Date Note Type Note [...] Evan Hernandez NP [address] [place], [address], [place] - [facility] 06/27/2022 15:56:47
--- OUTSIDE RECORDS SUMMARY | 2024-08-07 13:05 | XMS_ITS | Encounter Summary ---
[facility] Address [address] [place] [address] Care Team Providers Care Wharf Tender Head Name Role Phone Nikita Lanza MD Primary Care Provider Un available [facility], Pcp Primary Care Provider UnavailLisha Baxter MD Unavailable Unavailable Jeff Chi NP Primary Care Provider Unavail able Reason for Visit * Reason Onset Date Comments medication problems 04/24/2018 naproxen (NA PROSYN) 500 MG tablet Encounter Details Date Type Department Care Team Description 04/24/2018 Telephone Adult Medicine [address] [address] Apolonia Juarez NP medication problems (naproxen (NAPROSYN) [...] on filedocumented in this encounter Care Teams Wharf Tender Head Relationship Specialty Start Date End Date Nikita Lanza MD PCP - General Internal Medicine 02/06/1801/07 [facility], Pcp PCP - General Internal Medicine 01/08/19 01/12/23 Jeff Chi NP PCP - General Family Practice 01/13/23 Lisha Grewal MD 02/06/18 documented as of this encounter
[2024-08-07 13:30] LABS: Appearance Urine Clear; Color Urine Yellow; Glucose Urine UA Negative (Negative); Leukocyte Esterase Urine Negative (Negative); Nitrite Urine Negative (Negative); PH 7.5 (5.0-9.0); Specific Gravity - Urine 1.025 (1.005-1.025); Urine Blood Negative (Negative); Urine Ketones Trace mg/dL (Negative); Urine Protein Trace mg/dL (Neg-Trace)
== END 2024-08-07 11:54 | disposition home or self-care (01) ==
LOC: HO.HMGCLDS 11:53
PROVIDERS: PCP Nurse Practitioner Family; Visit Provider Nurse Practitioner Family
DX: E11.65 Type 2 diabetes mellitus with hyperglycemia (principal)
CPT/HCPCS: 81003

== ENCOUNTER 2024-08-08 13:43 | Outpatient (AMB) | payer OTHER, SELFPAY ==
[2024-08-08 13:58] VITALS: BP 122/80; PULSE 75; O2SAT 98; BMI 35.3
--- NOTE | 2024-08-08 13:58 | MHC.PC.OV ---
Vital Signs 08/08/24 13:58 Height 6 ft Weight 260 lb BMI 35.3 BP 122/80 Blood Pressure Location Rt brachial Position Sitting Pulse 75 Pulse Source Pulse Oximeter Pulse Oximetry (%) 98 Intake Visit Reasons: 4 month follow up Allergies ertapenem Allergy (Intermediate, Verified 08/08/24 14:10) Hives piperacillin [From Zosyn] Allergy (Intermediate, Verified 08/08/24 14:10) Hives tazobactam [From Zosyn] Allergy (Intermediate, Verified 08/08/24 14:10) Hives vancomycin Allergy (Intermediate, Verified 08/08/24 14:10) Hives metformin Adverse Reaction (Mild, Verified 08/08/24 14:10) Diarrhea jardiance Adverse Reaction (Intermediate, Uncoded 07/03/24 13:08) blurry vision Tobacco use date assessed: 03/29/24 Dental Screening Dental Screen Date: 03/29/24 HPI 4 month follow up HPI Details Chief Complaint Follow-up to evaluate dyslipidemia and assess lab work. History of Present Illness The patient is a 49-year-old male presenting with a follow-up for dyslipidemia. The patient reports notable weight loss and has been more vigilant about sugar consumption, likely as part of managing his dyslipidemia and existing diabetes mellitus. He is seeing an driver material handler to address these issues, particularly to achieve acceptable A1c levels before a planned laminectomy. The patient denies experiencing any chest pain, shortness of breath, headaches, dizziness, or blurred vision at this time. Social History - The patient has been actively monitoring and managing sugar intake as part of weight management. - Weight loss has been successfully achieved, indicating positive lifestyle modifications. - The patient is under regular endocrinological care, suggesting ongoing management of diabetes. Health Maintenance - Continued monitoring and management of blood glucose levels with the assistance of an driver material handler. - Encouragement of dietary management, including reduction of sugar intake. - Weight management efforts are ongoing and apparent in current weight loss. Review of Systems - Cardiovascular: Denies chest pain, shortness of breath. - Neurological: Denies headaches, dizziness, blurred vision. Physical Exam General: Cooperative, healthy appearing, comfortable, no acute distress and well developed, obese Orientation: Patient oriented x3 Limitations: No limitations Head: Normal to inspection Ears: Hearing grossly normal bilaterally Nose: Normal external nose present Face and sinus: Normal facial exam Eyes: Appearance normal, both eyes and all related structures Neck: Normal visual inspection and Yes full ROM Respiratory: Normal respiratory effort and able to speak in complete sentences. Clear to auscultation bilaterally Cardiovascular: Regular rate and rhythm. Normal S1 and S2 GI: Normal to inspection. Soft to palpation and nontender Skin: No rashes or lesions noted Neuro: Patient oriented x3 Extremities: Normal to inspection Results - Labs: Additional laboratory work has been ordered for further evaluation of dyslipidemia. Plan During this visit, laboratory work is further planned to assess dyslipidemia management. The patient is focused on achieving an improved blood sugar level with his driver material handler before a planned laminectomy. Additional labs will help assess the current status of dyslipidemia, aiding in necessary treatment adjustments. The importance of lifestyle changes such as sugar intake monitoring is emphasized in ensuring proper metabolic balance. Future management will be adjusted based on lab results, with close endocrinological follow-up leading to the anticipated surgery. Discussion Notes I discussed the need for additional laboratory evaluations to thoroughly assess the patient's current metabolic status concerning his dyslipidemia management. We reviewed the necessity of achieving optimal blood sugar levels before the upcoming laminectomy and the role of ongoing endocrinological management. The benefits, risks, and necessity of lifestyle and dietary adjustments were explained clearly to ensure an understanding of the plans leading to the surgical intervention. The importance of consistency and collaboration with an driver material handler was emphasized for successful preoperative preparation. I emphasized the importance of returning for lab evaluation results and discussed future follow-up plans. Patient Instructions - Continue monitoring sugar intake carefully. - Maintain regular appointments with the driver material handler. - Await additional lab work to guide the next steps for dyslipidemia management. - Report any new symptoms such as chest pain or shortness of breath promptly. - Follow up as planned for lab results and further guideline discussions. [facility] Medical History Low testosterone Proteinuria Blurry vision Obesity due to excess calories Hx of sepsis Retropharyngeal abscess Cellulitis of pharynx Type 2 diabetes mellitus with hyperglycemia Elevated CPK DAVIS positive Fibromyalgia Controlled diabetes mellitus without complication, without long-term current use of insulin Hyperlipidemia LDL goal <100 Essential hypertension Vitamin D insufficiency Surgical History History of throat surgery H/O shoulder surgery Family History Father No problems noted. Mother No problems noted. 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 1. Little interest or pleasure in doing things: not at all 2. Feeling down, depressed, or hopeless: not at all 3. Trouble falling or staying asleep, or sleeping too much: not at all 4. Feeling tired or having little energy: not at all 5. Poor appetite or overeating: not at all 6. Feeling bad about yourself - or that you are a failure or have let yourself or your family down: not at all 7. Trouble concentrating on things, such as reading the newspaper or watching television: not at all 8. Moving or speaking so slowly that other people could have noticed. Or the opposite - being so fidgety or restless that you have been moving around a lot more than usual: not at all 9. Thoughts that you would be better off or of hurting yourself in some way: not at all Total score: 0 Depression Screening Interpretation: Negative Depression Screening Done: Yes 55483 - PHQ-9 Billing: Yes Source: Developed by Drs. Franki Berry, Kenzie Mireles, Jose Regalado and colleagues, with an educational guillermo from [employer]. Thrive Questionnaire Date Thrive assessed: 08/08/24 I am a: Patient What is your living situation today?: I have a steady place to live Within the past 12 months, did the food you bought not last and you didn't have the money to get more?: Sometimes True Within the past 12 months, did you worry whether your food would run out before you got money to buy more?: Sometimes True Do you have trouble paying for medicines?: No Do you have trouble getting transportation to medical appointments?: No Do you have trouble paying your heating and electricity bill?: Yes Do you have trouble taking care of your child, family member or friend?: No Do you have trouble with day-to-day activities such as bathing, preparing meals, shopping, managing finances, etc.?: Yes Are you currently unemployed and looking for a job?: I choose not to answer this question Are you interested in more education?: No Currently or been in a relationship where the following occur: No concerns reported THRIVE Score: 3 CAT-7 AMB Questionnaire CAT-7 Date CAT - 7 assessed: 03/29/24 Source: Developed by Drs. Franki Berry, Kenzie Mireles, Jose Regalado and colleagues, with an educational guillermo from [employer]. Physical exam (Primary Care) Vital Signs: Last Vital Signs Pulse 75 08/08/24 13:58 BP 122/80 08/08/24 13:58 Pulse Ox 98 08/08/24 13:58 BMI result Body Mass Index 35.3 Tobacco/Smoking Status: Tobacco use Status Tobacco use date assessed 03/29/24 08/08/24 13:59 Patient Tobacco Use Status Never used Tobacco 08/08/24 13:59 e-Cigarette/Vaping Use Never Used 08/08/24 13:59 PHQ-9: PHQ-9 Score PHQ-9: Total score 0 08/08/24 14:10 Depression Screening Interpretation: Negative Thrive Assessment: Date of Thrive Assessment Date Thrive assessed 08/08/24 08/08/24 14:10 Currently or been in a relationship where the following occur: No concerns reported Coding Level of Care Code Est Pt Level 3 (50673) Diagnoses Essential hypertension I10 Dyslipidemia E78.5 Additional Codes PHQ-9 - 60679 - PHQ-9 Billing: Yes ([id number]) Assessment & Plan Assessment & Plan (1) Essential hypertension: Code(s): I10 - Essential (primary) hypertension Category: Medical (2) Dyslipidemia: Code(s): E78.5 - Hyperlipidemia, unspecified Category: Medical Plan . Orders: Orders Complete Blood Count Auto Diff Today E78.5 - Hyperlipidemia, unspecified, I10 - Essential (primary) hypertension Comprehensive [place]. Panel Fast Today E78.5 - Hyperlipidemia, unspecified, I10 - Essential (primary) hypertension TSH reflex Free T4 Today E78.5 - Hyperlipidemia, unspecified, I10 - Essential (primary) hypertension Lipid Panel Today E78.5 - Hyperlipidemia, unspecified, I10 - Essential (primary) hypertension UA CC w/rflx Micro + Cult Today E78.5 - Hyperlipidemia, unspecified, I10 - Essential (primary) hypertension
--- OUTSIDE RECORDS SUMMARY | 2024-08-08 14:20 | XMS_ITS | Clinical Summary ---
Author Organization [facility] Address [address] [place] [address] Care Team Providers Care Pulp Beater Name Role Phone Jeff Chi NP Primary Care Provider [phone] Allergies Active Allergy Reactions Criticality Noted Date [...] (Season Ended) 2024 Insurance [employer] Open Access ([id number]) Care Teams Pulp Beater Relationship Specialty Start Date End Date Jeff Chi NP [address] [place] [address] PCP - General Nurse Practitioner 08/06/20
--- OUTSIDE RECORDS SUMMARY | 2024-08-08 14:20 | XMS_ITS | Data Portability ---
Author Organization [facility], [address] Address [address] [place] [address] Care Team Providers Care Jack Strip Assembler Name Role Phone [facility] Primary Care Provider [phone] Assessment No assessment recorded. Plan of Treatment Reminders Order Date Submit Date Provider Last Modified By Organization Details Last Modified Time Details Appointments None recorded. Lab microorgani sm identificat ion, unspecified specimen 2022 023 [place] [facility], [facility]7 [facility], [place], [address], 06:07:20 Referral None recorded. Procedures None recorded. Surgeries None recorded. Imaging None recorded. Medication Orders Bactrim DS 800 mg-160 mg tablet 2022 023 [facility], [address] [place], [place], [id number], 15:56:45 Patient TargetsNo targets recorded. Patient InstructionsNo instructions recorded. Reason for Referral None Reported. Results Created Date Observation Date Name Description Value Unit Range Abnormal Flag Note LastModifiedBy Organization Detail LastModifiedTime 06/28/1907/01/2022 AEROB IC BACTE RIAL CULTU RE aerobic bacterial culture FINAL REPORT abnormal Not Available [facility] ([facility]) [address] [facility], [place], [address], 07/01/2022 06:07:24 06/28/19 23 07/01/2022 AEROB IC [...] p A). (CLSI ) Not Available [facility] ([facility]) [address] [facility], [place], [address], 07/01/2022 06:07:24 Result Notes None recorded. Problems Name Problem SNOMED Code Status Onset Date Resolution Date Notes Provider Name and Address Organization Details Recorded Time Diabetes mellitus 28988179 Active 023 Rosa chahal PA - [facility] 3 15:34:49 Arthritis 0571341 Active 023 Rosa chahal PA - [facility] 3 15:34:57 Problem Notes None recorded. Procedures Surgical History Date Name Laterality Status Provider Name and Address Organization Details Recorded Time 3 I&D, without packing completed Evan Hernandez NP [address] [facility] [place], [address], PA - [facility] 06/27/2022 15:54:01 3 OC-UDS Send Out Template DOT completed TIFFANIE WILLIAMSON PA - [facility] 06/02/2022 09:23:27 Imaging Results None recorded. Procedure Notes None recorded. Medical Equipment None Reported. Allergies Allergen ID Allergen Name Allergen Category Reaction Reaction Severity Criticality Documentation Date Start Date Code Code System Note Provider Name and Address Organization Details Recorded Time 330361 Zosyn medicatio n rash Not available Not available 06/27/2022 84914 RxNorm Rosa chahal PA - [facility] [...] Updated DateTime 3 182.88 cm 35.1 kg/m2 621157. 42 g 97.3 [degF] 18 /min 98 [...] SNOMED-CT Code Diagnosis ICD10 Code Diagnosis Note [id number] [facility] [address] [address] 08/09/2020 15:23:10 08/09/2020 15:36:28 [id number] [address] [facility] [place] [address] 05/10/2020 08:02:39 05/10/2020 08:35:47 [id number] [address] [facility] [place] [address] 10/13/2016 13:21:02 10/13/2016 14:08:54 [id number] [address] [facility] [place] [address] 06/22/2017 10:40:29 06/22/2017 11:17:38 [id number] [address] [facility] [place] [address] 10/22/2015 12:11:35 10/22/2015 14:31:42 [id number] [address] [facility] [place] [address] 08/22/2018 08:22:09 08/22/2018 08:58:23 [id number] [address] [facility] [place] [address] 06/16/2017 12:08:20 06/16/2017 12:29:06 [id number] [address] [facility] [place] [address] 10/14/2020 15:56:09 10/14/2020 17:28:26 [id number] Binta Conteh MD [address] [facility] [place] [address] 06/02/2022 08:25:09 06/02/2022 09:27:52 History and physical examination, occupation [id number] Z02.1 [id number] Evan Hernandez NP [address] [address] 06/27/2022 15:05:30 06/27/2022 16:01:01 Paronychia of right thumb [id number] [id number] L03.011 Health Concerns Section Related Observation LastModified by Organization Detai ls LastModified Time None Recorded Concern Status LastModified by Organization Details LastModified Time None Recorded Advance Directives Directive None Recorded Payers Insurance Date Sequence Insurance Name Policy Number Policy Peña Covered Member ID Peña Member ID Guarantor Name 05/19/2024 1 [facility] - HEALTH NET PLAN (MEDICAID HMO) Cameron Cortez [id number] Cameron Cortez 05/19/2024 OC-ESCREEN Cameron Cortez [id number] Cameron Cortez Notes Date Note Type [...] Evan Hernandez NP [address] [place], [address], [place] - [facility] 06/27/2022 15:56:47
--- OUTSIDE RECORDS SUMMARY | 2024-08-08 14:20 | XMS_ITS | Clinical Summary ---
Author Organization [address] [facility] Address [address] [place] [address] Phone Care Team Providers Care Dressmaker Helper Name Role Phone Jeff Chi NP Primary Care Provider [phone] Surgical History Surgery Date Site/Laterality Comments OTHER [...] mellitus), type 2 with peripheral vascular complications ([facility]) H/O retropharyngeal abscess DX:H /O [...] patient's age to complete this topic Insurance [facility] PLAN Care Teams Dressmaker Helper Relationship Specialty Start Date End Date Jeff Chi NP [address] [place], [place] PCP - General Family Medicine 07/30/19
== END 2024-08-08 16:27 | disposition home or self-care (01) ==
LOC: HO.HMCC 13:48
PROVIDERS: PCP Nurse Practitioner Family; Visit Provider Nurse Practitioner Family
DX: I10 Essential (primary) hypertension (principal); E78.5 Hyperlipidemia, unspecified

== ENCOUNTER → 2024-08-08 13:43 | Outpatient (BNVA) | payer OTHER, SELFPAY | PROVIDERS: PCP Nurse Practitioner Family; Visit Provider Nurse Practitioner Family | DX: E11.9 Type 2 diabetes mellitus without complications (principal); E78.5 Hyperlipidemia, unspecified; I10 Essential (primary) hypertension | CPT/HCPCS: 96127; 99212 ==

== ENCOUNTER 2024-08-15 09:27 | Outpatient (REF) | payer OTHER, SELFPAY ==
--- OUTSIDE RECORDS SUMMARY | 2024-08-15 10:07 | XMS_ITS | Data Portability ---
Author Organization DREW Benjamin s, [address] Address [address] [place] [address] Care Team Providers Care Roof Painter Name Role Phone [facility] Primary Care Provider Assessment No assessment recorded. Plan of Treatment Reminders Order Date Submit Date Provider Last Modified By Organization Details Last Modified Time Details Appointments None recorded. Lab microorgani sm identificat ion, unspecified specimen 2022 023 [place] [facility], [facility], [place], [address], 06:07:20 Referral None recorded. Procedures None recorded. Surgeries None recorded. Imaging None recorded. Medication Orders Bactrim DS 800 mg-160 mg tablet 2022 023 [id number], [address] [place], [place], [phone], 15:56:45 Patient TargetsNo targets recorded. Patient InstructionsNo instructions recorded. Reason for Referral None Reported. Results Created Date Observation Date Name Description Value Unit Range Abnormal Flag Note LastModifiedBy Organization Detail LastModifiedTime 06/28/1907/01/2022 AEROB IC BACTE RIAL CULTU RE aerobic bacterial culture FINAL REPORT abnormal Not Available [facility] ([facility]) [address] [facility], [place], [address], 07/01/2022 06:07:24 06/28/1907/01/2022 AEROB IC BACTE RIAL [...] nonsu scept ible isola yaakov are extre ahyden rare in any beta- hemol ytic strep tococ cus and have not been repor kristen for Strep tococ cus pyoge josé miguel (grou p A). (CLSI ) Not Available [facility] ([facility]) [address] [facility], [place], [address], 07/01/2022 06:07:24 Result Notes None recorded. Problems Name Problem SNOMED Code Status Onset Date Resolution Date Notes Provider Name and Address Organization Details Recorded Time Diabetes mellitus 20998503 Active 023 Rosa chahal PA - [facility] 3 15:34:49 Arthritis 8782917 Active 023 Rosa chahal PA - [facility] 3 15:34:57 Problem Notes None recorded. Procedures Surgical History Date Name Laterality Status Provider Name and Address Organization Details Recorded Time 3 I&D, without packing completed Evan Hernandez NP [address] [facility] [place], [address], PA - [facility] 06/27/2022 15:54:01 3 OC-UDS Send Out Template DOT completed TIFFANIE WILLIAMSON PA - [facility] 06/02/2022 09:23:27 Imaging Results None recorded. Procedure Notes None recorded. Medical Equipment None Reported. Allergies Allergen ID Allergen Name Allergen Category Reaction Reaction Severity Criticality Documentation Date Start Date Code Code System Note Provider Name and Address Organization Details Recorded Time 161309 Zosyn medicatio n rash Not available Not available 06/27/2022 68102 RxNorm Rosa chahal PA - [facility] [...] Updated DateTime 3 182.88 cm 35.1 kg/m2 877118. 42 g 97.3 [degF] 18 /min 98 [...] SNOMED-CT Code Diagnosis ICD10 Code Diagnosis Note [id number] [facility] [address] [address] 08/09/2020 15:23:10 08/09/2020 15:36:28 [id number] [address] [facility] [place] [address] 05/10/2020 08:02:39 05/10/2020 08:35:47 [id number] [address] [facility] [place] [address] 10/13/2016 13:21:02 10/13/2016 14:08:54 [id number] [address] [facility] [place] [address] 06/22/2017 10:40:29 06/22/2017 11:17:38 [id number] [address] [facility] [place] [address] 10/22/2015 12:11:35 10/22/2015 14:31:42 [id number] [address] [facility] [place] [address] 08/22/2018 08:22:09 08/22/2018 08:58:23 [id number] [address] [facility] [place] [address] 06/16/2017 12:08:20 06/16/2017 12:29:06 [id number] [address] [facility] [place] [address] 10/14/2020 15:56:09 10/14/2020 17:28:26 [id number] Binta Conteh MD [address] [facility] [place] [address] 06/02/2022 08:25:09 06/02/2022 09:27:52 History and physical examination, occupation [id number] Z02.1 [id number] Evan Hernandez NP [address] [address] 06/27/2022 15:05:30 06/27/2022 16:01:01 Paronychia of right thumb [id number] L03.011 Health Concerns Section Related Observation LastModified by Organization Detai ls LastModified Time None Recorded Concern Status LastModified by Organization Details LastModified Time None Recorded Advance Directives Directive None Recorded Payers Insurance Date Sequence Insurance Name Policy Number Policy Peña Covered Member ID Peña Member ID Guarantor Name 05/19/2024 1 [facility] - HEALTH NET PLAN (MEDICAID HMO) Cameron Cortez [id number] Cameron Cortez 05/19/2024 OC-ESCREEN Cameron Cortez [id number] Cameron Cortez Notes Date Note Type [...] Evan Hernandez NP [address] [place], [address], [place] - [facility] 06/27/2022 15:56:47
[2024-08-15 13:24] LABS: MANUAL DIFF FLAG NO
[2024-08-15 13:31] LABS: Basophils Percent Auto 0.3 % (0-2); Eosinophils Absolute Auto 0.2 X10*3/uL (0.0-0.4); Eosinophils Percent Auto 3.2 % (0-4); Hematocrit 43.9 % (42.0-52.0); Hemoglobin 14.3 g/dl (14.0-18.0); Imm Gran Abs Auto 0.02 X10*3/uL (0.00-0.03); Imm Gran Pct Auto 0.3 % (0.0-0.4); Lymphocytes Absolute Auto 1.5 X10*3/uL (1.2-4.9); Mean Corpuscular HGB Conc 32.6 g/dl (31.0-36.0); Mean Corpuscular Hemoglobin 29.2 pg (27.0-33.0); Mean Corpuscular Volume 89.8 fL (80.0-98.0); Mean Platelet Volume 10.4 fL (9.4-12.4); Monocytes Absolute Auto 0.3 X10*3/uL (0.1-1.2); Monocytes Percent Auto 4.6 % (2-11); Neutrophils Absolute Auto 4.2 x10*3/uL (2.0-8.3); Neutrophils Percent Auto 67.6 % (45-73); Platelet Count 230 X10*3/uL (160-400); Red Blood Count 4.89 X10*6/uL (4.60-5.80); White Blood Count 6.2 X10*3/uL (4.8-10.8)
[2024-08-15 14:09] LABS: Alanine Aminotransferase 30 U/L (0-40); Albumin Level 4.3 g/dL (3.5-5.0); Alkaline Phosphatase 57 U/L (39-117); Anion Gap 12 (12-20); Aspartate Amino Transferase 28 U/L (5-37); Bilirubin Total 0.5 mg/dL (0.0-1.0); Blood Urea Nitrogen 11 mg/dL (9-16); Calcium 8.8 mg/dL (8.4-10.2); Carbon Dioxide 27 mmol/L (22-29); Chloride 106 mmol/L (96-108); Cholesterol 204 mg/dL (<200); Estimated Glomerular Filt Rate > 60; Glucose Fasting 139 mg/dL (60-99); HDL Cholesterol 34 mg/dL (>40); LDL Cholesterol Calculated 122 mg/dL (<100); Sodium 141 mmol/L (135-145); Total Protein 6.8 g/dL (6.5-8.0); Triglycerides 243 mg/dL (<150)
[2024-08-15 14:10] LABS: TSH reflex Free T4 1.42 uIU/mL (0.32-4.0)
== END 2024-08-15 09:28 | disposition home or self-care (01) ==
LOC: HO.HMGCLDS 09:27
PROVIDERS: PCP Nurse Practitioner Family; Visit Provider Nurse Practitioner Family
DX: I10 Essential (primary) hypertension (principal); E78.5 Hyperlipidemia, unspecified
CPT/HCPCS: 36415; 80053; 80061; 84443; 85025

== ENCOUNTER 2024-09-03 09:55 | Outpatient (REF) | payer OTHER, SELFPAY ==
--- OUTSIDE RECORDS SUMMARY | 2024-09-03 10:57 | XMS_ITS | Data Portability ---
Author Organization DREW Benjamin s, [address] Address [address] [place] [address] Care Team Providers Care Custodial Officer Name Role Phone [facility] Primary Care Provider Assessment No assessment recorded. Plan of Treatment Reminders Order Date Submit Date Provider Last Modified By Organization Details Last Modified Time Details Appointments None recorded. Lab microorgani sm identificat ion, unspecified specimen 2022 023 [place] [facility], [place], [address], 06:07:20 Referral None recorded. Procedures None recorded. Surgeries None recorded. Imaging None recorded. Medication Orders Bactrim DS 800 mg-160 mg tablet 2022 023 [id number], [address] [place], [place], [id number], 15:56:45 Patient TargetsNo targets recorded. Patient InstructionsNo instructions recorded. Reason for Referral None Reported. Results Created Date Observation Date Name Description Value Unit Range Abnormal Flag Note LastModifiedBy Organization Detail LastModifiedTime 06/28/1907/01/2022 AEROB IC BACTE RIAL CULTU RE aerobic bacterial culture FINAL REPORT abnormal Not Available [facility] ([facility]) [address] [facility], [place], [address], 07/01/2022 06:07:24 06/28/1907/01/2022 AEROB IC BACTE RIAL [...] (CLSI ) Not Available [facility] ([facility]) [address] [facility], [place], [address], 07/01/2022 06:07:24 Result Notes None recorded. Problems Name Problem SNOMED Code Status Onset Date Resolution Date Notes Provider Name and Address Organization Details Recorded Time Diabetes mellitus 09217193 Active 023 Rosa chahal PA - [facility] 3 15:34:49 Arthritis 0994892 Active 023 Rosa chahal PA - [facility] 3 15:34:57 Problem Notes None recorded. Procedures Surgical History Date Name Laterality Status Provider Name and Address Organization Details Recorded Time 3 I&D, without packing completed Evan Hernandez NP [address] [facility] [place], [address], PA - [facility] 06/27/2022 15:54:01 3 OC-UDS Send Out Template DOT completed TIFFANIE WILLIAMSON PA - [facility] 06/02/2022 09:23:27 Imaging Results None recorded. Procedure Notes None recorded. Medical Equipment None Reported. Allergies Allergen ID Allergen Name Allergen Category Reaction Reaction Severity Criticality Documentation Date Start Date Code Code System Note Provider Name and Address Organization Details Recorded Time 454271 Zosyn medicatio n rash Not available Not available 06/27/2022 95741 RxNorm Rosa chahal PA - [facility] [...] Updated DateTime 3 182.88 cm 35.1 kg/m2 321462. 42 g 97.3 [degF] 18 /min 98 [...] SNOMED-CT Code Diagnosis ICD10 Code Diagnosis Note [id number] [facility] [address] [address] 08/09/2020 15:23:10 08/09/2020 15:36:28 [id number] [address] [facility] [place] [address] 05/10/2020 08:02:39 05/10/2020 08:35:47 [id number] [address] [facility] [place] [address] 10/13/2016 13:21:02 10/13/2016 14:08:54 [id number] [address] [facility] [place] [address] 06/22/2017 10:40:29 06/22/2017 11:17:38 [id number] [address] [place] [address] 10/22/2015 12:11:35 10/22/2015 14:31:42 [id number] [address] [facility] [place] [address] 08/22/2018 08:22:09 08/22/2018 08:58:23 [id number] [address] [place] [address] 06/16/2017 12:08:20 06/16/2017 12:29:06 [id number] [address] [facility] [place] [address] 10/14/2020 15:56:09 10/14/2020 17:28:26 [id number] Binta Conteh MD [address] [facility] [place] [address] 06/02/2022 08:25:09 06/02/2022 09:27:52 History and physical examination, occupation [id number] Z02.1 [id number] Evan Hernandez NP [address] [address] 06/27/2022 15:05:30 06/27/2022 16:01:01 Paronychia of right thumb [id number] L03.011 Health Concerns Section Related Observation LastModified by Organization Detai ls LastModified Time None Recorded Concern Status LastModified by Organization Details LastModified Time None Recorded Advance Directives Directive None Recorded Payers Insurance Date Sequence Insurance Name Policy Number Policy Peña Covered Member ID Peña Member ID Guarantor Name 05/19/2024 1 [facility] - HEALTH NET PLAN (MEDICAID HMO) Cameron Cortez [id number] Cameron Cortez 05/19/2024 OC-ESCREEN Cameron Cortez [id number] Cameron Cortez Notes Date Note Type [...] Evan Hernandez NP [address] [place], [address], [place] - [facility] 06/27/2022 15:56:47
[2024-09-03 13:31] LABS: B Type Natriuretic Peptide < 10 pg/mL (<100)
[2024-09-03 13:42] LABS: Estimated Average Glucose 160 mg/dL; Hemoglobin A1c % 7.2 % (<6.0)
[2024-09-03 13:43] LABS: Alanine Aminotransferase 22 U/L (0-40); Aspartate Amino Transferase 24 U/L (5-37); Cholesterol 223 mg/dL (<200); Estimated Glomerular Filt Rate > 60; HDL Cholesterol 34 mg/dL (>40); LDL Cholesterol Calculated 132 mg/dL (<100); Triglycerides 285 mg/dL (<150)
[2024-09-03 14:13] LABS: Vitamin B12 543 pg/mL (200-900)
== END 2024-09-03 09:56 | disposition home or self-care (01) ==
LOC: HO.HMGCLDS 09:55
PROVIDERS: PCP Nurse Practitioner Family; Visit Provider Physician Assistant Medical
DX: E11.65 Type 2 diabetes mellitus with hyperglycemia (principal); E78.5 Hyperlipidemia, unspecified; Z91.89 Other specified personal risk factors, not elsewhere classified; R79.89 Other specified abnormal findings of blood chemistry
CPT/HCPCS: 36415; 80061; 82565; 82607; 83036; 83880; 84450; 84460

== ENCOUNTER 2024-09-04 14:11 | Outpatient (AMB) | payer OTHER, SELFPAY ==
--- NOTE | 2024-09-04 14:21 | MHC.OFFVIS ---
Vital Signs 09/04/24 14:23 Height 6 ft Weight 261 lb 0.437 oz BMI 35.4 BP 102/70 Blood Pressure Location Rt brachial Position Sitting Pulse 80 Pulse Source Pulse Oximeter Pulse Oximetry (%) 98 Oxygen Delivery Method Room Air Intake Visit Reasons: Type II diabetes Intake Note: Patient present today to follow up on Type 2 Diabetes Mellitus. Last Diabetic Eye exam: 07/2023 Last Podiatry Visit: Does not see a Director Of Provider Relations Random Glucose: 96 mg/dl HgA1C: 7.2% 09/03/2024 Tower Truck Driver Required: No Accompanied by: Self / Same As Patient Allergies ertapenem Allergy (Intermediate, Verified 09/04/24 14:23) Hives piperacillin [From Zosyn] Allergy (Intermediate, Verified 09/04/24 14:23) Hives tazobactam [From Zosyn] Allergy (Intermediate, Verified 09/04/24 14:23) Hives vancomycin Allergy (Intermediate, Verified 09/04/24 14:23) Hives metformin Adverse Reaction (Mild, Verified 09/04/24 14:23) Diarrhea jardiance Adverse Reaction (Intermediate, Uncoded 09/04/24 14:23) blurry vision HPI Comments Details: This is a 49-year-old male with a past medical history of hyperlipidemia, type 2 diabetes diagnosed 2016, hypertension, SHERLEY, spondylosis and obesity presenting for diabetic management. Recent glucose readings on his phone are in target range aside from one reading of 190. Not exercising due to work injury November 2022. Followed by [facility]. He has an appointment on September 15 with a an independent physician who will decide if he can proceed with surgery. Hemoglobin a1c 7.2% dwn from 9.8%. Current medication: Ozempic 2 mg weekly. He increased the dose a few weeks ago. Denies side effects. Past medications: Trulicity (blurry vision/ineffective) Metformin was discontinued previously due to diarrhea. Jardance stopped due to blurry vision and urinary frequency. Glimepride he stopped after starting Ozempic. He stopped eating rice. He has black coffee. He is following a low-carbohydrate diet. He has lost some weight. No alcohol. Nonsmoker. Hypoglycemia symptoms: none Hyperglycemia symptoms: none Microvascular complications: mild neuropathy in his feet. Macrovascular complications: none Hypertension: treated with Lisinopril 2.5 mg. Previously on Losartan which was discontinued due to mylagias. Hyperlipidemia: Patient is off statins due to myalgias. His insurance denied Repatha. He was taking Zetia and Atlanta 3 fatty acids, but he stopped the Zetia. LDL and triglycerides above goal. ROS: Constitutional: No unexplained weight loss, fever, chills, fatigue or night sweats. Eyes: No loss of vision, blurry vision, double vision, eye pain, eye redness, eye discharge or itching. Respiratory: No shortness of breath, cough or sputum production. Cardiovascular: No chest pain, chest pressure or chest discomfort. No palpitations or pedal edema. Gastrointestinal: No nausea, vomiting or abdominal pain. Neurologic: No headache, dizziness, syncope, unilateral weakness, ataxia, numbness or tingling in the extremities. Physical exam: Constitutional: Alert, in no distress. Head: Normocephalic. Eyes: Pupils are equal, round and reactive to light. Extraocular muscles intact. Neck: Supple, Full range of motion. No lymphadenopathy. No palpable thyroid masses. Respiratory: Clear to auscultation. Cardiovascular: S1 S2 regular. No murmurs. [facility] Medical History Low testosterone Proteinuria Blurry vision Obesity due to excess calories Hx of sepsis Retropharyngeal abscess Cellulitis of pharynx Type 2 diabetes mellitus with hyperglycemia Elevated CPK DAVIS positive Fibromyalgia Controlled diabetes mellitus without complication, without long-term current use of insulin Hyperlipidemia LDL goal <100 Essential hypertension Vitamin D insufficiency Surgical History History of throat surgery H/O shoulder surgery Family History Father No problems noted. Mother No problems noted. 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 Cognitive needs: No Hearing needs: No Vision needs: No Physical Exam Vital Signs: Last Vital Signs Pulse 80 09/04/24 14:23 BP 102/70 09/04/24 14:23 Pulse Ox 98 09/04/24 14:23 Oxygen Delivery Method Room Air 09/04/24 14:23 BMI result Body Mass Index 35.4 Results Reviewed Results Reviewed: Laboratory Tests 09/03/24 10:26 Creatinine 0.76 Estimated GFR > 60 Hemoglobin A1c % 7.2 H AST 24 ALT 22 B-Natriuretic Peptide < 10 Triglycerides 285 H Cholesterol 223 H LDL Cholesterol, Calc 132 H HDL Cholesterol 34 L Vitamin B12 543 Assessment & Plan Assessment & Plan (1) Type 2 diabetes mellitus with hyperglycemia: Code(s): E11.65 - Type 2 diabetes mellitus with hyperglycemia Category: Medical Qualifiers: Diabetes mellitus buttermaker continuous churn insulin use: without senior living use Qualified Code(s): E11.65 - Type 2 diabetes mellitus with hyperglycemia (2) Obesity due to excess calories: Code(s): E66.09 - Other obesity due to excess calories Category: Medical Qualifiers: Obesity classification: adult class 1 (BMI 30 - 34.9) Serious obesity comorbidity presence: with serious comorbidity Body mass index: BMI 33.0-33.9 Qualified Code(s): E66.09 - Other obesity due to excess calories; Z68.33 - Body mass index [BMI] 33.0-33.9, adult Plan In summary this is a 48 year old male with type 2 diabetes with neuropathy. A1C near goal. BG in target range since increasing Ozempic. Continue Ozempic 2 mg weekly. If his next A1c is not under 7% we will restart glimepiride. Discussed pathophysiology of Type II Diabetes Mellitus with the patient in detail.? I explained the buttermaker continuous churn risks and complications associated with uncontrolled diabetes including nephropathy, neuropathy, peripheral vascular disease, retinopathy, increased risk of heart disease and stroke.? If you experience low blood sugar, treat this by eating a chewable fruit candy like skittles or jelly beans (about 8 pieces), 4 ounces (1/2 cup) of fruit juice (not diet), 1 tablespoon of honey or 4 glucose tablets. If your blood sugar is under 55, take double the amount of one of the above. Recheck your blood sugar in 15 minutes. Continue Atlanta 3 and restart Zetia. He was evaluated by Nephrology for proteinuria. Follow up in 3 months for type 2 diabetes. Medications: New ezetimibe (Zetia) 10 mg PO DAILY 90 tabs 1RF Coding Level of Care Code Est Pt Level 4 (26382) Complex EM visit Add On G2211 Diagnoses Type 2 diabetes mellitus with hyperglycemia, without long-term current use of insulin E11.65 Diabetes mellitus buttermaker continuous churn insulin use: without senior living use Class 1 obesity due to excess calories with serious comorbidity and body mass index (BMI) of 33.0 to 33.9 in adult E66.09; Z68.33 Obesity classification: adult class 1 (BMI 30 - 34.9) Serious obesity comorbidity presence: with serious comorbidity Body mass index: BMI 33.0-33.9
[2024-09-04 14:23] VITALS: BP 102/70; PULSE 80; O2SAT 98; BMI 35.4
[2024-09-04 14:31] LABS: Glucose, Whole Blood 96 mg/dL (60-115)
--- OUTSIDE RECORDS SUMMARY | 2024-09-04 16:23 | XMS_ITS | Data Portability ---
Author Organization DREW Benjamin s, [address] Address [address] [place] [address] Care Team Providers Care Sheet Metal Worker Apprentice Name Role Phone [facility] Primary Care Provider Assessment No assessment recorded. Plan of Treatment Reminders Order Date Submit Date Provider Last Modified By Organization Details Last Modified Time Details Appointments None recorded. Lab microorgani sm identificat ion, unspecified specimen 2022 023 [place] [facility], [facility], [place], [address], 06:07:20 Referral None recorded. Procedures None recorded. Surgeries None recorded. Imaging None recorded. Medication Orders Bactrim DS 800 mg-160 mg tablet 2022 023 [id number], [address] [place], [place], [id number], 15:56:45 Patient TargetsNo targets recorded. Patient InstructionsNo instructions recorded. Reason for Referral None Reported. Results Created Date Observation Date Name Description Value Unit Range Abnormal Flag Note LastModifiedBy Organization Detail LastModifiedTime 06/28/1907/01/2022 AEROB IC BACTE RIAL CULTU RE aerobic bacterial culture FINAL REPORT abnormal Not Available [facility] ([facility]) [address] [facility], [place], [address], 07/01/2022 06:07:24 06/28/1907/01/2022 AEROB IC BACTE RIAL [...] p A). (CLSI ) Not Available [facility] ([facility]) [address] [facility], [place], [address], 07/01/2022 06:07:24 Result Notes None recorded. Problems Name Problem SNOMED Code Status Onset Date Resolution Date Notes Provider Name and Address Organization Details Recorded Time Diabetes mellitus 29471500 Active 023 Rosa chahal PA - [facility] 3 15:34:49 Arthritis 7377303 Active 023 Rosa chahal PA - [facility] 3 15:34:57 Problem Notes None recorded. Procedures Surgical History Date Name Laterality Status Provider Name and Address Organization Details Recorded Time 3 I&D, without packing completed Evan Hernandez NP [address] [facility] [place], [address], PA - [facility] 06/27/2022 15:54:01 3 OC-UDS Send Out Template DOT completed TIFFANIE WILLIAMSON PA - [facility] 06/02/2022 09:23:27 Imaging Results None recorded. Procedure Notes None recorded. Medical Equipment None Reported. Allergies Allergen ID Allergen Name Allergen Category Reaction Reaction Severity Criticality Documentation Date Start Date Code Code System Note Provider Name and Address Organization Details Recorded Time 917303 Zosyn medicatio n rash Not available Not available 06/27/2022 44991 RxNorm Rosa chahal PA - [facility] [...] Updated DateTime 3 182.88 cm 35.1 kg/m2 290054. 42 g 97.3 [degF] 18 /min 98 [...] SNOMED-CT Code Diagnosis ICD10 Code Diagnosis Note [id number] [facility] [address] [address] 08/09/2020 15:23:10 08/09/2020 15:36:28 [id number] [address] [facility] [place] [address] 05/10/2020 08:02:39 05/10/2020 08:35:47 [id number] [address] [facility] [place] [address] 10/13/2016 13:21:02 10/13/2016 14:08:54 [id number] [address] [facility] [place] [address] 06/22/2017 10:40:29 06/22/2017 11:17:38 [id number] [address] [facility] [place] [address] 10/22/2015 12:11:35 10/22/2015 14:31:42 [id number] [address] [facility] [place] [address] 08/22/2018 08:22:09 08/22/2018 08:58:23 [id number] [address] [facility] [place] [address] 06/16/2017 12:08:20 06/16/2017 12:29:06 [id number] [address] [facility] [place] [address] 10/14/2020 15:56:09 10/14/2020 17:28:26 [id number] Binta Conteh MD [address] [facility] [place] [address] 06/02/2022 08:25:09 06/02/2022 09:27:52 History and physical examination, occupation 459378190 Z02.1 [id number] Evan Hernandez NP [address] [address] 06/27/2022 15:05:30 06/27/2022 16:01:01 Paronychia of right thumb [id number] L03.011 Health Concerns Section Related Observation LastModified by Organization Detai ls LastModified Time None Recorded Concern Status LastModified by Organization Details LastModified Time None Recorded Advance Directives Directive None Recorded Payers Insurance Date Sequence Insurance Name Policy Number Policy Peña Covered Member ID Peña Member ID Guarantor Name 05/19/2024 1 [facility] - HEALTH NET PLAN (MEDICAID HMO) Cameron Cortez [id number] Cameron Cortez 05/19/2024 OC-ESCREEN Cameron Cortez [id number] Cameron Cortez Notes Date Note Type [...] Evan Hernandez NP [address] [place], [address], [place] - [facility] 06/27/2022 15:56:47
== END 2024-09-04 14:50 | disposition home or self-care (01) ==
LOC: HO.ENCR 14:12
PROVIDERS: PCP Nurse Practitioner Family; Visit Provider Physician Assistant Medical
DX: E11.65 Type 2 diabetes mellitus with hyperglycemia (principal); E66.09 Other obesity due to excess calories; Z68.33 Body mass index [BMI] 33.0-33.9, adult

== ENCOUNTER → 2024-09-04 14:11 | Outpatient (BNVA) | payer OTHER, SELFPAY | PROVIDERS: PCP Nurse Practitioner Family; Visit Provider Physician Assistant Medical | DX: E11.65 Type 2 diabetes mellitus with hyperglycemia (principal); E66.09 Other obesity due to excess calories; Z68.33 Body mass index [BMI] 33.0-33.9, adult | CPT/HCPCS: 82947; 99212 ==

== ENCOUNTER 2024-12-04 13:39 | Outpatient (AMB) | payer OTHER, SELFPAY ==
--- NOTE | 2024-12-04 13:41 | A.OFFVIS_ITS ---
Vital Signs 12/04/24 13:44 Height 6 ft Weight 255 lb 11.779 oz BMI 34.7 BP 128/70 Blood Pressure Location Rt brachial Position Sitting Pulse 89 Pulse Source Pulse Oximeter Pulse Oximetry (%) 97 Oxygen Delivery Method Room Air Intake Visit Reasons: Type II diabetes Intake Note: Patient present today to follow up on Type 2 Diabetes Mellitus. Last Diabetic Eye exam: 09/06/2024, [facility] Last Podiatry Visit: Does not see a Marriage Counselor Random Glucose: 191 mg/dL HgA1C: 6.9%, 12/04/2024 Contracts Law Professor Required: No Accompanied by: Self / Same As Patient Allergies ertapenem Allergy (Intermediate, Verified 12/04/24 14:00) Hives piperacillin (From Zosyn) Allergy (Intermediate, Verified 12/04/24 14:00) Hives tazobactam (From Zosyn) Allergy (Intermediate, Verified 12/04/24 14:00) Hives vancomycin Allergy (Intermediate, Verified 12/04/24 14:00) Hives metformin Adverse Reaction (Mild, Verified 12/04/24 14:00) Diarrhea jardiance Adverse Reaction (Intermediate, Uncoded 12/04/24 14:00) blurry vision HPI Comments Details: This is a 49-year-old male with a past medical history of hyperlipidemia, type 2 diabetes diagnosed 2016, hypertension, SHERLEY, spondylosis and obesity presenting for diabetic management. He had lower back surgery September 2024. He is feeling wonderful. He is starting PT and walking a mile every day. Hemoglobin a1c 6.9% 12/04/2024. Current medication: Ozempic 2 mg weekly. Denies side effects. Past medications: Trulicity (blurry vision/ineffective) Metformin was discontinued previously due to diarrhea. Jardance stopped due to blurry vision and urinary frequency. Glimepride he stopped after starting Ozempic. He stopped eating rice. He has black coffee. He is following a low- carbohydrate diet. He has lost more weight. No alcohol. Nonsmoker. Hypoglycemia symptoms: none Hyperglycemia symptoms: none Microvascular complications: mild neuropathy in his feet. Macrovascular complications: none Hypertension: treated with Lisinopril 2.5 mg. Previously on Losartan which was discontinued due to mylagias. Hyperlipidemia: Patient is off statins and Zetia due to myalgias. His insurance denied Repatha. He is taking [place] 3 fatty acids. ROS: Constitutional: No unexplained weight loss, fever, chills, fatigue or night sweats. Eyes: No loss of vision, blurry vision, double vision, eye pain, eye redness, eye discharge or itching. Respiratory: No shortness of breath, cough or sputum production. Cardiovascular: No chest pain, chest pressure or chest discomfort. No palpitations or pedal edema. Gastrointestinal: No nausea, vomiting or abdominal pain. Neurologic: No headache, dizziness, syncope, unilateral weakness, ataxia, numbness or tingling in the extremities. Physical exam: Constitutional: Alert, in no distress. Head: Normocephalic. Eyes: Pupils are equal, round and reactive to light. Extraocular muscles intact. Neck: Supple, Full range of motion. No lymphadenopathy. No palpable thyroid masses. Respiratory: Clear to auscultation. Cardiovascular: S1 S2 regular. No murmurs. Right foot: Warm and well perfused. No clubbing, cyanosis or edema. Intact DP pulse. Mildly decreased vibratory sensation. Intact sensation to monofilament. No open wounds. Left foot: Warm and well perfused. No clubbing, cyanosis or edema. Intact DP pulse. Mildly decreased vibratory sensation. Intact sensation to monofilament. No open wounds. [facility] Medical History Low testosterone Proteinuria Blurry vision Obesity due to excess calories Hx of sepsis Retropharyngeal abscess Cellulitis of pharynx Type 2 diabetes mellitus with hyperglycemia Elevated CPK DAVIS positive Fibromyalgia Controlled diabetes mellitus without complication, without long-term current use of insulin Hyperlipidemia LDL goal <100 Essential hypertension Vitamin D insufficiency Surgical History History of laminectomy History of throat surgery H/O shoulder surgery Family History Father No problems noted. Mother No problems noted. 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 Cognitive needs: No Hearing needs: No Vision needs: No Physical Exam Vital Signs: Last Vital Signs Pulse 89 12/04/24 13:44 BP 128/70 12/04/24 13:44 Pulse Ox 97 12/04/24 13:44 Oxygen Delivery Method Room Air 12/04/24 13:44 BMI result Body Mass Index 34.7 Results AMB Hemoglobin A1c AMB Hemoglobin A1c 6.9 % Last Edit by CJ Phipps on 12/04/24 14:00 Results Reviewed Results Reviewed: Laboratory Last Values Glucose (Clinic) 191 mg/dL (60-115) H 12/04/24 13:50 Hgb A1c (Clinic) 6.9 % (4.0-6.0) H 12/04/24 13:54 Laboratory Tests 09/03/24 10:26 Creatinine 0.76 Estimated GFR > 60 Hemoglobin A1c % 7.2 H AST 24 ALT 22 B-Natriuretic Peptide < 10 Triglycerides 285 H Cholesterol 223 H LDL Cholesterol, Calc 132 H HDL Cholesterol 34 L Vitamin B12 543 Assessment & Plan Assessment & Plan (1) Type 2 diabetes mellitus with hyperglycemia: Code(s): E11.65 - Type 2 diabetes mellitus with hyperglycemia Category: Medical Qualifiers: Diabetes mellitus skilled nursing insulin use: without skilled nursing use Qualified Code(s): E11.65 - Type 2 diabetes mellitus with hyperglycemia (2) Obesity due to excess calories: Code(s): E66.09 - Other obesity due to excess calories Category: Medical Qualifiers: Body mass index: BMI 33.0-33.9 Obesity classification: adult class 1 (BMI 30 - 34.9) Serious obesity comorbidity presence: with serious comorbidity Qualified Code(s): E66.09 - Other obesity due to excess calories; Z68.33 - Body mass index [BMI] 33.0-33.9, adult (3) Hyperlipidemia LDL goal <100: Code(s): E78.5 - Hyperlipidemia, unspecified Category: Medical Plan In summary this is a 49 year old male with controlled type 2 diabetes with neuropathy. Continue Ozempic 2 mg weekly. Discussed pathophysiology of Type II Diabetes Mellitus with the patient in detail.? I explained the skilled nursing risks and complications associated with uncontrolled diabetes including nephropathy, neuropathy, peripheral vascular disease, retinopathy, increased risk of heart disease and stroke.? If you experience low blood sugar, treat this by eating a chewable fruit candy like skittles or jelly beans (about 8 pieces), 4 ounces (1/2 cup) of fruit juice (not diet), 1 tablespoon of honey or 4 glucose tablets. If your blood sugar is under 50, take double the amount of one of the above. Recheck your blood sugar in 15 minutes. Continue [place] 3. Statin intolerant. Did not tolerate Zetia. Check lipid profile. Insurance does not cover Repatha. Recommended Mediterranean diet. He was evaluated by Nephrology for proteinuria. Follow up in 3 months for type 2 diabetes. Orders: Orders Lipid Panel Today E11.9 - Type 2 diabetes mellitus without complications, E78.5 - Hyperlipidemia, unspecified Alanine Aminotransferase Today E11.9 - Type 2 diabetes mellitus without complications AMB Hemoglobin A1c Today E11.65 - Type 2 diabetes mellitus with hyperglycemia Creatinine Today E11.9 - Type 2 diabetes mellitus without complications Aspartate Amino Transferase Today E11.9 - Type 2 diabetes mellitus without complications Coding Level of Care Code Est Pt Level 4 (72474) Complex EM visit Add On G2211 Diagnoses Type 2 diabetes mellitus with hyperglycemia, without long-term current use of insulin E11.65 Diabetes mellitus watermaster insulin use: without watermaster use Class 1 obesity due to excess calories with serious comorbidity and body mass index (BMI) of 33.0 to 33.9 in adult E66.09; Z68.33 Body mass index: BMI 33.0-33.9 Obesity classification: adult class 1 (BMI 30 - 34.9) Serious obesity comorbidity presence: with serious comorbidity Hyperlipidemia LDL goal <100 E78.5
[2024-12-04 13:44] VITALS: BP 128/70; PULSE 89; O2SAT 97; BMI 34.7
[2024-12-04 13:55] LABS: Glucose, Whole Blood 191 mg/dL (60-115)
--- OUTSIDE RECORDS SUMMARY | 2024-12-04 17:33 | XMS_ITS | Clinical Summary ---
Author Organization [address] [facility] Address [address] [place] [address] Phone Care Team Providers Care Advertising Director Name Role Phone Jeff Chi NP [...] mellitus), type 2 with peripheral vascular complications ([facility]) H/O retropharyngeal abscess DX:H /O [...] Panel) 04/24/2023 Colorectal Cancer Screening: Colonoscopy 04/24/2023 Diabetes: Annual Urine Albumin-Creatinine Ratio (uACR) 04/24/2023 Diabetes: Blood Sugar Contro l Test (HGBA1C) 04/24/2023 HIV Screening 04/24/2023 Hepatitis C Screening 04/24/2023 Hypertension/CHF/CAD Annual BMP Blood Test 04/24/2023 Social Influencers of Health Screening 04/24/2023 Depression Screening 03/21/2024 Pneumococcal Vaccine: 50+ Ye ars (1 of 1 - PCV) 2024 Zoster Vaccines (1 of 2) 2024 DTaP,Tdap,and Td Vaccines (2 - Td or Tdap) 09/02/2024 09/02/2014 COVID-19 Vaccine (1 - 2023-2 5 season) 2024 Influenza Vaccine (#1) 2024 HIB Vaccines Aged Out No longer [...] patient's age to complete this topic Insurance [facility] PLAN Care Teams Advertising Director Relationship Specialty Start Date End Date Jeff Chi NP [address] [place], [place] PCP - General Family Medicine 07/30/19
--- OUTSIDE RECORDS SUMMARY | 2024-12-04 17:33 | XMS_ITS | Encounter Summary ---
Author Organization [employer] [facility] Address [address] [place] [address] [address] [place] [address] Care Team Providers Care Automat Car Attendant Name Role Phone Unavailable Primary Care Provider Unavailabl e Encounter Details Date Type Department Care Team (Latest Contact Info) Description 03/05/2020 Abstract [facility] CONVERSIONS Dental, Provider, DDS Social History [...]
--- OUTSIDE RECORDS SUMMARY | 2024-12-04 17:33 | XMS_ITS | Clinical Summary ---
Author Organization [employer] Address [address] [place] [address] 7 [place] [address] Care Team Providers Care Finish Repairer Name Role Phone Unavailable Primary Care Provider [...] of 3 - 19+ 3-dose series) 1993 Pneumococcal Vaccine: 50+ Years (1 of 1 - PCV) 2024 Zoster Vaccines (1 of 2) 2024 DTaP/Tdap/Td Vaccines (2 - T d or Tdap) 09/02/2024 09/02/2014 COVID-19 Vaccine (4 - 2024-2 6 season) 2024 01/22/2022, 12/19/2020, 11/21/2020 Influenza Vaccine (#1) 2024 RSV Patients and Patients Aged 60 years [...] patient's age to complete this topic Insurance [facility]
--- OUTSIDE RECORDS SUMMARY | 2024-12-04 17:33 | XMS_ITS | Clinical Summary ---
Author Organization [facility] Address [address] [place] [address] Care Team Providers Care Tombstone Erector Helper Name Role Phone Jeff Chi NP Primary Care Provider [phone] Allergies Active Allergy Reactions Criticality Noted Date [...] of 1 - PCV) 025 Influenza Vaccine (#1) 2024 Insurance [employer] Open Access ([id number]) Care Teams Tombstone Erector Helper Relationship Specialty Start Date End Date Jeff Chi NP [address] [place] [address] PCP - General Nurse Practitioner 08/06/20
== END 2024-12-04 14:20 | disposition home or self-care (01) ==
LOC: HO.ENCR 13:40
PROVIDERS: PCP Nurse Practitioner Family; Visit Provider Physician Assistant Medical
DX: E11.65 Type 2 diabetes mellitus with hyperglycemia (principal); E66.09 Other obesity due to excess calories; Z68.33 Body mass index [BMI] 33.0-33.9, adult; E78.5 Hyperlipidemia, unspecified

== ENCOUNTER → 2024-12-04 13:39 | Outpatient (BNVA) | payer OTHER, SELFPAY | PROVIDERS: PCP Nurse Practitioner Family; Visit Provider Physician Assistant Medical | DX: E11.65 Type 2 diabetes mellitus with hyperglycemia (principal); E78.5 Hyperlipidemia, unspecified | CPT/HCPCS: 82947; 83036; 99212 ==

== ENCOUNTER 2024-12-18 15:22 | Outpatient (AMB) | payer OTHER, SELFPAY ==
[2024-12-18 16:03] VITALS: BP 130/88; PULSE 79; RESP 16; O2SAT 98; BMI 35.0
--- NOTE | 2024-12-18 16:03 | A.OFFPC_ITS ---
Vital Signs 12/18/24 16:03 12/18/24 16:50 Height 6 ft Weight 258 lb BMI 35.0 BP 130/88 130/84 Blood Pressure Location Lt brachial Position Sitting Respiration 16 Pulse 79 Pulse Source Pulse Oximeter Pulse Oximetry (%) 98 Oxygen Delivery Method Room Air Intake Visit Reasons: 4 months f/up Mechatronics Engineer Required: No Accompanied by: Self / Same As Patient Allergies ertapenem Allergy (Intermediate, Verified 12/18/24 17:04) Hives piperacillin (From Zosyn) Allergy (Intermediate, Verified 12/18/24 17:04) Hives tazobactam (From Zosyn) Allergy (Intermediate, Verified 12/18/24 17:04) Hives vancomycin Allergy (Intermediate, Verified 12/18/24 17:04) Hives ezetimibe (From Zetia) Adverse Reaction (Intermediate, Verified 12/18/24 17:04) myalgias Szhtgsx-OSH-DjG Reductase Inhibitor Adverse Reaction (Intermediate, Verified 12/18/24 17:04) myalgias metformin Adverse Reaction (Mild, Verified 12/18/24 17:04) Diarrhea jardiance Adverse Reaction (Intermediate, Uncoded 12/18/24 17:04) blurry vision Medication List - Last Reconciled 12/18/24 by LAMAR Hunt- blood-glucose meter (OneTouch Verio Flex Meter) As directed lisinopril 2.5 mg PO DAILY meloxicam 15 mg PO DAILY PRN montelukast 10 mg PO BEDTIME omega-3 acid ethyl esters 2 caps PO BID pregabalin 75 mg PO BID semaglutide (Ozempic) 2 mg (0.75 mL) subcut QWEEK Tobacco use date assessed: 12/18/24 Dental Screening Dental Screen Date: 12/18/24 Did you have a dental visit in the last 12 months?: Yes Did you have a dental problem in the last 6 months where you did not have access to dental care?: No HPI 4 months f/up HPI Details Chief Complaint The patient presents for a follow-up regarding hypertension management. History of Present Illness The patient is a 49-year-old male presenting with hypertension management. He denies experiencing any blurred vision, chest pain, or dyspnea, indicating stable blood pressure control. The patient reports a history of lumbar back surgery performed at the end of September. The surgery was successful, and he is currently undergoing physical therapy, which commenced this week. Social History Health Maintenance Review of Systems - Cardiovascular: Denies chest pain. - Respiratory: Denies dyspnea. - Neurological: Reports headache. - Ophthalmologic: Denies blurred vision. Physical Exam General: Cooperative, healthy appearing, comfortable, no acute distress and well developed Orientation: Patient oriented x3 Limitations: No limitations Head: Normal to inspection Ears: Hearing grossly normal bilaterally Nose: Normal external nose present Face and sinus: Normal facial exam Eyes: Appearance normal, both eyes and all related structures Neck: Normal visual inspection and Yes full ROM Respiratory: Normal respiratory effort and able to speak in complete sentences. Clear to auscultation bilaterally Cardiovascular: Regular rate and rhythm. Normal S1 and S2 GI: Normal to inspection. Soft to palpation and nontender Skin: No rashes or lesions noted Neuro: Patient oriented x3 Extremities: Normal to inspection Results Plan 1. Essential Hypertension The patient is advised to continue monitoring blood pressure regularly and maintain adherence to prescribed antihypertensive medications. 2. Postoperative Recovery From Lumbar Ba ck Surgery The patient is to continue with physical therapy as planned to aid in recovery. Discussion Notes Patient Instructions [facility] Medical History Low testosterone Proteinuria Blurry vision Obesity due to excess calories Hx of sepsis Retropharyngeal abscess Cellulitis of pharynx Type 2 diabetes mellitus with hyperglycemia Elevated CPK DAVIS positive Fibromyalgia Controlled diabetes mellitus without complication, without long-term current use of insulin Hyperlipidemia LDL goal <100 Essential hypertension Vitamin D insufficiency Surgical History History of laminectomy History of throat surgery H/O shoulder surgery Family History Father No problems noted. Mother No problems noted. 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 1. Little interest or pleasure in doing things: not at all 2. Feeling down, depressed, or hopeless: not at all 3. Trouble falling or staying asleep, or sleeping too much: not at all 4. Feeling tired or having little energy: not at all 5. Poor appetite or overeating: not at all 6. Feeling bad about yourself - or that you are a failure or have let yourself or your family down: not at all 7. Trouble concentrating on things, such as reading the newspaper or watching television: not at all 8. Moving or speaking so slowly that other people could have noticed. Or the opposite - being so fidgety or restless that you have been moving around a lot more than usual: not at all 9. Thoughts that you would be better off or of hurting yourself in some way: not at all Total score: 0 Depression Screening Interpretation: Negative Depression Screening Done: Yes 97150 - PHQ-9 Billing: Yes Source: Developed by Drs. Franki Berry, Kenzie Mireles, Jose Regalado and colleagues, with an educational guillermo from [employer]. Thrive Questionnaire Date Thrive assessed: 03/26/24 I am a: Patient What is your living situation today?: I have a steady place to live Within the past 12 months, did the food you bought not last and you didn't have the money to get more?: Sometimes True Within the past 12 months, did you worry whether your food would run out before you got money to buy more?: Sometimes True Do you have trouble paying for medicines?: No Do you have trouble getting transportation to medical appointments?: No Do you have trouble paying your heating and electricity bill?: Yes Do you have trouble taking care of your child, family member or friend?: No Do you have trouble with day-to-day activities such as bathing, preparing meals, shopping, managing finances, etc.?: Yes Are you currently unemployed and looking for a job?: I choose not to answer this question Are you interested in more education?: No Currently or been in a relationship where the following occur: No concerns reported THRIVE Score: 3 AUDIT C Alcohol Use Questionnaire (AUDIT-C) 2. How many drinks containing alcohol do you have on a typical day when you are drinking?: 1 or 2 Total Score: 0 CAT-7 AMB Questionnaire CAT-7 Date CAT - 7 assessed: 12/18/24 Feeling nervous, anxious, or on edge: 0 = Not at all Not being able to stop or control worryin = Not at all Worrying too much about different things: 0 = Not at all Trouble relaxin = Not at all Being so restless that it is hard to sit still: 0 = Not at all Becoming easily annoyed or irritable: 0 = Not at all Feeling afraid as if something awful might happen: 0 = Not at all Total CAT-7 score (0-4 normal; 5-9 mild; 10-14 moderate; 15-21 severe): 0 Source: Developed by Drs. Franki Berry, Kenzie Mireles, Jose Regalado and colleagues, with an educational guillermo from [employer]. CAT-7 Assessment Billing CAT-7 Assessment Tool: CAT-7 Assessment 22483 Physical exam (Primary Care) Vital Signs: Last Vital Signs Pulse 79 12/18/24 16:03 Resp 16 12/18/24 16:03 BP 130/84 12/18/24 16:50 Pulse Ox 98 12/18/24 16:03 Oxygen Delivery Method Room Air 12/18/24 16:03 BMI result Body Mass Index 35.0 Tobacco/Smoking Status: Tobacco use Status Tobacco use date assessed 12/18/24 12/18/24 16:05 Patient Tobacco Use Status Never used Tobacco 12/18/24 16:05 e-Cigarette/Vaping Use Never Used 12/18/24 16:05 PHQ-9: PHQ-9 Score PHQ-9: Total score 0 12/18/24 16:50 Depression Screening Interpretation: Negative Thrive Assessment: Date of Thrive Assessment Date Thrive assessed 03/26/24 12/18/24 16:05 Currently or been in a relationship where the following occur: No concerns reported Coding Level of Care Code Est Pt Level 3 (31468) Diagnoses Controlled diabetes mellitus without complication, without long-term current use of insulin E11.9 Essential hypertension I10 Screening for prostate cancer Z12.5 Additional Codes CAT-7 Assessment Billing - CAT-7 Assessment Tool: CAT-7 Assessment 70174 ([id number]) PHQ-9 - 34838 - PHQ-9 Billing: Yes ([id number]) Assessment & Plan Assessment & Plan (1) Controlled diabetes mellitus without complication, without long-term current use of insulin: Code(s): E11.9 - Type 2 diabetes mellitus without complications Category: Medical (2) Essential hypertension: Code(s): I10 - Essential (primary) hypertension Category: Medical (3) Screening for prostate cancer: Code(s): Z12.5 - Encounter for screening for malignant neoplasm of prostate Category: Medical Plan . Orders: Orders Comprehensive [place]. Panel Fast Today E11.9 - Type 2 diabetes mellitus without complications, I10 - Essential (primary) hypertension TSH reflex Free T4 Today E11.9 - Type 2 diabetes mellitus without complications, I10 - Essential (primary) hypertension Lipid Panel Today E11.9 - Type 2 diabetes mellitus without complications, I10 - Essential (primary) hypertension Complete Blood Count Auto Diff Today E11.9 - Type 2 diabetes mellitus without complications, I10 - Essential (primary) hypertension UA CC w/rflx Micro + Cult Today E11.9 - Type 2 diabetes mellitus without complications, I10 - Essential (primary) hypertension Prostate Specific Antigen Scr Today Z12.5 - Encounter for screening for malignant neoplasm of prostate
--- OUTSIDE RECORDS SUMMARY | 2024-12-18 16:39 | XMS_ITS | Clinical Summary ---
Author Organization [address] [facility] Address [address] [place] [address] Phone Care Team Providers Care Hospital Admissions Officer Name Role Phone Jeff Chi NP [...] mellitus), type 2 with peripheral vascular complications ([facility]) H/O retropharyngeal abscess DX:H /O [...] Health Maintenance Due Date Last Done Comments Colorectal Cancer Screening: Colonoscopy 1974 Diabetes: Annual GFR (Glomer ular Filtration Rate) 1974 Diabetes: Annual Foot Exam 1984 Diabetes: Annual Retina Eye Exam 1984 Hepatitis B Vaccines (1 of 3 - 19+ 3-dose series) 1993 Cholesterol Screening (Lipid Panel) 04/24/2023 Diabetes: Annual Urine Albumin-Creatinine Ratio (uACR) [...] 5 season) 2024 Influenza Vaccine (#1) 2024 RSV Immunization Adult Patie nts (1 - 1-dose 75+ series) 2049 HIB [...] patient's age to complete this topic Insurance [facility] PLAN Care Teams Hospital Admissions Officer Relationship Specialty Start Date End Date Jeff Chi NP [address] [place], [place] PCP - General Family Medicine 07/30/19
--- OUTSIDE RECORDS SUMMARY | 2024-12-18 16:39 | XMS_ITS | Clinical Summary ---
Author Organization [employer] Address [address] [place] [address] [address] [place] [address] Care Team Providers Care Procurement Clerk Name Role Phone Unavailable Primary Care [...] patient's age to complete this topic Insurance [facility]
--- OUTSIDE RECORDS SUMMARY | 2024-12-18 16:39 | XMS_ITS | Clinical Summary ---
Author Organization [facility] Address [address] [place] [address] Care Team Providers Care Stem Dryer Maintainer Name Role Phone Jeff Chi NP Primary Care Provider [phone] Allergies Active Allergy Reactions Criticality Noted Date [...] Vaccine (#1) 2024 Insurance [employer] Open Access ([id number]) Care Teams Stem Dryer Maintainer Relationship Specialty Start Date End Date Jeff Chi NP [address] [place] [address] PCP - General Nurse Practitioner 08/06/20
--- OUTSIDE RECORDS SUMMARY | 2024-12-18 16:39 | XMS_ITS | Encounter Summary ---
Author Organization [employer] [facility] Address [address] [place] [address] [address] [place] [address] Care Team Providers Care Pillar Man Name Role Phone Unavailable Primary Care Provider Unavailabl e Encounter Details Date Type Department Care Team (Latest Contact Info) Description 03/05/2020 Abstract [facility] CONVERSIONS Dental, Provider, DDS Social History [...]
[2024-12-18 16:50] VITALS: BP 130/84
== END 2024-12-18 16:56 | disposition home or self-care (01) ==
LOC: HO.HMCC 15:23
PROVIDERS: PCP Nurse Practitioner Family; Visit Provider Nurse Practitioner Family
DX: E11.9 Type 2 diabetes mellitus without complications (principal); I10 Essential (primary) hypertension; Z12.5 Encounter for screening for malignant neoplasm of prostate

== ENCOUNTER → 2024-12-18 15:22 | Outpatient (BNVA) | payer OTHER, SELFPAY | PROVIDERS: PCP Nurse Practitioner Family; Visit Provider Nurse Practitioner Family | DX: I10 Essential (primary) hypertension (principal); E11.9 Type 2 diabetes mellitus without complications | CPT/HCPCS: 96127; 99212 ==

== ENCOUNTER 2025-01-17 10:42 | Outpatient (AMB) | payer OTHER, SELFPAY ==
--- NOTE | 2025-01-17 11:04 | A.OFFVIS_ITS ---
Intake Visit Reasons: low testosterone Intake Note: New patient presents today for initial visit for low testosterone Urology Medication:None Blood Thinner:None Antibiotic Allergies:None City Library Director Required: No Allergies ertapenem Allergy (Intermediate, Verified 01/17/25 11:04) Hives piperacillin (From Zosyn) Allergy (Intermediate, Verified 01/17/25 11:04) Hives tazobactam (From Zosyn) Allergy (Intermediate, Verified 01/17/25 11:04) Hives vancomycin Allergy (Intermediate, Verified 01/17/25 11:04) Hives ezetimibe (From Zetia) Adverse Reaction (Intermediate, Verified 01/17/25 11:04) myalgias Dzapgvj-MAS-VyV Reductase Inhibitor Adverse Reaction (Intermediate, Verified 01/17/25 11:04) myalgias metformin Adverse Reaction (Mild, Verified 01/17/25 11:04) Diarrhea jardiance Adverse Reaction (Intermediate, Uncoded 12/18/24 17:04) blurry vision HPI Comments Details: 01/17/2025 daughter was seen in the past work and lower urinary tract hesitancy. He is here today, low testosterone. 07/03/24--Total testosterone --194 History of Present Illness The patient is a 49-year-old male presenting with low testosterone levels. He has a history of orchitis and lower urinary tract symptoms, including hesitancy. The low testosterone was identified through lab work conducted on July 03, 2024, showing a total testosterone level of 194 ng/dL. The patient also reports erectile dysfunction, which may be related to his low testosterone levels and diabetes mellitus type 2. He is currently on lisinopril for blood pressure management. Additionally, the patient has a history of a spinal injury at [place], which required surgical intervention a couple of months ago. He is undergoing physical therapy and plans to return to work once his condition improves. Results - Lab: Total testosterone level of 194 ng/dL on July 03, 2024 Plan 1. Low Testosterone - Plan to repeat testosterone level in four months, ensuring it is a fasting test conducted first thing in the morning. - Follow-up with nurse practitioner to assess the need for further treatment based on repeat testosterone levels. 2. Erectile Dysfunction - Initiate daily Cialis (tadalafil) to improve erectile function and potentially aid testosterone levels. - Discussed that Cialis is in the same family as Viagra and is taken at a low dose daily. - Informed patient about the use of GoodRx coupon to reduce the cost of Cialis. 05/19/23--Cameron is a pleasant male. Prior episode of epididymal orchitis Six-month follow-up No recurrence Effective bladder emptying Understands he should call us if he has recurrent epididymal orchitis. 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 12/29/22 ? The patient was seen in the [facility] ED on 11/26/22 for a scrotal/testicular post-work injury. A CT scan was performed, which does not show any evidence of hernia, kidney stone, or obstruction. There was an incidental 9-mm nodule in the left lung base. There is a small cyst on the kidney, which is not likely to be causing his pain. Given his testicular pain, a scrotal ultrasound was done, which showed acute right epididymo-orchitis and right complex hydrocele. He completed the antibiotic course of 10 days for infection in the testicle. He denies any changes in his urinary stream. He denies having to push to empty. He wakes up two times at night for urination. He denies any urgency or frequency of symptoms. He has been experiencing difficulty with erections and ejaculation. He denies any discharge from the urethra. Co-morbidities: DM2, HLD, HTN, obesity. 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 He does not get to use the bathroom when he feels that his bladder is full. His orchiditis was likely secondary to the chemical epidydymo-orchitis. I encouraged him to void every three hours and increase his water intake. 11/26/22: US SCROTUM result reviewed ? Complex right hydrocele with a scrotal cady. Distal right epididymal simple cyst. 11/26/22: CTAP result reviewed: There is no evidence of renal calculi or obstruction. There was an incidental 9 mm nodule in the left lung base. Evaluation today-- Blood: Negative, leukocytes: Negative. Proteins: 15 ml/dL. Bladder scan PVR: 11 ml. Scrotum: There is no swelling and each testicle was palpated and was non-tender. He is uncircumcised and foreskin was easily retractable. The glans was WNL. 12/29/22: AUA symptoms score -- 5. Plan: I encouraged him to void every three hours and increase his water intake. The patient will follow up in 4-6 months to check his urine and check for any irritative voiding symptoms [facility] Medical History Low testosterone Proteinuria Blurry vision Obesity due to excess calories Hx of sepsis Retropharyngeal abscess Cellulitis of pharynx Type 2 diabetes mellitus with hyperglycemia Elevated CPK DAVIS positive Fibromyalgia Controlled diabetes mellitus without complication, without long-term current use of insulin Hyperlipidemia LDL goal <100 Essential hypertension Vitamin D insufficiency Surgical History History of laminectomy History of throat surgery H/O shoulder surgery Family History Father No problems noted. Mother No problems noted. 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 Cognitive needs: No Hearing needs: No Vision needs: No Review of Systems Const All systems reviewed & are unremarkable except as noted in HPI and below Reports no additional complaints Eyes Reports no additional complaints ENT Reports no additional complaints Card Reports no additional complaints Resp Reports no additional complaints GI Reports no additional complaints Reports as per HPI Musc Reports no additional complaints Skin/Breast Reports system reviewed and no additional complaints, except as documented Neuro Reports no additional complaints Psych Reports no additional complaints Endo Reports no additional complaints Joaquin/Lymph Reports no additional complaints Aller/Immun Reports no additional complaints Assessment & Plan Assessment & Plan (1) Low testosterone: Code(s): R79.89 - Other specified abnormal findings of blood chemistry Category: Medical (2) Screening for prostate cancer: Code(s): Z12.5 - Encounter for screening for malignant neoplasm of prostate Category: Medical Plan Plan 1. Low Testosterone - Plan to repeat testosterone level in four months, ensuring it is a fasting test conducted first thing in the morning. - Follow-up with nurse practitioner to assess the need for further treatment based on repeat testosterone levels. 2. Erectile Dysfunction - Initiate daily Cialis (tadalafil) to improve erectile function and potentially aid testosterone levels. - Discussed that Cialis is in the same family as Viagra and is taken at a low dose daily. - Informed patient about the use of GoodRx coupon to reduce the cost of Cialis. Orders: Orders AMB Urinalysis Automated Today Z12. - Encounter for screening for malignant neoplasm of prostate Lutenizing Hormone 3 Months R7 - Other specified abnormal findings of blood chemistry Testosterone, Free/Total 3 Months R7. - Other specified abnormal findings of blood chemistry Follicle Stimulating Hormone 3 Months R7. - Other specified abnormal findings of blood chemistry Glucose Fasting 3 Months R7. - Other specified abnormal findings of blood chemistry Prolactin 3 Months R7. - Other specified abnormal findings of blood chemistry PSA,Total (Free>4and<10) 3 Months Z12. - Encounter for screening for malignant neoplasm of prostate Estradiol Ultra Sensitive 3 Months R7. - Other specified abnormal findings of blood chemistry Coding Level of Care Code Est Pt Level 4 (43324) Complex EM visit Add On G2211 Diagnoses Low testosterone R7. Screening for prostate cancer Z12.5
--- OUTSIDE RECORDS SUMMARY | 2025-01-17 13:12 | XMS_ITS | Encounter Summary ---
Author Organization [employer] [facility] Address [address] [place] [address] [facility] [place] [address] Care Team Providers Care Fisher Line Name Role Phone Unavailable Primary Care Provider Unavailabl e Encounter Details Date Type Department Care Team (Latest Contact Info) Description 03/05/2020 Abstract [facility] CONVERSIONS Dental, Provider, DDS Social History [...]
--- OUTSIDE RECORDS SUMMARY | 2025-01-17 13:12 | XMS_ITS | Clinical Summary ---
Author Organization [facility] Address [address] [place] [address] Care Team Providers Care Shear Helper Name Role Phone Jeff Chi NP Primary Care Provider [phone] Allergies Active Allergy Reactions Criticality Noted Date [...] Vaccine (#1) 2024 Insurance [employer] Open Access ([id number]) Care Teams Shear Helper Relationship Specialty Start Date End Date Jeff Chi NP [address] [place] [address] PCP - General Nurse Practitioner 08/06/20
--- OUTSIDE RECORDS SUMMARY | 2025-01-17 13:12 | XMS_ITS | Clinical Summary ---
Author Organization [facility] Address [address] [place] [address] Phone Care Team Providers Care Director Marketing Communications Name Role Phone Jeff Chi NP Primary [...] 2 with peripheral vascular complications ([facility]) H/O retropharyngeal abscess DX:H /O retropharyngeal [...] patient's age to complete this topic Insurance [facility] PL[facility] Care Teams Director Marketing Communications Relationship Specialty Start Date End Date Jeff Chi NP [address] [place], [place] PCP - General Family Medicine 07/30/19
--- OUTSIDE RECORDS SUMMARY | 2025-01-17 13:12 | XMS_ITS | Clinical Summary ---
Author Organization [employer] Address [address] [place] [address] 7 [place] [address] Care Team Providers Care Brand Coordinator Name Role Phone Unavailable Primary Care Provider [...] patient's age to complete this topic Insurance [facility]
== END 2025-01-17 11:54 | disposition home or self-care (01) ==
LOC: HO.HUSH 10:43
PROVIDERS: PCP Nurse Practitioner Family; Visit Provider Urology
DX: R79.89 Other specified abnormal findings of blood chemistry (principal); Z12.5 Encounter for screening for malignant neoplasm of prostate
CPT/HCPCS: 99214

== ENCOUNTER → 2025-01-17 10:42 | Outpatient (BNVA) | payer OTHER, SELFPAY | PROVIDERS: PCP Nurse Practitioner Family; Visit Provider Urology | DX: Z12.5 Encounter for screening for malignant neoplasm of prostate (principal); R79.89 Other specified abnormal findings of blood chemistry | CPT/HCPCS: 81003; 99212 ==

== ENCOUNTER 2025-02-18 10:18 | Outpatient (REF) | payer OTHER, SELFPAY ==
--- OUTSIDE RECORDS SUMMARY | 2025-02-18 12:48 | XMS_ITS | Clinical Summary ---
Author Organization [facility] Address [address] [facility] [place] [address] Care Team Providers Care Software Development Test Engineer Name Role Phone Lisha Grewal MD Unavailable [...] pulmonary nodules how their size, appearance/shape, and changer fixer time affect her level of suspicion for [...] 85 11/24/2023 10:18 AM EDT Temperature 36.6 C (97.9 F) 11/24/2023 10:18 AM EDT Respiratory Rate 18 11/24/2023 10:18 AM EDT [...] ANNUAL FOOT EXAM 12/12/2019 12/11/2018 (Co mpleted) BMI CHECK/ADVISE 03/21/2024 12/11/2018, 09/2018, 08/13/2015 DEPRESSION SCREENING/FOLLOWUP 03/21/2024 SOCIAL NEEDS SCREENING 03/21/2024 COLON CANCER SCREENING 2024 SHINGLES VACCINE (1 of 2) 2024 DTAP/TDAP/TD (2 - Td or Tdap) 09/02/2024 09/02/2014 Covid-19 Vaccine (3 - 2022-2 4 season) 2024 12/19/2020, 11/21/2020 INFLUENZA (#1) 2024 12/11/2018 (Exception) Care Teams Software Development Test Engineer Relationship Specialty Start Date End Date Jeff Chi NP PCP - General Family Practice 01/13/23 Lisha Grewal MD 02/06/18
--- OUTSIDE RECORDS SUMMARY | 2025-02-18 12:48 | XMS_ITS | Encounter Summary ---
Author Organization [employer] [facility] Address [address] [place] [address] Care Team Providers Care Individual Small Group Instructor Name Role Phone Nikita Lanza MD Primary Care Provider Un available [facility], Pcp Primary Care Provider UnavailLisha Baxter MD Unavailable Unavailable Jeff Chi NP Primary Care Provider Unavail able Reason for Visit * Reason Comments E-prescribe Rx Request Encounter Details Date Type Department Care Team Description 09/14/2018 Refill Adult Medicine [address] [address] Grzegorz Garcia PA-C [address] [place] [id number] E-prescribe Rx Request Social History Tobacco Use [...] N/A Patients current insurance carrier is: [facility] / Plan: PPO $25 [place] / Product Type: [id number] documented in this encounter Plan of Treatment Not on file documented as of this encounter Visit Diagnoses Not on filedocumented in this encounter Care Teams Individual Small Group Instructor Relationship Specialty Start Date End Date Nikita Lanza MD PCP - General Internal Medicine 02/06/1801/07 [facility], Pcp PCP - General Internal Medicine 01/08/19 01/12/23 Jeff Chi NP PCP - General Family Practice 01/13/23 Lisha Grewal MD 02/06/18 documented as of this encounter
--- OUTSIDE RECORDS SUMMARY | 2025-02-18 12:48 | XMS_ITS | Encounter Summary ---
Author Organization [employer] [facility] Address [address] [place] [address] Care Team Providers Care Marine Diesel Mechanic Name Role Phone Nikita Lanza MD Primary Care Provider Un available [facility], Pcp Primary Care Provider Unavailabl e Lisha Grewal MD Unavailable Unavailable Jeff Chi NP Primary Care Provider Unavail able Encounter Details Date Type Department Care Team Description 04/18/2018 Refill Internal Medicine - [address], [address] [place] [address] Heriberto Mireles MD [address] [place] [address] Social History Tobacco Use Types Packs/Day Years [...] on filedocumented in this encounter Care Teams Marine Diesel Mechanic Relationship Specialty Start Date End Date Nikita Lanza MD PCP - General Internal Medicine 02/06/1801/07 [facility], Pcp PCP - General Internal Medicine 01/08/19 01/12/23 Jeff Chi NP PCP - General Family Practice 01/13/23 Lisha Grewal MD 02/06/18 documented as of this encounter
--- OUTSIDE RECORDS SUMMARY | 2025-02-18 12:48 | XMS_ITS | Encounter Summary ---
Author Organization [employer] [facility] Address [address] [place] [address] Care Team Providers Care Surveillance Sensor Operator Name Role Phone Nikita Lanza MD Primary Care Provider Un available [facility], Pcp Primary Care Provider Unavailabl e Lisha Grewal MD Unavailable Unavailable Jeff Chi NP Primary Care Provider Unavail able Encounter Details Date Type Department Care Team Description 03/20/2018 Refill Internal Medicine - [address], [address] [place] [address] Heriberto Mireles MD [address] [place] [address] Social History Tobacco Use Types Packs/Day Years [...] on filedocumented in this encounter Care Teams Surveillance Sensor Operator Relationship Specialty Start Date End Date Nikita Lanza MD PCP - General Internal Medicine 02/06/1801/07 [facility], Pcp PCP - General Internal Medicine 01/08/19 01/12/23 Jeff Chi NP PCP - General Family Practice 01/13/23 Lisha Grewal MD 02/06/18 documented as of this encounter
--- OUTSIDE RECORDS SUMMARY | 2025-02-18 12:48 | XMS_ITS | Encounter Summary ---
Author Organization [facility] Address [address] [place] [address] Care Team Providers Care Bar Tacker Sewing Machine Name Role Phone Lisha Grewal MD Primary Care Provider Lisha Montana MD Primary Care Provider Nikita Moura MD Primary Care Provider Un available [facility], Pcp Primary Care Provider Unavailabl e Lisha Grewal MD Unavailable Unavailable Lisha Grewal MD Unavailable Unavailable Jeff Chi NP Primary Care Provider Unavail able Encounter Details Date Type Department Care Team Description 07/25/2015 Release of Information Medical Records [address] [place] [id number] Abstract, Provider Social History Tobacco Use Types [...] on filedocumented in this encounter Care Teams Bar Tacker Sewing Machine Relationship Specialty Start Date End Date Lisha Grewal MD PCP - General Family Practice 07/01/15 06/11/16 Lisha Grewal MD PCP - General 06/12/16 02/05/18 Nikita Lanza MD PCP - General Internal Medicine 02/06/1801/07 [facility], Pcp PCP - General Internal Medicine 01/08/19 01/12/23 Jeff Chi NP PCP - General Family Practice 01/13/23 Lisha Grewal MD Family Practice 06/12/16 02/05/18 Lisha Grewal MD 02/06/18 documented as of this encounter
--- OUTSIDE RECORDS SUMMARY | 2025-02-18 12:48 | XMS_ITS | Clinical Summary ---
Author Organization [employer] Address [address] [place] [address] 7 [place] [address] Care Team Providers Care Weight Clerk Name Role Phone Unavailable Primary Care [...] patient's age to complete this topic Insurance [facility]
--- OUTSIDE RECORDS SUMMARY | 2025-02-18 12:48 | XMS_ITS | Encounter Summary ---
Author Organization [facility] Address [address] [place] [address] Care Team Providers Care Cyber Policy And Strategy Planner Name Role Phone Lisha Grewal MD Unavailable Unavailable Jeff Chi NP Primary Care Provider Unavail able Encounter Details Date Type Department Care Team Description 01/14/2023 Abstract [facility] Thoracic Surgery [place] [address] [facility] [address] [place] [phone] Arabella Morrison MD [address] [facility] [address] [place] [address] Social History Tobacco Use Types Packs/Day Years [...] on filedocumented in this encounter Care Teams Cyber Policy And Strategy Planner Relationship Specialty Start Date End Date Jeff Chi NP PCP - General Family Practice 01/13/23 Lisha Grewal MD 02/06/18 documented as of this encounter
--- OUTSIDE RECORDS SUMMARY | 2025-02-18 12:48 | XMS_ITS | Clinical Summary ---
Author Organization [facility] Address [address] [place] [address] Phone Care Team Providers Care Cap Machine Operator Name Role Phone Jeff Chi NP Primary Care Provider [phone] Surgical History Surgery Date Site/Laterality Comments OTHER [...] mellitus), type 2 with peripheral vascular complications ([facility]) H/O retropharyngeal abscess DX:H /O retropharyngeal abscess [...] Tdap) 09/02/2024 09/02/2014 COVID-19 Vaccine (1 - 2024-2 6 season) 2024 Influenza Vaccine (#1) 2024 RSV [...] patient's age to complete this topic Insurance [facility] Care Teams Cap Machine Operator Relationship Specialty Start Date End Date Jeff Chi NP [address] [place], [place] PCP - General Family Medicine 07/30/19
--- OUTSIDE RECORDS SUMMARY | 2025-02-18 12:48 | XMS_ITS | Encounter Summary ---
Author Organization [facility] Address [address] [place] [address] Care Team Providers Care Under Presser Name Role Phone Nikita Lanza MD Primary Care Provider Un available [facility], Pcp Primary Care Provider UnavailLisha Baxter MD Unavailable Unavailable Jeff Chi NP Primary Care Provider Unavail able Encounter Details Date Type Department Care Team Description 03/15/2018 Telephone Adult [address] [address] Nikita Lanza MD Social History Tobacco Use Types Packs/Day Years Used Date Smoking Tobacco: Never Smokeless Tobacco: Never Alcohol Use Standard Drinks/Week Comments Yes 0 (1 standard drink = 0.6 oz pur e alcohol) rare specialial occasions Sex Assigned at Date Recorded Not on file documented as of this encounter Miscellaneous Notes * Telephone Encounter - Amanda Beach R.N. - 03/15/2018 12:46 PM EST [phone] (home) [phone] (work) documented in this encounter Plan of Treatment Not on file documented as of this encounter Visit Diagnoses Not on filedocumented in this encounter Care Teams Under Presser Relationship Specialty Start Date End Date Nikita Lanza MD PCP - General Internal Medicine 02/06/1801/07 [facility], Pcp PCP - General Internal Medicine 01/08/19 01/12/23 Jeff Chi NP PCP - General Family Practice 01/13/23 Lisha Grewal MD 02/06/18 documented as of this encounter
--- OUTSIDE RECORDS SUMMARY | 2025-02-18 12:48 | XMS_ITS | Encounter Summary ---
Author Organization [facility] [facility] Address [address] [place] [address] Care Team Providers Care Rhit Name Role Phone Nikita Lanza MD Primary Care Provider Un available [facility], Pcp Primary Care Provider Unavailabl e Lisha Grewal MD Unavailable Unavailable Jeff Chi NP Primary Care Provider Unavail able Encounter Details Date Type Department Care Team Description 01/02/2019 Release of Information Medical Records [address] [place] [address] Abstract, Provider Social History Tobacco Use Types [...] on filedocumented in this encounter Care Teams Rhit Relationship Specialty Start Date End Date Nikita Lanza MD PCP - General Internal Medicine 02/06/1801/07 [facility], Pcp PCP - General Internal Medicine 01/08/19 01/12/23 Jeff Chi NP PCP - General Family Practice 01/13/23 Lisha Grewal MD 02/06/18 documented as of this encounter
--- OUTSIDE RECORDS SUMMARY | 2025-02-18 12:48 | XMS_ITS | Encounter Summary ---
Author Organization [facility] Address [address] [place] [address] Care Team Providers Care Sport Shoe Spike Assembler Name Role Phone Nikita Lanza MD Primary Care Provider Un available [facility], Pcp Primary Care Provider UnavailLisha Baxter MD Unavailable Unavailable Jeff Chi NP Primary Care Provider Unavail able Reason for Visit * Reason Onset Date Comments My Chart Appointment 11/06/2018 Encounter Details Date Type Department Care Team Description 11/06/2018 Telephone Adult Medicine [address] [address] Nikita Lanza MD My Chart Appointment Social History Tobacco Use Types Packs/Day Years Used Date Smoking Tobacco: Never Smokeless Tobacco: Never Alcohol Use Standard Drinks/Week Comments Yes 0 (1 standard drink = 0.6 oz pur e alcohol) rare specialial occasions Sex Assigned at Date Recorded Not on file documented as of this encounter Miscellaneous Notes * Telephone Encounter - Vandana Chaudhry - 11/06/2018 10:03 AM EDT Patient has scheduled a visit through My Chart. Please call patient to triage for appropriateness. Date appointment is booked: 11/06/18 Appointment scheduled with Gretel Garcia Reason for appointment: New Problem Visit when I go to the bathroom to evacuate a little blood comes out documented in this encounter Plan of Treatment Not on file documented as of this encounter Visit Diagnoses Not on filedocumented in this encounter Care Teams Sport Shoe Spike Assembler Relationship Specialty Start Date End Date Nikita Lanza MD PCP - General Internal Medicine 02/06/1801/07 [facility], Pcp PCP - General Internal Medicine 01/08/19 01/12/23 Jeff Chi NP PCP - General Family Practice 01/13/23 Lisha Grewal MD 02/06/18 documented as of this encounter
--- OUTSIDE RECORDS SUMMARY | 2025-02-18 12:48 | XMS_ITS | Encounter Summary ---
Author Organization [facility] [facility] Address [address] [place] [address] Care Team Providers Care Wire Coiner Name Role Phone Nikita Lanza MD Primary Care Provider Un available [facility], Pcp Primary Care Provider Unavailabl e Lisha Grewal MD Unavailable Unavailable Jeff Chi NP Primary Care Provider Unavail able Encounter Details Date Type Department Care Team Description 04/21/2018 Refill Internal Medicine - [address], [address] [place] [address] Heriberto Mireles MD [address] [place] [address] Social History Tobacco Use Types Packs/Day Years [...] on filedocumented in this encounter Care Teams Wire Coiner Relationship Specialty Start Date End Date Nikita Lanza MD PCP - General Internal Medicine 02/06/1801/07 [facility], Pcp PCP - General Internal Medicine 01/08/19 01/12/23 Jeff Chi NP PCP - General Family Practice 01/13/23 Lisha Grewal MD 02/06/18 documented as of this encounter
--- OUTSIDE RECORDS SUMMARY | 2025-02-18 12:48 | XMS_ITS | Encounter Summary ---
Author Organization [employer] [facility] Address [address] [place] [address] Care Team Providers Care Supervisor Fruit Grading Name Role Phone Lisha Grewal MD Unavailable Unavailable Jeff Chi NP Primary Care Provider Unavail able Encounter Details Date Type Department Care Team Description 02/02/2023 Orders Only Medical Records [address] [place] [address] [facility] Social History Tobacco Use Types Packs/Day Years [...] this encounter Results * OUTSIDE CT (11/26/2022) [facility] RADIOLOGY documented in this encounter Visit Diagnoses Not on filedocumented in this encounter Care Teams Supervisor Fruit Grading Relationship Specialty Start Date End Date Jeff Chi NP PCP - General Family Practice 01/13/23 Lisha Grewal MD 02/06/18 documented as of this encounter
--- OUTSIDE RECORDS SUMMARY | 2025-02-18 12:48 | XMS_ITS | Encounter Summary ---
Author Organization [facility] Address [address] [place] [address] Care Team Providers Care Straddle Bug Name Role Phone Nikita Lanza MD Primary Care Provider Un available [facility], Pcp Primary Care Provider UnavailLisha Baxter MD Unavailable Unavailable Jeff Chi NP Primary Care Provider Unavail able Reason for Visit * Reason Comments E-prescribe Rx Request Encounter Details Date Type Department Care Team Description 12/14/2018 Refill Adult Medicine [address] [address] Nikita Lanza MD E-prescribe Rx Request Social [...] Plan: PPO $25 [place] / Product Type: [id number] documented in this encounter Plan of Treatment Not on file documented as of this encounter Visit Diagnoses Not on filedocumented in this encounter Care Teams Straddle Bug Relationship Specialty Start Date End Date Nikita Lanza MD PCP - General Internal Medicine 02/06/1801/07 [facility] PCP - General Internal Medicine 01/08/19 01/12/23 Jeff Chi NP PCP - General Family Practice 01/13/23 Lisha Grewal MD 02/06/18 documented as of this encounter
--- OUTSIDE RECORDS SUMMARY | 2025-02-18 12:48 | XMS_ITS | Encounter Summary ---
Author Organization [facility] Address [address] [place] [address] [address] [place] [address] Care Team Providers Care Die Cast Operator Name Role Phone Unavailable Primary Care Provider Unavailabl e Encounter Details Date Type Department Care Team (Latest Contact Info) Description 03/05/2020 Abstract [facility] CONVERSIONS Dental, Provider, DDS Social History Tobacco [...]
[2025-02-18 13:26] LABS: Appearance Urine Clear; Glucose Urine UA Negative (Negative); PH 5.5 (5.0-9.0); Specific Gravity - Urine 1.025 (1.005-1.025)
[2025-02-18 13:27] LABS: MANUAL DIFF FLAG NO
[2025-02-18 13:46] LABS: Hematocrit 41.8 % (42.0-52.0); Hemoglobin 13.5 g/dl (14.0-18.0); Imm Gran Abs Auto 0.03 X10*3/uL (0.00-0.03); Imm Gran Pct Auto 0.5 % (0.0-0.4); Lymphocytes Absolute Auto 1.5 X10*3/uL (1.2-4.9); Mean Corpuscular HGB Conc 32.3 g/dl (31.0-36.0); Mean Corpuscular Hemoglobin 28.7 pg (27.0-33.0); Mean Corpuscular Volume 88.7 fL (80.0-98.0); NRBC Abs Auto 0.000 X10*3/uL (0.0-0.012); NRBC Pct Auto 0.0 /100WBC (0.0-0.2); Platelet Count 227 X10*3/uL (160-400); Red Blood Count 4.71 X10*6/uL (4.60-5.80); White Blood Count 5.8 X10*3/uL (4.8-10.8)
[2025-02-18 14:20] LABS: Alanine Aminotransferase 33 U/L (0-40); Albumin Level 4.3 g/dL (3.5-5.0); Alkaline Phosphatase 61 U/L (39-117); Anion Gap 12 (12-20); Aspartate Amino Transferase 28 U/L (5-37); Blood Urea Nitrogen 11 mg/dL (9-16); Calcium 8.8 mg/dL (8.4-10.2); Carbon Dioxide 26 mmol/L (22-29); Chloride 107 mmol/L (96-108); Cholesterol 241 mg/dL (<200); Estimated Glomerular Filt Rate > 60; HDL Cholesterol 37 mg/dL (>40); Potassium 3.6 mmol/L (3.3-5.1); Sodium 141 mmol/L (135-145); Total Protein 6.9 g/dL (6.5-8.0); Triglycerides 348 mg/dL (<150)
== END 2025-02-18 10:19 | disposition home or self-care (01) ==
LOC: HO.HMGCLDS 10:18
PROVIDERS: PCP Nurse Practitioner Family; Visit Provider Nurse Practitioner Family
DX: I10 Essential (primary) hypertension (principal); E11.9 Type 2 diabetes mellitus without complications; Z12.5 Encounter for screening for malignant neoplasm of prostate
CPT/HCPCS: 36415; 80053; 80061; 81003; 84153; 84443; 85025

== ENCOUNTER 2025-02-22 13:04 | Outpatient (AMB) | payer OTHER, SELFPAY ==
--- NOTE | 2025-02-22 13:07 | A.OFFVIS_ITS ---
Vital Signs 02/22/25 13:10 Height 6 ft Weight 266 lb 15.677 oz BMI 36.2 BP 120/68 Blood Pressure Location Rt brachial Position Sitting Pulse 86 Pulse Source Pulse Oximeter Pulse Oximetry (%) 96 Oxygen Delivery Method Room Air Intake Visit Reasons: DM Intake Note: Patient present today to follow up on Type 2 Diabetes Mellitus. Last Diabetic Eye exam: 09/06/2024, [facility] Last Podiatry Visit: Does not see a What Job Titles Mean Random Glucose: 153 mg/dL HgA1C: 8.2% 02/22/2025 Pipe Covering Molder Required: No Accompanied by: Self / Same As Patient Allergies ertapenem Allergy (Intermediate, Verified 02/22/25 13:11) Hives piperacillin (From Zosyn) Allergy (Intermediate, Verified 02/22/25 13:11) Hives tazobactam (From Zosyn) Allergy (Intermediate, Verified 02/22/25 13:11) Hives vancomycin Allergy (Intermediate, Verified 02/22/25 13:11) Hives ezetimibe (From Zetia) Adverse Reaction (Intermediate, Verified 02/22/25 13:11) myalgias Wiajycf-IIH-ZoG Reductase Inhibitor Adverse Reaction (Intermediate, Verified 02/22/25 13:11) myalgias metformin Adverse Reaction (Mild, Verified 02/22/25 13:11) Diarrhea jardiance Adverse Reaction (Intermediate, Uncoded 02/22/25 13:11) blurry vision HPI Comments Details: This is a 49-year-old male with a past medical history of hyperlipidemia, type 2 diabetes diagnosed 2016, hypertension, SHERLEY, spondylosis and obesity presenting for diabetic management. He had lower back surgery September 2024. Initially he was doing really well and did physical therapy. He is walking a mile every day. His hemoglobin A1c decreased to 6.9%. Since his last visit he has developed some recurrent radicular symptoms and back pain. He saw his doctor and had an injection. He has also been eating a lot of sugary foods and carbohydrates during the holiday season. He notices his blood sugars have worsened. His hemoglobin A1c is 8.2%. He gained 11 lb since his visit in November. Current medication: Ozempic 2 mg weekly. Denies side effects. Past medications: Trulicity (blurry vision/ineffective) Metformin was discontinued previously due to diarrhea. Jardance stopped due to blurry vision and urinary frequency. Glimepride-he stopped after starting Ozempic. No alcohol. Nonsmoker. Hypoglycemia symptoms: none Hyperglycemia symptoms: none Microvascular complications: mild neuropathy in his feet. Macrovascular complications: none Hypertension: treated with Lisinopril 2.5 mg. Previously on Losartan which was discontinued due to mylagias. Hyperlipidemia: Patient is off statins and Zetia due to myalgias. His insurance denied PCSK9 inhibitor. He is taking [place] 3 fatty acids. ROS: Constitutional: No unexplained weight loss, fever, chills, fatigue or night sweats. Eyes: No loss of vision, blurry vision, double vision, eye pain, eye redness, eye discharge or itching. Respiratory: No shortness of breath, cough or sputum production. Cardiovascular: No chest pain, chest pressure or chest discomfort. No palpitations or pedal edema. Gastrointestinal: No nausea, vomiting or abdominal pain. Neurologic: No headache, dizziness, syncope, unilateral weakness, ataxia, numbness or tingling in the extremities. Physical exam: Constitutional: Alert, in no distress. Head: Normocephalic. Eyes: Pupils are equal, round and reactive to light. Extraocular muscles intact. Neck: Supple, Full range of motion. No lymphadenopathy. No palpable thyroid masses. Respiratory: Clear to auscultation. Cardiovascular: S1 S2 regular. No murmurs. [facility] Medical History Low testosterone Proteinuria Blurry vision Obesity due to excess calories Hx of sepsis Retropharyngeal abscess Cellulitis of pharynx Type 2 diabetes mellitus with hyperglycemia Elevated CPK DAVIS positive Fibromyalgia Controlled diabetes mellitus without complication, without long-term current use of insulin Hyperlipidemia LDL goal <100 Essential hypertension Vitamin D insufficiency Surgical History History of laminectomy History of throat surgery H/O shoulder surgery Family History Father No problems noted. Mother No problems noted. 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 Cognitive needs: No Hearing needs: No Vision needs: No Physical Exam Vital Signs: Last Vital Signs Pulse 86 02/22/25 13:10 BP 120/68 02/22/25 13:10 Pulse Ox 96 02/22/25 13:10 Oxygen Delivery Method Room Air 02/22/25 13:10 BMI result Body Mass Index 36.2 Results AMB Hemoglobin A1c AMB Hemoglobin A1c 8.2 % Last Edit by CJ Beckford on 02/22/25 13:26 Results Reviewed Results Reviewed: Laboratory Last Values Glucose (Clinic) 153 mg/dL (60-115) H 02/22/25 13:15 Hgb A1c (Clinic) 8.2 % (4.0-6.0) H 02/22/25 13:19 Laboratory Tests 02/18/25 02/22/25 10:27 13:19 Creatinine 0.71 Estimated GFR > 60 Hgb A1c (Clinic) 8.2 H AST 28 ALT 33 Alkaline Phosphatase 61 Triglycerides 348 H Cholesterol 241 H LDL Cholesterol, Calc 135 H HDL Cholesterol 37 L TSH 1.32 Assessment & Plan Assessment & Plan (1) Type 2 diabetes mellitus with hyperglycemia: Code(s): E11.65 - Type 2 diabetes mellitus with hyperglycemia Category: Medical Qualifiers: Diabetes mellitus [facility] insulin use: without mold maintenance technician use Qualified Code(s): E11.65 - Type 2 diabetes mellitus with hyperglycemia (2) Obesity due to excess calories: Code(s): E66.09 - Other obesity due to excess calories Category: Medical Qualifiers: Obesity classification: adult class 1 (BMI 30 - 34.9) Serious obesity comorbidity presence: with serious comorbidity Body mass index: BMI 33.0-33.9 Qualified Code(s): E66.09 - Other obesity due to excess calories; Z68.33 - Body mass index [BMI] 33.0-33.9, adult (3) Hyperlipidemia LDL goal <100: Code(s): E78.5 - Hyperlipidemia, unspecified Category: Medical Plan In summary this is a 49 year old male with uncontrolled type 2 diabetes with neuropathy. Continue Ozempic 2 mg weekly. Restart glimepiride 2 mg with breakfast. He has gained weight, and he is not following a diabetic diet. He says that he is going to try this again after the holidays. Discussed pathophysiology of Type II Diabetes Mellitus with the patient in detail.? I explained the mold maintenance technician risks and complications associated with uncontrolled diabetes including nephropathy, neuropathy, peripheral vascular disease, retinopathy, increased risk of heart disease and stroke.? If you experience low blood sugar, treat this by eating a chewable fruit candy like skittles or jelly beans (about 8 pieces), 4 ounces (1/2 cup) of fruit juice (not diet), 1 tablespoon of honey or 4 glucose tablets. If your blood sugar is under 50, take double the amount of one of the above. Recheck your blood sugar in 15 minutes. Continue [place]lake 3. Statin intolerant. Did not tolerate Zetia. Insurance did not cover Repatha. Recommended Mediterranean diet. He was evaluated by Nephrology for proteinuria. Continue lisinopril. Follow up in 3 months for type 2 diabetes. Orders: Orders AMB Hemoglobin A1c Today E11.9 - Type 2 diabetes mellitus without complications Medications: New glimepiride administer with breakfast 2 mg PO QAM 90 tabs 0RF Refilled semaglutide (Ozempic) 2 mg (0.75 mL) subcut QWEEK 3 mL 3RF Coding Level of Care Code Est Pt Level 4 (68210) Complex visit Add On G2211 Diagnoses Type 2 diabetes mellitus with hyperglycemia, without long-term current use of insulin E11.65 Diabetes mellitus mold maintenance technician insulin use: without [facility] use Class 1 obesity due to excess calories with serious comorbidity and body mass index (BMI) of 33.0 to 33.9 in adult E66.09; Z68.33 Obesity classification: adult class 1 (BMI 30 - 34.9) Serious obesity comorbidity presence: with serious comorbidity Body mass index: BMI 33.0-33.9 Hyperlipidemia LDL goal <100 E78.5
[2025-02-22 13:10] VITALS: BP 120/68; PULSE 86; O2SAT 96; BMI 36.2
[2025-02-22 13:19] LABS: Glucose, Whole Blood 153 mg/dL (60-115)
--- OUTSIDE RECORDS SUMMARY | 2025-02-22 17:01 | XMS_ITS | Clinical Summary ---
Author Organization [facility] Address [address] [place] [address] Care Team Providers Care Filter Tank Tender Helper Name Role Phone Jeff Chi NP Primary Care Provider [phone] Allergies Active Allergy Reactions Criticality Noted Date [...] Vaccine (#1) 2024 Insurance [employer] Open Access ([id number]) Care Teams Filter Tank Tender Helper Relationship Specialty Start Date End Date Jeff Chi NP [address] [place] [address] PCP - General Nurse Practitioner 08/06/20
--- OUTSIDE RECORDS SUMMARY | 2025-02-22 17:01 | XMS_ITS | Clinical Summary ---
Author Organization [address] [facility] Address [address] [place] [address] Phone Care Team Providers Care Customer Leader Name Role Phone Jeff Chi NP Primary [...] mellitus), type 2 with peripheral vascular complications ([facility]) H/O retropharyngeal abscess DX:H /O retropharyngeal abscess [...] age to complete this topic Insurance [facility] PL[facility] Care Teams Customer Leader Relationship Specialty Start Date End Date Jeff Chi NP [address] [place], [place] PCP - General Family Medicine 07/30/19
--- OUTSIDE RECORDS SUMMARY | 2025-02-22 17:01 | XMS_ITS | Clinical Summary ---
Author Organization [employer] Address [address] [place] [address] 7 [place] [address] Care Team Providers Care Mail Sorter Name Role Phone Unavailable Primary Care Provider [...] patient's age to complete this topic Insurance [facility]
--- OUTSIDE RECORDS SUMMARY | 2025-02-22 17:01 | XMS_ITS | Encounter Summary ---
Author Organization [employer] [facility] Address [address] [place] [address] [address] [place] [address] Care Team Providers Care Coater Slate Name Role Phone Unavailable Primary Care Provider Unavailabl e Encounter Details Date Type Department Care Team (Latest Contact Info) Description 03/05/2020 Abstract [facility] CONVERSIONS Dental, Provider, DDS Social History [...]
== END 2025-02-22 13:57 | disposition home or self-care (01) ==
LOC: HO.ENCR 13:05
PROVIDERS: PCP Nurse Practitioner Family; Visit Provider Physician Assistant Medical
DX: E11.65 Type 2 diabetes mellitus with hyperglycemia (principal); E66.09 Other obesity due to excess calories; Z68.33 Body mass index [BMI] 33.0-33.9, adult; E78.5 Hyperlipidemia, unspecified; E11.9 Type 2 diabetes mellitus without complications

== ENCOUNTER → 2025-02-22 13:04 | Outpatient (BNVA) | payer OTHER, SELFPAY | PROVIDERS: PCP Nurse Practitioner Family; Visit Provider Physician Assistant Medical | DX: E11.65 Type 2 diabetes mellitus with hyperglycemia (principal); E66.09 Other obesity due to excess calories; E78.5 Hyperlipidemia, unspecified; Z79.85 Long-term (current) use of injectable non-insulin antidiabetic drugs; Z79.899 Other long term (current) drug therapy; Z71.3 Dietary counseling and surveillance; Z68.33 Body mass index [BMI] 33.0-33.9, adult | CPT/HCPCS: 82947; 83036; 99212 ==

== ENCOUNTER 2025-03-20 11:15 | Outpatient (AMB) | payer OTHER, SELFPAY ==
[2025-03-20 11:34] VITALS: BP 122/70; PULSE 87; TEMP 36.9; O2SAT 97; BMI 35.7
--- NOTE | 2025-03-20 11:34 | AM.OFFWIN_ITS ---
Intake Vital Signs 03/20/25 11:34 Height 6 ft Weight 263 lb BMI 35.7 BP 122/70 Blood Pressure Location Rt brachial Position Sitting Pulse 87 Pulse Source Pulse Oximeter Temp 98.4 F Temp Source Oral Pulse Oximetry (%) 97 Oxygen Delivery Method Room Air Intake Visit Reasons: EP Body pain, headache, cough Intake Note: Patient presents c/o cough, headache, sinus congestion x2 days. Patient Tobacco Use Status: Never used Tobacco Allergies ertapenem Allergy (Intermediate, Verified 03/20/25 11:37) Hives piperacillin (From Zosyn) Allergy (Intermediate, Verified 03/20/25 11:37) Hives tazobactam (From Zosyn) Allergy (Intermediate, Verified 03/20/25 11:37) Hives vancomycin Allergy (Intermediate, Verified 03/20/25 11:37) Hives ezetimibe (From Zetia) Adverse Reaction (Intermediate, Verified 03/20/25 11:37) myalgias Heccgon-ZOY-CjI Reductase Inhibitor Adverse Reaction (Intermediate, Verified 03/20/25 11:37) myalgias metformin Adverse Reaction (Mild, Verified 03/20/25 11:37) Diarrhea jardiance Adverse Reaction (Intermediate, Uncoded 03/20/25 11:37) blurry vision HPI HPI Comments History of Present Illness Details He presents to office with flu like symptoms Few days ago onset + headache, congestion, fatigue, body ac hes No fever or chills + cough without phlegm He has tried tylenol, theraflu without relief Patient denies SOB No abdominal pain or vomiting + decreased appetite is also sick at [facility] History Low testosterone Proteinuria Blurry vision Obesity due to excess calories Hx of sepsis Retropharyngeal abscess Cellulitis of pharynx Type 2 diabetes mellitus with hyperglycemia Elevated CPK DAVIS positive Fibromyalgia Controlled diabetes mellitus without complication, without long-term current use of insulin Hyperlipidemia LDL goal <100 Essential hypertension Vitamin D insufficiency Surgical History History of laminectomy History of throat surgery H/O shoulder surgery Family History Father No problems noted. Mother No problems noted. 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 Cognitive needs: No Hearing needs: No Vision needs: No Review of Systems Const Reports body aches, Denies chills, Reports fatigue and Denies fever(s) Eyes Denies blurry vision ENT Denies dizziness, Denies ear discharge, Reports nasal congestion, Reports nasal discharge, Denies sinus pressure and Denies sore throat Card Denies chest pain, Denies syncope and Denies dyspnea Resp Denies change in phlegm color, Reports chest congestion, Reports cough and Denies dyspnea GI Denies abdominal pain, Denies diarrhea, Denies nausea and Denies vomiting Musc Reports myalgias Neuro Denies dizziness and Denies syncope Endo Reports fatigue Physical Exam Exam Exam: General: Non-toxic, NAD. Speaking full sentences. Skin: Warm dry throughout Eye: EOMI HENT: Airway patent. Uvula midline. slight pharyngeal erythema withou exudates or edema. 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 Bilateral canals clear. slight TM erythematous, without bulging. No TM perforation or hemotympanum noted. Lymph: No lymphadenopathy palpated Respiratory: CTA bilaterally. No wheezes, rales or rhonchi Cardiac: RRR. No murmur MSK: Full ROM extremities. Neurology: Alert. No aphasia or facial droop. Gait without abnormality Psych: Good mood and affect Vital Signs: Last Vital Signs Temp 98.4 F 03/20/25 11:34 Pulse 87 03/20/25 11:34 BP 122/70 03/20/25 11:34 Pulse Ox 97 03/20/25 11:34 Oxygen Delivery Method Room Air 03/20/25 11:34 BMI result Body Mass Index 35.7 Assessment & Plan Assessment & Plan (1) Upper respiratory infection: Code(s): J06.9 - Acute upper respiratory infection, unspecified Qualifiers: URI type: unspecified viral URI Qualified Code(s): J06.9 - Acute upper respiratory infection, unspecified Plan: Patient seen and evaluated. Lungs CTA He declined covid.flu/rsv testing Will cover with nasal steroid and tessalon No work note needed Increase fluids/rest F/U with PCP Patient gave verbal understanding and had no additional questions or concerns at time of discharge All questions answered Medications: New benzonatate 100 mg PO BID-TID PRN 14 caps 0RF cough ipratropium bromide administer into each nostril 2 sprays intranasal BID-TID PRN 30 mL 0RF allergy symptoms 1 week Coding Level of Care Code Est Pt Level 3 (35809) Diagnoses Viral upper respiratory tract infection J06.9 URI type: unspecified viral URI
--- OUTSIDE RECORDS SUMMARY | 2025-03-20 12:50 | XMS_ITS | Clinical Summary ---
Author Organization [facility] Address [address] [place] [address] Phone Care Team Providers Care Plant Attendant Name Role Phone Jeff Chi NP Primary Care Provider [phone] Surgical History Surgery Date Site/Laterality Comments OTHER [...] mellitus), type 2 with peripheral vascular complications ([facility]) H/O retropharyngeal abscess DX:H /O retropharyngeal abscess [...] on file Sexual Orientation Not on file Last Filed Vital Signs [...] patient's age to complete this topic Insurance [facility] PLAN Care Teams Plant Attendant Relationship Specialty Start Date End Date Jeff Chi NP [address] [place], [place] PCP - General Family Medicine 07/30/19
--- OUTSIDE RECORDS SUMMARY | 2025-03-20 12:50 | XMS_ITS | Encounter Summary ---
Author Organization [facility] Address [address] [place] [address] [address] [place] [address] Care Team Providers Care Manager Inventory Management Name Role Phone Unavailable Primary Care Provider Unavailabl e Encounter Details Date Type Department Care Team (Latest Contact Info) Description 03/05/2020 Abstract [facility] CONVERSIONS Dental, Provider, DDS Social [...]
--- OUTSIDE RECORDS SUMMARY | 2025-03-20 12:50 | XMS_ITS | Clinical Summary ---
Author Organization [facility] Address [address] [place] [address] Care Team Providers Care Digital Circuit Designer Name Role Phone Jeff Chi NP Primary Care Provider [phone] Allergies Active Allergy Reactions Criticality Noted Date [...] Vaccine (#1) 2024 Insurance [employer] Open Access ([id number]) Care Teams Digital Circuit Designer Relationship Specialty Start Date End Date Jeff Chi NP [address] [place] [address] PCP - General Nurse Practitioner 08/06/20
--- OUTSIDE RECORDS SUMMARY | 2025-03-20 12:50 | XMS_ITS | Clinical Summary ---
Author Organization [employer] Address [address] [place] [address] [address] [place] [address] Care Team Providers Care Tracer Lathe Set Up Operator Name Role Phone Unavailable Primary Care [...] to complete this topic Insurance [facility]
== END 2025-03-20 12:26 | disposition home or self-care (01) ==
PROVIDERS: PCP Nurse Practitioner Family; Visit Provider Physician Assistant
DX: J06.9 Acute upper respiratory infection, unspecified (principal)

== ENCOUNTER → 2025-03-20 11:15 | Outpatient (BNVA) | payer OTHER, SELFPAY | PROVIDERS: PCP Nurse Practitioner Family; Visit Provider Physician Assistant | DX: J06.9 Acute upper respiratory infection, unspecified (principal); Z53.20 Procedure and treatment not carried out because of patient's decision for unspecified reasons | CPT/HCPCS: 99212 ==